=== PATIENT | female | born 1960 | race Caucasian/White ===

== ENCOUNTER 2019-04-11 09:47 | Emergency (ER) | payer MEDICARE, MEDICAID, SELFPAY ==
[2019-04-11 09:51] VITALS: BP 157/83; PULSE 94; RESP 18; TEMP 36.2; O2SAT 96
--- NOTE | 2019-04-11 10:03 | ED.GENADUL_ITS ---
Discharge Plan Disposition Patient Disposition: HOME Condition: Improving Discharge Details Chief Complaint: Orthopedic Clinical Impression: Osteoarthritis of left knee Primary Care Provider: None,None ED Provider: Ulysses Basilio Home Meds and New Rx's Prescriptions: New diclofenac sodium 1 % gel 4 gm TP BID PRN (Reason: pain) Qty: 100 RF: 0 Continued fluoxetine 20 mg Tablet 20 mg PO DAILY RF: 0 Discharge Instructions Instructions: Arthritis (ED) Additional Instructions: We have referred you to orthopedics for recheck. Please give the office a call at [phone] for an appointment time Tan bandage as needed for comfort, remove at nighttime. Please take 650 to 1000 mg of Tylenol every 6 hours while awake. Do not exceed more than 3 doses per day. Apply diclofenac cream as prescribed twice daily. Return for any acute concern, or if you develop a fever, redness, increased swelling or discomfort. Medical Decision Making 58-year-old female presents with 3 years of worsening left anterior knee pain. States that now is having difficulty sleeping at night despite trying Motrin. No new injury, no rash, no fever, no evidence of large effusion on exam. Referred for x-ray which reveals degenerative changes, with trophic spurring, small joint effusion. Will treat with diclofenac cream, Tan bandage for support and comfort, follow-up in orthopedics given the symptomatic osteoarthritic changes. Discussed with her home management. [facility] General Mode of arrival: ambulatory . Date/Time Provider Initiated Documentation: 04/11/19 09:48 . Limitations to Documentation: no limitations . Information obtained by: patient . History of Present Illness 58 year old F presents to the emergency department with the chief complaint of 3 years increasing left anterior knee pain, described as moderate, Quality is described as dull and constant, and is localized to the left and lower extremity. Patient reports no radiation. Patient started experiencing this year(s) and it has been intermittent. Rest improves symptom(s), Movement worsens symptoms . Patient notes no other symptoms.; denies fever/chills and rash. Patient did receive the following treatments prior to arrival, NSAID Related Data Home Medications Medication Instructions Recorded Confirmed diclofenac sodium 4 gm TP BID PRN #100 gm 04/11/19 fluoxetine 20 mg PO DAILY 04/11/19 04/11/19 Previous Rx's Medication Instructions Recorded diclofenac sodium 4 gm TP BID PRN #100 gm 04/11/19 Allergies Allergy/AdvReac Type Severity Reaction Status Date / Time Penicillins Allergy Unverified 04/11/19 09:54 General Stated Complaint: Orthopedic MARLINE: 4 Review of Systems Review of Systems Narrative: No fever, chills, rash, new injury or trauma. 6 systems reviewed and otherwise negative [facility] Medical History Anxiety (Chronic) Bipolar 1 disorder (Acute) Depression (Chronic) Multiple personality disorder (Acute) Social History Smoking/Tobacco Use Status: Never Alcohol Intake: current Alcohol Intake frequency: 3 or more drinks per day Substance use type: does not use Do you feel safe at home: Yes Exam Narrative Exam Narrative: GEN: awake, alert, oriented 3. Pleasant, well groomed, interactive. HEAD: Normocephalic, atraumatic EYES: PERRL, EOMI EXT: Full ROM, no edema, no rash. Motor 5 out of 5, sensation intact throughout. Mild anterior knee tenderness to palpation, no laxity, no effusion appreciated. Neuro: Grossly normal neurologic exam, conversant, interactive. Psych: Speech fluent, thoughts congruent, affect normal Course Vital Signs Vital signs: Vital Signs Temperature 36.2 C L 04/11/19 09:51 Pulse 94 H 04/11/19 09:51 Respiratory Rate 18 04/11/19 09:51 Blood Pressure 157/83 H 04/11/19 09:51 Pulse Oximetry 96 04/11/19 09:51 Temperature 36.2 C L 04/11/19 09:51 Temperature Source Skin 04/11/19 09:51 Pulse 94 H 04/11/19 09:51 Respiratory Rate 18 04/11/19 09:51 Respiratory Effort Non-Labored 04/11/19 09:57 Blood Pressure 157/83 H 04/11/19 09:51 Blood Pressure Position Sitting 04/11/19 09:51 Pulse Oximetry 96 04/11/19 09:51 Oxygen Delivery Method Room Air 04/11/19 09:51 Oxygen Flow Rate 0 04/11/19 09:51 Pain Level 6 04/11/19 09:51
--- NOTE | 2019-04-11 10:20 | DI.RAD_ITS ---
EXAM: XR KNEE LT 4V AP,LAT,ROD,PAT INDICATION: 3years increasing anterior pain. COMPARISON: No exams were available for comparison TECHNIQUE: 2D digital imaging was performed. FINDINGS: No acute fracture or dislocation is present. There is periarticular spurring seen in the medial femo ral tibial joint and the patellofemoral joint. There is a small suprapatellar joint effusion. There may be mild soft tissue swelling in the knee medially. Alternatively, this may reflect the patient' s body habitus. The bones are normally mineralized. IMPRESSION: No acute fracture or dislocation. Mild degenerative changes in the knee. Small joint effusion.
--- NOTE | 2019-04-11 11:11 | DI.VRAD_ITS ---
PROCEDURE INFORMATION: Exam: XR Left Knee Exam date and time: 04/11/2019 10:17 AM Clinical history: 58 years old, female; Patient HX: Pain in left knee x3 years, anterior portion of left knee. No recent knee trauma, fell 3 years ago. TECHNIQUE: Imaging protocol: XR Left knee. Views: 4 or more views. COMPARISON: No relevant prior studies available. FINDINGS: Bones/joints: There appears to be a small joint effusion. There are degenerative changes with medial compartment are trophic spurring at the patellofemoral articulation and medial femoral condyle. Soft tissues: There appears to be medial soft tissue swelling versus artifact and patient body habitus. Clinical correlation requested. IMPRESSION: Small joint effusion. Degenerative changes. Medial soft tissue swelling. If there is no history for recent trauma followup is recommended. COMMENT: Preliminary interpretation is based on receipt of 4 image(s). A final report will be issued subsequently. Dictated and Authenticated by: Nel Wu MD. Ordering:ANDREA Arora MD
== END 2019-04-11 11:23 | disposition home or self-care (01) ==
PROVIDERS: Emergency Provider Emergency Medicine
DX: M25.562 Pain in left knee (principal); M17.12 Unilateral primary osteoarthritis, left knee
CPT/HCPCS: 99283; 73564

== ENCOUNTER → 2019-05-07 08:50 | Outpatient (BNVA) | payer MEDICARE, MEDICAID, SELFPAY | PROVIDERS: Visit Provider Student in an Organized Health Care Education/Training Program | DX: M17.12 Unilateral primary osteoarthritis, left knee (principal) | CPT/HCPCS: 20610; 99203; J1040 ==

== ENCOUNTER → 2019-06-17 08:17 | Outpatient (BNVA) | payer MEDICARE, MEDICAID, SELFPAY | PROVIDERS: Visit Provider Student in an Organized Health Care Education/Training Program | DX: M17.12 Unilateral primary osteoarthritis, left knee (principal); M76.32 Iliotibial band syndrome, left leg | CPT/HCPCS: 99213 ==

== ENCOUNTER 2019-12-24 12:25 | Emergency (ER) | payer MEDICARE, MEDICAID, SELFPAY ==
[2019-12-24 12:29] VITALS: BP 145/80; PULSE 106; RESP 18; TEMP 36.6; O2SAT 97
--- NOTE | 2019-12-24 12:45 | DI.CT_ITS ---
EXAM: CT CHEST PE CTA CLINICAL HISTORY: chest pain and tachycardia. TECHNIQUE: Imaging Protocol: Axial CT angiography was performed with multi-slice acquisition and mu lti-planar and/or 3D reconstructions. CONTRAST MATERIAL: Intravenous: Omnipaque 350 Contrast volume:100 mL COMPARISON: No exams were available for comparison FINDINGS: Pulmonary Arteries: No evidence of filling defect to suggest pulmonary emboli. Tracheobronchial tree: Patent where visualized. Mediastinum and Allison: No dominant adenopathy or fluid collection. Pulmonary parenchyma: No focal consolidation. There is a 0.5 cm nodule abutting the right major fiss ure which may represent a lymph node. There is a 3 mm nodule in the left lower lobe medially. No ar chitectural distortion. Pleura: No effusion or pneumothorax. Heart: The heart is not dilated. No coronary artery calcifications are seen. No pericardial effusion. Aorta: Thoracic aorta non-dilated. No evidence of dissection. Upper abdomen: Unremarkable. Bones: No acute abnormality. IMPRESSION: 1. No evidence of pulmonary embolus, thoracic aortic dissection or aneurysm. 2. Two small pulmonary nodules. Right nodule may represent a lymph node. In high risk patients, fol low-up in 12 months is recommended. 3. Findings were discussed with the emergency department on the date of the examination. RADIATION DOSE DELIVERED: 499.14mGy.cm Total DLP DATA REPOSITORY: All CT scans at this facility are submitted to the National Radiology Data Registry (NRDR) Dose Index Registry (DIR) with the [employer] (ACR). RADIATION OPTIMIZATION: All CT scans at this facility use at least one of these dose optimization te chniques: automated exposure control; mA and/or kV adjustment per patient size (includes targeted exa ms where dose is matched to clinical indication); or iterative reconstruction.
--- NOTE | 2019-12-24 12:49 | ED.GENADUL_ITS ---
Discharge Plan Disposition Patient Disposition: HOME Condition: Stable Discharge Details Chief Complaint: Chest Pain Clinical Impression: Chest pain Primary Care Provider: None,None ED Provider: Km Bass Home Meds and New Rx's Prescriptions: Continued fluoxetine 20 mg Tablet 20 mg PO DAILY RF: 0 Discharge Instructions Instructions: Chest Pain (ED) Additional Instructions: Your blood work and cat scan did not show any concerning findings. You did have a lung nodule seen on the cat scan which you should make your primary care provider aware of. You should have repeat imaging in one year return to the emergency department for worsening pain, difficulty breathing or if you feel more ill follow up with your primary care provider within 1 week Medical Decision Making 59 yo female with hx of depression otherwise no medicalhistory and denies any history of smoking comes in with intermittent chest pain. Doesn't feel the pain comes on with exertion, no diaphoresis or n/v. She has no pain now last pain was this morning. Heart score is 3 will send troponin. She does have mild tachcardia and PE is just as likely a dianosis as other potential causes so wells is moderate, will obtain CTA. No tearing back ain to suggest dissection.She is caox4 with clear speach and no focal neuro deficits patient remains asymptomatic and imaging and labs unremarkable, CT shows lung nodule otherwise no findings perDr. Quiroz. I informed patient of this. She last had pain over 6 hours ago so do not feel repeat troponin and ecg indicated. Will dc home and advised to f/u with pcp, return precautions given Differential Diagnosis Differential Diagnosis: acs, PE, chest wall pain Imaging Data Radiologic Study: Attestation: I personally reviewed and interpreted this imaging study as follows: Imaging: CT Scan Radiologist's impression: no acute findings per dr. quiroz, has lung nodule and recommends repeat imaging in one year Lab Data Lab results reviewed: Yes I reviewed the patient's lab results. ECG Data Attestation: I personally reviewed and interpreted this ECG (s) as follows: Prior ECG tracings: not available for review Interpretation: sinus rhythm, rate of 86, pr 84, qtc 435 HPI General Mode of arrival: ambulatory . Date/Time Provider Initiated Documentation: 12/24/19 12:30 . Limitations to Documentation: no limitations . Information obtained by: patient . History of Present Illness 59 year old F presents to the emergency department with the chief complaint of chest pain, described as moderate, and it has been intermittent. No relieving factors improve symptom(s), No exacerbating factors reported . Patient did receive the following treatments prior to arrival, none Related Data Home Medications Medication Instructions Recorded Confirmed fluoxetine 20 mg PO DAILY 04/11/19 12/24/19 Allergies Allergy/AdvReac Type Severity Reaction Status Date / Time Penicillins Allergy Intermediate Hives Unverified 12/24/19 12:56 General Stated Complaint: Chest Pain MARLINE: 3 Review of Systems All systems reviewed & are unremarkable except as noted in HPI and below Constitutional Constitutional: Denies chills, Denies fever(s) and Denies weakness Cardiovascular Cardiovascular: Denies dyspnea Respiratory Respiratory: Denies dyspnea Gastrointestinal Gastrointestinal: Denies abdominal pain, Denies nausea and Denies vomiting Musculoskeletal Musculoskeletal: Denies joint swelling Neurologic Neurologic: Denies weakness Psychiatric Psychiatric: Denies depression [facility] Medical History (Updated 12/24/19 @ 13:53 by Km Bass MD) Alcohol abuse (Chronic) Anxiety (Chronic) Bipolar 1 disorder (Acute) Cervical cancer (Acute) Depression (Chronic) Knee pain (Acute) Multiple personality disorder (Acute) Poor dentition (Acute) Social History Smoking/Tobacco Use Status: Never Alcohol Intake: current Alcohol Intake frequency: 3 or more drinks per day Substance use type: does not use Do you feel safe at home: Yes Do you feel safe in your relationship?: Yes Exam Const General: no acute distress Orientation: alert HENMT Head: normal to inspection Ears: external ears normal General nose exam: external nose normal Mouth: moist mucous membranes Eyes General: appearance normal, both eyes and all related structures Neck Neck: normal visual inspection Resp Effort & Inspection: normal respiratory effort and able to speak in complete sentences Cardio Rate: regular rate Skin General skin exam: no rashes or lesions noted Neuro General: patient alert and patient oriented x3 Extrem General: normal to inspection Psych Mental Status: mental status grossly normal Course Vital Signs Vital signs: Vital Signs Temperature 36.6 C 12/24/19 12:29 Pulse 106 H 12/24/19 12:29 Respiratory Rate 18 12/24/19 12:29 Blood Pressure 145/80 H 12/24/19 12:29 Pulse Oximetry 97 12/24/19 12:29 Temperature 36.6 C 12/24/19 12:29 Temperature Source Temporal Artery Scan 12/24/19 12:29 Pulse 106 H 12/24/19 12:29 Respiratory Rate 18 12/24/19 12:29 Blood Pressure 145/80 H 12/24/19 12:29 Blood Pressure Position Sitting 12/24/19 12:29 Pulse Oximetry 97 12/24/19 12:29 Oxygen Delivery Method Room Air 12/24/19 12:29 Oxygen Flow Rate 0 12/24/19 12:29 Pain Level 3 12/24/19 12:29
[2019-12-24 12:52] VITALS: RESP 18
[2019-12-24] MEDS: Aspirin 81 MG CHEW 324 MG CH (13:00)
[2019-12-24 13:07] LABS: Lipase 50 U/L (73-393)
[2019-12-24 13:11] LABS: PTT Activated 23.2 sec (21.0-31.4); Prothrombin Time 9.8 sec (9.3-11.0)
[2019-12-24 13:20] LABS: ALT 60 U/L (14-59); AST 37 U/L (15-37); Albumin 3.6 g/dL (3.4-5.0); Alkaline Phosphatase 98 U/L (46-116); Anion Gap 11.1 mmol/L (3-11); BUN 6 mg/dL (7-18); Bilirubin, Direct 0.33 mg/dL (0.00-0.20); Bilirubin, Total 1.2 mg/dL (0.2-1.0); CO2 24.9 mmol/L (21.0-32.0); CREATININE 0.84 mg/dL (0.55-1.02); Calcium 8.6 mg/dL (8.5-10.1); Chloride 96 mmol/L (98-107); Glucose 124 mg/dL (74-106); Magnesium 1.8 mg/dL (1.8-2.4); Potassium 3.9 mmol/L (3.5-5.1); Sodium 132 mmol/L (136-145); Total Protein 7.1 g/dL (6.4-8.2)
[2019-12-24 13:24] LABS: Troponin I < 0.05 ng/mL (<0.06)
[2019-12-24 13:33] LABS: Abs Immature Grans 0.08 k/cumm (0.0-0.09); Absolute Basophil Count 0.02 k/cumm (0.0-0.2); Absolute Eosinophil Count 0.06 k/cumm (0.0-0.7); Absolute Lymphocyte Count 0.99 k/cumm (1.2-3.4); Absolute Monocyte Count 0.74 k/cumm (0.11-0.7); Absolute Neutrophil Count 4.56 k/cumm (1.2-6.7); Basophils % 0.3; Eosinophils % 0.9; HCT 42.1 % (36.0-46.0); HGB 14.8 g/dL (12.0-15.5); Immature Grans % 1.2 %; Lymphocytes % 15.3; Mean Corp. HGB Concentration 35.2 g/dL (32.0-36.0); Mean Corpuscular Hemoglobin 33.6 pg (27.0-33.0); Mean Corpuscular Volume 95.7 fL (80-95); Mean Platelet Volume 10.2 fL (8.0-11.0); Monocytes % 11.5; Neutrophils % 70.8; RBC Distribution Width 11.9 % (11.7-14.6); White Blood Cell Count 6.45 k/cumm (4.4-10.8)
[2019-12-24] MEDS: Omnipaque 350 MG/ML 100 ML BTL IJ (13:36)
[2019-12-24] MEDS: Normal Saline - Diluent 50 ML VIAL IV (13:37)
[2019-12-24 13:47] VITALS: PULSE 81; RESP 13; O2SAT 98
[2019-12-24 13:50] VITALS: PULSE 78; RESP 13; O2SAT 97
[2019-12-24 13:57] LABS: Diff Comment PLT Morph Reviewed; Platelet Count 69 x1000/uL (130-400); RBC Morphology Normal
[2019-12-24 14:00] VITALS: PULSE 86; RESP 16; O2SAT 97
[2019-12-24 14:01] VITALS: BP 150/58; PULSE 86; PULSE 90; RESP 20; O2SAT 99
== END 2019-12-24 14:13 | disposition home or self-care (01) ==
LOC: ER 14:01
PROVIDERS: Emergency Provider Emergency Medicine; PCP Nurse Practitioner Family
DX: R07.89 Other chest pain (principal); R91.1 Solitary pulmonary nodule
CPT/HCPCS: 36415; 71275; 80053; 83690; 93005; 99285; 82248; 83735; 84484; 85025; 85610; 85730; 93010; 99284; J3490

== ENCOUNTER → 2020-01-19 10:40 | Outpatient (BNVA) | payer MEDICARE, MEDICAID, SELFPAY | PROVIDERS: PCP Nurse Practitioner Family; Referring Provider Nurse Practitioner Family; Visit Provider Surgery | DX: K62.5 Hemorrhage of anus and rectum (principal) | CPT/HCPCS: 99202; 99214 ==

== ENCOUNTER 2020-01-27 10:40 | Day surgery (SDC) | payer MEDICARE, MEDICAID, SELFPAY ==
--- NOTE | 2020-01-27 08:50 | W.COLOREPORT ---
Date of service: 01/27/20 Colonoscopy Report Date of procedure: 01/27/20 Procedure: Polypectomy x3 Anesthesia proc note operative: MAC Estimated blood loss (mL): 5 Pathology: other Complications: None Disposition: same day Prep: Miralax/Dulcolax Retraction Time: 30 mins Procedure Description: Recommend youAfter informed consent was obtained the patient was taken to the procedure room and placed in a left decubitous position. Monitors were applied and a time out was done. The patients name, date of , procedure, allergies to medications and metal in their body was reviewed. The patient was then sedated. Once sedated and comfortable a rectal exam was done. External exam was normal. Internal exam revealed a normal sphincter tone and no palpable masses. The scope was then introduced and retrofelexed. no internal hemorrhoids were identified. The scope was then advanced to the cecum w/out difficulty. The TI and appendiceal orifice were identified. The prep was adequate. The scope was then slowly retracted over 30 minutes back into the rectum. He has 2 large polyps both are flat. 1 is at 80 cm. this is removed with multiple passes of a hot snare. All specimen is retrieved. No bleeding is noted. 1 Endo Clip was placed across the defect. Patient has another small polyp at 20 cm. This is removed with a hot snare. Specimen is retrieved. Patient has a large mass within the rectum. This appears to be just a flat polyp. It is probably about 3 cm. This was removed with multiple passes of a hot snare. And is cauterized with a biopsy forcep. There is no bleeding noted at the time of removal. There is no signs of any diverticula. The mucosa is pink and healthy patient will need to have a colonoscopy repeated in 6 months time. Further recommendations to follow pending results of biopsy. The scope was removed and the patient was woken up and taken back to Same day surgery in stable condition. The patient tolerated the procedure well and there were no immediate complications. Follow up: The patient should follow up in 6m time. If there is any signs of cancer she will be referred to oncology for radiation therapy. Unless they develop changes in bowel habits or other new gastrointestinal complaints.
--- NOTE | 2020-01-27 08:50 | W.PM.DSUDISC ---
Discharge Plan Disposition Patient Disposition: HOME Condition: Good Discharge Details Reason For Visit: adenomatous polyps x3 Attending Provider: Shannan Espino Primary Care Provider: Medina Ramirez Home Meds and New Rx's Prescriptions: No Action fluoxetine 20 mg Tablet 20 mg PO DAILY RF: 0 Discharge Instructions Additional Instructions: Findings:x2 lg polyps -will need to repeat scope in 6months -No ASA/NSAID's x 14 days -low fiber/soft diet x3 days -expect to have bleeding w/ first BM. IF bleeding is continuous, or start passing large clots. OR having any abdominal pain/vomiting/fevers- go to the ER. Follow up:In am w/ Dr. Espino. Need to be at the office at 9:15am, Saturday 01/27. Please call if you develop: fevers >101.5 Nausea or Vomiting Abdominal pain that is not transient DAY SURGERY UNIT POST COLONOSCOPY INSTRUCTIONS 1. Because there will be medication in your system for the next 24 hours, you may feel a little sleepy. Your coordination will be affected. Therefore: a. Do not drive or operate dangerous equipment for 24 hours. b. Do not drink alcohol beverages for 24 hours (not even beer). c. Plan to go home and rest for the day. 2. Generally there are no restrictions on your activity after a day or so has gone by, but you may feel a bit fatigued for a few days. 3 After you arrive home you may have a light meal and return to a normal diet as you can tolerate it without feeling sick to your stomach. 4. After surgery, you may feel pain or discomfort. This should be only transient, but if it persists please contact your doctor. 5. If there are any questions regarding the findings of your procedure, please feel free to contact your doctor. 6. If you are unable to contact your doctor with a problem, contact the hospital at [phone]. 7. Continue all your regular medications unless directed otherwise. I understand the above instructions and have no questions. Signature of Patient or Responsible Adult Escort Date/Time Name of Responsible Adult Escort Signature of Nurse Date/Time Discharge Orders Discharge Orders: Discharge Order (Routine); Ordered 01/27/20 Ordered By: Shannan Espino DS: Diagnosis Discharge Diagnosis (1) Anal and rectal polyp: Status: Acute (2) Adenomatous polyps: Status: Acute
[2020-01-27 11:26] VITALS: BP 149/86; PULSE 83; RESP 16; TEMP 36.2; O2SAT 97
[2020-01-27] MEDS: Lactated Ringers 1,000 ML 80 ML IV (12:20)
--- NOTE | 2020-01-27 12:50 | BOWEL_PTH ---
PATIENT: Katie Bucio LOC: [facility] U#:[id number] AGE/SX: 59/F ROOM: RE01/27/[address]: Shannan Espino : 1960 BED: DIS: 01/27/2020 SPEC #: [id number] RECD: 01/27/20 17:56 STATUS: MELISSA REQ #: [id number] MONICA: 01/27/20 12:[address]: Shannan Espino DEPT: Surgical Specimen RECD BY: Madisyn Angelo ENTERED: 01/27/20 17:57 SP TYPE: Bowel OTHR DR: Medina Ramirez Tissues: 1 - BIOPSY BOWEL 2 - BIOPSY BOWEL 3 - BIOPSY BOWEL Procedures: GROSS AND MICRO LEVEL 4 Comments: [id number]
[2020-01-27 14:02] VITALS: BP 138/74; PULSE 74; RESP 17; TEMP 36.2; O2SAT 100
== END 2020-01-27 14:58 | disposition home or self-care (01) ==
PROVIDERS: PCP Nurse Practitioner Family; Visit Provider Surgery
PROC: 0DJD8ZZ Inspection of Lower Intestinal Tract, Via Natural or Artificial Opening Endoscopic (ICD-10-PCS; CPT 45378; principal; 2020-01-27 11:15)
DX: D12.6 Benign neoplasm of colon, unspecified (principal); Z12.11 Encounter for screening for malignant neoplasm of colon; D12.8 Benign neoplasm of rectum; K62.5 Hemorrhage of anus and rectum; Z83.71 Family history of colonic polyps; Z85.41 Personal history of malignant neoplasm of cervix uteri
CPT/HCPCS: 45385; 88305; J2001

== ENCOUNTER → 2020-01-28 09:13 | Outpatient (BNVA) | payer MEDICARE, MEDICAID, SELFPAY | PROVIDERS: PCP Nurse Practitioner Family; Referring Provider Nurse Practitioner Family; Visit Provider Surgery | DX: K62.0 Anal polyp (principal); K62.1 Rectal polyp; D36.9 Benign neoplasm, unspecified site ==

== ENCOUNTER 2020-01-28 10:14 | Outpatient (REF) | payer MEDICARE, MEDICAID, SELFPAY ==
[2020-01-28 10:33] LABS: HCT 45.1 % (36.0-46.0); HGB 15.6 g/dL (12.0-15.5); Mean Corp. HGB Concentration 34.6 g/dL (32.0-36.0); Mean Corpuscular Hemoglobin 33.7 pg (27.0-33.0); Mean Corpuscular Volume 97.4 fL (80-95); Mean Platelet Volume 11.1 fL (8.0-11.0); Platelet Count 106 x1000/uL (130-400); RBC 4.63 m/cumm (4.00-5.20); RBC Distribution Width 12.2 % (11.7-14.6); White Blood Cell Count 10.72 k/cumm (4.4-10.8)
== END 2020-01-28 10:34 ==
LOC: LBN 10:14
PROVIDERS: PCP Nurse Practitioner Family; Visit Provider Surgery
DX: K62.0 Anal polyp (principal); K62.1 Rectal polyp; K62.5 Hemorrhage of anus and rectum
CPT/HCPCS: 85027

== ENCOUNTER 2020-02-08 00:50 | Outpatient (CLI) | payer MEDICARE, MEDICAID, SELFPAY ==
--- NOTE | 2020-02-08 | DI.MAMMO_ITS ---
EXAM: MAMMO SCREENING CLINICAL HISTORY: SCREENING,Z12.31 TECHNIQUE: Mammograms were interpreted according to the usual protocol including computer analysis w Vserv CAD system, tomosynthesis and C-view imaging. COMPARISON: FINDINGS: The breasts are of moderate density with fairly symmetrical distribution of fibroglandular tissue. N o dominant mass or clumped microcalcification is identified in either breast. The current examinatio n is compared with previous examinations including September 2014 and there has been no gross interval ch asuncion in appearance comparison with prior studies. IMPRESSION: No specific evidence of malignancy at this time. Routine screening examinations are suggested yearly intervals in this age group according to the ACS ACR guidelines. BI-RADS Category 1 - Negative Breast Density - Category B - Scattered areas of fibroglandular density
== END 2020-02-08 01:10 ==
PROVIDERS: PCP Nurse Practitioner Family; Visit Provider Nurse Practitioner Family
DX: Z12.31 Encounter for screening mammogram for malignant neoplasm of breast (principal); R92.2 Inconclusive mammogram
CPT/HCPCS: 77063; 77067

== ENCOUNTER 2020-06-01 12:29 | Outpatient (REF) | payer MEDICARE, MEDICAID, SELFPAY ==
--- NOTE | 2020-05-31 11:00 | PAPFT_PTH ---
PATIENT: Katie Bucio LOC: [facility] U#:[id number] AGE/SX: 59/F ROOM: RE06/01/[address]: Medina Ramirez : 1960 BED: DIS: 06/01/2020 SPEC #: [id number] RECD: 06/01/20 13:14 STATUS: MELISSA REQ #: [id number] MONICA: 05/31/20 11:[address]: Medina Ramirez DEPT: [facility] Cytology RECD BY: Madisyn Angelo Tissues: 1 - CX/ENDOCX FOR PAP SMEARS Procedures: PAP THIN PREP/UVM Screening HPV DNA PROBE Comments: [id number] ([id number] [facility])
== END 2020-06-01 12:49 ==
LOC: NCHCN 12:29
PROVIDERS: PCP Nurse Practitioner Family; Visit Provider Nurse Practitioner Family
DX: Z12.4 Encounter for screening for malignant neoplasm of cervix (principal); Z11.51 Encounter for screening for human papillomavirus (HPV)
CPT/HCPCS: 88142; 87624

== ENCOUNTER → 2020-07-24 10:26 | Outpatient (BNVA) | payer MEDICARE, MEDICAID, SELFPAY | PROVIDERS: PCP Nurse Practitioner Family; Referring Provider Nurse Practitioner Family; Visit Provider Surgery | DX: Z12.11 Encounter for screening for malignant neoplasm of colon (principal); Z11.52 Encounter for screening for COVID-19; Z80.0 Family history of malignant neoplasm of digestive organs ==

== ENCOUNTER 2020-07-26 04:49 | Outpatient (CLI) | payer MEDICARE, MEDICAID, SELFPAY ==
[2020-07-26 12:56] LABS: Abs Immature Grans 0.21 10^3/uL (0.0-0.06); Absolute Basophil Count 0.08 10^3/uL (0.0-0.2); Absolute Eosinophil Count 0.06 10^3/uL (0.0-0.7); Absolute Lymphocyte Count 1.29 10^3/uL (1.2-3.4); Absolute Monocyte Count 0.89 10^3/uL (0.1-0.8); Absolute Neutrophil Count 8.73 10^3/uL (1.2-6.7); Basophils % 0.7; Eosinophils % 0.5; HCT 43.4 % (36.0-46.0); Immature Grans % 1.9; Lymphocytes % 11.5; MCH 32.6 pg (27.0-33.0); MCHC 34.6 % (32.0-36.0); MCV 94.3 fL (80-95); MPV 10.4 fL (8.0-11.0); Monocytes % 7.9; Neutrophils % 77.5; Nucleated RBC 0 %; Platelet Count 100 10^3/uL (130-400); RDW 11.7 % (11.7-14.6); RDW-SD 40.1 fL; WBC 11.26 10^3/uL (4.4-10.8)
[2020-07-26 13:35] LABS: Prothrombin Time 10.4 sec (9.3-11.0)
[2020-07-26 13:54] LABS: ALT 36 U/L (14-59); AST 18 U/L (15-37); Albumin 3.8 g/dL (3.4-5.0); Alkaline Phosphatase 101 U/L (46-116); Anion Gap 8.5 mmol/L (3-11); BUN 8 mg/dL (7-18); Bilirubin, Total 1.7 mg/dL (0.2-1.0); CO2 28.5 mmol/L (21.0-32.0); CREATININE 0.79 mg/dL (0.55-1.02); Chloride 94 mmol/L (98-107); GGT 59 U/L (5-55); Glucose 93 mg/dL (74-106); Potassium 4.5 mmol/L (3.5-5.1); Sodium 131 mmol/L (136-145); Total Protein 7.1 g/dL (6.4-8.2)
[2020-07-26 22:36] LABS: CEA 0.9 ng/mL (See Note)
== END 2020-07-26 05:09 ==
PROVIDERS: PCP Nurse Practitioner Family; Visit Provider Surgery
DX: D37.4 Neoplasm of uncertain behavior of colon (principal); K62.5 Hemorrhage of anus and rectum; R32 Unspecified urinary incontinence; F10.10 Alcohol abuse, uncomplicated; F41.9 Anxiety disorder, unspecified; F31.9 Bipolar disorder, unspecified
CPT/HCPCS: 36415; 80053; 82378; 82977; 85025; 85610

== ENCOUNTER 2020-08-09 02:30 | Outpatient (CLI) | payer MEDICARE, MEDICAID, SELFPAY ==
[2020-08-10 13:17] LABS: COVID-19 RT-PCR UVMMC Result Negative (Negative)
== END 2020-08-09 02:50 ==
PROVIDERS: PCP Nurse Practitioner Family; Visit Provider Surgery
DX: Z11.52 Encounter for screening for COVID-19 (principal)
CPT/HCPCS: U0003

== ENCOUNTER 2020-08-11 08:55 | Day surgery (SDC) | payer MEDICARE, MEDICAID, SELFPAY ==
--- NOTE | 2020-08-11 | DI.CT_ITS ---
EXAM: CT ABDOMEN PELVIS W CLINICAL HISTORY: villous adenoma of the rectum, HIGH GRADE DYSPLASIA. TECHNIQUE: Imaging Protocol: Axial computed tomography images with coronal and sagittal reformatted images were created and reviewed CONTRAST MATERIAL: Intravenous: Omnipaque 100cc Oral: None COMPARISON: CT CT CHEST PE CTA from 12/24/2019 FINDINGS: VISUALIZED LUNG BASES: Mild increased markings both lung bases. No pleural effusions.. ABDOMEN: There is no ascites. LIVER: There are no obvious focal hepatic lesions evident. Mild steatosis evident GALLBLADDER/BILIARY: No obvious gallbladder pathology. CBD is not dilated. PANCREAS: No evidence of pancreatic mass nor dilatation of the pancreatic duct. SPLEEN: Spleen is not enlarged. No obvious intrasplenic lesions. Splenic and portal veins are paten t. ADRENALS: There are no significant adrenal masses. KIDNEYS:No cysts evident. No solid renal masses. No calculi nor hydronephrosis.. ABDOMINAL AORTA: Abdominal aorta is not enlarged and there is no ubcrsajxytnckph-wvgf-solcig adenopat hy. ABDOMINAL WALL/GI: No evidence of significant anterior abdominal wall hernia. There is a mobile cecu m which is in the midline. PELVIS: GI: No evidence of appendicitis.No evidence of sigmoid diverticulitis. LYMPH NODES: There is no intrapelvic nor inguinal adenopathy. REPRODUCTIVE: Uterus is surgically absent. There are no abnormal adnexal masses nor free fluid in th e pelvis. URINARY BLADDER: No calculi nor obvious masses evident OSSEOUS: No significant osseous lesions. Incidentally noted is an element of anterolisthesis of L4 upon L5 due to degenerative facet joint micah nges. There are no pars defects. IMPRESSION: 1. Mobile cecum which is slightly prominent in size but not edematous. There is no evidence of bowel obstruction. No evidence of appendicitis no diverticulitis. 2. Hepatic steatosis. Correlation with appropriate hepatic blood work recommended. No ominous focal hepatic lesions evident. 3. No ascites nor lymphadenopathy evident 4. Uterus is surgically absent. There are no abnormal adnexal masses nor free fluid in pelvis. RADIATION DOSE DELIVERED: 1,704.21mGy.cm Total DLP DATA REPOSITORY: All CT scans at this facility are submitted to the National Radiology Data Registry (NRDR) Dose Index Registry (DIR) with the [employer] (ACR). RADIATION OPTIMIZATION: All CT scans at this facility use at least one of these dose optimization te chniques: automated exposure control; mA and/or kV adjustment per patient size (includes targeted exa ms where dose is matched to clinical indication); or iterative reconstruction.
[2020-08-11 09:14] VITALS: BP 164/92; PULSE 84; RESP 18; TEMP 36.3; O2SAT 96
[2020-08-11] MEDS: Lactated Ringers 1,000 ML 80 ML IV (09:39)
--- NOTE | 2020-08-11 10:00 | BOWEL_PTH ---
PATIENT: Katie Bucio LOC: [facility] U#:[id number] AGE/SX: 59/F ROOM: RE08/11/[address]: Shannan Espino : 1960 BED: DIS: 08/11/2020 SPEC #: [id number] RECD: 08/11/20 12:37 STATUS: MELISSA REQ #: [id number] MONICA: 08/11/20 10:[address]: Shannan Espino DEPT: Surgical Specimen RECD BY: Madisyn Angelo ENTERED: 08/11/20 12:39 SP TYPE: Bowel OTHR DR: Medina Ramirez Tissues: 1 - BIOPSY BOWEL 2 - BIOPSY BOWEL 3 - BIOPSY BOWEL 4 - BIOPSY BOWEL Procedures: GROSS AND MICRO LEVEL 4 Comments: [id number]
--- NOTE | 2020-08-11 10:45 | COLE_ITS ---
Date of service: 08/11/20 Time of Service: 10:45 Colonoscopy Report Date of procedure: 08/11/20 Pre-op diagnosis general: villous adenma in retum Post-op diagnosis procedure note: same Procedure: ce & polypectomy Anesthesia proc note operative: GETA Estimated blood loss (mL): 2 Pathology: none sent Disposition: same day Prep: Miralax/Dulcolax Retraction Time: 20mins Procedure Description: After informed consent was obtained the patient was taken to the procedure room and placed in a left decubitous position. Monitors were applied and a time out was done. The patients name, date of , procedure, allergies to medications and metal in their body was reviewed. The patient was then sedated. Once sedated and comfortable a rectal exam was done. External rectal tags. Internal exam revealed a normal sphincter tone and no palpable masses. The scope was then introduced and retrofelexed. internal hemorrhoidal tags were identified. The scope was then advanced to the cecum w/out difficulty. The TI and appendiceal orifice were identified. The prep was adequate. The scope was then slowly retracted over 20 minutes back into the rectum. Patient has remnants of a villous in the rectum. This is an irregular shaped polyp that is 1 cm in size. Is removed piecemeal with a hot biting force. The base is also fulgurated. All specimens retrieved. There is no bleeding noted. She has another 5 mm polyp at 20 cm. This is removed with a hot biting forcep. She has another 0.75 mm polyp that is flat at 40 cm. This is removed with a hot biting forcep. She has a 1 cm flat polyp at 90 cm. This is removed with 3 bites of a hot biting forcep. All specimen is retrieved and no bleeding is noted. Cecum was achieved at 100 cm. There is remains of effluent over the perdomo of the right colon. This is washed and removed. There does not appear to be other masses. Mucosa is otherwise pink and healthy. There are no diverticuli. There are no AVMs. All specimens are retrieved and no bleeding is noted. The scope was removed and the patient was woken up and taken back to Same day surgery in stable condition. The patient tolerated the procedure well and there were no immediate complications. She did have episode of laryngospasm. Anesthesia does not feel that she aspirated. Follow up: The patient should follow up with me in the office. In 2 weeks. She is going to have a CT with IV and oral contrast today. Unless they develop changes in bowel habits or other new gastrointestinal complaints. If there is any sign adenopathy then she will go down to [facility] for a rectal ultrasound and biopsy. Patient has significant psychosocial determinants that significantly impact her care. She is significant transportation issues. She has issues with follow-up and understanding instructions.
--- NOTE | 2020-08-11 10:57 | W.PM.DSUDISC ---
Discharge Plan Disposition Patient Disposition: HOME Condition: Good Discharge Details Reason For Visit: colon scope and CT Attending Provider: Shannan Espino Primary Care Provider: Medina Ramirez Home Meds and New Rx's Prescriptions: Continued citalopram 20 mg tablet 20 mg PO DAILY RF: 0 Discontinued polyethylene glycol 3350 17 gram/dose powder 238 g PO ONCE Qty: 238 RF: 0 bisacodyl [Dulcolax (bisacodyl)] 5 mg tablet,delayed release (DR/EC) 5 mg PO ONCE Qty: 4 RF: 0 Discharge Instructions Additional Instructions: Findings:x4 polyps Follow up: F/u Srinivas in 2 wks. Will review the results of the polyps and results of CT scan Please call if you develop: fevers >101.5 Nausea or Vomiting Abdominal pain that is not transient DAY SURGERY UNIT POST COLONOSCOPY INSTRUCTIONS 1. Because there will be medication in your system for the next 24 hours, you may feel a little sleepy. Your coordination will be affected. Therefore: a. Do not drive or operate dangerous equipment for 24 hours. b. Do not drink alcohol beverages for 24 hours (not even beer). c. Plan to go home and rest for the day. 2. Generally there are no restrictions on your activity after a day or so has gone by, but you may feel a bit fatigued for a few days. 3 After you arrive home you may have a light meal and return to a normal diet as you can tolerate it without feeling sick to your stomach. 4. After surgery, you may feel pain or discomfort. This should be only transient, but if it persists please contact your doctor. 5. If there are any questions regarding the findings of your procedure, please feel free to contact your doctor. 6. If you are unable to contact your doctor with a problem, contact the hospital at [phone]. 7. Continue all your regular medications unless directed otherwise. I understand the above instructions and have no questions. Signature of Patient or Responsible Adult Escort Date/Time Name of Responsible Adult Escort Signature of Nurse Date/Time Activity:: No lifting over 20 pounds or strenuous activity x24 hours Diet:: Small light meals x24 hours Discharge Orders Discharge Orders: Discharge Order (Routine); Ordered 08/11/20 Ordered By: Shannan Espino DS: Diagnosis Discharge Diagnosis (1) High grade dysplasia in colonic adenoma: Status: Acute (2) Bipolar 1 disorder: Status: Acute (3) Anxiety: Status: Chronic (4) Alcohol abuse: Status: Chronic (5) Incontinence: Status: Acute (6) Tubulovillous adenoma: Status: Acute (7) Multiple personality disorder: Status: Acute
[2020-08-11] MEDS: Albuterol 2.5 MG/3 ML INH SOLN VIAL UPD (11:07)
[2020-08-11 11:17] VITALS: PULSE 76; RESP 1; RESP 12; RESP 8; O2SAT 100
[2020-08-11 11:20] VITALS: BP 148/79; PULSE 78; RESP 16; TEMP 36.7; O2SAT 96
[2020-08-11] MEDS: Breeza Beverage 473 ML BTL PO (12:25)
[2020-08-11] MEDS: Omnipaque 350 MG/ML 50 ML BTL IJ (12:25)
--- NOTE | 2020-08-11 12:30 | W.PM.DSUDISC ---
Discharge Plan Disposition Patient Disposition: HOME Condition: Good Discharge Details Reason For Visit: colon scope and CT Attending Provider: Shannan Espino Primary Care Provider: Medina Ramirez Home Meds and New Rx's Prescriptions: Continued citalopram 20 mg tablet 20 mg PO DAILY RF: 0 Discontinued polyethylene glycol 3350 17 gram/dose powder 238 g PO ONCE Qty: 238 RF: 0 bisacodyl [Dulcolax (bisacodyl)] 5 mg tablet,delayed release (DR/EC) 5 mg PO ONCE Qty: 4 RF: 0 Discharge Instructions Additional Instructions: Findings:x4 polyps -no asa/nsaids for 2 wks. We will have a small amount of bleeding for the next 48 hours. you will have a small amount of bleeding with bowel movements for the next 2 weeks. If you are experiencing sharp pain or passing clots larger than your fist, please come into the emergency department. Follow up: F/u Srinivas in 2 wks. Will review the results of the polyps and results of CT scan Please call if you develop: fevers >101.5 Nausea or Vomiting Abdominal pain that is not transient DAY SURGERY UNIT POST COLONOSCOPY INSTRUCTIONS 1. Because there will be medication in your system for the next 24 hours, you may feel a little sleepy. Your coordination will be affected. Therefore: a. Do not drive or operate dangerous equipment for 24 hours. b. Do not drink alcohol beverages for 24 hours (not even beer). c. Plan to go home and rest for the day. 2. Generally there are no restrictions on your activity after a day or so has gone by, but you may feel a bit fatigued for a few days. 3 After you arrive home you may have a light meal and return to a normal diet as you can tolerate it without feeling sick to your stomach. 4. After surgery, you may feel pain or discomfort. This should be only transient, but if it persists please contact your doctor. 5. If there are any questions regarding the findings of your procedure, please feel free to contact your doctor. 6. If you are unable to contact your doctor with a problem, contact the hospital at [phone]. 7. Continue all your regular medications unless directed otherwise. I understand the above instructions and have no questions. Signature of Patient or Responsible Adult Escort Date/Time Name of Responsible Adult Escort Signature of Nurse Date/Time Activity:: No lifting over 20 pounds or strenuous activity x24 hours Diet:: Small light meals x24 hours Discharge Orders Discharge Orders: Discharge Order (Routine); Ordered 08/11/20 Ordered By: Shannan Espino DS: Diagnosis Discharge Diagnosis (1) High grade dysplasia in colonic adenoma: Status: Acute (2) Bipolar 1 disorder: Status: Acute (3) Anxiety: Status: Chronic (4) Alcohol abuse: Status: Chronic (5) Incontinence: Status: Acute (6) Tubulovillous adenoma: Status: Acute (7) Multiple personality disorder: Status: Acute
[2020-08-11] MEDS: Omnipaque 350 MG/ML 100 ML BTL IJ (13:07)
== END 2020-08-11 13:35 | disposition home or self-care (01) ==
PROVIDERS: PCP Nurse Practitioner Family; Visit Provider Surgery
PROC: 0DJD8ZZ Inspection of Lower Intestinal Tract, Via Natural or Artificial Opening Endoscopic (ICD-10-PCS; CPT 45378; principal; 2020-08-11 09:45)
DX: Z12.11 Encounter for screening for malignant neoplasm of colon (principal); Z86.010 Personal history of colon polyps; Z87.19 Personal history of other diseases of the digestive system; D12.6 Benign neoplasm of colon, unspecified; D12.8 Benign neoplasm of rectum; K64.4 Residual hemorrhoidal skin tags
CPT/HCPCS: 45384; 88305; 74177; 94640; J2001; J2704; J3490; J7613; Q9967

== ENCOUNTER → 2020-08-24 14:23 | Outpatient (BNVA) | payer MEDICARE, MEDICAID, SELFPAY | PROVIDERS: PCP Nurse Practitioner Family; Referring Provider Nurse Practitioner Family; Visit Provider Surgery | DX: Z48.815 Encounter for surgical aftercare following surgery on the digestive system (principal) | CPT/HCPCS: 99212 ==

== ENCOUNTER 2020-12-18 01:01 | Outpatient (CLI) | payer MEDICARE, MEDICAID, SELFPAY ==
--- NOTE | 2020-12-18 | DI.CT_ITS ---
Exam(s) CT CHEST WO EXAM: CT CHEST WO CLINICAL HISTORY: RML PULMONARY NODULE,R91.1. TECHNIQUE: Imaging protocol: Axial computed tomography images were obtained and coronal and sagittal reformatted images were created and reviewed. COMPARISON: CT CT CHEST PE CTA from 12/24/2019 FINDINGS: The examination is limited due to patient motion artifact. Tracheobronchial tree: Patent where visualized. Pulmonary parenchyma: No consolidation or dominant measurable mass. No architectural distortion. The 0.5 cm perifissural nodule in the right lower lobe is unchanged. The 3 mm nodule or opacity in the m edial aspect of the left lung base is unchanged. No new pulmonary nodules are present. Mediastinum and Allison: No dominant adenopathy or fluid collection. Pleura: No effusion or pneumothorax. Heart: The heart is not dilated. No coronary artery calcifications are seen. No pericardial effusion. Aorta: Thoracic aorta non-dilated. Upper abdomen: Unremarkable. Lymph nodes: Within normal limits. Soft tissues: Unremarkable. Bones:Degenerative changes are seen in the spine in the shoulders bilaterally. IMPRESSION: Stable pulmonary nodules. In high risk patients, follow-up in 12 months is recommended. RADIATION DOSE DELIVERED: 758.76mGy.cm Total DLP 758.76mGy.cm Total DLP DATA REPOSITORY: All CT scans at this facility are submitted to the National Radiology Data Registry (NRDR) Dose Index Registry (DIR) with the [employer] (ACR). RADIATION OPTIMIZATION: All CT scans at this facility use at least one of these dose optimization te chniques: automated exposure control; mA and/or kV adjustment per patient size (includes targeted exa ms where dose is matched to clinical indication); or iterative reconstruction.
== END 2020-12-18 01:21 ==
PROVIDERS: PCP Nurse Practitioner Family; Visit Provider Nurse Practitioner Family
DX: R91.1 Solitary pulmonary nodule (principal)
CPT/HCPCS: 71250

== ENCOUNTER → 2021-02-08 08:52 | Outpatient (BNVA) | payer MEDICARE, MEDICAID, SELFPAY | PROVIDERS: PCP Nurse Practitioner Family; Referring Provider Nurse Practitioner Family; Visit Provider Physical Therapy Assistant | DX: Z12.11 Encounter for screening for malignant neoplasm of colon (principal); Z86.010 Personal history of colon polyps ==

== ENCOUNTER 2021-02-14 02:53 | Outpatient (CLI) | payer MEDICARE, MEDICAID, SELFPAY ==
[2021-02-14 12:13] LABS: Source Nasal/Nares
[2021-02-14 14:24] LABS: COVID-19 PCR Negative (Negative)
== END 2021-02-14 02:54 | disposition home or self-care (01) ==
LOC: LBO 02:53
PROVIDERS: PCP Nurse Practitioner Family; Visit Provider Surgery
DX: Z20.822 Contact with and (suspected) exposure to COVID-19 (principal); Z01.818 Encounter for other preprocedural examination
CPT/HCPCS: 87635

== ENCOUNTER 2021-02-16 06:11 | Day surgery (SDC) | payer MEDICARE, MEDICAID, SELFPAY ==
--- NOTE | 2021-02-15 13:39 | W.ANESPRE ---
General Info Date of Service Date Performed: 02/16/21 Height: 5 ft 3.5 in Weight: 110.45 kg Body Mass Index (BMI): 42.4 Surgical Procedure: Operation Date: 02/16/21 07:35 Proposed Procedures Side Surgeon p ColonoscopyAND POLYPECTOMY Shannan Espino, Meds Allergies and Home Medications Allergies Allergy/AdvReac Type Severity Reaction Status Date / Time Penicillins Allergy Intermediate Hives Verified 02/16/21 06:16 Home Medication Medication Instructions Recorded bisacodyl 5 mg tablet,delayed 5 mg PO ONCE #4 tab 02/08/21 release polyethylene glycol 3350 17 238 g PO ONCE #238 g 02/08/21 gram/dose oral powder Current Visit Medications: Current Medications Generic Name Dose Route Start Last Admin Trade Name Freq PRN Reason Stop Dose Admin Ringer's Solution 1,000 mls @ 80 mls/hr 02/16/21 06:00 IV 03/17/21 23:59 INFUSION JOSE IV Miscellaneous Supplies 1 each 02/16/21 06:00 Iv Access IV 03/17/21 23:59 DIRECTED JOSE Sodium Chloride 0 ml 02/16/21 06:00 Normal Saline Flush 10 Ml Syr IV 03/17/21 23:59 PRN PRN Sodium Chloride 0 ml 02/16/21 06:00 Normal Saline 10 Ml Vial IJ 03/17/21 23:59 DIRECTED PRN Sterile Water 0 ml 02/16/21 06:00 Water,Injection,Sterile 10 Ml Vial IJ 03/17/21 23:59 DIRECTED PRN PFSH Active Problems Active Problems: Problem Status Onset Code Multiple personality disorder F44.81 High grade dysplasia in colonic adenoma D12.6 Bipolar 1 disorder F31.9 Anxiety F41.9 Alcohol abuse F10.10 Incontinence R32 Sessile colonic polyp K63.5 Tubulovillous adenoma D36.9 Villous adenoma of colon D37.4 Adenomatous polyps D36.9 Anal and rectal polyp K62.0, K62.1 Unilateral primary osteoarthritis, left knee M17.12 Iliotibial band syndrome affecting left lower leg M76.32 Rectal bleeding K62.5 Medical History Medical History Adenomatous polyps Alcohol abuse Anal and rectal polyp Anxiety Bipolar 1 disorder Cervical cancer Colonoscopy planned Depression Hx of chest pain Was seen on 12/24/19 in ED for chest pain, had worked up and f/U with PCP no issues or concerns or reoccurent chest pain since. Hx of fracture of arm R arm, both bones. Plates. Incontinence Knee pain Multiple personality disorder Poor dentition Rectal bleeding Surgical History Surgical History History of colonoscopy (~01/2020) Dr. Espino 01/27/20 villous/tubulovillous adenoma sessile serrated adenoma repeat in July of 2020 History of colonoscopy with polypectomy (~08/11/20) Srinivas, multiple polyps Tobacco Smoking/Tobacco Use Status: Never Alcohol Alcohol Intake: current Alcohol intake frequency: 3 or more drinks per day Alcohol type: beer Details: 6+ beer/day; Has been cutting back the past few weeks from 18+ beers/day Substance Use Substance use type: does not use Vital Signs and Lab Results Vital Signs Most Recent Vital Signs in EMR: Temp Pulse Resp BP Pulse Ox 36.5 C 79 18 146/76 H 100 02/16/21 06:29 02/16/21 06:29 02/16/21 06:29 02/16/21 06:29 02/16/21 06:29 Lab Results Blood Type / Crossmatch: No Data to Display Complete Blood Count: No Data to Display Complete Metabolic Panel: No Data to Display Liver Function Panel: No Data to Display Coagulation Panel: No Data to Display Cardiac Panel: No Data to Display Arterial Blood Gas: No Data to Display Venous Blood Gas: No Data to Display Pancreas Panel: No Data to Display Thyroid Panel: No Data to Display Infectious Disease: Coronavirus (COVID-19)(PCR) Negative (Negative) 02/14/21 10:34 02/14/21 Coronavirus 2019 Source Nasal/Nares 02/14/21 10:34 02/14/21 Blood Cultures: No Data to Display Toxicology Panel: No Data to Display Anesthesia Assessment and Plan Anesthesia History Personal History: No History of Anesthesia Complications Family History: No Family History of Anesthesia Complications Exercise Tolerance Exercise Tolerance: Metabolic Equivalents>4 Cardiac & Pulmonary Exam Cardiac Exam: Normal S1/S2 Heart Sounds Pulmonary Exam: Clear Bilateral Breath Sounds Airway Exam Known Difficult Airway: No Mallampati Class: 3 Mouth Opening: Normal (> 3cm) Thyromental Distance: Greater than 3 cm Neck Range of Motion: Limited ROM Neck Circumference: Thick Teeth Condition: Removable Dentures/Plates Upper Airway Comments: Plate upper, multiple missing lower. ASA Classification ASA Score: ASA 3 Emergency Case?: No NPO Status NPO Status: NPO Clears >2 hours, Solids >8 hours Anesthesia Plan Resuscitation Status: Full Code Anesthesia Technique: General Anesthesia Airway Planned: Natural Airway Monitors Used: Standard Monitors Preoperative Comments:: 60 yo female for colonoscopy with history of polyps. sig pmhx for ETOH abuse (down to 6 beers a day). Previous colonoscopy with laryngospasm that broke with PPV.
[2021-02-16] VITALS (10 sets, daily range): BP systolic 106–147; BP diastolic 46–98; PULSE 68–81; RESP 16–20; TEMP 36.1–36.6; TEMPC 36.1; O2SAT 96–100; BMI 42.4
[2021-02-16] MEDS: Lactated Ringers 1,000 ML 80 ML IV (06:52)
--- NOTE | 2021-02-16 07:53 | BOWEL_PTH ---
PATIENT: Katie Bucio LOC: [facility] U#:[id number] AGE/SX: 60/F ROOM: RE02/16/[address]: Shannan Espino : 1960 BED: DIS: 02/16/2021 SPEC #: [id number] RECD: 02/16/21 09:04 STATUS: MELISSA REQ #: [id number] MONICA: 02/16/21 07:[address]: Shannan Espino DEPT: Surgical Specimen RECD BY: Yadira Tabares ENTERED: 02/16/21 09:05 SP TYPE: Bowel OTHR DR: Medina Ramirez Tissues: 1 - BIOPSY BOWEL 2 - BIOPSY BOWEL Procedures: GROSS AND MICRO LEVEL 4 Comments: [id number]
--- NOTE | 2021-02-16 08:52 | W.PM.OP ---
Date of service: 02/16/21 Time of Service: 22:48 Operative Note Operative Note DATE OF PROCEDURE: 02/16/21 PRE-OP DIAGNOSIS: villous adenoma of rectum POST-OP DIAGNOSIS: other (same + x2 new polyps ) PROCEDURE: polypectomy x2 SURGEON: Shannan Espino ANESTHESIA TYPE: General:No Airway Refer to Anesthesia Record ESTIMATED BLOOD LOSS: 5 PATHOLOGY: other COMPLICATIONS: None Patient was transported to: PACU Patient's condition: stable Procedure Description: After informed consent was obtained the patient was taken to the procedure room and placed in a left decubitous position. Monitors were applied and a time out was done. The patients name, date of , procedure, allergies to medications and metal in their body was reviewed. The patient was then sedated. Once sedated and comfortable a rectal exam was done. External hemorrhoids- not currently inflammed. Internal exam revealed a normal sphincter tone and no palpable masses. The scope was then introduced and retrofelexed. internal hemorrhoids were identified. The scope was then advanced to the cecum w/out difficulty. During the course of the procedure, pt developed severe laryngoscope and required intubation to secure her airway. the procedure was than resummed.The TI and appendiceal orifice were identified. The prep was adequate. she has a 1.5cm flat polyp in the cecum. This is removed w/ a hot snare adn 2 clips are placed. The specimen is received. There is no bleeding noted. She has another 1cm polyp at 80cm that is removed w/ a hot snare adn retrieved. 1 clip is placed over the defect. All specimen is retrieved and there is no bleeding noted. The scope was then slowly retracted over 20 minutes back into the rectum. There are no diverticula. There is no sign of recurrent dx at the ano-rectal region. . The scope was removed and the patient was woken up and taken back to Same day surgery in stable condition. The patient tolerated the procedure well and there were no immediate complications. Follow up: The patient should follow up in 1 years unless they develop changes in bowel habits or other new gastrointestinal complaints.
--- NOTE | 2021-02-16 08:55 | PDOC.DSDIS_ITS ---
Discharge Plan Disposition Patient Disposition: HOME Condition: Good Discharge Details Reason For Visit: colon scope adn polyp removal x2 Attending Provider: Shannan Espino Primary Care Provider: Medina Ramirez Home Meds and New Rx's Prescriptions: Discontinued bisacodyl [Dulcolax (bisacodyl)] 5 mg tablet,delayed release (DR/EC) 5 mg PO ONCE Qty: 4 RF: 0 polyethylene glycol 3350 17 gram/dose powder 238 g PO ONCE Qty: 238 RF: 0 Discharge Instructions Additional Instructions: DSU Colonoscopy Post- Op Instructions Instructions for Everyone who is given Anesthesia: For your safety, please do the following for the next twenty-four (24) hours: *Do Not operate a motor vehicle (car, truck, motorcycle, etc.) *Do Not drink alcoholic beverages or use any recreational drugs for the first 24 hours or while taking pain medications. The medications in your body may have a reaction that can be dangerous. *Do Not make any important decisions or sign any important papers. Findings: x2 new polyps in different locations Follow up: repeat scope in 6months time -No ASA/NSAID's for 2 weeks -soft diet for 72 hrs 1. No lifting over 20 pounds or strenuous activity for the first 72 hours after your procedure. After 72 hours there are no restrictions on your activity but you may feel fatigued for a few days. 2. After you arrive home you may have a light meal and return to your normal diet as you can tolerate it without feeling sick to your stomach. 3. You may have a bloated, gaseous feeling in your belly (abdomen) after a colonoscopy. Passing gas and belching will help. Walking or lying down on your left side with your knees flexed may relieve the discomfort. Call the office at [phone] (Office) or [phone] (Hospital) right away if you notice any of the following: a.Vomiting of blood or ?coffee ground stools?. b.Rectal bleeding 1Tbsp, blood clots or continuous bleeding. c.Severe belly (abdominal) pain. d.A hard distended belly (abdomen) and an inability to pass gas. 4. Please don?t expect to have a normal BM (bowel movement) for 2-3 days after your procedure. 5. If there are questions regarding the findings of your procedure, please contact your doctor 6. If you are unable to contact your doctor with a problem, contact the hospital at [phone]. 7. Continue all your regular medications unless directed otherwise. I understand the above instructions and have no questions. Signature of Patient or Adult Escort Name of Responsible Adult Escort Signature of Nurse Date/Time Activity:: see above Diet:: soft Discharge Orders Discharge Orders: Discharge Order (Routine); Ordered 02/15/21 Ordered By: Shannan Espino
--- NOTE | 2021-02-16 08:56 | W.ANESPOSTOP ---
Postoperative Evaluation Date, Time and Location Date Performed: 02/16/21 Time Performed: 10:06 Patient Location: Day Surgery Unit Vital Signs Most Recent Imported Vital Signs: Most Recent Vital Signs Temp Pulse Resp BP Pulse Ox 36.5 C 79 18 146/76 H 100 02/16/21 06:29 02/16/21 06:29 02/16/21 06:29 02/16/21 06:29 02/16/21 06:29 Most Recent Manually Entered Vital Signs: Adult Blood Pressure: 137/72 Heart Rate: 72 Respirations: 18 Oxygen Saturation (%): 98 Temperature (C): 36.1 C Pain Score (0-10 Scale): 4 Pain Score Most Recent Pain Score: Most Recent Pain Score Pain Level 0 02/16/21 06:29 Assessment Mental Status: Awake (Alert & Oriented to Patient Baseline) Airway and Respiratory Function: Patent airway with normal (patient baseline) respiratory exam Cardiovascular Function: Hemodynamically Stable Hydration Status: Adequately Hydrated Nausea & Vomiting: No Nausea or Vomiting Pain: Pain is tolerable per patient Peripheral Nerve Block: Patient did not receive a nerve block Postoperative Comments:: aware of ETT being needed during procedure r/t laryngospasm. discussed causes, encoraged to cough and deep breath.
== END 2021-02-16 10:25 | disposition home or self-care (01) ==
PROVIDERS: PCP Nurse Practitioner Family; Visit Provider Surgery
PROC: 0DJD8ZZ Inspection of Lower Intestinal Tract, Via Natural or Artificial Opening Endoscopic (ICD-10-PCS; CPT 45378; principal; 2021-02-16 07:30)
DX: D12.0 Benign neoplasm of cecum (principal); Z86.010 Personal history of colon polyps; D12.4 Benign neoplasm of descending colon
CPT/HCPCS: 45385; 88305; J2001; J2250

== ENCOUNTER 2021-03-02 13:00 | Outpatient (REF) | payer MEDICARE, MEDICAID, SELFPAY ==
[2021-03-02 15:07] LABS: C Diff PCR Negative (Negative)
== END 2021-03-02 13:01 | disposition home or self-care (01) ==
LOC: NCHCN 13:00
PROVIDERS: PCP Nurse Practitioner Family; Visit Provider Nurse Practitioner Family
DX: R19.7 Diarrhea, unspecified (principal)
CPT/HCPCS: 87493

== ENCOUNTER 2021-04-27 00:25 | Outpatient (CLI) | payer MEDICARE, MEDICAID, SELFPAY ==
--- NOTE | 2021-04-27 | DI.US_ITS ---
Exam(s) US ABDOMEN EXAM: US ABDOMEN CLINICAL HISTORY: EPIGASTRIC AND RUQ PAIN,R10.13,R10.11 TECHNIQUE: Ultrasound abdomen performed using standard protocol. COMPARISON: CT CT ABDOMEN PELVIS W from 08/11/[address] ABDOMEN PELVIS W from 08/11/2020 FINDINGS: Exam is somewhat limited by patient body habitus. LIVER: Enlarged at 19 cm in length. Increased echogenicity and decreased through transmission consis tent with moderate hepatic steatosis.. No focal liver lesions are seen.. GALLBLADDER: No evidence of cholelithiasis. No evidence of wall thickening. No pericholecystic fluid identified. BURLESON'S SIGN: Negative. BILIARY SYSTEM: No intrahepatic or extrahepatic biliary ductal dilation. KIDNEYS: Kidneys are symmetric in size. No evidence of renal calculi. No evidence of hydronephrosis. No renal mass or cyst identified. PANCREAS: Normal where visualized. SPLEEN: Borderline enlargement at 13.6 cm in length. ABDOMINAL AORTA AND IVC: Visualized portions normal caliber. ASCITES: None seen. IMPRESSION: Hepatic steatosis. Normal gallbladder. DATA REPOSITORY:
== END 2021-04-27 00:45 ==
PROVIDERS: PCP Nurse Practitioner Family; Visit Provider Nurse Practitioner Family
DX: R10.13 Epigastric pain (principal); R10.31 Right lower quadrant pain; K76.0 Fatty (change of) liver, not elsewhere classified
CPT/HCPCS: 76700

== ENCOUNTER 2021-06-16 19:52 | Emergency (ER) | payer MEDICARE, MEDICAID, SELFPAY ==
[2021-06-16 19:57] VITALS: BP 143/89; PULSE 111; RESP 14; TEMP 36.2; O2SAT 95
[2021-06-16] MEDS: Normal Saline 1,000 ML 1000 ML IV (20:13)
--- NOTE | 2021-06-16 20:14 | W.ED.GENAD ---
Discharge Plan Disposition Patient Disposition: HOME Condition: Stable Discharge Details Clinical Impression: Abdominal pain, Nausea vomiting and diarrhea Primary Care Provider: Medina Ramirez ED Provider: Dena Tamez Home Meds and New Rx's Prescriptions: New ondansetron 4 mg tablet,disintegrating 4 mg PO Q8H PRN5 Days Qty: 15 RF: 0 Discharge Instructions Instructions: Acute Nausea and Vomiting (ED), Abdominal Pain (ED) Additional Instructions: CT shows no explanation for the abdominal pain or nausea vomiting diarrhea. There is no acute abnormalities at this time Lab work is also largely within normal limits. Follow up with primary care provider in 3-5 days. Return to ED sooner if any worsening or concerns. Increase oral fluids. Please take Tylenol or Ibuprofen with food every 4-6 hours as needed for pain and swelling. Take nausea medication as directed approximately 20 minutes before eating or drinking anything. Clear liquids for the next 2 to 3 days advance with a bland diet as tolerated. We have sent out a Covid test which is pending at this time. Please continue quarantine measures for the next 14 days or until negative. We will call you with the results. Stand Alone Forms: PENDING COVID-19 TESTING Referrals: Medina Ramirez [Primary Care Provider] - 5 days Medical Decision Making 60-year-old female presents to the ER chief complaint of right upper quadrant abdominal pain which radiates over to the midline associated with nausea vomiting diarrhea. Patient reports this is been ongoing for approximately 1 week. She endorses chills no documented fever. She denies any chest pain or shortness of breath however she does report a cough. She is unvaccinated. She denies any sick contacts. She does have a history of cervical cancer, alcohol abuse, depression, bipolar 1 disorder. CBC shows no leukocytosis, CMP shows sodium of 127, potassium glucose 113, bilirubin 1.8, slight elevation in AST at 52 and ALT 92, send out Covid test ordered. FINDINGS: Lungs: Minor subsegmental atelectasis in the lung bases. Liver: No hepatic masses. Gallbladder and bile ducts: Mildly distended gallbladder with no calcified stones. Morphology similar to prior. No pericholecystic edema. No significant biliary dilation or radiopaque stones in the biliary tree. Pancreas: No ductal dilation. No masses. Spleen: Spleen is mildly enlarged compared to prior. Adrenal glands: No mass. Kidneys and ureters: No hydronephrosis. No renal masses. Stomach and bowel: The cecum is now located again in the right lower quadrant. There is submucosal fat deposition at this part of the colon however no acute appearing inflammatory changes are present. No focal pathology in the small bowel. Appendix: Normal morphology of the appendix. Intraperitoneal space: No free air. No significant fluid collection. Vasculature: No abdominal aortic aneurysm. Lymph nodes: No significantly enlarged lymph nodes. Urinary bladder: Unremarkable as visualized. Reproductive: Hysterectomy. Bones/joints: No acute fracture. Soft tissues: No suspicious lesions. IMPRESSION: 1. No acute findings. 2. Incidental findings as described. Patient discharged with instructions to follow-up with PCP given Zofran to go. Instructed on strict return instructions. Patient discharged in hemodynamically stable condition. This text was generated using [employer] system, please disregard any oddities of phrase or misspellings. HPI General Mode of arrival: ambulatory. Date/Time Provider Initiated Documentation: 06/16/21 19:55. Limitations to Documentation: no limitations. Information obtained by: patient and RN notes reviewed. HPI Narrative: 60-year-old female presents to the ER chief complaint of right upper quadrant abdominal pain which radiates over to the midline associated with nausea vomiting diarrhea. Patient reports this is been ongoing for approximately 1 week. She endorses chills no documented fever. She denies any chest pain or shortness of breath however she does report a cough. She is unvaccinated. She denies any sick contacts. She does have a history of cervical cancer, alcohol abuse, depression, bipolar 1 disorder. Related Data Home Medications Medication Instructions Recorded Confirmed ondansetron 4 mg PO Q8H PRN 5 Days #15 tab 06/16/21 Previous Rx's Medication Instructions Recorded ondansetron 4 mg PO Q8H PRN 5 Days #15 tab 06/16/21 Allergies Allergy/AdvReac Type Severity Reaction Status Date / Time Penicillins Allergy Intermediate Hives Verified 06/16/21 20:02 General Stated Complaint: Abd Prob MARLINE: 3 Review of Systems All systems reviewed & are unremarkable except as noted in HPI and below Gastrointestinal Gastrointestinal: Reports as per HPI, Reports abdominal pain, Reports diarrhea, Reports nausea and Reports vomiting PFSH Active Problem List 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 Hx of fracture of arm R arm, both bones. Plates. Knee pain Poor dentition Surgical History History of colonoscopy (~01/2020) Dr. Espino 01/27/20 villous/tubulovillous adenoma sessile serrated adenoma repeat in July of 2020 History of colonoscopy with polypectomy (~08/11/20) Srinivas multiple polyps History of colonoscopy with polypectomy (~02/16/21) Social History Smoking/Tobacco Use Status: Never Smoking risk assessment performed?: Yes Alcohol Intake: current Alcohol Intake frequency: 3 or more drinks per day Alcohol type: beer Details: 6+ beer/day; Has been cutting back the past few weeks from 18+ beers/day Drug use: Never Substance use type: does not use Do you feel safe at home: Yes Do you feel safe in your relationship?: Yes Exam Narrative Exam Narrative: Constitutional: Alert and oriented x3. Appears stated age. Normal body habitus. Head: Normocephalic, no trauma. Eyes: Pupils PERRL, Red reflex noted, EOM's intact. Eyelids symmetrical without lesions, discharge, or swelling. ENT: Bilateral TM's WNL, External ear normal to inspection, no mastoid TTP, swelling, or erythema, Nasal turbinates WNL, no nasal discharge. Normal dentition, Posterior pharynx WNL, no exudate. Chest: RRR, Normal S1, S2, distal pulses intact. Resp: Lungs clear to auscultation bilaterally, no wheezes, rales, or rhonchi. Abdomen: Soft, non-distended, Normoactive bowel sounds all 4 quads. Tenderness to palpation right upper quadrant. Musculoskeletal: Normal gait, 5/5 strength to all four extremities. Skin: No suspicious rashes or lesions. Capillary refill less than 2 sec. Neurologic: Cranial nerves II-XII intact. Alert and oriented x 3. Motor: No deficits noted. Sensory: Intact bilaterally all 4 extremities. Reflexes: DTR's intact bilaterally.. Hematologic/Lymphatic: No ecchymosis, no lymphadenopathy. Course Vital Signs Vital signs: Vital Signs Temperature 36.2 C L 06/16/21 19:57 Pulse 111 H 06/16/21 19:57 Respiratory Rate 14 06/16/21 19:57 Blood Pressure 143/89 H 06/16/21 19:57 Pulse Oximetry 95 06/16/21 19:57 Temperature 36.2 C L 06/16/21 19:57 Temperature Source Tympanic 06/16/21 19:57 Pulse 111 H 06/16/21 19:57 Respiratory Rate 14 06/16/21 19:57 Respiratory Effort 06/16/21 20:03 Blood Pressure 143/89 H 06/16/21 19:57 Blood Pressure Position Sitting 06/16/21 19:57 Pulse Oximetry 95 06/16/21 19:57 Oxygen Delivery Method Room Air 06/16/21 19:57 Oxygen Flow Rate 0 06/16/21 19:57 Pain Level 4 06/16/21 19:57 Lab/Test Results Lab/Test Results: Laboratory Tests Range/Units 06/16/21 20:04 COVID-19 Source Cancelled SARS-CoV-2 (PCR) Cancelled PAWSS Have you Been Recently Intoxicated or Drunk Within the Last 30 days?: No Have you Ever Experienced Previous Episodes of Alcohol Withdrawal?: No Have you ever Experienced Withdrawal Seizures?: No Have you ever Experienced Delirium Tremens(DT)s?: No Have you ever undergone Alcohol Rehabilitation Treatment (i.e, inpt ot outpatient treatment programs)?: No Have you ever Experienced Blackouts?: No Result: 0
--- NOTE | 2021-06-16 20:15 | DI.CT_ITS ---
Exam(s) CT ABDOMEN PELVIS W EXAM: CT ABDOMEN PELVIS W CLINICAL HISTORY: RUQ abd pain, N/V/D. TECHNIQUE: Imaging Protocol: Axial computed tomography images with coronal and sagittal reformatted images were created and reviewed CONTRAST MATERIAL: Intravenous: Omnipaque 100cc Oral: None COMPARISON: CT CT ABDOMEN PELVIS W from 08/11/2020 FINDINGS: VISUALIZED LUNG BASES: Some infiltrate noted in the posterior basal segment both lower lobes, more so than previous. No pleural effusions. ABDOMEN: There is no ascites. LIVER: There are no focal hepatic lesions evident. Mild steatosis again noted, unchanged. GALLBLADDER/BILIARY: No obvious acute gallbladder pathology. CBD is not dilated. PANCREAS: No evidence of pancreatic mass nor dilatation of the pancreatic duct. SPLEEN: Spleen is not enlarged. No obvious intrasplenic lesions. Splenic and portal veins are paten t. ADRENALS: There are no significant adrenal masses. KIDNEYS:No cysts evident. No solid renal masses. No calculi nor hydronephrosis.. ABDOMINAL AORTA: Abdominal aorta is not enlarged. LYMPH NODES:There is no retroperitoneal nor paraaortic adenopathy. ABDOMINAL WALL: No evidence of significant anterior abdominal wall nor inguinal hernia. GI: There is no evidence of bowel obstruction, free air, nor abscess. PELVIS: GI: The appendix is identified on the sagittal reconstructed images and appears unremarkable.No evide nce of sigmoid diverticulitis. LYMPH NODES: There is no intrapelvic nor inguinal adenopathy. REPRODUCTIVE: Uterus is surgically absent. There are no abnormal adnexal masses. No free fluid in t he pelvis URINARY BLADDER: No calculi nor obvious masses evident OSSEOUS: No significant osseous lesions. Mild degenerative anterolisthesis L4 upon L5. No prominent disc space narrowing. Sacroiliac joints appear unremarkable. IMPRESSION: 1. Uterus is surgically absent. No abnormal adnexal masses. 2. No evidence of acute appendicitis nor diverticulitis. 3. Mild hepatic steatosis, unchanged from previous 4. There is no ascites. RADIATION DOSE DELIVERED: 1,589.81mGy.cm Total DLP DATA REPOSITORY: All CT scans at this facility are submitted to the National Radiology Data Registry (NRDR) Dose Index Registry (DIR) with the [employer] (ACR). RADIATION OPTIMIZATION: All CT scans at this facility use at least one of these dose optimization te chniques: automated exposure control; mA and/or kV adjustment per patient size (includes targeted exa ms where dose is matched to clinical indication); or iterative reconstruction.
[2021-06-16 20:21] LABS: Abs Immature Grans 0.25 10^3/uL (0.0-0.06); Absolute Basophil Count 0.04 10^3/uL (0.0-0.2); Absolute Eosinophil Count 0.04 10^3/uL (0.0-0.7); Absolute Lymphocyte Count 0.68 10^3/uL (1.2-3.4); Absolute Monocyte Count 1.05 10^3/uL (0.1-0.8); Absolute Neutrophil Count 5.61 10^3/uL (1.2-6.7); Basophils % 0.5; Eosinophils % 0.5; HCT 43.3 % (36.0-46.0); HGB 14.8 g/dL (11.2-15.7); Immature Grans % 3.3; Lymphocytes % 8.9; MCH 33.1 pg (27.0-33.0); MCHC 34.2 % (32.0-36.0); MCV 96.9 fL (80-95); MPV 10.9 fL (8.0-11.0); Monocytes % 13.7; Neutrophils % 73.1; Nucleated RBC 0 %; RBC 4.47 10^6/uL (3.93-5.22); RDW 11.7 % (11.7-14.6); WBC 7.67 10^3/uL (4.4-10.8)
[2021-06-16] MEDS: Ondansetron 4 MG/2 ML VIAL IVP (20:25)
[2021-06-16 20:30] LABS: ALT 92 U/L (14-59); AST 62 U/L (15-37); Albumin 3.5 g/dL (3.4-5.0); Alkaline Phosphatase 83 U/L (46-116); Anion Gap 9.3 mmol/L (3-11); BUN 8 mg/dL (7-18); Bilirubin, Total 1.8 mg/dL (0.2-1.0); CO2 25.7 mmol/L (21.0-32.0); CREATININE 0.9 mg/dL (0.55-1.02); Calcium 8.7 mg/dL (8.5-10.1); Chloride 92 mmol/L (98-107); Glucose 113 mg/dL (74-106); Lipase 19 U/L (73-393); Magnesium 2.1 mg/dL (1.8-2.4); Potassium 3.6 mmol/L (3.5-5.1); Sodium 127 mmol/L (136-145); Total Protein 7.5 g/dL (6.4-8.2)
[2021-06-16 20:46] LABS: Diff Comment PLT Morph Reviewed; Platelet Count 48 10^3/uL (130-400); RBC Morphology Normal
[2021-06-16] MEDS: Omnipaque 350 MG/ML 100 ML BTL IJ (20:49)
[2021-06-16 21:20] VITALS: BP 130/82; PULSE 82; TEMP 36.2; O2SAT 93
--- NOTE | 2021-06-16 22:08 | DI.VRAD_ITS ---
PROCEDURE INFORMATION: Exam: CT Abdomen And Pelvis With Contrast Exam date and time: 06/16/2021 20:18 Age: 60 years old Clinical indication: Other: Ruq abd pain, n/v/d TECHNIQUE: Imaging protocol: Computed tomography of the abdomen and pelvis with contrast. COMPARISON: CT ABDOMEN PELVIS W 08/11/2020 13:03 FINDINGS: Lungs: Minor subsegmental atelectasis in the lung bases. Liver: No hepatic masses. Gallbladder and bile ducts: Mildly distended gallbladder with no calcified stones. Morphology similar to prior. No pericholecystic edema. No significant biliary dilation or radiopaque stones in the biliary tree. Pancreas: No ductal dilation. No masses. Spleen: Spleen is mildly enlarged compared to prior. Adrenal glands: No mass. Kidneys and ureters: No hydronephrosis. No renal masses. Stomach and bowel: The cecum is now located again in the right lower quadrant. There is submucosal fat deposition at this part of the colon however no acute appearing inflammatory changes are present. No focal pathology in the small bowel. Appendix: Normal morphology of the appendix. Intraperitoneal space: No free air. No significant fluid collection. Vasculature: No abdominal aortic aneurysm. Lymph nodes: No significantly enlarged lymph nodes. Urinary bladder: Unremarkable as visualized. Reproductive: Hysterectomy. Bones/joints: No acute fracture. Soft tissues: No suspicious lesions. IMPRESSION: 1. No acute findings. 2. Incidental findings as described. Dictated and Authenticated by: Keshia Peterson MD. Ordering:GABBY Fernandes MD
[2021-06-16 22:26] LABS: Bilirubin Negative (Negative); Blood Trace-intact (Negative); Clarity Clear (Clear); Glucose Negative (Negative); Ketones Negative (Negative); Leukocyte Esterase Negative (Negative); Nitrite Negative (Negative); Specific Gravity <= 1.005 (1.005-1.025); Urobilinogen 0.2 EU/dL (Up TO 0.2)
[2021-06-16 22:34] LABS: Bacteria Rare HPF (Negative); C & S Indicated? No; Casts Negative LPF (Negative); Crystals Negative HPF (Negative); Epithelial Cells Few HPF (Negative); Mucus Negative (Negative); RBC 0-2 HPF (0-2); WBC Negative HPF (0-5)
[2021-06-16 22:57] VITALS: PULSE 90; TEMP 36.3; O2SAT 94
[2021-06-18 16:29] LABS: COVID-19 RT-PCR UVMMC Result Positive (Negative)
--- NOTE | 2021-06-18 17:16 | W.ED.FU ---
Date of service: 06/18/21 Time of Service: 17:16 Follow Up Plan: Lab results obtained, positive Covid results.Call made to patient to relay the results she verbalizes understanding. I did discuss home care, strict return instructions and follow-up with PCP regarding the monoclonal antibody infusion. Patient verbalized understanding.
== END 2021-06-16 23:03 | disposition home or self-care (01) ==
PROVIDERS: Emergency Provider Registered Nurse Emergency; PCP Nurse Practitioner Family
DX: R10.11 Right upper quadrant pain (principal); R11.2 Nausea with vomiting, unspecified; R19.7 Diarrhea, unspecified; Z20.822 Contact with and (suspected) exposure to COVID-19
CPT/HCPCS: 36415; 80053; 83690; 87635; 96374; 96375; 99285; U0003; U0005; 74177; 81003; 81015; 83735; 85025; 99284; J2405; J3490

== ENCOUNTER 2021-06-20 01:26 | Outpatient (CLI) | payer MEDICARE, MEDICAID, SELFPAY ==
[2021-06-20 12:25] VITALS: BP 125/69; PULSE 85; RESP 18; TEMP 37.8; O2SAT 94
[2021-06-20] MEDS: Normal Saline 500 ML 30 ML IV (13:00)
[2021-06-20 13:12] VITALS: BP 134/79; PULSE 77; TEMP 37.9; O2SAT 96
[2021-06-20 13:30] VITALS: BP 130/77; PULSE 77; TEMP 38.1; O2SAT 95
[2021-06-20 13:50] VITALS: BP 142/82; PULSE 78; TEMP 37.9; O2SAT 95
[2021-06-20 14:10] VITALS: BP 146/91; PULSE 77; TEMP 37.8; O2SAT 95
== END 2021-06-20 01:27 | disposition home or self-care (01) ==
LOC: INF 01:27
PROVIDERS: PCP Nurse Practitioner Family; Visit Provider Family Medicine
DX: U07.1 COVID-19 (principal)
CPT/HCPCS: 96365

== ENCOUNTER → 2021-08-30 13:01 | Outpatient (BNVA) | payer MEDICARE, MEDICAID, SELFPAY | PROVIDERS: PCP Nurse Practitioner Family; Referring Provider Nurse Practitioner Family; Visit Provider Physical Therapy Assistant | DX: Z12.11 Encounter for screening for malignant neoplasm of colon (principal); Z86.010 Personal history of colon polyps ==

== ENCOUNTER 2021-09-05 01:22 | Outpatient (CLI) | payer MEDICARE, SELFPAY ==
[2021-09-05 11:49] LABS: Source Nasal/Nares
[2021-09-05 16:03] LABS: COVID-19 PCR Negative (Negative)
== END 2021-09-05 01:23 | disposition home or self-care (01) ==
LOC: LBO 01:22
PROVIDERS: Surgery; PCP Nurse Practitioner Family; Visit Provider Surgery
DX: Z20.822 Contact with and (suspected) exposure to COVID-19 (principal)
CPT/HCPCS: 87635; U0005

== ENCOUNTER 2021-09-07 11:56 | Day surgery (SDC) | payer MEDICARE, SELFPAY ==
--- NOTE | 2021-09-06 22:18 | W.COLOREPORT ---
Colonoscopy Report Date of procedure: 09/07/21 Pre-op diagnosis general: villous adenoma of rectum/serrated in cecum Post-op diagnosis procedure note: same (no polyps ) Surgeon: Shannan Espino Anesthesia Type: General:No Airway Estimated blood loss (mL): 0 Pathology: none sent Complications: None Disposition: same day Prep: Miralax/Dulcolax Retraction Time: 9 Procedure Description: After informed consent was obtained the patient was taken to the procedure room and placed in a left decubitous position. Monitors were applied and a time out was done. The patients name, date of , procedure, allergies to medications and metal in their body was reviewed. The patient was then sedated. Once sedated and comfortable a rectal exam was done. External exam was normal. Internal exam revealed a normal sphincter tone and no palpable masses. The scope was then introduced and retrofelexed. x1 inflammed internal hemorrhoids were identified. The scope was then advanced to the cecum without difficulty. The TI and appendiceal orifice were id entified. The prep was BBPS-2 in all dent. The scope was then slowly retracted over back into the rectum over 9 minutes. There are no polyps, AVMs, or diverticula visualized today.The scope was removed and the patient was woken up and taken back to Same day surgery in stable condition. The patient tolerated the procedure well and there were no immediate complications. Follow up: The patient should follow up in 2 years unless they develop changes in bowel habits or other new gastrointestinal complaints.
--- NOTE | 2021-09-06 22:19 | PDOC.DSDIS_ITS ---
Discharge Plan Disposition Patient Disposition: HOME Condition: Good Discharge Details Reason For Visit: colon scope Attending Provider: Shannan Espino Primary Care Provider: Medina Ramirez Home Meds and New Rx's Prescriptions: No Action polyethylene glycol 3350 17 gram/dose powder 238 g PO ONCE Qty: 238 0RF Rx Instructions: take per colonoscopy instructions bisacodyl [Dulcolax (bisacodyl)] 5 mg tablet,delayed release (DR/EC) 5 mg PO ONCE Qty: 4 0RF Rx Instructions: take per colonoscopy instructions Discharge Instructions Additional Instructions: DSU Colonoscopy Post- Op Instructions Instructions for Everyone who is given Anesthesia: For your safety, please do the following for the next twenty-four (24) hours: *Do Not operate a motor vehicle (car, truck, motorcycle, etc.) *Do Not drink alcoholic beverages or use any recreational drugs for the first 24 hours or while taking pain medications. The medications in your body may have a reaction that can be dangerous. *Do Not make any important decisions or sign any important papers. Findings:No Polyps! Follow up: repeat in 2 years 1. No lifting over 20 pounds or strenuous activity for the first 24 hours after your procedure. After 24 hours there are no restrictions on your activity but you may feel fatigued for a few days. 2. After you arrive home you may have a light meal and return to your normal diet as you can tolerate it without feeling sick to your stomach. 3. You may have a bloated, gaseous feeling in your belly (abdomen) after a colonoscopy. Passing gas and belching will help. Walking or lying down on your left side with your knees flexed may relieve the discomfort. Call the office at [phone] (Office) or [phone] (Hospital) right away if you notice any of the following: a.Vomiting of blood or ?coffee ground stools?. b.Rectal bleeding 1Tbsp, blood clots or continuous bleeding. c.Severe belly (abdominal) pain. d.A hard distended belly (abdomen) and an inability to pass gas. 4. Please don?t expect to have a normal BM (bowel movement) for 2-3 days after your procedure. 5. If there are questions regarding the findings of your procedure, please contact your doctor 6. If you are unable to contact your doctor with a problem, contact the hospital at [phone]. 7. Continue all your regular medications unless directed otherwise. I understand the above instructions and have no questions. Signature of Patient or Adult Escort Name of Responsible Adult Escort Signature of Nurse Date/Time Stand Alone Forms: Anesthesia Discharge Inst. Activity:: see above Diet:: see above Discharge Orders Discharge Orders: Discharge Order (Routine); Ordered 09/06/21 Ordered By: Shannan Espino
[2021-09-07] VITALS (7 sets, daily range): BP systolic 133–153; BP diastolic 70–94; PULSE 67–87; RESP 15–23; TEMP 36.3–36.8; O2SAT 95–100; BMI 39.4
[2021-09-07] MEDS: Lactated Ringers 1,000 ML 80 ML IV (12:20)
--- NOTE | 2021-09-07 12:34 | W.ANESPRE ---
General Info Date of Service Date Performed: 09/07/21 Height: 5 ft 4 in Weight: 104.3 kg Body Mass Index (BMI): 39.4 Surgical Procedure: Operation Date: 09/07/21 11:20 Proposed Procedure Side Surgeon bandar Espino, Meds Allergies and Home Medications Allergies Allergy/AdvReac Type Severity Reaction Status Date / Time Penicillins Allergy Intermediate Hives Verified 09/07/21 12:11 Home Medication Medication Instructions Recorded bisacodyl 5 mg tablet,delayed 5 mg PO ONCE #4 tab 08/30/21 release (Dulcolax (bisacodyl)) polyethylene glycol 3350 17 238 g PO ONCE #238 g 08/30/21 gram/dose oral powder Current Visit Medications: Current Medications Generic Name Dose Route Start Last Admin Trade Name Freq PRN Reason Stop Dose Admin Hyoscyamine Sulfate 0.125 mg 09/06/21 22:18 Hyoscyamine 0.125 Mg Sl/Oral/Chew SL DIRECTED PRN Ringer's Solution 1,000 mls @ 80 mls/hr 09/07/21 06:00 IV 10/06/21 23:59 INFUSION JOSE IV Miscellaneous Supplies 1 each 09/07/21 06:00 Iv Access IV 10/06/21 23:59 DIRECTED JOSE Ondansetron HCl 4 mg 09/06/21 22:18 Ondansetron 4 Mg/2 Ml Vial IVP Q4H PRN PRN Nausea / Vomiting Sodium Chloride 0 ml 09/07/21 06:00 Normal Saline Flush 10 Ml Syr IV 10/06/21 23:59 PRN PRN Sodium Chloride 0 ml 09/07/21 06:00 Normal Saline 10 Ml Vial IJ 10/06/21 23:59 DIRECTED PRN Sterile Water 0 ml 09/07/21 06:00 Water,Injection,Sterile 10 Ml Vial IJ 10/06/21 23:59 DIRECTED PRN PFSH Active Problems Active Problems: Problem Status Onset Code Anxiety F41.9 Bipolar 1 disorder F31.9 Multiple personality disorder F44.81 Unilateral primary osteoarthritis, left knee M17.12 Iliotibial band syndrome affecting left lower leg M76.32 Alcohol abuse F10.10 Rectal bleeding K62.5 Anal and rectal polyp K62.0, K62.1 Adenomatous polyps D36.9 Villous adenoma of colon D37.4 Tubulovillous adenoma D36.9 Sessile colonic polyp K63.5 Incontinence R32 High grade dysplasia in colonic adenoma D12.6 Abdominal pain R10.9 Nausea vomiting and diarrhea R11.2, R19.7 Medical History Medical History (Updated 09/07/21 @ 12:11 by Nusrat Mcgovern, BARBARA) Cervical cancer Colonoscopy planned COVID-19 06/2021-pt stated she had no symptoms but an upset stomach Depression Fracture right arm, metal plate/screws right ankle- metal Hx of chest pain Was seen on 12/24/19 in ED for chest pain, had worked up and f/U with PCP no issues or concerns or recurrent chest pain since. Hx of fracture of arm R arm, both bones. Plates. Knee pain Poor dentition Medical History Comments:: water only this morning Surgical History Surgical History (Updated 09/07/21 @ 12:11 by Nusrat Mcgovern RN) History of colonoscopy with polypectomy (~02/16/21) Stoiber, villous/tubulovillous/sessile serrated 01/2020 Stoiber, multiple polyps 08/11/20 History of hysterectomy Tobacco Smoking/Tobacco Use Status: Never Alcohol Alcohol Intake: current Alcohol intake frequency: 3 or more drinks per day Alcohol type: beer Details: 6+ beer/day; Has been cutting back the past few weeks from 18+ beers/day Substance Use Substance use: Never Substance use type: does not use Vital Signs and Lab Results Vital Signs Most Recent Vital Signs in EMR: Most Recent Vital Signs Temp Pulse Resp BP Pulse Ox 36.8 C 87 16 149/81 H 100 09/07/21 12:00 09/07/21 12:00 09/07/21 12:00 09/07/21 12:00 09/07/21 12:00 Lab Results Blood Type / Crossmatch: No Data to Display Complete Blood Count: No Data to Display Complete Metabolic Panel: No Data to Display Liver Function Panel: No Data to Display Coagulation Panel: No Data to Display Cardiac Panel: No Data to Display Arterial Blood Gas: No Data to Display Venous Blood Gas: No Data to Display Pancreas Panel: No Data to Display Thyroid Panel: No Data to Display Infectious Disease: Coronavirus (COVID-19)(PCR) Negative (Negative) 09/05/21 09:11 09/05/21 Coronavirus 2019 Source Nasal/Nares 09/05/21 09:11 09/05/21 Blood Cultures: No Data to Display Toxicology Panel: No Data to Display Anesthesia Assessment and Plan Anesthesia History Personal History: Other (Reactive Airway Syndrome / Laryngospasm requiring emergent RSI) Family History: No Family History of Anesthesia Complications Exercise Tolerance Exercise Tolerance: Metabolic Equivalents>4 Pertinent Negatives Pertinent Negatives: No Major Cardiovascular Symptoms or Complaints, No Major Pulmonary Symptoms or Complaints and No History of CVA/TIA Cardiac & Pulmonary Exam Cardiac Exam: Normal S1/S2 Heart Sounds Pulmonary Exam: Clear Bilateral Breath Sounds Implantable Cardiac Device Does patient have a Pacemaker or an ICD?: No Airway Exam Known Difficult Airway: No Mallampati Class: 3 Mouth Opening: Normal (> 3cm) Thyromental Distance: Greater than 3 cm Neck Range of Motion: Limited ROM Neck Circumference: Thick Teeth Condition: Removable Dentures/Plates Upper Airway Comments: Plate upper, multiple missing lower. ASA Classification ASA Score: ASA 2 Emergency Case?: No NPO Status NPO Status: NPO Clears >2 hours, Solids >8 hours Anesthesia Plan Resuscitation Status: Full Code Anesthesia Technique: General Anesthesia Airway Planned: Endotracheal Tube Monitors Used: Standard Monitors
--- NOTE | 2021-09-07 13:11 | W.PM.HP.N ---
Date of service: 09/07/21 Time of Service: 13:11 Assessment and Plan Assessment and plan (1) Anxiety: Status: Chronic (2) Bipolar 1 disorder: Status: Acute (3) Multiple personality disorder: Status: Acute (4) Alcohol abuse: Status: Chronic (5) Rectal bleeding: Status: Acute (6) Villous adenoma of colon: Status: Acute (7) High grade dysplasia in colonic adenoma: Status: Acute Assessment and plan: Plan:Colonscopy w/ MAC Patient has had previous villous in the rectum with high-grade dysplasia. 01/2020 -Her last colonoscopy she had a- serrated in the cecum. 02/16/21 The?patient will be scheduled by my office. ? The pt understands that they need to do a bowel prep and the importance of hydration during this.? The patient understands there is a theoretical risk of renal failure.? For healthy patients we use Gatorade/Miralax Prep.? ?For anyone with renal concerns- GoLytely will be used. ? Plavix and coumadin will need to be held except in unusual circumstances. ? Patients in A. Fib do not need to be bridged with Lovenox or on CVA prophylaxis.? A baby ASA can be continued but full dose ASA needs to be stopped for 10 days prior to the procedure. ? A complete H & P is required within 30 days of the procedure.? MAC is used for the colonoscopy.? ? Colonoscopy does not require antibiotics prophylaxis. ? Thank you for allowing me to participate in the care of this Patient.? A copy of the Endoscopy report will be forwarded to your office. Informed consent is obtained for the procedural (explained in simple layman's terms that?the pt and/or family could understand) explaining risks vs benefits and alternatives to the procedure and consequences if we do not do the procedure and need/rational for the procedure. Risks include but are not limited to: bleeding, infection, perforation of colon.? This would necessitate emergency surgery to repair the damage w/ possible ostomy; and other associated complications w/ the required surgery. ? Also complications of anesthesia including aspiration, OH/CVA/. ? ? I discussed with the?patient would they could expect during the procedure, post procedure and recovery time and risks.? The patient understands that they need to have a ride home after the procedure.? The patient was given all this information in writing and expressed understanding. to your office.? If there are any questions or concerns please feel free to contact our office.? History of Present Illness Narrative: Patient is here today for a colonoscopy for follow-up on her villous adenoma of the rectum. She has been doing well. She has had no pain or difficulty moving her bowels. She is in and had no unexplained weight loss. She has had no rectal bleeding. Her health has been stable. She has not had a heart attack or stroke. had she has not developed any diabetes. She completed the bowel prep. No bleeding. She has no chest pain or shortness of breath today. She has no fever or cough. He is a smoker. She has significant reactive airway and secretions and did aspirate with her first colonoscopy. She needs to be done as a general for airway traction Review of Systems All systems reviewed & are unremarkable except as noted in HPI and below PFSH All Active Problems Anxiety (Chronic) Bipolar 1 disorder (Acute) Multiple personality disorder (Acute) Unilateral primary osteoarthritis, left knee (Acute) Iliotibial band syndrome affecting left lower leg (Acute) Alcohol abuse (Chronic) Rectal bleeding (Acute) Anal and rectal polyp (Acute) Adenomatous polyps (Acute) Villous adenoma of colon (Acute) Tubulovillous adenoma (Acute) Sessile colonic polyp (Acute) Incontinence (Acute) High grade 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 Hx of fracture of arm R arm, both bones. Plates. Knee pain Poor dentition Surgical History History of colonoscopy with polypectomy (~02/16/21) Stoiber, villous/tubulovillous/sessile serrated 01/2020 Stoiber, multiple polyps 08/11/20 History of hysterectomy Social History Smoking/Tobacco Use Status: Never Smoking risk assessment performed?: Yes Alcohol Intake: current Alcohol Intake frequency: 3 or more drinks per day Alcohol type: beer Details: 6+ beer/day; Has been cutting back the past few weeks from 18+ beers/day Drug use: Never Substance use type: does not use Do you feel safe at home: Yes Do you feel safe in your relationship?: Yes Meds Allergies and Home Medications Allergies Allergy/AdvReac Type Severity Reaction Status Date / Time Penicillins Allergy Intermediate Hives Verified 09/07/21 12:11 Home Medications Medication Instructions Recorded Confirmed Type bisacodyl 5 mg tablet,delayed 5 mg PO ONCE #4 tab 08/30/21 09/07/21 Rx release (Dulcolax (bisacodyl)) polyethylene glycol 3350 17 238 g PO ONCE #238 g 08/30/21 09/07/21 Rx gram/dose oral powder Exam Narrative Exam Narrative: PHYSICAL EXAM GENERAL APPEARANCE: Alert, healthy appearance, oriented, in no acute distress SKIN: No rashes.? No breakdown HYDRATION: Well hydrated HEAD, EYES, EARS, NECK, THROAT: Head is normocephalic, pupils equal, round, reactive to light and accommodation, ocular movement intact, sclera clear and no jaundice. ?Dentition intact. No sore throat.? No jaw pain. No thrush NECK: Supple, Trachea midline. No JVD. LUNGS: normal respiration/nl chest excursion. ?Clear to auscultation B/l no R/R/W ?HEART: Regular rate and rhythm, EXTREMITY: No edema or cyanosis? no leg pain, redness, swelling.? No IV infiltration ABDOMEN: non tender to palpation, no masses or distention, no hernias. Normal bowel sounds NEURO: no focal neuro deficits. ? Results Last Vital Signs Temp 36.8 C 09/07/21 12:00 Pulse 87 09/07/21 12:00 Resp 16 09/07/21 12:00 BP 149/81 H 09/07/21 12:00 Pulse Ox 100 09/07/21 12:00
--- NOTE | 2021-09-07 14:53 | W.ANESPOSTOP ---
Postoperative Evaluation Date, Time and Location Date Performed: 09/07/21 Time Performed: 14:53 Patient Location: PACU Vital Signs Most Recent Imported Vital Signs: Most Recent Vital Signs Temp Pulse Resp BP Pulse Ox 36.3 C L 67 16 144/78 H 99 09/07/21 14:47 09/07/21 14:47 09/07/21 14:47 09/07/21 14:47 09/07/21 14:47 Pain Score Most Recent Pain Score: Most Recent Pain Score Pain Level 0 09/07/21 14:47 Assessment Mental Status: Awake (Alert & Oriented to Patient Baseline) Airway and Respiratory Function: Patent airway with normal (patient baseline) respiratory exam Cardiovascular Function: Hemodynamically Stable Hydration Status: Adequately Hydrated Nausea & Vomiting: No Nausea or Vomiting Pain: Pt. Denies Any Pain Peripheral Nerve Block: Patient did not receive a nerve block
== END 2021-09-07 15:20 | disposition home or self-care (01) ==
LOC: SUR 11:56
PROVIDERS: PCP Nurse Practitioner Family; Visit Provider Surgery
PROC: 0DJD8ZZ Inspection of Lower Intestinal Tract, Via Natural or Artificial Opening Endoscopic (ICD-10-PCS; CPT 45378; principal; 2021-09-07 11:15)
DX: Z09 Encounter for follow-up examination after completed treatment for conditions other than malignant neoplasm (principal); K64.8 Other hemorrhoids; F10.10 Alcohol abuse, uncomplicated; K62.5 Hemorrhage of anus and rectum; Z86.010 Personal history of colon polyps
CPT/HCPCS: 45378; J2001; J2704

== ENCOUNTER 2022-01-09 15:29 | Emergency (ER) | payer MEDICARE, MEDICAID, SELFPAY ==
[2022-01-09] VITALS (10 sets, daily range): BP systolic 120–146; BP diastolic 55–86; PULSE 81–97; RESP 13–21; TEMP 36.6–36.7; O2SAT 96–100
--- NOTE | 2022-01-09 16:01 | ED.GENADUL_ITS ---
Discharge Plan Disposition Patient Disposition: HOME Condition: Improving Discharge Details Clinical Impression: Nausea vomiting and diarrhea, Electrolyte imbalance Primary Care Provider: Medina Ramirez ED Provider: Dena Tamez Home Meds and New Rx's Prescriptions: New ondansetron 4 mg tablet,disintegrating 4 mg PO Q8H 4 Days Qty: 12 0RF Discharge Instructions Instructions: Acute Nausea and Vomiting (ED) Additional Instructions: Take the nausea medication as directed 20 to 30 minutes before eating or drinking anything. Advance diet as tolerated. Drink Gatorade while you are having vomiting and diarrhea. You also may need to take a multivitamin after the nausea vomiting has subsided. At this time there is no obvious abnormality with your gallbladder to explain y our pain. Follow up with primary care provider in 3-5 days. Return to ED sooner if any worsening or concerns. Increase oral fluids. Your magnesium and sodium levels were low today. Referrals: Medina Ramirez [Primary Care Provider] - 1 week Medical Decision Making 61 year old female presents to ED with N/V/D , dizziness, and RUQ abdominal pain for last few weeks. She reports loose watery stools. Denies Dysuria, Hematochezia or hematemesis. Denies CP, SOB. Workup ordered including CBC, CMP, Lipase, UA. Zofran and 500 ml NS. CBC shows white blood cell count of 11.74, platelets 47, absolute neutrophils 9.17, lymphocytes 1.92 sodium is 127 potassium 2.9 chloride 92, glucose 108 magnesium 1.5 total bilirubin is 2.5. Albumin 2.9. Lipase is within normal limits at 19. 2 g mag ordered and 10 mill equivalents of potassium IV piggyback. Normal saline ordered at 150 an hour patient was given [address] abdomen pelvis without contrast ordered. Differential diagnosis includes but not limited to cholecystitis, gastroenteritis. Patient does have electrolyte disturbances. Patient is incontinent of urine in the bed. Unable to obtain urinalysis at this time. At patient still complaining of nausea no emesis visualized at this time. We will plan to discharge patient home with antiemetics and Pepcid prescription. EKG ordered to evaluate QT C will consider droperidol for nausea and vomiting. QTC 473. Patient will be given Zofran ODT tablets to go. At this time she is tolerating ice chips without difficulty no complaints of nausea vomiting. I did discuss CT results and labs with her she verbalizes understanding. Discussed home care including increasing foods high in potassium content and Gatorade disc ussed strict return instructions. This text was generated using [employer] system, please disregard any oddities of phrase or misspellings. Medical Records Medical records reviewed: Yes I reviewed the patient's medical records. Imaging Data Radiologic Study: Imaging: CT Scan Radiologist's impression: TECHNIQUE: Imaging protocol: Computed tomography of the abdomen and pelvis without contrast. COMPARISON: CT ABDOMEN PELVIS W 06/16/2021 8:54 PM FINDINGS: Liver: Unremarkable. Gallbladder and bile ducts: Unremarkable. Pancreas: Unremarkable. Spleen: Unremarkable. Adrenal glands: Unremarkable. Kidneys and ureters: No stones. No hydronephrosis. Stomach and bowel: Unremarkable. No dilated loops of bowel to suggest obstruction. Appendix: No evidence of appendicitis. Intraperitoneal space: No free air. No significant fluid collection. Vasculature: Atherosclerosis. No abdominal aortic aneurysm. Lymph nodes: No enlarged lymph nodes. Urinary bladder: Unremarkable as visualized. Reproductive: The vaginal cuff is unremarkable. No adnexal mass. Bones/joints: Degenerative changes in the lumbar spine. No acute fracture. Soft tissues: Unremarkable. IMPRESSION: No acute findings. Lab Data Lab results reviewed: Yes I reviewed the patient's lab results. Labs: Laboratory Tests Range/Units 01/09/22 01/09/22 16:15 16:15 WBC (4.4-10.8) 10^3/uL 11.74 H RBC (3.93-5.22) 10^6/uL 4.41 Hgb (11.2-15.7) g/dL 15.5 Hct (36.0-46.0) % 42.4 MCV (80-95) fL 96 H MCH (27.0-33.0) pg 35.1 H MCHC (32.0-36.0) % 36.6 H RDW (11.7-14.6) % 12.2 Plt Count (130-400) 10^3/uL 47 L MPV (8.0-11.0) fL 10.4 Immature Gran % 4.4 Neutrophils % 78.1 Lymphocytes % 7.8 Monocytes % 7.9 Eosinophils % 0.9 Basophils % 0.9 Nucleated RBC % (0.0-0.3) % 0.0 Absolute Neutrophils (1.2-6.7) 10^3/uL 9.17 H Absolute Lymphocytes (1.2-3.4) 10^3/uL 0.92 L Absolute Monocytes (0.1-0.8) 10^3/uL 0.93 H Absolute Eosinophils (0.0-0.7) 10^3/uL 0.11 Absolute Basophils (0.0-0.2) 10^3/uL 0.11 Sodium (136-145) mmol/L 127 L Potassium (3.5-5.1) mmol/L 2.9 L Chloride (98-107) mmol/L 92 L Carbon Dioxide (21.0-32.0) mmol/L 25.8 Anion Gap (3-11) mmol/L 9.2 BUN (7-18) mg/dL 6 L Creatinine (0.55-1.02) mg/dL 0.9 Estimated GFR/1.73 m2 (mL/min/1.73m2) >= 60.00 Glucose (74-106) mg/dL 108 H Calcium (8.5-10.1) mg/dL 8.7 Magnesium (1.8-2.4) mg/dL 1.5 L Total Bilirubin (0.2-1.0) mg/dL 2.5 H AST (15-37) U/L 19 ALT (14-59) U/L 28 Alkaline Phosphatase (46-116) U/L 93 Total Protein (6.4-8.2) g/dL 6.3 L Albumin (3.4-5.0) g/dL 2.9 L Lipase (73-393) U/L 19 HPI General Mode of arrival: ambulatory . Date/Time Provider Initiated Documentation: 01/09/22 15:49 . Limitations to Documentation: no limitations . Information obtained by: patient, RN notes reviewed and old records reviewed . HPI Narrative: 61 year old female presents to ED with N/V/D , dizziness, and RUQ abdominal pain for last few weeks. She reports loose watery stools. Denies Dysuria, Hematochezia or hematemesis. Denies CP, SOB. PMHX includes Bipolar disorder, Multiple personality disorder, Alcohol abuse, Anxiety, Colon polyp. PSHX includes Hysterectomy and Colonoscopy and polypectomy. Patient states she has been taking a heartburn pill and a pill for diarrhea. Related Data Home Medications Medication Instructions Recorded Confirmed ondansetron 4 mg disintegrating 4 mg PO Q8H 4 days #12 tabs 01/09/22 tablet Previous Rx's Medication Instructions Recorded ondansetron 4 mg disintegrating 4 mg PO Q8H 4 days #12 tabs 01/09/22 tablet Allergies Allergy/AdvReac Type Severity Reaction Status Date / Time Penicillins Allergy Intermediate Hives Verified 01/09/22 15:48 General Stated Complaint: Abd Prob MARLINE: 3 Review of Systems All systems reviewed & are unremarkable except as noted in HPI and below Constitutional Constitutional: Reports as per HPI, Denies body ache(s) and Denies fever(s) Cardiovascular Cardiovascular: Denies chest pain and Denies dyspnea Respiratory Respiratory: Denies cough, Denies hemoptysis, Denies dyspnea and Denies wheezing Gastrointestinal Gastrointestinal: Reports abdominal pain, Denies bloating, Denies hematochezia, Denies coffee ground emesis, Denies early satiety, Reports heartburn, Reports diarrhea, Reports nausea, Reports vomiting and Denies hematemesis Genitourinary Genitourinary: Denies dysuria and Reports flank pain Allergic/Immunologic Allergic/Immunologic: Denies wheezing PFSH All Active Problems (Updated 01/09/22 @ 20:58 by Dena Tamez NP) Electrolyte imbalance (Acute) Anxiety (Chronic) Bipolar 1 disorder (Acute) Multiple personality disorder (Acute) Unilateral primary osteoarthritis, left knee (Acute) Iliotibial band syndrome affecting left lower leg (Acute) Alcohol abuse (Chronic) Rectal bleeding (Acute) Anal and rectal polyp (Acute) Adenomatous polyps (Acute) Villous adenoma of colon (Acute) Tubulovillous adenoma (Acute) Sessile colonic polyp (Acute) Incontinence (Acute) High grade dysplasia in colonic adenoma (Acute) Abdominal pain (Acute) Nausea vomiting and diarrhea (Acute) Medical History (Updated 01/09/22 @ 20:58 by Dena Tamez NP) Cervical cancer Colonoscopy planned COVID-19 06/2021-pt stated she had no symptoms but an upset stomach Depression Fracture right arm, metal plate/screws right ankle- metal Hx of chest pain Was seen on 12/24/19 in ED for chest pain, had worked up and f/U with PCP no issues or concerns or recurrent chest pain since. Hx of fracture of arm R arm, both bones. Plates. Knee pain Poor dentition Surgical History (Updated 09/14/21 @ 13:53 by Leticia Rose RN) History of colonoscopy with polypectomy (~09/07/21) 09/07/21 Stoiber, no polyps repeat 2yrs. 02/16/2021 Stoiber, repeat 6 months Stoiber, villous/tubulovillous/sessile serrated 01/2020 Stoiber, multiple polyps 08/11/20 History of hysterectomy Social History Smoking/Tobacco Use Status: Never Smoking risk assessment performed?: Yes Alcohol Intake: current Alcohol Intake frequency: 3 or more drinks per day Alcohol type: beer Details: 6+ beer/day; Has been cutting back the past few weeks from 18+ beers/day Drug use: Never Substance use type: does not use Do you feel safe at home: Yes Do you feel safe in your relationship?: Yes Exam Narrative Exam Narrative: Constitutional: Alert and oriented x3. Appears stated age. Obese body habitus. Head: Normocephalic, no trauma. Eyes: Pupils PERRL, Red reflex noted, EOM's intact. Eyelids symmetrical without lesions, discharge, or swelling. ENT: Bilateral TM's WNL, External ear normal to inspection, no mastoid TTP, swelling, or erythema, Nasal turbinates WNL, no nasal discharge. Posterior pharynx WNL, no exudate. Chest: RRR, Normal S1, S2, distal pulses intact. Resp: Lungs clear to auscultation bilaterally, no wheezes, rales, or rhonchi. Abdomen: Soft, non-distended, Normoactive bowel sounds all 4 quads. Tenderness to palpation right flank right upper quadrant. No masses palpated. Musculoskeletal: Normal gait, 5/5 strength to all four extremities. Skin: No suspicious rashes or lesions. Capillary refill less than 2 sec. Neurologic: Cranial nerves II-XII intact. Alert and oriented x 3. Motor: No deficits noted. Sensory: Intact bilaterally all 4 extremities. Hematologic/Lymphatic: No ecchymosis, no lymphadenopathy. Course Vital Signs Vital signs: Vital Signs Temperature 36.7 C 01/09/22 15:40 Pulse 97 H 01/09/22 15:40 Respiratory Rate 18 01/09/22 15:40 Blood Pressure 131/86 01/09/22 15:40 Pulse Oximetry 96 01/09/22 15:40 Temperature 36.7 C 01/09/22 15:40 Temperature Source Oral 01/09/22 15:40 Pulse 97 H 01/09/22 15:40 Respiratory Rate 18 01/09/22 15:40 Respiratory Effort 01/09/22 15:47 Blood Pressure 131/86 01/09/22 15:40 Blood Pressure Position Sitting 01/09/22 15:40 Pulse Oximetry 96 01/09/22 15:40 Oxygen Delivery Method Room Air 01/09/22 15:40 Oxygen Flow Rate 0 01/09/22 15:40 Pain Level 3 01/09/22 15:40
[2022-01-09 16:26] LABS: Abs Immature Grans 0.52 10^3/uL (0.0-0.06); Absolute Eosinophil Count 0.11 10^3/uL (0.0-0.7); Absolute Lymphocyte Count 0.92 10^3/uL (1.2-3.4); Absolute Monocyte Count 0.93 10^3/uL (0.1-0.8); Basophils % 0.9; Eosinophils % 0.9; HCT 42.4 % (36.0-46.0); HGB 15.5 g/dL (11.2-15.7); Immature Grans % 4.4; Lymphocytes % 7.8; MCH 35.1 pg (27.0-33.0); MCHC 36.6 % (32.0-36.0); MCV 96 fL (80-95); MPV 10.4 fL (8.0-11.0); Monocytes % 7.9; Neutrophils % 78.1; Platelet Count 47 10^3/uL (130-400); RBC 4.41 10^6/uL (3.93-5.22); RDW 12.2 % (11.7-14.6); RDW-SD 43.3 fL; WBC 11.74 10^3/uL (4.4-10.8)
[2022-01-09 16:28] LABS: Absolute Basophil Count 0.11 10^3/uL (0.0-0.2); Absolute Neutrophil Count 9.17 10^3/uL (1.2-6.7)
[2022-01-09] MEDS: Ondansetron 4 MG/2 ML VIAL IVP (16:28)
[2022-01-09] MEDS: Normal Saline 500 ML IV (16:29)
[2022-01-09 16:42] LABS: ALT 28 U/L (14-59); AST 19 U/L (15-37); Albumin 2.9 g/dL (3.4-5.0); Alkaline Phosphatase 93 U/L (46-116); Anion Gap 9.2 mmol/L (3-11); BUN 6 mg/dL (7-18); Bilirubin, Total 2.5 mg/dL (0.2-1.0); CO2 25.8 mmol/L (21.0-32.0); CREATININE 0.9 mg/dL (0.55-1.02); Calcium 8.7 mg/dL (8.5-10.1); Chloride 92 mmol/L (98-107); Glucose 108 mg/dL (74-106); Lipase 19 U/L (73-393); Magnesium 1.5 mg/dL (1.8-2.4); Sodium 127 mmol/L (136-145); Total Protein 6.3 g/dL (6.4-8.2)
[2022-01-09 16:46] LABS: Potassium 2.9 mmol/L (3.5-5.1)
--- NOTE | 2022-01-09 17:00 | DI.CT_ITS ---
Exam(s) CT ABDOMEN PELVIS WO EXAM: CT ABDOMEN PELVIS WO CLINICAL HISTORY: RUQ abd Pain, NVD, R/O Radha. TECHNIQUE: Imaging Protocol: Axial computed tomography images with coronal and sagittal reformatted images were created and reviewed. COMPARISON: CT CT CHEST WO from 12/18/[address] ABDOMEN PELVIS W from 06/16/2021 FINDINGS: ABDOMEN: Lung Bases: Normal where visualized. Liver: There is diffuse decreased attenuation of the liver consistent with fatty infiltration. No me asurable mass. Gallbladder and biliary tract: No radiodense calculus or biliary ductal dilation. Pancreas: Normal density, no abnormal calcifications or inflammatory process. Spleen: Normal. Kidneys: Normal size, contour and axis.No radiodense stones or obstructive uropathy. No masses seen. Adrenal glands: No mass is seen. Lymph nodes: Within normal limits. Abdominal Aorta: Abdominal portion non-dilated. Mild atherosclerosis. PELVIS: Bladder:Symmetric distention, no gross wall thickening. Bowel: No obstruction or bowel wall thickening. Appendix is unremarkable. Peritoneal cavity: No ascites, collection or mesenteric inflammatory response. No free air. Reproductive organs: Status post hysterectomy. Bones: Within normal limits. There is a subacute healing fracture of the posterior aspect of the righ t 11th rib. Soft Tissues: Within normal limits. IMPRESSION: 1. Subacute healing fracture of the posterior right 11th rib. 2. No other acute abdominal pelvic process. RADIATION DOSE DELIVERED: 1,265.29mGy.cm Total DLP DATA REPOSITORY: All CT scans at this facility are submitted to the National Radiology Data Registry (NRDR) Dose Index Registry (DIR) with the [employer] (A[employer]). RADIATION OPTIMIZATION: All CT scans at this facility use at least one of these dose optimization te chniques: automated exposure control; mA and/or kV adjustment per patient size (includes targeted exa ms where dose is matched to clinical indication); or iterative reconstruction.
[2022-01-09] MEDS: MAGNESIUM SULFATE 2 GM/50 ML BAG IVPB (17:45)
[2022-01-09] MEDS: Normal Saline 1,000 ML 150 ML IV (17:45)
[2022-01-09] MEDS: POTASSIUM CHLORIDE 10 MEQ/100 ML BAG 100 MEQ IVPB (17:46)
--- NOTE | 2022-01-09 18:09 | DI.VRAD_ITS ---
PROCEDURE INFORMATION: Exam: CT Abdomen And Pelvis Without Contrast Exam date and time: 01/09/2022 5:22 PM Age: 61 years old Clinical indication: Other: Ruq abd pain, nvd, R/O keri TECHNIQUE: Imaging protocol: Computed tomography of the abdomen and pelvis without contrast. COMPARISON: CT ABDOMEN PELVIS W 06/16/2021 8:54 PM FINDINGS: Liver: Unremarkable. Gallbladder and bile ducts: Unremarkable. Pancreas: Unremarkable. Spleen: Unremarkable. Adrenal glands: Unremarkable. Kidneys and ureters: No stones. No hydronephrosis. Stomach and bowel: Unremarkable. No dilated loops of bowel to suggest obstruction. Appendix: No evidence of appendicitis. Intraperitoneal space: No free air. No significant fluid collection. Vasculature: Atherosclerosis. No abdominal aortic aneurysm. Lymph nodes: No enlarged lymph nodes. Urinary bladder: Unremarkable as visualized. Reproductive: The vaginal cuff is unremarkable. No adnexal mass. Bones/joints: Degenerative changes in the lumbar spine. No acute fracture. Soft tissues: Unremarkable. IMPRESSION: No acute findings. Dictated and Authenticated by: Varun Herr MD. Ordering:GABBY Fernandes MD
--- NOTE | 2022-01-09 19:15 | RT.EKG_ITS ---
APPROVED REPORT Exam: Resting ECG Reason for Exam: Check QTC for medication Patient Location: E HR:86 bpm ECG Measurements Heart Rate 86 AXIS NJ 228 P 44 QRSd 107 QRS 13 QT 395 T -7 QTc 473 Conclusion Sinus rhythm...normal P axis, V-rate 60- 99 Prolonged NJ interval...NJ >220, V-rate 50- 90 Low voltage, precordial leads...precordial leads <1.0mV sinus rhtyhm, normal axis, non ischemic
[2022-01-09] MEDS: Famotidine 20 MG/2 ML VIAL IVP (19:22)
[2022-01-09] MEDS: Ondansetron O.D.T. 4 MG TABEF, 3 TABS/BTL PO (21:24)
== END 2022-01-09 21:27 | disposition home or self-care (01) ==
PROVIDERS: Emergency Provider Registered Nurse Emergency; PCP Nurse Practitioner Family
DX: R11.2 Nausea with vomiting, unspecified (principal); R19.7 Diarrhea, unspecified; E87.8 Other disorders of electrolyte and fluid balance, not elsewhere classified; R10.11 Right upper quadrant pain
CPT/HCPCS: 80053; 83690; 93005; 96361; 96365; 96366; 96368; 96375; 99284; 74176; 81003; 83735; 85025; 93010; J2405; J3480

== ENCOUNTER 2022-01-13 12:23 | Emergency (ER) | payer MEDICARE, MEDICAID, SELFPAY ==
--- NOTE | 2022-01-13 12:15 | RT.EKG_ITS ---
APPROVED REPORT Exam: Resting ECG Reason for Exam: chest pain Patient Location: E HR:98 bpm ECG Measurements Heart Rate 98 AXIS NV 191 P 41 QRSd 102 QRS 2 QT 377 T 33 QTc 482 Conclusion Sinus rhythm...normal P axis, V-rate 60- 99 Low voltage, precordial leads...precordial leads <1.0mV
[2022-01-13 12:28] VITALS: BP 144/82; PULSE 98; RESP 18; TEMP 37; O2SAT 98
--- NOTE | 2022-01-13 12:45 | DI.RAD_ITS ---
Exam(s) XR PORTABLE CHEST AP EXAM: XR PORTABLE CHEST AP CLINICAL HISTORY: chest pain. TECHNIQUE: 2D digital imaging was performed. COMPARISON: CT CT ABDOMEN PELVIS WO from 01/09/2022 FINDINGS: Single AP portable view. Heart size is upper normal. The mediastinum is not widened. Right lung is clear. However, there is some infiltrate evident in the left lower lobe retrocardiac r egion, more prominent than on uppermost images of abdominal CT scan 01/09/2022. No obvious pleural e ffusion. IMPRESSION: Left lower lobe infiltrate. No obvious pleural effusions. DATA REPOSITORY: RADIATION DOSE DELIVERED: All CT scans at this facility use at least one of these dose optimization techniques: automated exposure control; mA and/or kV adjustment per patient size (includes targeted e xams where dose is matched to clinical indication); or iterative reconstruction.
--- NOTE | 2022-01-13 12:48 | ED.GENADUL_ITS ---
Discharge Plan Disposition Patient Disposition: HOME Condition: Improving Discharge Details Clinical Impression: Walking pneumonia Primary Care Provider: Medina Ramirez ED Provider: Ulysses Basilio Home Meds and New Rx's Prescriptions: New doxycycline hyclate 100 mg capsule 100 mg PO BID 10 Days Qty: 20 0RF Discharge Instructions Instructions: Pneumonia (ED), Hypokalemia (ED) Additional Instructions: Take antibiotics as prescribed. Prescription will start tomorrow. Small, frequent sips of fluids to maintain hydration. Your potassium was slightly low and you were given supplementation in the ER. You should increase potassium in containing foods in your diet such as bananas, strawberries, dark leafy greens, tree nuts such as cashews or almonds. Please follow-up with regular doctor for recheck if not improving in 5 to 7 days time. Medical Decision Making 61-year-old female presents from home with 2 days of vague anterior chest dull discomfort. States she has had some episodes of this in the past. It is not associated with shortness of breath, nausea, diaphoresis. She states she has had a recent cough. Patient's vital signs are reassuring oxygenation is normal. Differential diagnosis includes bronchitis, pneumonia, acute coronary syndrome. Patient IV access established with her for x-ray and laboratories. Chest x-ray reveals a left lung base opacity. Laboratories reveal a white count of 11, hematocrit 42, platelets 46 (patient with known baseline low platelets). Chemistries reveal sodium 126, potassium 3.0 which was supplemented in the ER. Patient given parenteral antibiotic and oral potassium. She is stable for management in outpatient setting. HPI General Mode of arrival: ambulatory . Date/Time Provider Initiated Documentation: 01/13/22 12:26 . Limitations to Documentation: no limitations . Information obtained by: patient . History of Present Illness 61 year old F presents to the emergency department with the chief complaint of Chest pain for 2 days, described as mild and similar to prior episodes, Quality is described as dull, and is localized to the chest. Patient reports no radiation. Patient started experiencing this hour(s) and it has been constant. No relieving factors improve symptom(s), No exacerbating factors reported . Patient notes chest pain and cough. Patient did receive the following treatments prior to arrival, none Related Data Home Medications Medication Instructions Recorded Confirmed doxycycline hyclate 100 mg capsule 100 mg PO BID 10 days #20 caps 01/13/22 Previous Rx's Medication Instructions Recorded doxycycline hyclate 100 mg capsule 100 mg PO BID 10 days #20 caps 01/13/22 Allergies Allergy/AdvReac Type Severity Reaction Status Date / Time Penicillins Allergy Intermediate Hives Verified 01/09/22 15:48 General Stated Complaint: Chest Pain MARLINE: 3 Review of Systems Narrative: 6 systems reviewed and otherwise negative PFSH All Active Problems (Updated 01/13/22 @ 13:24 by Ulysses Basilio MD) Electrolyte imbalance (Acute) Walking pneumonia (Acute) Anxiety (Chronic) Bipolar 1 disorder (Acute) Multiple personality disorder (Acute) Unilateral primary osteoarthritis, left knee (Acute) Iliotibial band syndrome affecting left lower leg (Acute) Alcohol abuse (Chronic) Rectal bleeding (Acute) Anal and rectal polyp (Acute) Adenomatous polyps (Acute) Villous adenoma of colon (Acute) Tubulovillous adenoma (Acute) Sessile colonic polyp (Acute) Incontinence (Acute) High grade 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 Hx of fracture of arm R arm, both bones. Plates. Knee pain Poor dentition Surgical History History of colonoscopy with polypectomy (~09/07/21) 09/07/21 Stoiber, no polyps repeat 2yrs. 02/16/2021 Stoiber, repeat 6 months Stoiber, villous/tubulovillous/sessile serrated 01/2020 Stoiber, multiple polyps 08/11/20 History of hysterectomy Social History Smoking/Tobacco Use Status: Never Smoking risk assessment performed?: Yes Alcohol Intake: current Alcohol Intake frequency: a few times a week Alcohol type: beer Details: 6+ beer/day; Has been cutting back the past few weeks from 18+ beers/day Drug use: Never Substance use type: does not use Do you feel safe at home: Yes Do you feel safe in your relationship?: Yes Exam Narrative Exam Narrative: GEN: awake, alert, oriented 3. Pleasant, well groomed, interactive. HEAD: Normocephalic, atraumatic ENT: Mucous membranes moist, oropharynx unremarkable, External ear exam unremarkable EYES: PERRL, EOMI NECK: Full ROM, no LESLY, no menigismus CHEST/RESP: slight anterior wall muscular tenderness, clear to auscultation bilateral, no wheeze/rhonchi/rales CARDIOVASCULAR: RRR, no murmur, rub magali. 2+ Rad pulse bilateral ABDOMEN: Soft, nontender, no mass. +Bowel sounds EXT: Full ROM, no edema, no rash Neuro: Grossly normal neurologic exam, conversant, interactive. Psych: Speech fluent, thoughts congruent, affect normal Course Vital Signs Vital signs: Vital Signs Temperature 37.0 C 01/13/22 12:28 Pulse 98 H 01/13/22 12:28 Respiratory Rate 18 01/13/22 12:28 Blood Pressure 144/82 H 01/13/22 12:28 Pulse Oximetry 98 01/13/22 12:28 Temperature 37.0 C 01/13/22 12:28 Temperature Source Tympanic 01/13/22 12:28 Pulse 98 H 01/13/22 12:28 Respiratory Rate 18 01/13/22 12:28 Blood Pressure 144/82 H 01/13/22 12:28 Blood Pressure Position Supine 01/13/22 12:28 Pulse Oximetry 98 01/13/22 12:28 Oxygen Delivery Method Room Air 01/13/22 12:28 Oxygen Flow Rate 0 01/13/22 12:28 Pain Level 7 01/13/22 12:28
[2022-01-13 12:54] LABS: HCT 42.3 % (36.0-46.0); MCH 34.6 pg (27.0-33.0); MCHC 35.5 % (32.0-36.0); MCV 98 fL (80-95); MPV 9.9 fL (8.0-11.0); RBC 4.34 10^6/uL (3.93-5.22); RDW 12.2 % (11.7-14.6); RDW-SD 44.2 fL; WBC 13.12 10^3/uL (4.4-10.8)
[2022-01-13 13:10] LABS: ALT 23 U/L (14-59); AST 21 U/L (15-37); Absolute Lymphocyte Count 1.31 10^3/uL (1.2-3.4); Absolute Monocyte Count 1.18 10^3/uL (0.1-0.8); Absolute Neutrophil Count 10.63 10^3/uL (1.2-6.7); Albumin 2.7 g/dL (3.4-5.0); Alkaline Phosphatase 96 U/L (46-116); Anion Gap 8.7 mmol/L (3-11); Atypical Lymphocytes % 4; BUN 5 mg/dL (7-18); Bands % 1; CO2 26.3 mmol/L (21.0-32.0); CREATININE 0.8 mg/dL (0.55-1.02); Calcium 8.2 mg/dL (8.5-10.1); Chloride 91 mmol/L (98-107); Glucose 107 mg/dL (74-106); Magnesium 1.7 mg/dL (1.8-2.4); Sodium 126 mmol/L (136-145); Total Protein 6.1 g/dL (6.4-8.2); Troponin I < 50 ng/L (<or=60)
[2022-01-13 13:11] LABS: Diff Comment Manual Differential; Platelet Count 46 10^3/uL (130-400); RBC Morphology Normal
--- NOTE | 2022-01-13 13:13 | DI.VRAD_ITS ---
PROCEDURE INFORMATION: Exam: XR Chest Exam date and time: 01/13/2022 12:49 PM Age: 61 years old Clinical indication: Other: Chest pain TECHNIQUE: Imaging protocol: Radiologic exam of the chest. Views: 1 view. COMPARISON: CT CHEST WO 12/18/2020 9:18 AM FINDINGS: Lungs: ill-defined opacity at the left lung base. Pleural spaces: no pneumothorax. No sizable pleural effusion. Heart/Mediastinum: Cardiac silhouette mildly enlarged. Bones/joints: no acute displaced fracture. bony degenerative changes. IMPRESSION: Ill-defined opacity left lung base would be concerning for pneumonia in the appropriate clinical setting. Atelectasis or superimposed atelectasis also possible. Short-term follow-up is recommended to ensure resolution. Dictated and Authenticated by: Timo Lott MD. Ordering:ANDREA Arora MD
[2022-01-13] MEDS: POTASSIUM CHLORIDE 20 MEQ, POTASSIUM CHLORIDE 10 MEQ 30 MEQ PO (13:42)
[2022-01-13] MEDS: Doxycycline Hyclate 100 MG, 2 CAPS/BTL PO (13:42)
[2022-01-13 13:46] VITALS: BP 140/80; PULSE 80; RESP 17; TEMP 36.8; O2SAT 99
== END 2022-01-13 13:51 | disposition home or self-care (01) ==
PROVIDERS: Emergency Provider Emergency Medicine; PCP Nurse Practitioner Family
DX: J18.9 Pneumonia, unspecified organism (principal); R07.89 Other chest pain; Z86.16 Personal history of COVID-19
CPT/HCPCS: 36415; 80053; 93005; 99283; 71045; 83735; 84484; 85025; 93010; 99284

== ENCOUNTER 2022-01-17 19:47 | Outpatient (REF) | payer MEDICARE, MEDICAID, SELFPAY ==
[2022-01-17 14:48] LABS: ALT 26 U/L (14-59); AST 19 U/L (15-37); Abs Immature Grans 0.72 10^3/uL (0.0-0.06); Albumin 2.7 g/dL (3.4-5.0); Alkaline Phosphatase 91 U/L (46-116); Anion Gap 9.5 mmol/L (3-11); BUN 5 mg/dL (7-18); Bilirubin, Total 1.7 mg/dL (0.2-1.0); CO2 26.5 mmol/L (21.0-32.0); CREATININE 0.8 mg/dL (0.55-1.02); Calcium 8.6 mg/dL (8.5-10.1); Chloride 91 mmol/L (98-107); Glucose 108 mg/dL (74-106); HCT 42.2 % (36.0-46.0); HGB 15.2 g/dL (11.2-15.7); MCH 35.3 pg (27.0-33.0); MCV 98 fL (80-95); MPV 11.2 fL (8.0-11.0); Potassium 3.4 mmol/L (3.5-5.1); RDW 12.5 % (11.7-14.6); RDW-SD 45.1 fL; Sodium 127 mmol/L (136-145); Total Protein 5.8 g/dL (6.4-8.2); WBC 13.65 10^3/uL (4.4-10.8)
[2022-01-17 16:23] LABS: Absolute Eosinophil Count 0.14 10^3/uL (0.0-0.7); Absolute Lymphocyte Count 0.68 10^3/uL (1.2-3.4); Absolute Monocyte Count 0.68 10^3/uL (0.1-0.8); Absolute Neutrophil Count 11.47 10^3/uL (1.2-6.7); Atypical Lymphocytes % 1; Bands % 6
[2022-01-17 16:24] LABS: Diff Comment Manual Differential; Metamyelocytes % 2; Myelocytes % 3; RBC Morphology Normal
[2022-01-17 16:25] LABS: Platelet Count 56 10^3/uL (130-400)
[2022-01-18 10:19] LABS: Hepatitis C Ab w Rflx HCV PCR Negative (Negative)
== END 2022-01-17 19:48 | disposition home or self-care (01) ==
LOC: NCHCN 19:47
PROVIDERS: PCP Nurse Practitioner Family; Visit Provider Nurse Practitioner Family
DX: D69.6 Thrombocytopenia, unspecified (principal); Z11.59 Encounter for screening for other viral diseases; R07.9 Chest pain, unspecified
CPT/HCPCS: 80053; 86803; 85025

== ENCOUNTER 2022-02-02 11:02 | Outpatient (REF) | payer MEDICARE, MEDICAID, SELFPAY ==
[2022-02-02 13:07] LABS: C Diff PCR Negative (Negative)
[2022-02-06 14:54] LABS: Calprotectin <50.0 mcg/g
== END 2022-02-02 11:03 | disposition home or self-care (01) ==
LOC: LBN 11:02
PROVIDERS: PCP Nurse Practitioner Family; Visit Provider Nurse Practitioner Adult Health
DX: R19.7 Diarrhea, unspecified (principal)
CPT/HCPCS: 87329; 87493; 83993; 87177

== ENCOUNTER 2022-02-06 14:22 | Outpatient (REF) | payer MEDICARE, MEDICAID, SELFPAY ==
[2022-02-06 15:28] LABS: HCT 36.6 % (36.0-46.0); HGB 13.1 g/dL (11.2-15.7); MCH 34.7 pg (27.0-33.0); MCHC 35.8 % (32.0-36.0); MCV 97 fL (80-95); MPV 11.1 fL (8.0-11.0); Platelet Count 108 10^3/uL (130-400); RBC 3.78 10^6/uL (3.93-5.22); RDW 12.6 % (11.7-14.6); RDW-SD 44.2 fL; WBC 16.12 10^3/uL (4.4-10.8)
[2022-02-06 15:52] LABS: ALT 27 U/L (14-59); AST 26 U/L (15-37); Albumin 2.6 g/dL (3.4-5.0); Alkaline Phosphatase 103 U/L (46-116); Anion Gap 13.6 mmol/L (3-11); BUN 9 mg/dL (7-18); Bilirubin, Total 2.7 mg/dL (0.2-1.0); CO2 20.4 mmol/L (21.0-32.0); CREATININE 0.9 mg/dL (0.55-1.02); Calcium 8.2 mg/dL (8.5-10.1); Chloride 97 mmol/L (98-107); Glucose 111 mg/dL (74-106); Sodium 131 mmol/L (136-145); Total Protein 5.6 g/dL (6.4-8.2)
[2022-02-06 16:46] LABS: Potassium 2.8 mmol/L (3.5-5.1)
== END 2022-02-06 14:23 | disposition home or self-care (01) ==
LOC: NCHCN 14:22
PROVIDERS: PCP Nurse Practitioner Family; Referring Provider Nurse Practitioner Family; Visit Provider Nurse Practitioner Family
DX: D69.6 Thrombocytopenia, unspecified (principal); F10.10 Alcohol abuse, uncomplicated
CPT/HCPCS: 80053; 85027

== ENCOUNTER 2022-02-08 11:40 | Inpatient (IN) | payer MEDICARE, MEDICAID, SELFPAY ==
--- NOTE | 2022-02-08 11:30 | RT.EKG_ITS ---
APPROVED REPORT Exam: Resting ECG Reason for Exam: WEAKNESS Patient Location: E HR:103 bpm ECG Measurements Heart Rate 103 AXIS FL 179 P 39 QRSd 92 QRS 4 QT 314 T 162 QTc 412 Conclusion Sinus tachycardia...rate> 99 Probable left atrial enlargement...P >50mS, <-0.10mV V1 Nonspecific repol abnormality, diffuse leads...ST dep, T flat/neg, ant/lat/inf sinus tachycardia, left axis, normal intervals
[2022-02-08 12:37] LABS: Abs Immature Grans 0.69 10^3/uL (0.0-0.06); HCT 34.5 % (36.0-46.0); HGB 12.5 g/dL (11.2-15.7); MCHC 36.2 % (32.0-36.0); MCV 94 fL (80-95); MPV 10.1 fL (8.0-11.0); RBC 3.68 10^6/uL (3.93-5.22); RDW 12.5 % (11.7-14.6); RDW-SD 43.2 fL; WBC 15.18 10^3/uL (4.4-10.8)
[2022-02-08 12:45] LABS: Absolute Eosinophil Count 0.15 10^3/uL (0.0-0.7); Absolute Lymphocyte Count 1.37 10^3/uL (1.2-3.4); Absolute Monocyte Count 0.46 10^3/uL (0.1-0.8); Absolute Neutrophil Count 13.21 10^3/uL (1.2-6.7); Bands % 9; Platelet Count 84 10^3/uL (130-400)
[2022-02-08 12:46] LABS: Diff Comment Manual Differential; RBC Morphology Normal
[2022-02-08 12:58] LABS: ALT 30 U/L (14-59); AST 27 U/L (15-37); Albumin 2.4 g/dL (3.4-5.0); Alkaline Phosphatase 100 U/L (46-116); Anion Gap 9.8 mmol/L (3-11); BUN 10 mg/dL (7-18); Bilirubin, Total 2.2 mg/dL (0.2-1.0); CO2 22.2 mmol/L (21.0-32.0); CREATININE 0.9 mg/dL (0.55-1.02); Chloride 96 mmol/L (98-107); Glucose 105 mg/dL (74-106); Magnesium 1.5 mg/dL (1.8-2.4); Sodium 128 mmol/L (136-145); Total Protein 5.7 g/dL (6.4-8.2); Troponin I < 50 ng/L (<or=60)
[2022-02-08] MEDS: Normal Saline 1,000 ML 1000 ML IV (12:58)
[2022-02-08 13:01] LABS: Bilirubin Moderate (Negative); Blood Negative (Negative); Clarity Cloudy (Clear); Glucose Negative (Negative); Ketones Negative (Negative); Leukocyte Esterase Trace (Negative); Nitrite Positive (Negative); Urobilinogen >=8.0 EU/dL (Up TO 0.2)
[2022-02-08 13:09] LABS: Bacteria Many HPF (Negative); Crystals Negative HPF (Negative); Epithelial Cells Rare HPF (Negative); Mucus Moderate (Negative); Other Cells Negative (Negative); RBC Negative HPF (0-2); WBC 20-50 HPF (0-5)
[2022-02-08 13:10] LABS: C & S Indicated? Yes; Casts Negative LPF (Negative)
--- NOTE | 2022-02-08 13:15 | DI.MRI_ITS ---
Exam(s) MR BRAIN WO EXAM: MR BRAIN WO CLINICAL HISTORY: Dizziness and weakness TECHNIQUE: Multiplanar multisequence MRI of the brain was performed. COMPARISON: No exams were available for comparison FINDINGS: The examination is limited due to patient motion artifact. VENTRICLES AND EXTRA AXIAL SPACES: Normal in size and morphology for the patient's age. MIDLINE SHIFT: None. CEREBRAL PARENCHYMA: No focus of restricted diffusion to suggest acute infarct. No space-occupying le elaine identified. HEMORRHAGE: None. BRAINSTEM/CEREBELLUM: Normal. CALVARIUM: Normal. VISUALIZED PARANASAL SINUSES/MASTOIDS:Clear except for opacification of a few right mastoid air cells . [place]: Normal flow void. PITUITARY GLAND: Unremarkable. OTHER FINDINGS: None. IMPRESSION: 1. No acute intracranial process. 2. Mild right mastoiditis. 3. Results of this exam have been verbally communicated with provider. DATA REPOSITORY:
[2022-02-08 13:21] LABS: Potassium 2.6 mmol/L (3.5-5.1)
--- NOTE | 2022-02-08 14:23 | DI.RAD_ITS ---
Exam(s) XR CHEST 2V PA LATERAL EXAM: XR CHEST 2V PA LATERAL CLINICAL HISTORY: Weakness TECHNIQUE: 2D digital imaging was performed of the chest. Two images were obtained. PA and lateral views were obtained. COMPARISON: CR,XR XR PORTABLE CHEST AP from 01/13/2022 FINDINGS: MEDIASTINUM: Normal. HEART: Normal. PULMONARY VASCULATURE: Normal. LUNGS: Plate atelectasis in the lung bases. No focal consolidating infiltrates. The previously note d left basilar infiltrate has resolved. PLEURAL SPACE: No pleural effusion or pneumothorax. BONE:Within normal limits for the patient's age. OTHER FINDINGS:Normal. IMPRESSION: No acute pulmonary findings. DATA REPOSITORY: RADIATION DOSE DELIVERED:
--- NOTE | 2022-02-08 14:30 | ED.GENADUL_ITS ---
Discharge Plan Disposition Patient Disposition: [facility] INPATIENT Condition: Poor Discharge Details Clinical Impression: Hypokalemia, Weakness, UTI (urinary tract infection) Admit Date/Time: 02/08/22 15:15 Admit Provider: Augustin Erwin Attending Provider: Augustin Erwin Primary Care Provider: Medina Ramirez ED Provider: Leandro Contreras Discharge Data Discharge Date/Time-TO BE ENTERED AT DEPARTURE: 02/08/22 16:00 Medical Decision Making Patient presenting to the emergency department for chief complaint of urinary incontinence and weakness. Along with acute dizziness which patient states history of an attempted to take meclizine at home. Patient presenting via EMS. Patient reports that this has been worsening over the past month. Patient denies any pain or discomfort. Physical exam shows generalized weakness, left l ateral gaze nystagmus with significant worsening of condition upon upright positioning or rapid movement, otherwise alert and oriented with no focal neurological deficits noted. Patient has strong odor of urine at time of presentation. Exam is otherwise unremarkable. Plan to check labs including urinalysis for concern of urinary tract infection. Review of labs show a significant leukocytosis, hypokalemia, hypomagnesemia and urinalysis that is consistent with UTI. Upon reviewing labs did note that patient had labs performed 2 days ago. Contact patient's primary care provider and discussed patient's case. Primary care provider states that patient had been admitted a couple weeks ago with continuing further decline in condition that is acute in nature. Patient does have significant alcohol intake but primary care also notes potential lack of resources with family assistance. With previous admission patient did have CT imaging done at [facility] with primary care reporting no acute findings. Given the rapid onset of declining condition we will plan on performing MRI imaging for further neurological evaluation. Review of imaging shows no worrisome findings. Given that patient has challenges with being at home alone, is having generalized weakness with even ill inability or difficulty to ambulate, electrolyte abnormalities and urinary tract infection we will plan on admitting patient for further repletion of electrolyte along with physical therapy consult. Called and spoke to hospitalist team who agreed and admitted patient. Patient is in agreement with this plan of care. In the emergency department we did start IV repletion of potassium along with Rocephin. Imaging Data Radiologic Study: Imaging: MRI Radiologist's impression: FINDINGS: The examination is limited due to patient motion artifact. VENTRICLES AND EXTRA AXIAL SPACES: Normal in size and morphology for the patient's age. MIDLINE SHIFT: None. CEREBRAL PARENCHYMA: No focus of restricted diffusion to suggest acute infarct. No space-occupying lesion identified. HEMORRHAGE: None. BRAINSTEM/CEREBELLUM: Normal. CALVARIUM: Normal. VISUALIZED PARANASAL SINUSES/MASTOIDS:Clear except for opacification of a few right mastoid air cells. [place]: Normal flow void. PITUITARY GLAND: Unremarkable. OTHER FINDINGS: None. IMPRESSION: 1. No acute intracranial process. 2. Mild right mastoiditis. 3. Results of this exam have been verbally communicated with provider. Lab Data Lab results reviewed: Yes I reviewed the patient's lab results. HPI General Mode of arrival: EMS . Date/Time Provider Initiated Documentation: 02/08/22 12:01 . Limitations to Documentation: no limitations . Information obtained by: patient, EMS and RN notes reviewed . History of Present Illness 61 year old F presents to the emergency department with the chief complaint of Progressive weakness, urine incontinence, Related Data Home Medications Medication Instructions Recorded Confirmed meclizine 12.5 mg tablet 12.5 tab PO Q6H 02/08/22 02/08/22 ondansetron 4 mg disintegrating 4 tab PO PRN PRN 02/08/22 02/08/22 tablet pantoprazole 40 mg tablet,delayed 40 tab PO DAILY 02/08/22 02/08/22 release potassium chloride 20 mEq oral 20 packet PO DAILY 02/08/22 02/08/22 packet (Klor-Con) Allergies Allergy/AdvReac Type Severity Reaction Status Date / Time Penicillins Allergy Intermediate Hives Verified 02/08/22 11:52 General Stated Complaint: GenMedical MARLINE: 3 Review of Systems Constitutional Constitutional: Denies chills, Reports fatigue, Denies fever(s), Reports frequent falls, Denies headache(s), Reports lethargy and Reports malaise Eyes Eyes: Denies blurry vision and Denies change in vision ENT Ears, Nose, Mouth, and Throat: Reports vertigo, Reports dizziness, Denies otalgia, Denies headache(s), Denies nasal congestion, Denies neck pain and Denies sore throat Cardiovascular Cardiovascular: Denies chest pain, Denies syncope and Denies dyspnea Respiratory Respiratory: Denies cough and Denies dyspnea Gastrointestinal Gastrointestinal: Denies abdominal pain, Denies diarrhea, Reports nausea and Denies vomiting Genitourinary Genitourinary: Reports urinary incontinence Musculoskeletal Musculoskeletal: Denies neck pain Integumentary/Breasts Skin/Breast: Denies rash and Denies sores Neurologic Neurologic: Reports as per HPI, Denies confusion, Reports vertigo, Reports dizziness, Denies syncope, Reports frequent falls, Denies headache(s), Denies localized weakness, Denies memory loss and Denies paresthesias Psychiatric Psychiatric: Denies confusion and Denies memory loss Endocrine Endocrine: Reports fatigue PFSH All Active Problems (Updated 02/10/22 @ 10:45 by Leandro Contreras NP) Weakness (Acute) UTI (urinary tract infection) (Acute) Hypokalemia (Acute) Hyponatremia (Acute) Alcohol abuse (Chronic) Anxiety (Chronic) Bipolar 1 disorder (Chronic) DVT prophylaxis (Acute) Discharge planning issues (Acute) Walking pneumonia (Acute) Multiple personality disorder (Acute) Unilateral primary osteoarthritis, left knee (Acute) Iliotibial band syndrome affecting left lower leg (Acute) Rectal bleeding (Acute) Anal and rectal polyp (Acute) Adenomatous polyps (Acute) Villous adenoma of colon (Acute) Tubulovillous adenoma (Acute) Sessile colonic polyp (Acute) Incontinence (Acute) High grade dysplasia in colonic adenoma (Acute) Abdominal pain (Acute) Nausea vomiting and diarrhea (Acute) Medical History (Updated 02/10/22 @ 10:45 by Leandro Contreras NP) Cervical cancer Colonoscopy planned COVID-19 06/2021-pt stated she had no symptoms but an upset stomach Depression Fracture right arm, metal plate/screws right ankle- metal Hx of chest pain Was seen on 12/24/19 in ED for chest pain, had worked up and f/U with PCP no issues or concerns or recurrent chest pain since. Hx of fracture of arm R arm, both bones. Plates. Knee pain Poor dentition Surgical History History of colonoscopy with polypectomy (~09/07/21) 09/07/21 Stoiber, no polyps repeat 2yrs. 02/16/2021 Stoiber, repeat 6 months Stoiber, villous/tubulovillous/sessile serrated 01/2020 Stoiber, multiple polyps 08/11/20 History of hysterectomy Social History Smoking/Tobacco Use Status: Never Smoking risk assessment performed?: Yes Alcohol Intake: current Alcohol Intake frequency: a few times a week Alcohol type: beer Details: 6+ beer/day; Has been cutting back the past few weeks from 18+ beers/day Drug use: Never Substance use type: does not use Do you feel safe at home: Yes Do you feel safe in your relationship?: Yes Exam Const General: cooperative and no acute distress Orientation: alert, awake and oriented x3 HENMT Head: normal to inspection, normocephalic and atraumatic Ears: hearing grossly normal bilaterally and TM's normal bilaterally Mouth: oral mucosae normal and moist mucous membranes Throat: posterior oropharynx normal Eyes General: appearance normal, both eyes and all related structures Alignment and Position: alignment normal Periorbital: periorbital findings normal Eyelids: eyelids normal Sclera: sclerae normal Pupils: PERRL EOM: EOM intact bilaterally and nystagmus Neck Neck: normal visual inspection, full ROM, no lymphadenopathy and no meningeal signs Resp Effort & Inspection: normal respiratory effort and able to speak in complete sentences Auscultation: clear to auscultation bilaterally Cardio Rate: regular rate Rhythm: regular rhythm Heart Sounds: S1 normal and S2 normal Neuro General: patient alert, patient awake, patient oriented x3, gait normal, tone normal, moves all extremities, CN's II-XI intact bilaterally and not confused Cranial Nerves: nystagmus horizontal fast component to the left and with left lateral gaze Cognition: normal cognition Speech: speech normal Motor: no pronator drift, no movement abnormalities noted, no fasciculations and strength abnormal (Generalized weakness) Sensory Exam: no sensory deficits noted Coordination: Does not sway with eyes open Course Vital Signs Vital signs: Respiratory Effort Non-Labored 02/08/22 11:52 Respiratory Depth Normal 02/08/22 11:52 Respiratory Pattern Normal 02/08/22 11:52 Lab/Test Results Lab/Test Results: 02/08/22 12:46 Urine - Reflex from Ua Urine Culture - Pending Laboratory Tests Range/Units 02/08/22 02/08/22 02/08/22 12:25 12:25 12:46 WBC (4.4-10.8) 10^3/uL 15.18 H RBC (3.93-5.22) 10^6/uL 3.68 L Hgb (11.2-15.7) g/dL 12.5 Hct (36.0-46.0) % 34.5 L MCV (80-95) fL 94 MCH (27.0-33.0) pg 34.0 H MCHC (32.0-36.0) % 36.2 H RDW (11.7-14.6) % 12.5 Plt Count (130-400) 10^3/uL 84 L MPV (8.0-11.0) fL 10.1 Immature Gran % 0.0 Neutrophils % 78.0 Band Neutrophils % 9 Lymphocytes % 9.0 Monocytes % 3.0 Eosinophils % 1.0 Basophils % 0.0 Nucleated RBC % (0.0-0.3) % 0.0 Absolute Neutrophils (1.2-6.7) 10^3/uL 13.21 H Absolute Lymphocytes (1.2-3.4) 10^3/uL 1.37 Absolute Monocytes (0.1-0.8) 10^3/uL 0.46 Absolute Eosinophils (0.0-0.7) 10^3/uL 0.15 Absolute Basophils (0.0-0.2) 10^3/uL 0.00 RBC Morphology Normal Sodium (136-145) mmol/L 128 L Potassium (3.5-5.1) mmol/L 2.6 L* Chloride (98-107) mmol/L 96 L Carbon Dioxide (21.0-32.0) mmol/L 22.2 Anion Gap (3-11) mmol/L 9.8 BUN (7-18) mg/dL 10 Creatinine (0.55-1.02) mg/dL 0.9 Estimated GFR/1.73 m2 (mL/min/1.73m2) >= 60.00 Glucose (74-106) mg/dL 105 Calcium (8.5-10.1) mg/dL 8.0 L Magnesium (1.8-2.4) mg/dL 1.5 L Total Bilirubin (0.2-1.0) mg/dL 2.2 H AST (15-37) U/L 27 ALT (14-59) U/L 30 Alkaline Phosphatase (46-116) U/L 100 Troponin I (<or=60) ng/L < 50 Total Protein (6.4-8.2) g/dL 5.7 L Albumin (3.4-5.0) g/dL 2.4 L Urine Color (Yellow) Yellow Urine Clarity (Clear) Cloudy Urine pH (5-8) 7.0 Ur Specific [place] (1.005-1.025) 1.020 Urine Protein (Negative) mg/dL 30 H Urine Ketones (Negative) mg/dL Negative Urine Blood (Negative) Negative Urine Nitrite (Negative) Positive H Urine Bilirubin (Negative) Moderate H Urine Urobilinogen (Up TO 0.2) EU/dL >=8.0 Ur Leukocyte Esterase (Negative) Trace H Urine RBC (0-2) HPF Negative Urine WBC (0-5) HPF 20-50 H Ur Epithelial Cells (Negative) HPF Rare Urine Crystals (Negative) HPF Negative Urine Bacteria (Negative) HPF Many Urine Casts (Negative) LPF Negative Urine Mucus (Negative) Moderate Urine Other (Negative) Negative Ur Culture Indicated? Yes Urine Glucose (Negative) mg/dL Negative
[2022-02-08] MEDS: POTASSIUM CHLORIDE 10 MEQ/100 ML BAG 100 MEQ IVPB (14:36)
[2022-02-08] MEDS: Magnesium Oxide 400 MG TAB PO (14:37)
[2022-02-08 14:51] LABS: Source Nasal/Nares
[2022-02-08 14:52] LABS: Ammonia 10 umol/L (11-32)
[2022-02-08 15:33] LABS: Troponin I < 50 ng/L (<or=60)
[2022-02-08 15:40] LABS: COVID-19 PCR Negative (Negative)
[2022-02-08 15:49] LABS: Folate 2.7 ng/mL (8.6-20.0)
[2022-02-08 15:54] VITALS: BP 132/77; PULSE 94; RESP 24; O2SAT 100
[2022-02-08 16:16] VITALS: BP 155/90; PULSE 95; RESP 22; TEMP 36.7; O2SAT 99
--- NOTE | 2022-02-08 18:16 | HPE_ITS ---
Date of service: 02/08/22 Time of Service: 18:16 Assessment and Plan Assessment and plan (1) UTI (urinary tract infection): Status: Acute Assessment and plan: Awaiting cx - ceftriaxone IV Concern for urinary retention (2) Weakness: Status: Acute Assessment and plan: Acute inability to remain upright independently (3) Hypokalemia: Status: Acute Assessment and plan: Repleted; will recheck 02/09/22 (4) Hyponatremia: Status: Acute Assessment and plan: Normal Saline @ 75 ml/h - will recheck 02/09/22 (5) Alcohol abuse: Status: Chronic Assessment and plan: Zabrina reports she has not had any alcohol, however generally has 6 beer / day, down from 18 beer / day. [facility] benzodiazepine protocol (6) Anxiety: Status: Chronic Assessment and plan: Continue home meds (7) Bipolar 1 disorder: Status: Chronic Assessment and plan: Continue home meds (8) Depression: Assessment and plan: Continue home meds (9) Poor dentition: Assessment and plan: Enourage good oral hygiene (10) DVT prophylaxis: Status: Acute Assessment and plan: Enoxaparin (11) Discharge planning issues: Status: Acute Assessment and plan: Home without services when medically stable, possibly short term rehab History of Present Illness History of Present Illness Chief Complaint: UTI; Confusion Narrative: This 61 year old female with past medical history of alcohol abuse, bipolar 1 disorder, and recent pneumonia was at home with home health PT and she was not able to stand up. They called 911 and she was brought to [facility] emergency department. She has an elevated white count and has malodorous urine, urine reveals UTI. She denied dysuria, fever, N/V/D. She reports she has had increased weakness over the past weak. She is admitted to the medical surgical floor for futher work up and IV antibiotics. Review of Systems All systems reviewed & are unremarkable except as noted in HPI and below PFSH All Active Problems (Updated 02/09/22 @ 11:05 by Christa Barron NP) Weakness (Acute) UTI (urinary tract infection) (Acute) Hypokalemia (Acute) Hyponatremia (Acute) Alcohol abuse (Chronic) Anxiety (Chronic) Bipolar 1 disorder (Chronic) DVT prophylaxis (Acute) Discharge planning issues (Acute) Walking pneumonia (Acute) Multiple personality disorder (Acute) Unilateral primary osteoarthritis, left knee (Acute) Iliotibial band syndrome affecting left lower leg (Acute) Rectal bleeding (Acute) Anal and rectal polyp (Acute) Adenomatous polyps (Acute) Villous adenoma of colon (Acute) Tubulovillous adenoma (Acute) Sessile colonic polyp (Acute) Incontinence (Acute) High grade dysplasia in colonic adenoma (Acute) Abdominal pain (Acute) Nausea vomiting and diarrhea (Acute) Medical History (Updated 02/09/22 @ 11:05 by Christa Barron NP) Cervical cancer Colonoscopy planned COVID-19 06/2021-pt stated she had no symptoms but an upset stomach Depression Fracture right arm, metal plate/screws right ankle- metal Hx of chest pain Was seen on 12/24/19 in ED for chest pain, had worked up and f/U with PCP no issues or concerns or recurrent chest pain since. Hx of fracture of arm R arm, both bones. Plates. Knee pain Poor dentition Surgical History History of colonoscopy with polypectomy (~09/07/21) 09/07/21 Stoiber, no polyps repeat 2yrs. 02/16/2021 Stoiber, repeat 6 months Stoiber, villous/tubulovillous/sessile serrated 01/2020 Stoiber, multiple polyps 08/11/20 History of hysterectomy Social History Smoking/Tobacco Use Status: Never Smoking risk assessment performed?: Yes Alcohol Intake: current Alcohol Intake frequency: a few times a week Alcohol type: beer Details: 6+ beer/day; Has been cutting back the past few weeks from 18+ beers/day Drug use: Never Substance use type: does not use Do you feel safe at home: Yes Do you feel safe in your relationship?: Yes Meds Allergies and Home Medications Allergies Allergy/AdvReac Type Severity Reaction Status Date / Time Penicillins Allergy Intermediate Hives Verified 02/08/22 11:52 Home Medications Medication Instructions Recorded Confirmed Type meclizine 12.5 mg tablet 12.5 tab PO Q6H 02/08/22 02/08/22 History ondansetron 4 mg disintegrating 4 tab PO PRN PRN 02/08/22 02/08/22 History tablet pantoprazole 40 mg tablet,delayed 40 tab PO DAILY 02/08/22 02/08/22 History release potassium chloride 20 mEq oral 20 packet PO DAILY 02/08/22 02/08/22 History packet (Riteshor-Eric) Exam Narrative Exam Narrative: GEN: awake, alert, oriented 3. Does not volunteer information and gives one word answers to questions. HEAD: Normocephalic, atraumatic ENT: Mucous membranes dry, oropharynx unremarkable, External ear exam unremarkable EYES: PERRL, EOMI NECK: Full ROM, no menigismus CHEST/RESP: slight anterior chest tenderness, clear to auscultation bilateral, no wheeze/rhonchi/rales CARDIOVASCULAR: RRR, no murmur, 2+ Rad pulse bilateral ABDOMEN: Soft, nontender, no mass. + Bowel sounds EXT: Full ROM, no edema, no rash Neuro: Grossly normal neurologic exam, Psych: Speech slow, very hard to understand; slurred vs. mumbling, affect normal Results Labs Result diagrams: 02/09/22 06:18 02/09/22 06:18 Labs: Laboratory Results - last 24 hr 02/08/22 02/08/22 02/08/22 12:25 12:25 12:46 WBC 15.18 H RBC 3.68 L Hgb 12.5 Hct 34.5 L MCV 94 MCH 34.0 H MCHC 36.2 H RDW 12.5 Plt Count 84 L MPV 10.1 Immature Gran % 0.0 Neutrophils % 78.0 Band Neutrophils % 9 Lymphocytes % 9.0 Monocytes % 3.0 Eosinophils % 1.0 Basophils % 0.0 Nucleated RBC % 0.0 Absolute Neutrophils 13.21 H Absolute Lymphocytes 1.37 Absolute Monocytes 0.46 Absolute Eosinophils 0.15 Absolute Basophils 0.00 RBC Morphology Normal Sodium 128 L Potassium 2.6 L* Chloride 96 L Carbon Dioxide 22.2 Anion Gap 9.8 BUN 10 Creatinine 0.9 Estimated GFR/1.73 m2 >= 60.00 Glucose 105 Calcium 8.0 L Magnesium 1.5 L Total Bilirubin 2.2 H AST 27 ALT 30 Alkaline Phosphatase 100 Ammonia Troponin I < 50 Total Protein 5.7 L Albumin 2.4 L Folate Urine Color Yellow Urine Clarity Cloudy Urine pH 7.0 Ur Specific Hollister 1.020 Urine Protein 30 H Urine Ketones Negative Urine Blood Negative Urine Nitrite Positive H Urine Bilirubin Moderate H Urine Urobilinogen >=8.0 Ur Leukocyte Esterase Trace H Urine RBC Negative Urine WBC 20-50 H Ur Epithelial Cells Rare Urine Crystals Negative Urine Bacteria Many Urine Casts Negative Urine Mucus Moderate Urine Other Negative Ur Culture Indicated? Yes Urine Glucose Negative COVID-19 Source SARS-CoV-2 (PCR) 02/08/22 02/08/22 02/08/22 14:35 14:35 14:40 WBC RBC Hgb Hct MCV MCH MCHC RDW Plt Count MPV Immature Gran % Neutrophils % Band Neutrophils % Lymphocytes % Monocytes % Eosinophils % Basophils % Nucleated RBC % Absolute Neutrophils Absolute Lymphocytes Absolute Monocytes Absolute Eosinophils Absolute Basophils RBC Morphology Sodium Potassium Chloride Carbon Dioxide Anion Gap BUN Creatinine Estimated GFR/1.73 m2 Glucose Calcium Magnesium Total Bilirubin AST ALT Alkaline Phosphatase Ammonia 10 L Troponin I < 50 Total Protein Albumin Folate 2.7 L Urine Color Urine Clarity Urine pH Ur Specific Hollister Urine Protein Urine Ketones Urine Blood Urine Nitrite Urine Bilirubin Urine Urobilinogen Ur Leukocyte Esterase Urine RBC Urine WBC Ur Epithelial Cells Urine Crystals Urine Bacteria Urine Casts Urine Mucus Urine Other Ur Culture Indicated? Urine Glucose COVID-19 Source SARS-CoV-2 (PCR) 02/08/22 14:49 WBC RBC Hgb Hct MCV MCH MCHC RDW Plt Count MPV Immature Gran % Neutrophils % Band Neutrophils % Lymphocytes % Monocytes % Eosinophils % Basophils % Nucleated RBC % Absolute Neutrophils Absolute Lymphocytes Absolute Monocytes Absolute Eosinophils Absolute Basophils RBC Morphology Sodium Potassium Chloride Carbon Dioxide Anion Gap BUN Creatinine Estimated GFR/1.73 m2 Glucose Calcium Magnesium Total Bilirubin AST ALT Alkaline Phosphatase Ammonia Troponin I Total Protein Albumin Folate Urine Color Urine Clarity Urine pH Ur Specific Hollister Urine Protein Urine Ketones Urine Blood Urine Nitrite Urine Bilirubin Urine Urobilinogen Ur Leukocyte Esterase Urine RBC Urine WBC Ur Epithelial Cells Urine Crystals Urine Bacteria Urine Casts Urine Mucus Urine Other Ur Culture Indicated? Urine Glucose COVID-19 Source Nasal/Nares SARS-CoV-2 (PCR) Negative Last Vital Signs Temp 36.7 C 02/08/22 16:16 Pulse 95 H 02/08/22 16:16 Resp 22 02/08/22 16:16 BP 155/90 H 02/08/22 16:16 Pulse Ox 99 02/08/22 16:16
[2022-02-08] MEDS: Normal Saline 1,000 ML 75 ML IV (18:41)
[2022-02-08 19:25] VITALS: BP 144/89; PULSE 89; RESP 22; TEMP 36.9; O2SAT 99
[2022-02-08] MEDS: POTASSIUM CHLORIDE 20 MEQ/100 ML BAG 50 MEQ IVPB ×2 (19:27→21:53)
[2022-02-08] MEDS: Potassium Chloride 20 MEQ TABCR PO (19:37)
[2022-02-08 19:38] LABS: Lab Add On Test DONE
[2022-02-08 19:58] LABS: Magnesium 1.6 mg/dL (1.8-2.4)
[2022-02-08 23:10] VITALS: PULSE 94
[2022-02-08 23:21] VITALS: BP 160/82; PULSE 90; RESP 16; TEMP 36.6; O2SAT 99
--- NOTE | 2022-02-09 | DI.RAD_ITS ---
Exam(s) XR LUMBAR SPINE COMPLETE EXAM: XR LUMBAR SPINE COMPLETE CLINICAL HISTORY: Unable to stand TECHNIQUE: COMPARISON: No exams were available for comparison FINDINGS: Five views were obtained. There is no evidence of acute fracture or dislocation. There are mild-to- moderate hypertrophic degenerative changes involving vertebral endplates and facet joints throughout the lumbar region. There is mild apparent pseudo spondylolisthesis of L4 on L5. No spondylolysis id entified. IMPRESSION: No evidence of acute process. RADIATION DOSE DELIVERED: Total DLP
[2022-02-09] MEDS: MAGNESIUM SULFATE 2 GM/50 ML BAG IVPB (00:02)
[2022-02-09 04:43] VITALS: BP 165/87; PULSE 71; RESP 14; TEMP 36.8; O2SAT 98
[2022-02-09 06:31] LABS: Absolute Basophil Count 0.15 10^3/uL (0.0-0.2); Basophils % 0.9; Eosinophils % 0.7; HCT 34.8 % (36.0-46.0); HGB 12.5 g/dL (11.2-15.7); Immature Grans % 6.1; Lymphocytes % 7.1; MCH 33.7 pg (27.0-33.0); MCHC 35.9 % (32.0-36.0); MCV 94 fL (80-95); Monocytes % 4.2; RBC 3.71 10^6/uL (3.93-5.22); RDW 12.4 % (11.7-14.6); RDW-SD 43.3 fL; WBC 16.37 10^3/uL (4.4-10.8)
[2022-02-09 06:37] LABS: Absolute Eosinophil Count 0.11 10^3/uL (0.0-0.7); Absolute Lymphocyte Count 1.16 10^3/uL (1.2-3.4); Absolute Monocyte Count 0.69 10^3/uL (0.1-0.8); Absolute Neutrophil Count 13.26 10^3/uL (1.2-6.7)
[2022-02-09 06:57] LABS: ALT 25 U/L (14-59); AST 28 U/L (15-37); Albumin 2.2 g/dL (3.4-5.0); Alkaline Phosphatase 97 U/L (46-116); Anion Gap 9.4 mmol/L (3-11); BUN 8 mg/dL (7-18); CO2 19.6 mmol/L (21.0-32.0); CREATININE 0.8 mg/dL (0.55-1.02); Calcium 7.6 mg/dL (8.5-10.1); Chloride 102 mmol/L (98-107); Glucose 99 mg/dL (74-106); Potassium 3.4 mmol/L (3.5-5.1); Sodium 131 mmol/L (136-145); Total Protein 5.4 g/dL (6.4-8.2)
[2022-02-09 08:00] VITALS: BP 148/85; PULSE 105; RESP 20; TEMP 36.8; O2SAT 98
[2022-02-09 08:00] LABS: Diff Comment Agrees w/ Instrument; Platelet Count 74 10^3/uL (130-400); RBC Morphology Normal
[2022-02-09 08:15] VITALS: PULSE 81
[2022-02-09] MEDS: Enoxaparin 40 MG/0.4 ML SYR SC (08:19)
[2022-02-09] MEDS: Normal Saline 1,000 ML 75 ML IV ×2 (08:20→23:34)
[2022-02-09] MEDS: Potassium Chloride 20 MEQ TABCR PO ×2 (08:20→20:23)
[2022-02-09] MEDS: Thiamine 100 MG TAB PO (08:20)
[2022-02-09] MEDS: Pantoprazole 40 MG TABCR PO (08:20)
[2022-02-09] MEDS: Folic Acid 1 MG TAB PO (08:20)
[2022-02-09] MEDS: Multivitamin TAB 1 TAB PO (08:20)
[2022-02-09] MEDS: cefTRIAXone 2 GM/50 ML BAG IVPB (08:46)
[2022-02-09] MEDS: POTASSIUM CHLORIDE 10 MEQ/100 ML BAG 100 MEQ IVPB ×2 (09:39→11:08)
--- NOTE | 2022-02-09 10:42 | PDOC.CMIN ---
- If Service Date Differs Date of service: 02/09/22 Time of Service: 10:42 Care Management Initial Assess REASON FOR HOSPITALIZATION:: Hypokalemia, weakness. PAST MEDICAL HISTORY/PAST SURGICAL HISTORY:: All Active Problems: Electrolyte imbalance (Acute), Walking pneumonia (Acute), Anxiety (Chronic), Bipolar 1 disorder (Acute), Multiple personality disorder (Acute), Unilateral primary osteoarthritis, left knee (Acute),. Iliotibial band syndrome affecting left lower leg (Acute), Alcohol abuse (Chronic), Rectal bleeding (Acute), Anal and rectal polyp (Acute), Adenomatous polyps (Acute), Villous adenoma of colon (Acute), Tubulovillous adenoma (Acute), Sessile colonic polyp (Acute), Incontinence (Acute), High grade dysplasia in colonic adenoma (Acute), Abdominal pain (Acute), and Nausea vomiting and diarrhea (Acute). Medical History: Cervical cancer, Colonoscopy planned, COVID-19 - 06/2021-pt stated she had no symptoms but an upset stomach, Depression, Fracture - right arm, metal plate/screws, right ankle- metal,. Hx of chest pain - Was seen on 12/24/19 in ED for chest pain, had worked up and f/U with PCP no issues or concerns or recurrent chest pain since,. Hx of fracture of arm - R arm, both bones. Plates, Knee pain, and Poor dentition. Surgical History: History of colonoscopy with polypectomy (~09/07/21) -. 09/07/21 Stoiber, no polyps repeat 2yrs, 02/16/2021 Stoiber, repeat 6 months,. Stoiber, villous/tubulovillous/sessile serrated 01/2020, Stoiber, multiple polyps 08/11/20, and History of hysterectomy. PREVIOUS FUNCTIONAL STATUS/SOCIAL/FAMILY SUPPORTS:: Zabrina lives alone in an apartment in [facility]. She has four daughters; two of whom live nearby in [place] and are supportive. 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 She reports being independent with her ADLs but her daughter, Verona, expresses concern related to her ability to care for herself. CURRENT FUNCTIONAL STATUS:: Zabrina is lying in bed when CM comes to meet with her. We talk about the struggles she is having at home and her daughter's concerns as Zabrina is unable to stand up or walk. We discuss rehab but Zabrina is reluctant to agreeing to rehab at this time and wishes to think about it. ADVANCE DIRECTIVES:: None on file; patient refuses form. Has patient been provided with info about the portal/API?: Yes Did the patient sign up for the portal?: No CODE STATUS:: Full Code INSURANCE COVERAGE / FINANCIAL ISSUES:: Medicare and Medicaid. CURRENT HOME/COMMUNITY SERVICES/EQUIPMENT:: Home Health PT, wheelchair and walker. PRIMARY CARE PHYSICIAN:: TRACEY Dominguez ([facility]). POTENTIAL DISCHARGE NEEDS:: Follow up appointment with PCP and SNF placement. PATIENT/FAMILY EDUCATION NEEDS:: Review discharge instructions; discuss Ask Me Three. ANTICIPATED BARRIERS TO DISCHARGE:: No anticipated barriers at this time. TRANSPORTATION:: Undetermined as it is dependent on disposition. PLAN:: Zabrina will likely require rehab when medically cleared by provider. She will follow up with her PCP and discharge plan of care as instructed. Transportation is undetermined at this time as it is dependent on disposition. CM will continue to follow.
--- NOTE | 2022-02-09 12:31 | IN_ITS ---
PT Notes Visit Reasons: Hypokalemia, weakness Inpatient Physical Therapy Evaluation Date: February 09, 2022 Referring Doctor: Christa Barron NP PT Orders: PT CONSULT: Limited ability Precautions: Standard precautions, fall risk Patient Profile/Admitting Diagnosis: Patient is a 61 year old female with past medical history of alcohol abuse, bipolar 1 disorder, and recent pneumonia presented to the [facility] emergency department with complaint of increased weakness.? She had malodorous urine and was found to have a urinary track infection.? ? PMHX: PFSH All Active Problems?(Updated 02/09/22 @ 11:05 by Christa Barron NP) Weakness (Acute) UTI (urinary tract infection) (Acute) Hypokalemia (Acute) Hyponatremia (Acute) Alcohol abuse (Chronic) Anxiety (Chronic) Bipolar 1 disorder (Chronic) DVT prophylaxis (Acute) Discharge planning issues (Acute) Walking pneumonia (Acute) Multiple personality disorder (Acute) Unilateral primary osteoarthritis, left knee (Acute) Iliotibial band syndrome affecting left lower leg (Acute) Rectal bleeding (Acute) Anal and rectal polyp (Acute) Adenomatous polyps (Acute) Villous adenoma of colon (Acute) Tubulovillous adenoma (Acute) Sessile colonic polyp (Acute) Incontinence (Acute) High grade dysplasia in colonic adenoma (Acute) Abdominal pain (Acute) Nausea vomiting and diarrhea (Acute) Medical History?(Updated 02/09/22 @ 11:05 by Christa Barron NP) Cervical cancer Colonoscopy planned COVID-19 06/2021-pt stated she had no symptoms but an upset stomachDepression Fracture right arm, metal plate/screws right ankle- metalHx of chest pain Was seen on 12/24/19 in ED for chest pain, had worked up and f/U with PCP no issues or concerns or recurrent chest pain since.Hx of fracture of arm R arm, both bones. Plates.Knee pain Poor dentition Surgical History? History of colonoscopy with polypectomy (~09/07/21) 09/07/21 Stoiber, no polyps repeat 2yrs. 02/16/2021 Stoiber, repeat 6 months Stoiber, villous/tubulovillous/sessile serrated 01/2020 Stoiber, multiple polyps ? 08/11/20History of hysterectomy Social History/Home Situation: Lives alone with 4 daughters in the area that check on her regularly. Lives in single level dwelling with one-step and rail into. Utilize front wheel walker as baseline functional mobility. Current Functional Limitations: Bed mobility, transfer capabilities sit to stand, ambulation, balance. Equipment Owned/DME: Front wheeled walker Subjective: Patient admits she has no significant pain to speak of. States she is less confused than when she arrived at the hospital. Questions if she will be able to stand. Objective: General Observation: Telemetry, IV left forearm, O2 sensor left middle finger. Initial evaluation started with patient sitting in chair. No bed mobility assessed. Mental Status: Alert and oriented x3. Pain: 0/10 ROM: Right Upper Extremity: Within functional limits Left Upper Extremity: Within functional limits Right Lower Extremity: Within functional limits Left Lower Extremity: Within functional limits Strength: Right Upper Extremity: 4/5 throughout Left Upper Extremity: 4/5 throughout Right Lower Extremity: 4 -/5 hip flexor, quad and hamstring. 4/5 ankle dorsiflexion and plantar flexion. Left Lower Extremity: 4 -/5 hip flexor, quad and hamstring. 4/5 ankle dorsiflexion and plantar flexion. Sensation: Reports intact sensation light touch bilateral lower extremities Bed Mobility/Transfers: L N/A indicated patient performed stand pivot transfer to [place] with mod assist. Nursing indicated she was a two-person assist for supine to sit and sit to insurance agents supervisor the middle the night. Bed mobility not assessed. Sit?stand: Mod assist x2. Verbal cues required for achieving terminal knee extension when standing Stand?sit: Mod assist x1 with verbal cues to direct into chair. Physical therapy initial evaluation commenced with patient sitting in chair and ending in chair with chair alarm set and nursing notified. Gait: Ambulated 5 steps with front wheeled walker and mod assist x2. Verbal cues needed for maintaining proper upright standing and quad engagement. Initiated transfer sit to stand. Very unsteady Balance: Static Sitting: Good Dynamic Sitting: Good Static Standing: Poor or Dynamic Standing: Therapeutic exercise: Patient educated in seated long arc quads, alternating hip flexion (marching), instructed in quad sets and straight leg raises when supine in bed. Special Tests: Mobility Limitations Standardized Measure [facility] AM-PAC 6 clicks Basic Mobility Inpatient Short Form: Raw Score: 13 Standardized Score: 36.74 CMS Score: 65% Informed Consent/Education: Patient instructed in purpose of PT consult and plan of care. Assessment: Patient is a 61year old female referred to physical therapy services with the diagnosis of hypokalemia and weakness. Patient presents with clinical signs and symptoms consistent with admitting/clinical diagnosis, as demonstrated by the following impairment level findings: 1. Decreased strength to bilateral lower extremity major muscle groups 2. Impaired standing balance 3. Impaired activity tolerance 4 impaired functional mobility Impairments are contributing to the following functional limitations: AMPAC score. 1. Increased dependence with functional mobility 2. Increased dependence with transfers 3. Inability to safely ambulate without assistive device and physical assist ance 4. Increase completion time for mobility ADL performance 5. Increased fall risk Patient is assessed as a [] Low [id number] X Moderate [id number] [] High [id number] complexity based on the following: History: See above Examination: See above Presentation: Evolving Decision Making: AM-PAC 65% Goals: Goals X1 week 1. Supine-Sit: Independent 2. Sit-Supine: Min 3. Sit-Stand: Contact-guard x1 to front wheeled walker 4. Stand-Sit: Contact-guard x1 from front wheeled walker 5. Bed-Chair: Contact-guard x1 with front wheeled walker 6. Chair-Bed: Contact-guard x1 with front wheel walker 7. Gait: 200+ feet with contact-guard and use of four-wheel walker Plan of Care/Treatment Plan: 1-2x/day, 7 days/week x 1 week. Plan of care has been reviewed with the SANITATION SUPERINTENDENT providing the service under Physical Therapy direction. Initiate Physical Therapy intervention for strengthening, bed mobility, transfers, gait, stairs, balance training, use of assistive magdy ce. Incorporate open kinetic chain strengthening chair exercises as well as progression into close kinetic functional strengthening as balance and lower extremity strength improves. DISCHARGE RECOMMENDATIONS: [] Home with no services [] [] Home with services [specify] [] Home with outpatient PT [] X SNF for continued rehabilitation : Patient would benefit from skilled graciela sing facility in order to progress strength and mobility level using least restrictive assistive ambulatory device, establish functional maintenance program that will increase ability patient to return home. [] Jail Care [] [] SNF versus LTC based on ability to participate and progress [] TREATMENT CODE/TIME: 30 minutes direct one-on-one care [id number]. Initial evaluation [id number] Thank you for this referral. Km Cheung PT, DPT [facility] Disclaimer: This note was created using [employer] voice recognition software. It was reviewed for major content. However, there may be multiple small discrepancies and errors due to the voice recognition aspects of the software.
--- NOTE | 2022-02-09 13:08 | W.PM.PROGNOT ---
Date of Service Date of service: 02/09/22 Time of Service: 13:08 Assessment and Plan Assessment and plan (1) UTI (urinary tract infection): Status: Acute Assessment and plan: Urine Cx - gram negative rods - will continue ceftriaxone IV WBC elevated again today, will recheck 02/10 Bladder scans to check for retention (2) Weakness: Status: Acute Assessment and plan: Unable to stand independently, today was assisted from chair to bed with hitesh lift. PT was in to see her and they recommend she is placed at SNF. Continues to be weak and unable to stand independently. Lumbar Spine xray- Rad report: Bones/joints: No acute fracture or subluxation. Minor endplate hypertrophy. Disc spaces appear relatively well preserved. Mild degenerative appearing anterolisthesis of L4 over L5 is similar to prior. Soft tissues: Unremarkable. Other findings: The bones appear mildly demineralized for age. IMPRESSION: 1. No acute bony pathology. 2. Mild degenerative appearing anterolisthesis of L4 over L5 is similar to prior. (3) Hypokalemia: Status: Acute Assessment and plan: Repleted; will recheck 02/10/22 (4) Hyponatremia: Status: Acute Assessment and plan: Normal Saline @ 75 ml/h - will recheck 02/10/22 (5) Alcohol abuse: Status: Chronic Assessment and plan: Zabrina reports she has not had any alcohol, however generally has 6 beer / day, down from 18 beer / day. Today admits to hard liquor and gingerale. CIWA score highest 3 (6) Anxiety: Status: Chronic Assessment and plan: Continue home meds (7) Bipolar 1 disorder: Status: Chronic Assessment and plan: Continue home meds (8) Depression: Assessment and plan: Continue home meds (9) Poor dentition: Assessment and plan: Enourage good oral hygiene (10) DVT prophylaxis: Status: Acute Assessment and plan: Enoxaparin (11) Discharge planning issues: Status: Acute Assessment and plan: Home without services when medically stable Subjective Subjective Patient reports: tolerating liquids well, tolerating a regular diet and voiding w/o difficulty; denies diarrhea, nausea, vomiting or fever Interval history since last seen: Zabrina continues to be weak and was unable to get from the chair to the bed in the room without a 2 person assist, which proceeded to needing a hitesh lift. PT saw her and recommends short term rehab. She denies dysuria, states she just feels weak. Denies back pain, denies falling, denies injury of any kind recently. No incontinence of urine or bowels. Exam Narrative Exam Narrative: GEN: awake, alert, oriented 3. More talkative today, volunteering information HEAD: Normocephalic, atraumatic ENT: Mucous membranes dry, oropharynx unremarkable, External ear exam unremarkable EYES: PERRL, EOMI NECK: Full ROM, no menigismus CHEST/RESP: slight anterior chest tenderness, clear to auscultation bilateral, no wheeze/rhonchi/rales CARDIOVASCULAR: RRR, no murmur, 2+ Rad pulse bilateral ABDOMEN: Soft, nontender, no mass. + Bowel sounds EXT: Full ROM, no edema, no rash Neuro: Grossly normal neurologic exam, Psych: Speech slow, very hard to understand; slurred vs. mumbling, affect normal Objective Last Vital Signs Temp 36.8 C 02/09/22 08:00 Pulse 81 02/09/22 08:15 Resp 20 02/09/22 08:00 BP 148/85 H 02/09/22 08:00 Pulse Ox 98 02/09/22 08:00 Laboratory Results - last 24 hr 02/08/22 02/08/22 02/08/22 12:25 12:46 14:35 WBC RBC Hgb Hct MCV MCH MCHC RDW Plt Count MPV Immature Gran % Neutrophils % Lymphocytes % Monocytes % Eosinophils % Basophils % Nucleated RBC % Absolute Neutrophils Absolute Lymphocytes Absolute Monocytes Absolute Eosinophils Absolute Basophils RBC Morphology Sodium 128 L Potassium 2.6 L* Chloride 96 L Carbon Dioxide 22.2 Anion Gap 9.8 BUN 10 Creatinine 0.9 Estimated GFR/1.73 m2 >= 60.00 Glucose 105 Calcium 8.0 L Magnesium 1.5 L Total Bilirubin 2.2 H AST 27 ALT 30 Alkaline Phosphatase 100 Ammonia Troponin I < 50 Total Protein 5.7 L Albumin 2.4 L Folate 2.7 L Urine RBC Negative Urine WBC 20-50 H Ur Epithelial Cells Rare Urine Crystals Negative Urine Bacteria Many Urine Casts Negative Urine Mucus Moderate Urine Other Negative Ur Culture Indicated? Yes COVID-19 Source SARS-CoV-2 (PCR) Add-On Test Request 02/08/22 02/08/22 02/08/22 14:35 14:35 14:35 WBC RBC Hgb Hct MCV MCH MCHC RDW Plt Count MPV Immature Gran % Neutrophils % Lymphocytes % Monocytes % Eosinophils % Basophils % Nucleated RBC % Absolute Neutrophils Absolute Lymphocytes Absolute Monocytes Absolute Eosinophils Absolute Basophils RBC Morphology Sodium Potassium Chloride Carbon Dioxide Anion Gap BUN Creatinine Estimated GFR/1.73 m2 Glucose Calcium Magnesium 1.6 L Total Bilirubin AST ALT Alkaline Phosphatase Ammonia 10 L Troponin I Total Protein Albumin Folate Urine RBC Urine WBC Ur Epithelial Cells Urine Crystals Urine Bacteria Urine Casts Urine Mucus Urine Other Ur Culture Indicated? COVID-19 Source SARS-CoV-2 (PCR) Add-On Test Request DONE 02/08/22 02/08/22 02/09/22 14:40 14:49 06:18 WBC RBC Hgb Hct MCV MCH MCHC RDW Plt Count MPV Immature Gran % Neutrophils % Lymphocytes % Monocytes % Eosinophils % Basophils % Nucleated RBC % Absolute Neutrophils Absolute Lymphocytes Absolute Monocytes Absolute Eosinophils Absolute Basophils RBC Morphology Sodium 131 L Potassium 3.4 L Chloride 102 Carbon Dioxide 19.6 L Anion Gap 9.4 BUN 8 Creatinine 0.8 Estimated GFR/1.73 m2 >= 60.00 Glucose 99 Calcium 7.6 L Magnesium 2.0 Total Bilirubin 2.0 H AST 28 ALT 25 Alkaline Phosphatase 97 Ammonia Troponin I < 50 Total Protein 5.4 L Albumin 2.2 L Folate Urine RBC Urine WBC Ur Epithelial Cells Urine Crystals Urine Bacteria Urine Casts Urine Mucus Urine Other Ur Culture Indicated? COVID-19 Source Nasal/Nares SARS-CoV-2 (PCR) Negative Add-On Test Request 02/09/22 06:18 WBC 16.37 H RBC 3.71 L Hgb 12.5 Hct 34.8 L MCV 94 MCH 33.7 H MCHC 35.9 RDW 12.4 Plt Count 74 L MPV 10.0 Immature Gran % 6.1 Neutrophils % 81.0 Lymphocytes % 7.1 Monocytes % 4.2 Eosinophils % 0.7 Basophils % 0.9 Nucleated RBC % 0.0 Absolute Neutrophils 13.26 H Absolute Lymphocytes 1.16 L Absolute Monocytes 0.69 Absolute Eosinophils 0.11 Absolute Basophils 0.15 RBC Morphology Normal Sodium Potassium Chloride Carbon Dioxide Anion Gap BUN Creatinine Estimated GFR/1.73 m2 Glucose Calcium Magnesium Total Bilirubin AST ALT Alkaline Phosphatase Ammonia Troponin I Total Protein Albumin Folate Urine RBC Urine WBC Ur Epithelial Cells Urine Crystals Urine Bacteria Urine Casts Urine Mucus Urine Other Ur Culture Indicated? COVID-19 Source SARS-CoV-2 (PCR) Add-On Test Request
--- NOTE | 2022-02-09 15:48 | NUR.NOTE ---
Nursing Note: At approximately 1230, pt rang call pinedo and requested assistance to commode and bed from chair. RN and DIE PRESS OPERATOR assisted pt to stand (2 max assist) with intention of stand/pivot to commode and then bed. Pt stood with max assist for approximately 1 minute, took a step towards the commode and stated that she could not stand any longer and needed to sit. Unable to take a step back to the chair, pt was lowered to the floor at the base of the chair. A hitesh with four assist was ultimately used to get the pt from the floor to the bed. Pt denied pain at that time, however a new abrasion was noted to her right hip, likely d/t scraping on the wheel of the recliner. CCRN was made aware of the incident. A mepilex dressing was placed over the abrasion for comfort. Pt was admitted to the hospital yesterday, with multiple bruises and scratches to her upper and lower extremities, reportedly from falls at home, per pt.
[2022-02-09 15:57] VITALS: BP 116/78; PULSE 97; RESP 22; TEMP 36.3; O2SAT 96
--- NOTE | 2022-02-09 18:55 | DI.VRAD_ITS ---
PROCEDURE INFORMATION: Exam: XR Lumbosacral Spine Exam date and time: 02/09/2022 18:12 Age: 61 years old Clinical indication: Other: Unable to stand TECHNIQUE: Imaging protocol: Radiologic exam of the lumbosacral spine. Views: 4 or 5 views. COMPARISON: CT ABDOMEN PELVIS WO 01/09/2022 17:22 FINDINGS: Bones/joints: No acute fracture or subluxation. Minor endplate hypertrophy. Disc spaces appear relatively well preserved. Mild degenerative appearing anterolisthesis of L4 over L5 is similar to prior. Soft tissues: Unremarkable. Other findings: The bones appear mildly demineralized for age. IMPRESSION: 1. No acute bony pathology. 2. Mild degenerative appearing anterolisthesis of L4 over L5 is similar to prior. Dictated and Authenticated by: Keshia Peterson MD. Ordering:LESA Goodwin MD
[2022-02-09 20:00] VITALS: BP 137/79; PULSE 88; RESP 16; TEMP 36.5; O2SAT 99
[2022-02-09 23:17] VITALS: BP 118/70; PULSE 82; RESP 16; TEMP 36.7; O2SAT 96
[2022-02-10 06:05] LABS: Abs Immature Grans 1.11 10^3/uL (0.0-0.06); HCT 31.2 % (36.0-46.0); HGB 10.8 g/dL (11.2-15.7); MCH 33.4 pg (27.0-33.0); MCHC 34.6 % (32.0-36.0); MCV 97 fL (80-95); RBC 3.23 10^6/uL (3.93-5.22); RDW 12.5 % (11.7-14.6); RDW-SD 44.7 fL; WBC 14.06 10^3/uL (4.4-10.8)
[2022-02-10 06:18] LABS: Anion Gap 6.4 mmol/L (3-11); BUN 7 mg/dL (7-18); CO2 21.6 mmol/L (21.0-32.0); CREATININE 0.7 mg/dL (0.55-1.02); Calcium 7.8 mg/dL (8.5-10.1); Chloride 102 mmol/L (98-107); Glucose 82 mg/dL (74-106); Magnesium 1.8 mg/dL (1.8-2.4); Potassium 3.6 mmol/L (3.5-5.1); Sodium 130 mmol/L (136-145)
[2022-02-10 06:46] LABS: Absolute Eosinophil Count 1.27 10^3/uL (0.0-0.7); Absolute Lymphocyte Count 1.83 10^3/uL (1.2-3.4); Absolute Neutrophil Count 10.26 10^3/uL (1.2-6.7); Bands % 6; Platelet Count 68 10^3/uL (130-400)
[2022-02-10 06:47] LABS: Basophilic Stippling Present; Diff Comment Manual Differential
[2022-02-10 07:50] LABS: Lab Add On Test DONE
[2022-02-10 08:19] VITALS: BP 156/83; PULSE 84; RESP 20; TEMP 36.8; O2SAT 98
[2022-02-10 08:29] LABS: Folate 4.2 ng/mL (8.6-20.0); Vitamin B12 1074 pg/mL (193-986)
[2022-02-10] MEDS: Normal Saline Flush 10 ML SYR IVP ×2 (08:49→19:35)
[2022-02-10] MEDS: Multivitamin TAB 1 TAB PO (08:49)
[2022-02-10] MEDS: Potassium Chloride 20 MEQ TABCR PO ×2 (08:49→19:34)
[2022-02-10] MEDS: cefTRIAXone 2 GM/50 ML BAG IVPB (08:49)
[2022-02-10] MEDS: Thiamine 100 MG TAB PO (08:50)
[2022-02-10] MEDS: Pantoprazole 40 MG TABCR PO (08:50)
[2022-02-10] MEDS: Folic Acid 1 MG TAB PO (08:50)
--- NOTE | 2022-02-10 11:46 | PT.INTREAT ---
PT Notes Visit Reasons: Hypokalemia, weakness SUBJECTIVE: ?is pleasant and agreeable to participating in PT.? Pt reports that she feels dizzy and her legs feels like noodles.? OBJECTIVE: ? PAIN: 6/10 BLE? BED MOBILITY/TRANSFERS? Sit-stand: Steady lift SBA? Stand-sit: SBA ? Therapeutic Procedures [id number] 25mins: pt cue for seated therapeutic exercise doing hip flexion/extension, hip abduction/adduction, knee flexion extension, ankle pumps [id number] each beforedoing static standing using the steady lift 3mins x2 with seated rest break in between. Skilled verbal and tactile cues for facilitation of proper motor control, movement pattern, muscle facilitation, and exercise performance. ? ASSESSMENT:? Patient tolerated session well without complaint.? Pt able to alternate between supported and unsupported standing with pt not holding the arm bar during standing with cues for terminal knee extension and gluteal setting during standing activity.. PLAN: Continue with global strengthening and general conditioning for improved mobility and activity tolerance. TREATMENT CODE/TIME: ?25minutes;? [id number] (10:55-11:20)
[2022-02-10 15:35] VITALS: BP 138/76; PULSE 89; RESP 19; TEMP 36.1; O2SAT 99
--- NOTE | 2022-02-10 15:49 | W.PM.PROGNOT ---
Date of Service Date of service: 02/10/22 Time of Service: 11:00 Assessment and Plan Assessment and plan (1) UTI (urinary tract infection): Status: Acute Assessment and plan: WBC decreased today, will recheck 02/12 Will check urine again, nursing did not collect today (2) Weakness: Status: Acute Assessment and plan: Unable to stand independently, neuro consult ordered, seen by Dr Mccartney - see her note (3) Hypokalemia: Status: Acute Assessment and plan: Potassium 3.8 KDur 20 meq BID, will recheck 02/12 (4) Folate deficiency: Status: Acute Assessment and plan: folic acid 1 mg daily Ferritin 1340 (5) Hyponatremia: Status: Acute Assessment and plan: Sodium 132 (6) Hypomagnesemia: Status: Acute Assessment and plan: Mag 1.6 -repleted, recheck 02/12 (7) Hypocalcemia: Status: Acute Assessment and plan: Adjustsed for Albumin - calcarb/d discontinued (8) Alcohol abuse: Status: Chronic Assessment and plan: CIWA discontinued Plt count - at her baseline range - 46-108 from 12/24/19 to today (9) Anxiety: Status: Chronic Assessment and plan: Continue home meds (10) Bipolar 1 disorder: Status: Chronic Assessment and plan: Continue home meds (11) Depression: Assessment and plan: Continue home meds (12) Poor dentition: Assessment and plan: Enourage good oral hygiene (13) DVT prophylaxis: Status: Acute Assessment and plan: Enoxaparin (14) Discharge planning issues: Status: Acute Assessment and plan: PT recommends she go to rehab for strengthening; she would like to go to the [facility]. Neuro consult completed and MRI completed - recommend Nerve Conduction EMG outpatient per Dr Birmingham Zabrina likes the plan to go to [facility] Discussed with Dr Lockwood Subjective Subjective Patient reports: no new complaints, tolerating liquids well and tolerating a regular diet; denies diarrhea, vomiting, shortness of breath or fever Interval history since last seen: Zabrina has been awake and alert today smiling and conversant, vital signs are stable, she is working with PT and was able to stand for 3 min, assisted by a device. She would like to go to [facility] and rehab for strengthening prior to going home. She does live alone and has limited resources. Exam Narrative Exam Narrative: GEN: awake, alert, oriented 3. Conversant, pleasant HEAD: Normocephalic, atraumatic ENT: Mucous membranes dry, oropharynx unremarkable, External ear exam unremarkable EYES: PERRL, EOMI NECK: Full ROM, no menigismus CHEST/RESP: tenderness is gone, clear to auscultation bilateral, no wheeze/rhonchi/rales CARDIOVASCULAR: RRR, no murmur, 2+ Rad pulse bilateral ABDOMEN: Soft, nontender, no mass. + Bowel sounds EXT: Full ROM, no edema, no rash Neuro: Grossly normal neurologic exam, Psych: Smiling, well groomed, no complaints Objective Last Vital Signs Temp 36.8 C 02/10/22 08:19 Pulse 84 02/10/22 08:19 Resp 20 02/10/22 08:19 BP 156/83 H 02/10/22 08:19 Pulse Ox 98 02/10/22 08:19 Laboratory Results - last 24 hr 02/10/22 02/10/22 02/10/22 05:18 05:45 05:45 WBC 14.06 H RBC 3.23 L Hgb 10.8 L Hct 31.2 L MCV 97 H MCH 33.4 H MCHC 34.6 RDW 12.5 Plt Count 68 L MPV 10.0 Immature Gran % See Differential Neutrophils % 67.0 Band Neutrophils % 6 Lymphocytes % 13.0 Monocytes % 5.0 Eosinophils % 9.0 Basophils % 0.0 Nucleated RBC % 0.0 Absolute Neutrophils 10.26 H Absolute Lymphocytes 1.83 Absolute Monocytes 0.70 Absolute Eosinophils 1.27 H Absolute Basophils 0.00 RBC Morphology See Below Basophilic Stippling Present Sodium 130 L Potassium 3.6 Chloride 102 Carbon Dioxide 21.6 Anion Gap 6.4 BUN 7 Creatinine 0.7 Estimated GFR/1.73 m2 >= 60.00 Glucose 82 Calcium 7.8 L Magnesium 1.8 Vitamin B12 Folate Add-On Test Request DONE 02/10/22 05:45 WBC RBC Hgb Hct MCV MCH MCHC RDW Plt Count MPV Immature Gran % Neutrophils % Band Neutrophils % Lymphocytes % Monocytes % Eosinophils % Basophils % Nucleated RBC % Absolute Neutrophils Absolute Lymphocytes Absolute Monocytes Absolute Eosinophils Absolute Basophils RBC Morphology Basophilic Stippling Sodium Potassium Chloride Carbon Dioxide Anion Gap BUN Creatinine Estimated GFR/1.73 m2 Glucose Calcium Magnesium Vitamin B12 1074 H Folate 4.2 L Add-On Test Request Reviewed Pertinent PMH: Yes
[2022-02-10] MEDS: Polyethylene Glycol 3350 17 GM PACKET PO (19:32)
[2022-02-10] MEDS: Magnesium Oxide 400 MG TAB PO (19:34)
[2022-02-10] MEDS: Docusate Sodium 100 MG CAP PO (19:34)
[2022-02-10 23:25] VITALS: BP 123/73; PULSE 80; RESP 16; TEMP 36.6; O2SAT 97
--- NOTE | 2022-02-11 | DI.MRI_ITS ---
Exam(s) MR LUMBAR SPINE WO EXAM: MR LUMBAR SPINE WO CLINICAL HISTORY: Sudden onset inability to stand. TECHNIQUE: Multiplanar multisequence MRI was performed. COMPARISON: CT CT ABDOMEN PELVIS W from 06/16/[address] ABDOMEN PELVIS WO from 01/09/2022 FINDINGS: MR examination of the lumbosacral spine was performed according to the usual protocol. There is a rounded high signal focus in the L2 vertebral body measuring up to [address] No corresponding high signal focus is identified on T1 weighted imaging. A smaller 5 millimete r focus of increased signal is also seen on the T2 weighted images in the L3 vertebral body. Additio alis a an area of increased signal is seen in S1 measuring about 15 millimeters in diameter. None o f these corresponded significant signal abnormality on T1 weighted images. Although the findings are likely to represent vertebral hemangiomas or fatty rests, possibility neoplastic disease is not excl uded. Follow-up examination with pre and post contrast T1 fat sat imaging is recommended. No disc herniation identified in the lumbar region. No evidence of central canal spinal stenosis or neural foraminal stenosis. There is a slight pseudo spondylolisthesis of L4 on L5. The conus medullaris appears intact. IMPRESSION: No disc herniation seen. High signal rounded areas are seen in L1, L2, and S1 vertebrae on T2 weight ed imaging without corresponding abnormality T1 weighted imaging. Correlation with pre and post cont rast T1 fat sat MR imaging is recommended to exclude neoplastic disease. DATA REPOSITORY:
[2022-02-11 07:17] LABS: HCT 29.8 % (36.0-46.0); HGB 10.3 g/dL (11.2-15.7); MCH 33.7 pg (27.0-33.0); MCHC 34.6 % (32.0-36.0); MCV 97 fL (80-95); MPV 10.6 fL (8.0-11.0); RBC 3.06 10^6/uL (3.93-5.22); RDW 12.7 % (11.7-14.6); RDW-SD 45.5 fL; WBC 13.07 10^3/uL (4.4-10.8)
[2022-02-11 07:40] LABS: Platelet Count 76 10^3/uL (130-400)
[2022-02-11 07:41] LABS: Absolute Eosinophil Count 0.39 10^3/uL (0.0-0.7); Absolute Lymphocyte Count 1.83 10^3/uL (1.2-3.4); Absolute Monocyte Count 1.44 10^3/uL (0.1-0.8); Absolute Neutrophil Count 9.15 10^3/uL (1.2-6.7); Bands % 4; Diff Comment Manual Differential; Metamyelocytes % 2; RBC Morphology Normal
[2022-02-11 07:53] LABS: Iron 55 ug/dL (50-170); Total Iron Binding Capacity 93 ug/dL (250-450); Transferrin Sat 59 % (15-50)
[2022-02-11 08:00] LABS: Anion Gap 7.4 mmol/L (3-11); BUN 5 mg/dL (7-18); CO2 22.6 mmol/L (21.0-32.0); CREATININE 0.8 mg/dL (0.55-1.02); Chloride 102 mmol/L (98-107); Glucose 89 mg/dL (74-106); Magnesium 1.6 mg/dL (1.8-2.4); Potassium 3.8 mmol/L (3.5-5.1); Sodium 132 mmol/L (136-145)
[2022-02-11 08:12] LABS: Ferritin 1340 ng/mL (8-252)
[2022-02-11] MEDS: Folic Acid 1 MG TAB PO (08:44)
[2022-02-11] MEDS: Thiamine 100 MG TAB PO (08:44)
[2022-02-11] MEDS: Multivitamin TAB 1 TAB PO (08:44)
[2022-02-11] MEDS: Magnesium Oxide 400 MG TAB PO ×2 (08:44→20:21)
[2022-02-11] MEDS: Calcium 600mg/Vit D 200U TAB 2 TAB PO (08:44)
[2022-02-11] MEDS: Pantoprazole 40 MG TABCR PO (08:44)
[2022-02-11] MEDS: Potassium Chloride 20 MEQ TABCR PO ×2 (08:44→20:21)
[2022-02-11] MEDS: Normal Saline Flush 10 ML SYR IVP (08:45)
[2022-02-11 08:49] VITALS: BP 129/83; PULSE 84; RESP 18; TEMP 36.8; O2SAT 99
[2022-02-11 09:09] LABS: Lab Add On Test DONE
[2022-02-11 09:22] LABS: Albumin 2.1 g/dL (3.4-5.0)
[2022-02-11] MEDS: MAGNESIUM SULFATE 2 GM/50 ML BAG IVPB (09:35)
--- NOTE | 2022-02-11 14:24 | DSE_ITS ---
Date of service: 02/12/22 Time of Service: 14:25 DS: Diagnosis Discharge Diagnosis (1) UTI (urinary tract infection): Status: Acute (2) Weakness: Status: Acute (3) Hypokalemia: Status: Acute (4) Folate deficiency: Status: Acute (5) Hyponatremia: Status: Acute (6) Hypomagnesemia: Status: Acute (7) Hypocalcemia: Status: Acute (8) Alcohol abuse: Status: Chronic (9) Anxiety: Status: Chronic (10) Bipolar 1 disorder: Status: Chronic (11) Depression: (12) Poor dentition: Discharge Plan Disposition Patient Disposition: SNF ([facility] Condition: Poor Discharge Details Reason For Visit: Hypokalemia, Weakness Admit Date/Time: 02/08/22 15:15 Admit Provider: Augustin Erwin Attending Provider: Augustin Erwin Primary Care Provider: Medina Ramirez Home Meds and New Rx's Prescriptions: New folic acid 1 mg Tablet 1 mg PO QAM Qty: 0 0RF multivitamin [Multiple Vitamins] Tablet 1 tab PO QAM Qty: 0 0RF polyethylene glycol 3350 17 gram Powder In Packet 17 g PO DAILY PRN PRN (Reason: Constipation) Qty: 0 0RF potassium chloride [Klor-Con M20] 20 mEq Tablet,Er Particles/Crystals 20 meq PO BID Qty: 20 0RF magnesium oxide 400 mg (241.3 mg magnesium) Tablet 400 mg PO BID Qty: 0 0RF Continued meclizine 12.5 mg tablet 12.5 tab PO Q6H Label Comments: TAKE ONE TABLET BY MOUTH EVERY 6 HOURS NEEDED pantoprazole 40 mg tablet,delayed release (DR/EC) 40 tab PO DAILY Label Comments: TAKE ONE TABLET BY MOUTH EVERY DAY 30 MINUTES BEFORE SUPPER Discontinued potassium chloride [Klor-Con] 20 mEq packet 20 packet PO DAILY No Action ondansetron 4 mg tablet,disintegrating 4 tab PO PRN PRN Label Comments: DISSOLVE ONE TABLET ON TONGUE EVERY 8 HOURS Discharge Instructions Stand Alone Forms: Nursing Discharge Form Referrals: Medina Ramirez [Primary Care Provider] - Activity:: Activity as Tolerated Equipment/Supplies:: Walker Diet:: As Tolerated DS: Data Vitals/I&O Vitals and I&O: Vital Signs Temperature 36.8 C 02/11/22 08:49 Temperature Source Tympanic 02/11/22 08:49 Pulse 84 02/11/22 08:49 Pulse Rhythm Regular 02/11/22 09:17 Respiratory Rate 18 02/11/22 08:49 Respiratory Effort 02/11/22 09:17 Respiratory Depth Normal 02/11/22 09:17 Respiratory Pattern Normal 02/11/22 09:17 Blood Pressure 129/83 02/11/22 08:49 Pulse Oximetry 99 02/11/22 08:49 Oxygen Delivery Method Room Air 02/11/22 08:49 Oxygen Flow Rate 0 02/11/22 08:49 Pain Level 0 02/11/22 08:49 Intake & Output 02/10/22 02/11/22 02/11/22 23:59 11:59 23:59 Intake Total 610 / 1530 490 / 780 290 / 780 Output Total 400 / 1200 400 / 600 200 / 600 Balance 210 / 330 90 / 180 90 / 180 Weight 102 kg Intake: IV 10 / 930 10 / 60 50 / 60 Oral 600 / 600 480 / 720 240 / 720 Output: Urine 400 / 1200 400 / 600 200 / 600 Other: Urine Color Light Kary Yellow Dark Kary Urine Appearance Clear Clear Clear Urine Odor Strong Normal Comment patient was heavily incont and voided 400ml in commode grossily incontinent Stool Size Small Stool Characteristics Soft Brown Voiding Methods Diaper Diaper Incontinent Incontinent Data Completed and Pending Labs on day of discharge: Labs from last 24 hours 02/11/22 02/11/22 02/11/22 06:40 06:40 06:40 WBC 13.07 H RBC 3.06 L Hgb 10.3 L Hct 29.8 L MCV 97 H MCH 33.7 H MCHC 34.6 RDW 12.7 Plt Count 76 L MPV 10.6 Immature Gran % 0.0 Neutrophils % 66.0 Band Neutrophils % 4 Lymphocytes % 14.0 Monocytes % 11.0 Eosinophils % 3.0 Basophils % 0.0 Metamyelocytes % 2 Nucleated RBC % 0.0 Absolute Neutrophils 9.15 H Absolute Lymphocytes 1.83 Absolute Monocytes 1.44 H Absolute Eosinophils 0.39 Absolute Basophils 0.00 RBC Morphology Normal Sodium Potassium Chloride Carbon Dioxide Anion Gap BUN Creatinine Estimated GFR/1.73 m2 Glucose Calcium Magnesium Iron TIBC Transferrin % Sat Ferritin Albumin 2.1 L Add-On Test Request DONE 02/11/22 02/11/22 06:40 06:40 WBC RBC Hgb Hct MCV MCH MCHC RDW Plt Count MPV Immature Gran % Neutrophils % Band Neutrophils % Lymphocytes % Monocytes % Eosinophils % Basophils % Metamyelocytes % Nucleated RBC % Absolute Neutrophils Absolute Lymphocytes Absolute Monocytes Absolute Eosinophils Absolute Basophils RBC Morphology Sodium 132 L Potassium 3.8 Chloride 102 Carbon Dioxide 22.6 Anion Gap 7.4 BUN 5 L Creatinine 0.8 Estimated GFR/1.73 m2 >= 60.00 Glucose 89 Calcium 8.0 L Magnesium 1.6 L Iron 55 TIBC 93 L Transferrin % Sat 59 H Ferritin 1340 H Albumin Add-On Test Request [facility] All Active Problems (Updated 02/12/22 @ 00:09 by ANNAMARIE TAYLOR) Vertigo (Acute) Hypomagnesemia (Acute) Hypocalcemia (Acute) Folate deficiency (Acute) Weakness (Acute) UTI (urinary tract infection) (Acute) Hypokalemia (Acute) Hyponatremia (Acute) Alcohol abuse (Chronic) Anxiety (Chronic) Bipolar 1 disorder (Chronic) Walking pneumonia (Acute) Multiple personality disorder (Acute) Unilateral primary osteoarthritis, left knee (Acute) Iliotibial band syndrome affecting left lower leg (Acute) Rectal bleeding (Acute) Anal and rectal polyp (Acute) Adenomatous polyps (Acute) Villous adenoma of colon (Acute) Tubulovillous adenoma (Acute) Sessile colonic polyp (Acute) Incontinence (Acute) High grade 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 Hx of fracture of arm R arm, both bones. Plates. Knee pain Poor dentition Surgical History History of colonoscopy with polypectomy (~09/07/21) 09/07/21 Stoiber, no polyps repeat 2yrs. 02/16/2021 Stoiber, repeat 6 months Stoiber, villous/tubulovillous/sessile serrated 01/2020 Stoiber, multiple polyps 08/11/20 History of hysterectomy Social History Smoking/Tobacco Use Status: Never Smoking risk assessment performed?: Yes Alcohol Intake: current Alcohol Intake frequency: a few times a week Alcohol type: beer Details: 6+ beer/day; Has been cutting back the past few weeks from 18+ beers/day Drug use: Never Substance use type: does not use Do you feel safe at home: Yes Do you feel safe in your relationship?: Yes
--- NOTE | 2022-02-11 15:03 | PT.INTREAT ---
Date of service: 02/11/22 Time of Service: 11:38 PT Notes Visit Reasons: Hypokalemia, Weakness Inpatient Physical Therapy Treatment Note [facility] Date: 02/11/2022 PRECAUTIONS: Fall, activity as tolerated SUBJECTIVE: Zabrina is pleasant and agreeable to participating in PT. She reports that she continues to feel very weak. Patient is unable to identify if she is limited by weakness or anxiety when asked. She is also unable to identify if she feels weaker on the L or R side. OBJECTIVE: PAIN: No c/o pain BED MOBILITY/TRANSFERS Sit-stand: CGA Stand-sit: CGA GAIT Assistive Device: FWW Weight bearing: Full Assist: CGA Distance: 3 steps F/B x2 + 2 steps Deviation: Mild wobbling, patient repeats I can't when asked to take more steps THEREX: Patient was instructed in weight shifting with FWW support and CGA. Patient refused to complete standing mini hip flexion. She was then instructed in a seated open-chain LE strengthening program, to include: ankle pumps, heel raises, LAQ, hip flexion and hip abduction, without difficulty. ASSESSMENT: Patient tolerated session with complaint of B LE weakness. She was able to tolerate taking several steps with FWW support and CGA. She demonstrates good tolerance of open-chain LE exercises, bilaterally. PLAN: Continue with general conditioning an global strengthening, as tolerated, for improved activity tolerance and mobility. TREATMENT CODE/TIME: 18 minutes; [id number] (11:38)
--- NOTE | 2022-02-11 15:14 | CMPROGNOTE_ITS ---
- If Service Date Differs Date of service: 02/11/22 Time of Service: 15:14 Care Management Progress Note S/O: Zabrina was accepted to [facility] today, discharge delayed for MRI/Neurology consult, per MD. CM continues to follow. A: 61 year old female admitted to [facility] 02/08/22 for Hypokalemia, Weakness P: Anticipate Zabrina will discharge to [facility], when ready per MD. She will transport via the facility's W/C van or via EMS. CM continues to follow.
[2022-02-11 16:17] VITALS: BP 117/64; PULSE 107; RESP 18; TEMP 36.4; O2SAT 97
[2022-02-11 19:40] LABS: Bilirubin Negative (Negative); Blood Small (Negative); Clarity Cloudy (Clear); Glucose Negative (Negative); Ketones Negative (Negative); Leukocyte Esterase Negative (Negative); Nitrite Negative (Negative); Specific Gravity >= 1.030 (1.005-1.025); Urobilinogen 0.2 EU/dL (Up TO 0.2); pH 5.5 (5-8)
[2022-02-11 19:49] LABS: C & S Indicated? Yes; Crystals Many Amorphous HPF (Negative)
--- NOTE | 2022-02-11 21:15 | W.NEUROCONSU ---
Date of service: 02/11/22 Time of Service: 16:00 Assessment and Plan Assessment and plan (1) Weakness: Status: Acute Assessment and plan: Ms. Bucio is a 61 year-old, right-handed woman with: #1. Ambulatory dysfunction. She has proximal weakness, however, her exam is complicated by functional overlay. Neuropathy, myopathy, deconditioning, all remain in the differential. Related to her alcoholism. Please check A1c, TSH, and SPEP as further work-up for neuropathy. Please check myositis panel, CK, ESR, CRP, AMBER, RF as work-up for myopathy. Continue PT. I recommend outpatient NCS/EMG as further work-up. #2. Vertigo. Her symptoms are not consistent with BPPV though I was unable to tilt her today. Symptoms have improved since admission? Migraine? (2) Vertigo: Status: Acute History of Present Illness History of Present Illness Chief Complaint: weakness Narrative: Handedness: right. HPI: Ms. Bucio is a 61 year-old woman with Bipolar 1, ETOH abuse, cervical cancer, and prior colon polyps. Ms. Bucio was admitted on 02/08/22 with 1 month of increasing weakness and inability to transfer and ambulate. Complicated by intermittent dizziness. 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 She lives alone. She reportedly had a recent admission at [facility] for pneumonia - I do not have those records. She has undergone the work-up below thus far. She denies any numbness or tingling in her feet or legs. She notes recently occasional numbness in her hands. She denies back or neck pain. She denies muscle pain. In regards to the dizziness, she describes vertigo that can last hours to days. Initially she thought laying supine did not improve her vertigo, but then later thought it did. She tried meclizine with no improvement in her symptoms. She denies constipation. She notes at times she does not urinate very often - does not have a hard time starting her stream. She notes that she does not drink water at home. She also notes that she has stopped drinking beers. She has no FHx of gait disorders, neuropathies, myopathies, or other neurolgoical disorders. Work-up: B12 1074 F 2.7 - 4.2 W 15.18 (elevated since December 2021) Na [phone] (stable since 2019) K 2.6 - 3.4 Cr 0.9 Mag 1.5 - 2.0 Tbili 2.2 Ammonia 10 Protein 5.4 Brain MRI w/o (02/08/22): No acute findings. R mastoiditis per radiology. I reviewed these images personally and this is my personal interpretation. Review of Systems All systems reviewed & are unremarkable except as noted in HPI and below PFSH All Active Problems (Updated 02/11/22 @ 22:23 by Kia Mccartney MD) Vertigo (Acute) Hypomagnesemia (Acute) Hypocalcemia (Acute) Folate deficiency (Acute) Weakness (Acute) UTI (urinary tract infection) (Acute) Hypokalemia (Acute) Hyponatremia (Acute) Alcohol abuse (Chronic) Anxiety (Chronic) Bipolar 1 disorder (Chronic) DVT prophylaxis (Acute) Discharge planning issues (Acute) Walking pneumonia (Acute) Multiple personality disorder (Acute) Unilateral primary osteoarthritis, left knee (Acute) Iliotibial band syndrome affecting left lower leg (Acute) Rectal bleeding (Acute) Anal and rectal polyp (Acute) Adenomatous polyps (Acute) Villous adenoma of colon (Acute) Tubulovillous adenoma (Acute) Sessile colonic polyp (Acute) Incontinence (Acute) High grade 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 Hx of fracture of arm R arm, both bones. Plates. Knee pain Poor dentition Surgical History History of colonoscopy with polypectomy (~09/07/21) 09/07/21 Stoiber, no polyps repeat 2yrs. 02/16/2021 Stoiber, repeat 6 months Stoiber, villous/tubulovillous/sessile serrated 01/2020 Stoiber, multiple polyps 08/11/20 History of hysterectomy Social History Smoking/Tobacco Use Status: Never Smoking risk assessment performed?: Yes Alcohol Intake: current Alcohol Intake frequency: a few times a week Alcohol type: beer Details: 6+ beer/day; Has been cutting back the past few weeks from 18+ beers/day Drug use: Never Substance use type: does not use Do you feel safe at home: Yes Do you feel safe in your relationship?: Yes Visit Medication and Allergies Active Medications Generic Name Dose Route Start Last Admin Trade Name Freq PRN Reason Stop Dose Admin Acetaminophen 0 mg 02/08/22 15:14 Acetaminophen 325 Mg Tab PO Q4H PRN PRN Dimethicone/Zinc Oxide 0 gm 02/08/22 15:14 Nathan Protect Cream 142 Gm Tube TP PRN PRN Docusate Sodium 100 mg 02/08/22 15:14 02/10/22 19:34 Docusate Sodium 100 Mg Cap PO 100 mg TID PRN PRN Administration Folic Acid 1 mg 02/11/22 08:30 02/11/22 08:44 Folic Acid 1 Mg Tab PO 1 mg QAM JOSE Administration Magnesium Hydroxide 30 ml 02/08/22 15:14 Milk Of Magnesia 30 Ml Cup PO DAILY PRN PRN Magnesium Oxide 400 mg 02/10/22 20:00 02/11/22 20:21 Magnesium Oxide 400 Mg Tab PO 400 mg BID JOSE Administration Multivitamins 1 tab 02/09/22 08:30 02/11/22 08:44 Multivitamin Tab PO 02/15/22 08:31 1 tab QAM JOSE Administration Pantoprazole Sodium 40 mg 02/10/22 07:30 02/11/22 08:44 Pantoprazole 40 Mg Tabcr PO 40 mg DAILY@0730 JOSE Administration Polyethylene Glycol 17 gm 02/08/22 15:14 02/10/22 19:32 Polyethylene Glycol 3350 17 Gm Packet PO 17 gm DAILY PRN PRN Administration Constipation Potassium Chloride 20 meq 02/08/22 20:00 02/11/22 20:21 Potassium Chloride 20 Meq Tabcr PO 20 meq BID JOSE Administration Sodium Chloride 0 ml 02/08/22 23:40 02/11/22 08:45 Normal Saline Flush 10 Ml Syr IVP 10 ml PRN PRN Administration Thiamine HCl 100 mg 02/09/22 08:30 02/11/22 08:44 Thiamine 100 Mg Tab PO 02/15/22 08:31 100 mg QAM JOSE Administration Allergies Penicillins Allergy (Intermediate, Verified 02/08/22 11:52) Hives Exam Narrative Exam Narrative: Physical Exam: Gen: Patient of apparent stated age, NAD Head and face: no facial or cranial abnormalities Neck: Supple, no meningismus, no occipital tenderness CV: RRR, no murmur Resp: CTA B/L Abd: soft, nontender, nondistended Ext: No edema. No clubbing or cyanosis. No bony deformity. Neuro Exam: Language: fluency, naming, repetition, and comprehension intact; Mental Status: AAOxself and place, current events and, fund of knowledge intact; Speech: no dysarthria Cranial nerves: Funduscopy: not performed CN II: visual dent intact CN III, IV, : extraocular movements intact, no nystagmus, pupils symmetric and reactive to light CN V: face sensation intact to LT and PP CN VII: no facial asymmetry noted CN VIII: hearing intact bilaterally CN IX, X: palate rises symmetrically CN XI: trapezius/SCM 5/5 bilaterally CN XII: protrudes tongue symmetrically Sensory: intact to LT and joint position in all extremities; absent PP throughout the entire legs bilaterally up to the groin/pelvis with intact PP in the pelvis/perineum and in the torso; intact vibration in the R toes but absent all else in the bilateral LE; Motor: bulk and tone intact. Fine motor movements intact bilaterally. No pronator drift. Strength 4/5 proximally in all 4 extremities, stronger distally 5/5. Slightly weaker on the left. Reflexes: 2+ at the biceps, triceps, and brachioradialis; absent at the patella and achilles tendons bilaterally; toes neutral bilaterally; Coordination: FTN and HTS intact bilaterally Gait: not tested Results Last Vital Signs Temp 97.5 F L 02/11/22 16:17 Pulse 107 H 02/11/22 16:17 Resp 18 02/11/22 16:17 BP 117/64 02/11/22 16:17 Pulse Ox 97 02/11/22 16:17 Labs Result diagrams: 02/11/22 06:40 02/11/22 06:40 Labs: Laboratory Results - last 24 hr 02/11/22 02/11/22 02/11/22 06:40 06:40 06:40 WBC 13.07 H RBC 3.06 L Hgb 10.3 L Hct 29.8 L MCV 97 H MCH 33.7 H MCHC 34.6 RDW 12.7 Plt Count 76 L MPV 10.6 Immature Gran % 0.0 Neutrophils % 66.0 Band Neutrophils % 4 Lymphocytes % 14.0 Monocytes % 11.0 Eosinophils % 3.0 Basophils % 0.0 Metamyelocytes % 2 Nucleated RBC % 0.0 Absolute Neutrophils 9.15 H Absolute Lymphocytes 1.83 Absolute Monocytes 1.44 H Absolute Eosinophils 0.39 Absolute Basophils 0.00 RBC Morphology Normal Sodium 132 L Potassium 3.8 Chloride 102 Carbon Dioxide 22.6 Anion Gap 7.4 BUN 5 L Creatinine 0.8 Estimated GFR/1.73 m2 >= 60.00 Glucose 89 Calcium 8.0 L Magnesium 1.6 L Iron 55 TIBC 93 L Transferrin % Sat 59 H Ferritin 1340 H Albumin Urine Color Urine Clarity Urine pH Ur Specific [place] Urine Protein Urine Ketones Urine Blood Urine Nitrite Urine Bilirubin Urine Urobilinogen Ur Leukocyte Esterase Urine RBC Urine WBC Ur Epithelial Cells Urine Crystals Urine Bacteria Urine Mucus Ur Culture Indicated? Urine Glucose Add-On Test Request 02/11/22 02/11/22 02/11/22 06:40 06:40 18:50 WBC RBC Hgb Hct MCV MCH MCHC RDW Plt Count MPV Immature Gran % Neutrophils % Band Neutrophils % Lymphocytes % Monocytes % Eosinophils % Basophils % Metamyelocytes % Nucleated RBC % Absolute Neutrophils Absolute Lymphocytes Absolute Monocytes Absolute Eosinophils Absolute Basophils RBC Morphology Sodium Potassium Chloride Carbon Dioxide Anion Gap BUN Creatinine Estimated GFR/1.73 m2 Glucose Calcium Magnesium Iron TIBC Transferrin % Sat Ferritin Albumin 2.1 L Urine Color Yellow Urine Clarity Cloudy Urine pH 5.5 Ur Specific [place] >= 1.030 H Urine Protein Negative Urine Ketones Negative Urine Blood Small H Urine Nitrite Negative Urine Bilirubin Negative Urine Urobilinogen 0.2 Ur Leukocyte Esterase Negative Urine RBC Urine WBC Ur Epithelial Cells Urine Crystals Many Amorphous Urine Bacteria Urine Mucus Not Applicable Ur Culture Indicated? Yes Urine Glucose Negative Add-On Test Request DONE
[2022-02-12 00:17] VITALS: BP 115/65; PULSE 101; RESP 18; TEMP 36.6; O2SAT 97
[2022-02-12 07:22] LABS: Abs Immature Grans 1.52 10^3/uL (0.0-0.06); HCT 28.9 % (36.0-46.0); HGB 9.9 g/dL (11.2-15.7); MCH 33.3 pg (27.0-33.0); MCHC 34.3 % (32.0-36.0); MCV 97 fL (80-95); MPV 10.6 fL (8.0-11.0); RBC 2.97 10^6/uL (3.93-5.22); RDW 12.9 % (11.7-14.6); RDW-SD 45.4 fL
[2022-02-12 07:33] LABS: Anion Gap 5.5 mmol/L (3-11); BUN 4 mg/dL (7-18); CO2 23.5 mmol/L (21.0-32.0); CREATININE 0.7 mg/dL (0.55-1.02); Calcium 8.4 mg/dL (8.5-10.1); Chloride 101 mmol/L (98-107); Glucose 92 mg/dL (74-106); Potassium 4.1 mmol/L (3.5-5.1); Sodium 130 mmol/L (136-145)
[2022-02-12 07:37] LABS: Hemoglobin A1C 5.4 % (<5.7)
[2022-02-12 07:44] LABS: Magnesium 1.9 mg/dL (1.8-2.4); TSH (W/Ref FT4) 12.77 uIU/mL (0.36-3.74)
[2022-02-12 07:45] LABS: Creatine Kinase < 7 U/L (26-192)
[2022-02-12] MEDS: Pantoprazole 40 MG TABCR PO (07:49)
[2022-02-12] MEDS: Potassium Chloride 20 MEQ TABCR PO (07:49)
[2022-02-12] MEDS: Magnesium Oxide 400 MG TAB PO (07:49)
[2022-02-12] MEDS: Folic Acid 1 MG TAB PO (07:49)
[2022-02-12] MEDS: Thiamine 100 MG TAB PO (07:49)
[2022-02-12 07:50] LABS: Absolute Lymphocyte Count 1.92 10^3/uL (1.2-3.4); Absolute Monocyte Count 0.84 10^3/uL (0.1-0.8); Absolute Neutrophil Count 8.16 10^3/uL (1.2-6.7); Bands % 4; Diff Comment Manual Differential; Platelet Count 85 10^3/uL (130-400); RBC Morphology Normal
[2022-02-12 07:51] LABS: Metamyelocytes % 3; Myelocytes % 1
[2022-02-12] MEDS: Multivitamin TAB 1 TAB PO (07:53)
[2022-02-12 07:57] VITALS: BP 134/82; PULSE 76; RESP 19; TEMP 36; O2SAT 99
[2022-02-12 08:01] LABS: FREE T4 1.06 ng/dL (0.76-1.46)
--- NOTE | 2022-02-12 10:24 | DSE_ITS ---
Date of service: 02/12/22 Time of Service: 10:24 DS: Diagnosis Discharge Diagnosis (1) UTI (urinary tract infection): Status: Acute (2) Weakness: Status: Acute (3) Hypokalemia: Status: Acute (4) Folate deficiency: Status: Acute (5) Hyponatremia: Status: Acute (6) Hypomagnesemia: Status: Acute (7) Hypocalcemia: Status: Acute (8) Alcohol abuse: Status: Chronic (9) Anxiety: Status: Chronic (10) Bipolar 1 disorder: Status: Chronic (11) Depression: (12) Poor dentition: Discharge Plan Disposition Patient Disposition: SNF ([facility] Condition: Poor Discharge Details Reason For Visit: Hypokalemia, Weakness Admit Date/Time: 02/08/22 15:15 Admit Provider: Augustin Erwin Attending Provider: Augustin Erwin Primary Care Provider: Medina Ramirez [facility] Hospital Course: Ms. Bucio is a 61 year-old woman with past medical history of Bipolar 1, ETOH abuse, cervical cancer, and prior colon polyps. She was recently and in-patient at [facility] for pneumonia. She presented to the [facility] with complaints of weakness and inability to stand up. Home Health Physical Therapy was at her home, she was unable to stand, they called 911. She denied trauma, no numbness, tingling or pain. In the emergency department she was found to have a UTI. She was admitted for further evaluation of her inability to stand and to be treated for UTI. She reports having a month of increasing weakness, and had some intermittent dizziness in which she took meclizine with no improvement. She reports that she has decreased her alcolohol intake, from 18 beer per day to 6 beer. On another visit she reports she does not drink beer anymore, she drinks a large hard liquor beverage everyday. She lives by herself. She does have a boyfriend and friends near by but they are only able to help occasionally, Her UTI has resolved. Diagnostic studies so far do not explain her symptoms. She was seen by neurology and will follow up outpatient. Neuropathy, myopathy, deconditioning, all remain in the differential, in addition to her alcoholism. Ordered were A1c, TSH, and SPEP as further work-up for neuropathy.? And myositis panel, CK, ESR, CRP, AMBER, RF as work-up for myopathy. Recommends ongoing PT. She should have an outpatient NCS/EMG as further work-up. Her TSH 12.77, with normal free T4 of 1.06 should be rechecked outpatient as well. She is going to the [facility] for strengthening. She is in agreement with this plan. Discussed with Dr Lockwood. . Home Meds and New Rx's Prescriptions: New folic acid 1 mg Tablet 1 mg PO QAM Qty: 0 0RF multivitamin [Multiple Vitamins] Tablet 1 tab PO QAM Qty: 0 0RF polyethylene glycol 3350 17 gram Powder In Packet 17 g PO DAILY PRN PRN (Reason: Constipation) Qty: 0 0RF potassium chloride [Klor-Con M20] 20 mEq Tablet,Er Particles/Crystals 20 meq PO BID Qty: 20 0RF magnesium oxide 400 mg (241.3 mg magnesium) Tablet 400 mg PO BID Qty: 0 0RF Continued meclizine 12.5 mg tablet 12.5 tab PO Q6H Label Comments: TAKE ONE TABLET BY MOUTH EVERY 6 HOURS NEEDED pantoprazole 40 mg tablet,delayed release (DR/EC) 40 tab PO DAILY Label Comments: TAKE ONE TABLET BY MOUTH EVERY DAY 30 MINUTES BEFORE SUPPER Discontinued potassium chloride [Klor-Con] 20 mEq packet 20 packet PO DAILY No Action ondansetron 4 mg tablet,disintegrating 4 tab PO PRN PRN Label Comments: DISSOLVE ONE TABLET ON TONGUE EVERY 8 HOURS Discharge Instructions Instructions: Thyroid Function Test (GEN), Weakness (DC) Stand Alone Forms: Nursing Discharge Form Referrals: Medina Ramirez [Primary Care Provider] - Activity:: Activity as Tolerated Equipment/Supplies:: Walker Diet:: As Tolerated Discharge Orders Discharge Orders: Discharge Order (Routine); Ordered 02/12/22 Ordered By: Karissa Castellanos DS: Summary Time Spent with Patient providing and/or coordinating discharge services: Greater than 30 minutes Status at Discharge Functional status at discharge: uses cane/walker Overall status at discharge: patient is not back to baseline Mental Status: mental status grossly normal Speech and Movement: speech and movement normal Mood: congruent mood Affect: normal affect Exam Const General: cooperative, comfortable, no acute distress and ill appearing chronically (older than stated age) Nutritional Appearance: obese Orientation: alert and awake [facility] Head: normal to inspection, normocephalic and atraumatic Mouth: oral mucosae normal Resp Effort & Inspection: normal respiratory effort Auscultation: clear to auscultation bilaterally Cardio Rate: regular rate Rhythm: regular rhythm GI Inspection: normal to inspection and distended Palpation: soft Auscultation: normal bowel sounds Skin General skin exam: no rashes or lesions noted Extrem General: normal to inspection and full ROM Psych Mental Status: mental status grossly normal Speech and Movement: speech and movement normal Mood: congruent mood Affect: normal affect DS: Data Vitals/I&O Vitals and I&O: Vital Signs Temperature 36.0 C L 02/12/22 07:57 Temperature Source Tympanic 02/12/22 07:57 Pulse 76 02/12/22 07:57 Pulse Rhythm Regular 02/12/22 09:18 Respiratory Rate 19 02/12/22 07:57 Respiratory Effort 02/12/22 09:18 Respiratory Depth Normal 02/12/22 09:18 Respiratory Pattern Normal 02/12/22 03:00 Blood Pressure 134/82 02/12/22 07:57 Pulse Oximetry 99 02/12/22 07:57 Oxygen Delivery Method Room Air 02/12/22 07:57 Oxygen Flow Rate 0 02/12/22 07:57 Pain Level 0 02/12/22 07:57 Intake & Output 02/11/22 02/11/22 02/12/22 11:59 23:59 11:59 Intake Total 490 / 780 290 / 780 Output Total 400 / 600 200 / 600 Balance 90 / 180 90 / 180 Weight 102 kg 102.5 kg Intake: IV 10 / 60 50 / 60 Oral 480 / 720 240 / 720 Output: Urine 400 / 600 200 / 600 Other: Urine Color Yellow Dark Kary Yellow Urine Appearance Clear Clear Clear Urine Odor Normal Comment grossily incontinent Stool Occult Blood Positive Stool Size Copious Small Stool Characteristics Soft Soft Formed Brown Voiding Methods Diaper Diaper Diaper Incontinent Incontinent Incontinent Data Completed and Pending Labs on day of discharge: Labs from last 24 hours 02/12/22 02/12/22 02/12/22 Unknown 06:50 06:50 WBC 12.00 H RBC 2.97 L Hgb 9.9 L Hct 28.9 L MCV 97 H MCH 33.3 H MCHC 34.3 RDW 12.9 Plt Count 85 L MPV 10.6 Immature Gran % See Differential Neutrophils % 64.0 Band Neutrophils % 4 Lymphocytes % 16.0 Monocytes % 7.0 Eosinophils % 5.0 Basophils % 0.0 Metamyelocytes % 3 Myelocytes % 1 Nucleated RBC % 0.0 Absolute Neutrophils 8.16 H Absolute Lymphocytes 1.92 Absolute Monocytes 0.84 H Absolute Eosinophils 0.60 Absolute Basophils 0.00 RBC Morphology Normal Sodium 130 L Potassium 4.1 Chloride 101 Carbon Dioxide 23.5 Anion Gap 5.5 BUN 4 L Creatinine 0.7 Estimated GFR/1.73 m2 >= 60.00 Glucose 92 Hemoglobin A1c Calcium 8.4 L Magnesium Creatine Kinase Total Protein (PEP) Albumin % (PEP) Albumin (PEP) Iqkhy-2-Uhujhvxog Qatoa-9-Qnxhowjqb (%) Fcibe-2-Klrtjujpa Dpdbp-2-Qdtscsjtu (%) Beta Globulins (%) Beta Gamma Globulin Gamma Globulins Gamma Globulins (%) M-Onesimo M-Onesimo % PEP Comment TSH Free T4 Urine Color Urine Clarity Urine pH Ur Specific [place] Urine Protein Urine Ketones Urine Blood Urine Nitrite Urine Bilirubin Urine Urobilinogen Ur Leukocyte Esterase Urine RBC Urine WBC Ur Epithelial Cells Urine Crystals Urine Bacteria Urine Mucus Ur Culture Indicated? Urine Glucose PIPE-1 Antibody EJ Antibody Ku Antibody OJ Antibody Mi-2 Antibody NXP-[address] PL-[address]-12 Antibody [id number] Myositis TIF1-gamma Ab SS-A/Ro 52 kDa Ab Anti-PM Scleroderma Ab A-PM Scleroderma 100 Ab Anti-U1-[employer] SUPPORT MANAGER IgG, Quant U2-snRNP Antibody U3-[employer] SUPPORT MANAGER (Fibrillarin) Ab Anti-SRP Antibody Add-On Test Request Pending 02/12/22 02/12/22 02/12/22 06:50 06:50 01:00 WBC RBC Hgb Hct MCV MCH MCHC RDW Plt Count MPV Immature Gran % Neutrophils % Band Neutrophils % Lymphocytes % Monocytes % Eosinophils % Basophils % Metamyelocytes % Myelocytes % Nucleated RBC % Absolute Neutrophils Absolute Lymphocytes Absolute Monocytes Absolute Eosinophils Absolute Basophils RBC Morphology Sodium Potassium Chloride Carbon Dioxide Anion Gap BUN Creatinine Estimated GFR/1.73 m2 Glucose Hemoglobin A1c 5.4 Calcium Magnesium 1.9 Creatine Kinase < 7 L Total Protein (PEP) Albumin % (PEP) Albumin (PEP) Vnpow-4-Ambmuusix Mwkzn-2-Ppuwilmld (%) Jtlae-6-Spyetsuil Nsbsr-9-Pviuzwrvm (%) Beta Globulins (%) Beta Gamma Globulin Gamma Globulins Gamma Globulins (%) M-Onesimo M-Onesimo % PEP Comment TSH 12.77 H Free T4 1.06 Urine Color Urine Clarity Urine pH Ur Specific [place] Urine Protein Urine Ketones Urine Blood Urine Nitrite Urine Bilirubin Urine Urobilinogen Ur Leukocyte Esterase Urine RBC Urine WBC Ur Epithelial Cells Urine Crystals Urine Bacteria Urine Mucus Ur Culture Indicated? Urine Glucose PIPE-1 Antibody EJ Antibody Ku Antibody OJ Antibody Mi-2 Antibody NXP-[address]-12 Antibody [id number] Myositis TIF1-gamma Ab SS-A/Ro 52 kDa Ab Anti-PM Scleroderma Ab A-PM Scleroderma 100 Ab Anti-U1-[employer] SUPPORT MANAGER IgG, Quant U2-snRNP Antibody U3-[employer] SUPPORT MANAGER (Fibrillarin) Ab Anti-SRP Antibody Add-On Test Request Pending 02/12/22 02/11/22 01:00 18:50 WBC RBC Hgb Hct MCV MCH MCHC RDW Plt Count MPV Immature Gran % Neutrophils % Band Neutrophils % Lymphocytes % Monocytes % Eosinophils % Basophils % Metamyelocytes % Myelocytes % Nucleated RBC % Absolute Neutrophils Absolute Lymphocytes Absolute Monocytes Absolute Eosinophils Absolute Basophils RBC Morphology Sodium Potassium Chloride Carbon Dioxide Anion Gap BUN Creatinine Estimated GFR/1.73 m2 Glucose Hemoglobin A1c Calcium Magnesium Creatine Kinase Total Protein (PEP) Pending Albumin % (PEP) Pending Albumin (PEP) Pending Klxac-4-Xfltpcoye Pending Fnmmw-3-Zslenujrx (%) Pending Klvcp-4-Asukrmqiw Pending Qhgaz-0-Xnbnunjwa (%) Pending Beta Globulins (%) Pending Beta Gamma Globulin Pending Gamma Globulins Pending Gamma Globulins (%) Pending M-Onesimo Pending M-Onesimo % Pending PEP Comment Pending TSH Free T4 Urine Color Yellow Urine Clarity Cloudy Urine pH 5.5 Ur Specific [place] >= 1.030 H Urine Protein Negative Urine Ketones Negative Urine Blood Small H Urine Nitrite Negative Urine Bilirubin Negative Urine Urobilinogen 0.2 Ur Leukocyte Esterase Negative Urine RBC Urine WBC Ur Epithelial Cells Urine Crystals Many Amorphous Urine Bacteria Urine Mucus Not Applicable Ur Culture Indicated? Yes Urine Glucose Negative PIPE-1 Antibody Pending EJ Antibody Pending Ku Antibody Pending OJ Antibody Pending Mi-2 Antibody Pending NXP-[address]-12 Antibody Pending [id number] Pending Myositis TIF1-gamma Ab Pending SS-A/Ro 52 kDa Ab Pending Anti-PM Scleroderma Ab Cancelled A-PM Scleroderma 100 Ab Pending Anti-U1-[employer] SUPPORT MANAGER IgG, Quant Pending U2-snRNP Antibody Pending U3-[employer] SUPPORT MANAGER (Fibrillarin) Ab Pending Anti-SRP Antibody Pending Add-On Test Request 02/11/22 18:50 Urine - Reflex from Ua Urine Culture - Pending Preliminary micro results at discharge 02/11/22 18:50 Urine Culture - Pending Urine - Reflex from Ua PFSH All Active Problems (Updated 02/12/22 @ 00:09 by ANNAMARIE TAYLOR) Vertigo (Acute) Hypomagnesemia (Acute) Hypocalcemia (Acute) Folate deficiency (Acute) Weakness (Acute) UTI (urinary tract infection) (Acute) Hypokalemia (Acute) Hyponatremia (Acute) Alcohol abuse (Chronic) Anxiety (Chronic) Bipolar 1 disorder (Chronic) Walking pneumonia (Acute) Multiple personality disorder (Acute) Unilateral primary osteoarthritis, left knee (Acute) Iliotibial band syndrome affecting left lower leg (Acute) Rectal bleeding (Acute) Anal and rectal polyp (Acute) Adenomatous polyps (Acute) Villous adenoma of colon (Acute) Tubulovillous adenoma (Acute) Sessile colonic polyp (Acute) Incontinence (Acute) High grade 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 Hx of fracture of arm R arm, both bones. Plates. Knee pain Poor dentition Surgical History History of colonoscopy with polypectomy (~09/07/21) 09/07/21 Stoiber, no polyps repeat 2yrs. 02/16/2021 Stoiber, repeat 6 months Stoiber, villous/tubulovillous/sessile serrated 01/2020 Stoiber, multiple polyps 08/11/20 History of hysterectomy Social History Smoking/Tobacco Use Status: Never Smoking risk assessment performed?: Yes Alcohol Intake: current Alcohol Intake frequency: a few times a week Alcohol t ype: beer Details: 6+ beer/day; Has been cutting back the past few weeks from 18+ beers/day Drug use: Never Substance use type: does not use Do you feel safe at home: Yes Do you feel safe in your relationship?: Yes
[2022-02-12 10:32] LABS: Source Nasal/Nares
--- NOTE | 2022-02-12 10:39 | PDOC.CMDIS ---
- If Service Date Differs Date of service: 02/12/22 Time of Service: 10:39 LACE Index Scoring Tool - Questions: Length of Stay (in days): 3 Acuity (Admit via E.D.?): Yes Comorbidities: Any Tumor E.D. Visits: 4 - Answers: Total Score: 12 Risk of Readmission: High Risk Care Management Discharge Reason for Hospitalization: Hypokalemia, weakness. Discharge Plan: Zabrina will discharge to [facility], when ready per MD. She will transport via the facility's W/C van. CM continues to follow. Patient/Family Education Needs: Review discharge instructions, discuss Ask Me Three. Services Needed at Discharge: Nursing Home Facility ([facility]), Transportation (W/C Van)
[2022-02-12 11:06] LABS: C-Reactive Protein 2.29 mg/dL (0.0-0.3)
[2022-02-12 11:23] LABS: COVID-19 PCR Negative (Negative)
[2022-02-12 17:38] LABS: Rheumatoid Factor <8.6 IU/mL (<12.0)
--- NOTE | 2022-02-12 18:30 | INDS_ITS ---
Date of service: 02/12/22 PT Notes Visit Reasons: Hypokalemia, Weakness Physical Therapy Inpatient Discharge Summary Date:?02/12/2022 Dates of service: 02/09/2022 through 02/12/2022 This is a clinical summary of care provided for the duration of dates listed above. No charge was made in the completion of this documentation. Referring Doctor:Javier Barron NP PT Orders: PT CONSULT: Limited ability Precautions: Standard precautions, fall risk Patient Profile/Admitting Diagnosis: Patient is a?61 year old female with past medical history of alcohol abuse, bipolar 1 disorder, and recent pneumonia presented to the [facility]? emergency department with complaint of increased weakness.? She had malodorous urine and was found to have a urinary track infection.? ? PMHX: PFSH All Active Problems?(Updated 02/09/22 @ 11:05 by Christa Barron NP) Weakness (Acute) UTI (urinary tract infection) (Acute) Hypokalemia (Acute) Hyponatremia (Acute) Alcohol abuse (Chronic) Anxiety (Chronic) Bipolar 1 disorder (Chronic) DVT prophylaxis (Acute) Discharge planning issues (Acute) Walking pneumonia (Acute) Multiple personality disorder (Acute) Unilateral primary osteoarthritis, left knee (Acute) Iliotibial band syndrome affecting left lower leg (Acute) Rectal bleeding (Acute) Anal and rectal polyp (Acute) Adenomatous polyps (Acute) Villous adenoma of colon (Acute) Tubulovillous adenoma (Acute) Sessile colonic polyp (Acute) Incontinence (Acute) High grade dysplasia in colonic adenoma (Acute) Abdominal pain (Acute) Nausea vomiting and diarrhea (Acute) Medical History?(Updated 02/09/22 @ 11:05 by Christa Barron NP) Cervical cancer Colonoscopy planned COVID-19 06/2021-pt stated she had no symptoms but an upset stomach Depression Fracture right arm, metal plate/screws right ankle- metalHx of chest pain Was seen on 12/24/19 in ED for chest pain, had worked up and f/U with PCP no issues or concerns or recurrent chest pain since.Hx of fracture of arm R arm, both bones. Plates.Knee pain Poor dentition Surgical History? History of colonoscopy with polypectomy (~09/07/21) 09/07/21 Stoiber, no polyps repeat 2yrs. 02/16/2021 Stoiber, repeat 6 months Stoiber, villous/tubulovillous/sessile serrated 01/2020 Stoiber, multiple polyps ? 08/11/20History of hysterectomy Social History/Home Situation: Lives alone with 4 daughters in the area that check on her regularly.? Lives in single level dwelling with one-step and rail into.? Utilize front wheel walker as baseline functional mobility. Current Functional Limitations: Bed mobility, transfer capabilities sit to stand, ambulation, balance. Equipment Owned/DME: Front wheeled walker Subjective:? NT. See most recent [employer]IST notes. ? Objective:?? General Observation: NT. See most recent E[employer]ICATION[employer] SPECIALIST notes. Mental Status: NT. See most recent ELECT[employer]ICATION[employer] SPECIALIST notes. Pain: NT. See most recent ELECTRON[employer] PUBLICATION[employer] SPECIALIST notes. ? ROM: Right Upper Extremity: Within functional limits Left Upper Extremity: Within functional limits Right Lower Extremity: Within functional limits Left Lower Extremity: Within functional limits Strength: Right Upper Extremity: 4/5 throughout Left Upper Extremity: 4/5 throughout Right Lower Extremity: 4 -/5 hip flexor, quad and hamstring.? 4/5 ankle d orsiflexion and plantar flexion. Left Lower Extremity: 4 -/5 hip flexor, quad and hamstring.? 4/5 ankle dorsiflexion and plantar flexion. Sensation:?Reports intact sensation light touch bilateral lower extremities BED MOBILITY/TRANSFERS? Sit-stand: CGA? Stand-sit: CGA ? GAIT? Assistive Device: FWW? Weight bearing: Full Assist: CGA ? Distance:? 3 steps F/B x2 + 2 steps ? Deviation: Mild wobbling, patient repeats I can't when asked to take more steps ? Balance:? Static Sitting: Good Dynamic Sitting: Good Static Standing: Poor or Dynamic Standing:? Assessment:?? Patient is a 61year old female referred to physical therapy services with the diagnosis of hypokalemia and weakness.? Patient presents with clinical signs and symptoms consistent with admitting/clinical diagnosis, as demonstrated by the following impairment level findings: 1.? Decreased strength to bilateral lower extremity major muscle groups 2.? Impaired standing balance 3.? Impaired activity tolerance 4 impaired functional mobility Impairments are contributing to the following functional limitations: AMPAC score. 1.? Increased dependence with functional mobility 2.? Increased dependence with transfers 3.? Inability to safely ambulate without assistive device and physical assistance 4.? Increase completion time for mobility ADL performance 5.? Increased fall risk Goals: Goals X1 week 1. Supine-Sit: Independent NOT MET 2. Sit-Supine: Min MET 3. Sit-Stand: Contact-guard x1 to front wheeled walker MET 4. Stand-Sit: Contact-guard x1 from front wheeled walker MET 5. Bed-Chair: Contact-guard x1 with front wheeled walker MET 6. Chair-Bed: Contact-guard x1 with front wheel walker MET 7. Gait: 200+ feet with contact-guard and use of four-wheel walker MET ? DISCHARGE RECOMMENDATIONS: [] ? Home with no services [] [] ? Home with services [specify] [] ? Home with outpatient PT [] X? ? SNF for continued rehabilitation : Patient would benefit from long term facility in order to progress strength and mobility level using least restrictive assistive ambulatory device, establish functional maintenance program that will increase ability patient to return home. [] ? Long-Term Care [] [] ? SNF versus LTC based on ability to participate and progress [] TREATMENT CODE/TIME: NC Thank you for the opportunity to participate in the care of this patient. Tamie Christine PT, DPT, CLT [facility] [place], [place]
[2022-02-12 18:33] LABS: Lab Add On Test DONE
[2022-02-12 18:33] LABS: Lab Add On Test DONE
[2022-02-13 14:05] LABS: ANA Interpretation Positive (Negative); ANA Titer Pattern 1:160 Speckled
[2022-02-13 14:31] LABS: Albumin 51.9 % (55.8-66.1); Albumin g/dL 2.5 g/dL (3.6-5.2); Comment (See Note); Total Protein 4.9 g/dL (6.3-8.2)
[2022-02-13 15:09] LABS: Immunotyping, Serum (See Note)
[2022-02-13 22:24] LABS: Thiamine (Vitamin B1), WB 47 nmol/L (70-180)
[2022-02-26 17:09] LABS: Anti-EJ Ab Negative (Negative); Anti-Jo-1 Ab <20 Units (<20); Anti-Ku Ab Negative (Negative); Anti-MDA-5 Ab (CADM-140) <20 Units (<20); Anti-Mi-2-Ab Negative (Negative); Anti-NXP-2 (P140) Ab <20 Units (<20); Anti-OJ Ab Negative (Negative); Anti-PL-12 Ab Negative (Negative); Anti-PL-7 Ab Negative (Negative); Anti-PM/Scl-100 Ab <20 Units (<20); Anti-SRP Ab Negative (Negative); Anti-SS-A 52kD Ab, IgG <20 Units (<20); Anti-TIF-1gamma Ab <20 Units (<20); Anti-U1 RNP Ab <20 Units (<20); Anti-U2 RNP Ab Negative (Negative); Anti-U3 RNP (Fibrillarin) Negative (Negative)
== END 2022-02-12 13:31 | disposition skilled nursing facility (03) | DRG 690 ==
LOC: ER 15:34 → MS 15:59
PROVIDERS: Internal Medicine; Nurse Practitioner Acute Care; Nurse Practitioner Family; Admitting Provider Family Medicine; Emergency Provider Nurse Practitioner Family; PCP Nurse Practitioner Family; Visit Provider Family Medicine
DX: N39.0 Urinary tract infection, site not specified (principal); E87.1 Hypo-osmolality and hyponatremia; E87.6 Hypokalemia; R53.1 Weakness; E83.42 Hypomagnesemia; F10.10 Alcohol abuse, uncomplicated; F41.9 Anxiety disorder, unspecified; F31.9 Bipolar disorder, unspecified; F60.9 Personality disorder, unspecified; M17.12 Unilateral primary osteoarthritis, left knee; M76.32 Iliotibial band syndrome, left leg; R32 Unspecified urinary incontinence; E83.51 Hypocalcemia; R26.2 Difficulty in walking, not elsewhere classified; R42 Dizziness and giddiness; Z85.41 Personal history of malignant neoplasm of cervix uteri; B96.20 Unspecified Escherichia coli [E. coli] as the cause of diseases classified elsewhere
CPT/HCPCS: 36415; 51701; 80048; 80053; 82550; 83516; 86235; 87077; 87635; 93005; 96361; 96365; 96375; 97110; 97162; 97530; 99223; 99285; J1650; 70551; 71046; 72110; 72148; 81003; 81015; 82040; 82140; 82607; 82728; 82746; 83036; 83520; 83540; 83550; 83735; 84165; 84425; 84439; 84443; 84484; 85025; 86038; 86140; 86320; 86431; 87086; 87186; 93010; 99222; 99232; 99239; J0696; J3480

== ENCOUNTER → 2022-03-12 08:20 | Outpatient (BNVA) | payer MEDICARE, MEDICAID, SELFPAY | PROVIDERS: PCP Nurse Practitioner Family; Referring Provider Nurse Practitioner Family; Visit Provider Psychiatry & Neurology Neurology | DX: G62.9 Polyneuropathy, unspecified (principal) | CPT/HCPCS: 95885; 95908; 99213 ==

== ENCOUNTER 2022-07-25 01:56 | Outpatient (CLI) | payer MEDICARE, MEDICAID, SELFPAY ==
--- NOTE | 2022-07-25 | DI.RAD_ITS ---
Exam(s) XR KNEE LT 3V AP,LAT,ROD EXAM: XR KNEE LT 3V AP,LAT,ROD CLINICAL HISTORY: LT KNEE PAIN, M25.562. TECHNIQUE: 2D digital imaging was performed of the left knee. Three images were obtained. Merchant ,AP, lateral and PA tunnel views were obtained. COMPARISON: CR,XR XR KNEE LT 4V AP,LAT,ROD,PAT from 04/11/2019 FINDINGS: BONES: No acute fracture is present. No bony destructive lesion is seen. JOINTS: There is mild narrowing of the lateral femoral tibial joint. Periarticular spurring is seen in the femoral tibial joint. There is a moderate joint effusion. SOFT TISSUE: Normal. IMPRESSION: Mild degenerative changes of the knee. Moderate joint effusion. DATA REPOSITORY: RADIATION DOSE DELIVERED:
== END 2022-07-25 02:16 ==
LOC: DI 01:56
PROVIDERS: PCP Nurse Practitioner Family; Visit Provider Family Medicine
DX: M17.12 Unilateral primary osteoarthritis, left knee (principal)
CPT/HCPCS: 73562

== ENCOUNTER 2022-10-04 05:20 | Inpatient (IN) | payer MEDICARE, MEDICAID, SELFPAY ==
[2022-10-04] VITALS (31 sets, daily range): BP systolic 72–138; BP diastolic 42–111; PULSE 86–168; RESP 17–31; TEMP 35.6–38.5; O2SAT 91–96
--- NOTE | 2022-10-04 05:15 | RT.EKG_ITS ---
APPROVED REPORT Exam: Resting ECG Reason for Exam: chest pain Patient Location: E HR:148 bpm ECG Measurements Heart Rate 148 AXIS AZ [id number] P [id number] QRSd 92 QRS 20 QT 298 T 105 QTc 469 Conclusion Atrial fibrillation...V-rate 115-176, irreg A-activity
--- NOTE | 2022-10-04 05:30 | DI.RAD_ITS ---
Exam(s) XR PORTABLE CHEST AP EXAM: XR PORTABLE CHEST AP CLINICAL HISTORY: chest pain TECHNIQUE: 2D digital imaging was performed of the chest. One image was obtained. An AP view was ob tained. COMPARISON: CR,XR XR PORTABLE CHEST AP from 01/13/2022 FINDINGS: MEDIASTINUM: Normal. HEART: Normal. PULMONARY VASCULATURE: Normal. LUNGS: There is a large opacity seen in the left lung with air bronchograms suspicious for pneumonia in the appropriate clinical setting. PLEURAL SPACE: No pleural effusion or pneumothorax. BONE:Within normal limits for the patient's age. OTHER FINDINGS:Normal. IMPRESSION: Large left opacity. There do appear to be air bronchograms suspicious for pneumonia in the appropria te clinical setting. Mass cannot be entirely excluded. Please correlate clinically. CT scan is rec ommended. DATA REPOSITORY: RADIATION DOSE DELIVERED:
--- NOTE | 2022-10-04 05:38 | W.ED.GENAD ---
Discharge Plan Disposition Patient Disposition: Admit to [facility] Condition: Serious Discharge Details Clinical Impression: Chest pain, Pneumonia, Atrial fibrillation with rapid ventricular response Primary Care Provider: Medina Ramirez ED Provider: Km Bass Home Meds and New Rx's Prescriptions: No Action bisacodyl 10 mg suppository 10 mg AZ DAILY PRN Fleet Enema Extra 19-7 gram/197 mL enema 118 ml AZ ONCE trazodone 50 mg tablet 50 mg PO QHS PRN citalopram 10 mg tablet 10 mg PO DAILY meclizine 12.5 mg tablet 12.5 tab PO Q6H Patient Comments: TAKE ONE TABLET BY MOUTH EVERY 6 HOURS NEEDED pantoprazole 40 mg tablet,delayed release (DR/EC) 40 tab PO DAILY Patient Comments: TAKE ONE TABLET BY MOUTH EVERY DAY 30 MINUTES BEFORE SUPPER ondansetron 4 mg tablet,disintegrating 4 tab PO PRN PRN Patient Comments: DISSOLVE ONE TABLET ON TONGUE EVERY 8 HOURS folic acid 1 mg Tablet 1 mg PO QAM Qty: 0 0RF multivitamin [Multiple Vitamins] Tablet 1 tab PO QAM Qty: 0 0RF polyethylene glycol 3350 17 gram Powder In Packet 17 g PO DAILY PRN PRN (Reason: Constipation) Qty: 0 0RF potassium chloride [Klor-Con M20] 20 mEq Tablet,Er Particles/Crystals 20 meq PO BID Qty: 20 0RF magnesium oxide 400 mg (241.3 mg magnesium) Tablet 400 mg PO BID Qty: 0 0RF Medical Decision Making 61 yo female with hx of afib not on anticoagulation or redd blockers, alcohol use, bipolar, who comes in with cc of chest pain that started yesterday and radiates to the back. She denies any fevers, chills, dyspnea, n/v. She arrives in afib with rates in the 140's. BP is soft at 90's systolic on my exam. She has clear lungs on exam, no murmurs, no b lines on bed side u/s and left ventricle does appear to collapse during systole, suspect some degree of hypovolemia. Will obtain cbc, cmp, troponin and given the tachycardia obtain d dimer. Will treat with a bolus of saline and 10mg of dilt and reassess. pt's bp 115/68, hr 120-130, will give another dose of 10mg dilt and oral dilt. Her xray on my read shows a left sided infiltrate, given she has had a cough since yesterday will treat as pneumonia with levofloxacin as she has a pcn allergy. cta on my read shows no obvious large PE, left sided mid/lower infiltrate, pt stable, will discuss with hospitalist about admission Differential Diagnosis Differential Diagnosis: afib with rvr, electrolyte abnormality pe, acs Medical Records Medical records reviewed: Yes I reviewed the patient's medical records. Imaging Data Radiologic Study: Attestation: I personally reviewed and interpreted this imaging study as follows: Imaging: X-Ray My impression: left infiltrate Radiologic Study #2: Attestation: I personally reviewed and interpreted this imaging study as follows: Imaging: CT Scan My impression: left infiltrate, no large pe Lab Data Lab results reviewed: Yes I reviewed the patient's lab results. ECG Data Attestation: I personally reviewed and interpreted this ECG (s) as follows: Prior ECG tracings: available for review Interpretation: afib, rate of 148, no stemi HPI General Mode of arrival: EMS. Date/Time Provider Initiated Documentation: 10/04/22 05:26. Limitations to Documentation: no limitations. Information obtained by: patient. History of Present Illness 61 year old F presents to the emergency department with the chief complaint of chest pain, described as moderate, Quality is described as aching, Patient started experiencing this day(s) (1) and it has been constant. No relieving factors improve symptom(s), No exacerbating factors reported . Patient notes denies fever/chills and nausea/vomiting. Patient did receive the following treatments prior to arrival, none Related Data Home Medications Medication Instructions Recorded Confirmed meclizine 12.5 mg tablet 12.5 tab PO Q6H 02/08/22 03/12/22 ondansetron 4 mg disintegrating 4 tab PO PRN PRN 02/08/22 03/12/22 tablet pantoprazole 40 mg tablet,delayed 40 tab PO DAILY 02/08/22 03/12/22 release folic acid 1 mg tablet 1 mg PO QAM #0 tabs 02/11/22 03/12/22 magnesium oxide 400 mg (241.3 mg 400 mg PO BID #0 tabs 02/11/22 03/12/22 magnesium) tablet multivitamin (Multiple Vitamins 1 tab PO QAM #0 tabs 02/11/22 03/12/22 tablet) polyethylene glycol 3350 17 gram 17 g PO DAILY PRN PRN Constipation 02/11/22 03/12/22 oral powder packet #0 ea potassium chloride 20 mEq 20 meq PO BID #20 tabs 02/11/22 03/12/22 tablet,extended release(part/cryst) (Klor-Con M) bisacodyl 10 mg rectal suppository 10 mg AZ DAILY PRN 03/12/22 03/12/22 sodium phosphates 19 gram-7 118 ml AZ ONCE 03/12/22 03/12/22 gram/197 mL enema (Fleet Enema Extra) citalopram 10 mg tablet 10 mg PO DAILY 08/06/22 trazodone 50 mg tablet 50 mg PO QHS PRN 08/06/22 Previous Rx's Medication Instructions Recorded folic acid 1 mg tablet 1 mg PO QAM #0 tabs 02/11/22 magnesium oxide 400 mg (241.3 mg 400 mg PO BID #0 tabs 02/11/22 magnesium) tablet multivitamin (Multiple Vitamins 1 tab PO QAM #0 tabs 02/11/22 tablet) polyethylene glycol 3350 17 gram 17 g PO DAILY PRN PRN Constipation 02/11/22 oral powder packet #0 ea potassium chloride 20 mEq 20 meq PO BID #20 tabs 02/11/22 tablet,extended release(part/cryst) (Klor-Con M) Allergies Allergy/AdvReac Type Severity Reaction Status Date / Time Penicillins Allergy Intermediate Hives Verified 03/12/22 08:36 General MARLINE: 3 Review of Systems All systems reviewed & are unremarkable except as noted in HPI and below Constitutional Constitutional: Denies chills, Denies fever(s) and Denies weakness Cardiovascular Cardiovascular: Denies dyspnea Respiratory Respiratory: Denies cough and Denies dyspnea Gastrointestinal Gastrointestinal: Denies abdominal pain, Denies nausea and Denies vomiting Genitourinary Genitourinary: Denies dysuria Musculoskeletal Musculoskeletal: Denies joint swelling Integumentary/Breasts Skin/Breast: Denies rash Neurologic Neurologic: Denies weakness PFSH All Active Problems (Updated 10/04/22 @ 07:16 by Km Bass MD) Chest pain (Acute) Pneumonia (Acute) Atrial fibrillation with rapid ventricular response (Acute) Peripheral neuropathy (Acute) Hypomagnesemia (Acute) Hypocalcemia (Acute) Folate deficiency (Acute) Weakness (Acute) UTI (urinary tract infection) (Acute) Hypokalemia (Acute) Hyponatremia (Acute) Alcohol abuse (Chronic) Anxiety (Chronic) Bipolar 1 disorder (Chronic) Multiple personality disorder (Acute) Unilateral primary osteoarthritis, left knee (Acute) Iliotibial band syndrome affecting left lower leg (Acute) Rectal bleeding (Acute) Anal and rectal polyp (Acute) Adenomatous polyps (Acute) Villous adenoma of colon (Acute) Tubulovillous adenoma (Acute) Sessile colonic polyp (Acute) Incontinence (Acute) High grade 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 Hx of fracture of arm R arm, both bones. Plates. Knee pain Poor dentition Surgical History History of colonoscopy with polypectomy (~09/07/21) 09/07/21 Stoiber, no polyps repeat 2yrs. 02/16/2021 Stoiber, repeat 6 months Stoiber, villous/tubulovillous/sessile serrated 01/2020 Stoiber, multiple polyps 08/11/20 History of hysterectomy Social History Smoking/Tobacco Use Status: Never Smoking risk assessment performed?: Yes Alcohol Intake: current Alcohol Intake frequency: a few times a week Alcohol type: beer Details: 6+ beer/day; Has been cutting back the past few weeks from 18+ beers/day Drug use: Never Substance use type: does not use Do you feel safe at home: Yes Do you feel safe in your relationship?: Yes Exam Const General: no acute distress Orientation: alert HENMT Head: normal to inspection Ears: external ears normal General nose exam: external nose normal Mouth: moist mucous membranes Eyes General: appearance normal, both eyes and all related structures Neck Neck: normal visual inspection Resp Effort & Inspection: normal respiratory effort and able to speak in complete sentences Auscultation: clear to auscultation bilaterally Cardio Jugular venous pressure: no JVD Heart Sounds: no murmurs Skin General skin exam: no rashes or lesions noted Neuro General: patient alert and patient oriented x3 Extrem General: normal to inspection Psych Mental Status: mental status grossly normal Critical Care Time Critical Care Time Critical Care Time: Yes Total Critical Care Time: 45 (minutes) Attestation: time spent on frequent reassesments, lab review, and hemodynamic monitoring in a patient requiring IV redd jacquelin due to being in afib with rvr and potential to deteriorate at any time
[2022-10-04] MEDS: Normal Saline 1,000 ML 1000 ML IV (05:40)
[2022-10-04 05:41] LABS: Source Nasal/Nares
[2022-10-04] MEDS: dilTIAZem 25 MG/5 ML VIAL 10 MG IVP ×2 (05:45→06:30)
[2022-10-04 06:03] LABS: INR 1.1 (0.9-1.1); PTT Activated 26.4 sec (21.5-31.9); Prothrombin Time 11.3 sec (9.3-11.0)
[2022-10-04 06:08] LABS: Abs Immature Grans 0.35 10^3/uL (0.0-0.06); Absolute Basophil Count 0.09 10^3/uL (0.0-0.2); Absolute Eosinophil Count 0.03 10^3/uL (0.0-0.7); Basophils % 0.6; Eosinophils % 0.2; HGB 12.6 g/dL (11.2-15.7); Immature Grans % 2.3; Lymphocytes % 2.6; MCH 34.8 pg (27.0-33.0); MCV 99 fL (80-95); MPV 9.2 fL (8.0-11.0); Monocytes % 7.2; Neutrophils % 87.1; RBC 3.62 10^6/uL (3.93-5.22); RDW 11.4 % (11.7-14.6); RDW-SD 41.5 fL; WBC 15.34 10^3/uL (4.4-10.8)
[2022-10-04 06:09] LABS: ALT 17 U/L (14-59); AST 18 U/L (15-37); Alkaline Phosphatase 114 U/L (46-116); Anion Gap 9.1 mmol/L (3-11); BUN 9 mg/dL (7-18); Bilirubin, Total 1.7 mg/dL (0.2-1.0); CO2 25.9 mmol/L (21.0-32.0); Calcium 9.2 mg/dL (8.5-10.1); Chloride 91 mmol/L (98-107); Estimated GFR 64.09 (mL/min/1.73m2); Glucose 112 mg/dL (74-106); Magnesium 1.3 mg/dL (1.8-2.4); Potassium 3.2 mmol/L (3.5-5.1); Sodium 126 mmol/L (136-145); TSH (W/Ref FT4) 1.86 uIU/mL (0.36-3.74); Troponin I < 50 ng/L (<or=60)
[2022-10-04 06:11] LABS: ETHANOL BLOOD < 3.0 mg/dL (<10)
[2022-10-04 06:15] LABS: COVID-19 PCR Negative (Negative)
[2022-10-04 06:16] LABS: Absolute Neutrophil Count 13.36 10^3/uL (1.2-6.7); Platelet Count 93 10^3/uL (130-400)
[2022-10-04 06:28] LABS: D-Dimer 645 ng/mlFEU (<500)
[2022-10-04] MEDS: Potassium Chloride 20 MEQ TABCR 40 MEQ PO (06:28)
--- NOTE | 2022-10-04 06:30 | DI.CT_ITS ---
Exam(s) CT CHEST PE CTA EXAM: CT CHEST PE CTA CLINICAL HISTORY: elevated d dimer, chest pain. TECHNIQUE: Imaging Protocol: Axial CT angiography was performed with multi-slice acquisition and mu lti-planar and/or 3D reconstructions. CONTRAST MATERIAL: Intravenous: Omnipaque 350 contrast volume:100 mL COMPARISON: CT CT CHEST PE CTA from 12/24/[address] CHEST WO from 12/18/[address] ABDOMEN PELVIS WO from 01/09/2022 CR XR CHEST 2V PA LATERAL from 02/08/2022 CR,XR XR PORTABLE CHEST AP from 10/04/2022 FINDINGS: Tracheobronchial tree: Patent where visualized. Pulmonary parenchyma: There is a consolidation with air bronchograms involving the left upper lobe an d lingula. There is is stable 4 mm nodule adjacent to the right major fissure. No new pulmonary nod ules are present. Pulmonary Arteries: No evidence of filling defect to suggest pulmonary emboli. Mediastinum and Allison: There are mildly enlarged mediastinal lymph nodes which are likely reactive. T he esophagus is unremarkable. Visualized thyroid gland: Unremarkable. Pleura: There is a small left pleural effusion. No right pleural effusion. No pneumothorax. Heart: The heart is not dilated. No coronary artery calcifications are seen. No pericardial effusion. Aorta: Thoracic aorta non-dilated. No evidence of dissection. Upper abdomen: Unremarkable. Soft tissues: Unremarkable. Bones: Within normal limits for the patient's age. IMPRESSION: 1. No evidence of pulmonary embolism, thoracic aortic dissection or aneurysm. 2. Large area of consolidation with air bronchograms involving the left upper lobe and left lingula m ost likely representing pneumonia. A follow-up examination to document complete resolution and to ex clude other etiologies including neoplasm is recommended. 3. Small left pleural effusion. RADIATION DOSE DELIVERED: 431.09mGy.cm Total DLP DATA REPOSITORY: All CT scans at this facility are submitted to the National Radiology Data Registry (NRDR) Dose Index Registry (DIR) with the [employer] (ACR). RADIATION OPTIMIZATION: All CT scans at this facility use at least one of these dose optimization te chniques: automated exposure control; mA and/or kV adjustment per patient size (includes targeted exa ms where dose is matched to clinical indication); or iterative reconstruction.
[2022-10-04] MEDS: levoFLOXacin 750 MG/150 ML BAG 100 MG IVPB (06:37)
[2022-10-04] MEDS: dilTIAZem 60 MG TAB PO (06:50)
[2022-10-04] MEDS: Omnipaque 350 MG/ML 100 ML BTL IJ (07:08)
[2022-10-04 07:17] LABS: Bilirubin Small (Negative); Blood Trace-intact (Negative); Clarity Clear (Clear); Glucose 100 mg/dL (Negative); Ketones Trace mg/dL (Negative); Leukocyte Esterase Small (Negative); Nitrite Negative (Negative); pH 5.5 (5-8)
[2022-10-04] MEDS: MAGNESIUM SULFATE 2 GM/50 ML BAG IVPB (07:29)
[2022-10-04 07:31] LABS: Epithelial Cells Few HPF (Negative)
[2022-10-04 07:32] LABS: Bacteria Few HPF (Negative); C & S Indicated? Yes; Casts 3-5 Hyaline LPF (Negative); Crystals Negative HPF (Negative); Mucus Negative (Negative); Other Cells Mod Transitional (Negative)
--- NOTE | 2022-10-04 07:50 | DI.VRAD_ITS ---
PROCEDURE INFORMATION: Exam: CTA Chest With Contrast Exam date and time: 10/04/2022 6:57 AM Age: 61 years old Clinical indication: Other: Chest pain, elevated d dimer TECHNIQUE: Imaging protocol: Computed tomographic angiography of the chest with contrast. 3D rendering (Not supervised by radiologist): MIP and/or 3D reconstructed images were created by the technologist. Contrast material: OMNI 350; Contrast volume: 100 ml; Contrast route: INTRAVENOUS (IV); COMPARISON: CT CHEST PE CTA 12/24/2019 1:15 PM FINDINGS: Pulmonary arteries: Normal. No pulmonary emboli. Aorta: Unremarkable. No aortic aneurysm. No aortic dissection. Lungs: There is a dense area of consolidation involving the lateral left upper lobe and lingula. Pleural spaces: Small left pleural effusion. No pneumothorax. Heart: Heart size is normal. No pericardial effusion. Lymph nodes: Shotty nodes are seen in the left supraclavicular region measuring up to 1.2 cm. No significant left axillary adenopathy seen. Shotty nodes are seen in the left hilum measuring up to 1.1 cm. 9 mm node is seen in the aortopulmonary window. Bones/joints: Mild degenerative changes in the spine and advanced degenerative changes in the shoulders. No acute fracture. Soft tissues: Unremarkable. IMPRESSION: Dense region of consolidation in the left upper lung most likely represents pneumonia. Differential would include neoplasm . Small left pleural effusion. No evidence of pulmonary emboli, aneurysm or dissection. Dictated and Authenticated by: Sandra Alexandre MD. Ordering:DELORES Barbour MD
--- NOTE | 2022-10-04 07:52 | DI.VRAD_ITS ---
PROCEDURE INFORMATION: Exam: XR Chest Exam date and time: 10/04/2022 5:42 AM Age: 61 years old Clinical indication: Chest wall pain; Additional info: Cp TECHNIQUE: Imaging protocol: Radiologic exam of the chest. Views: 1 view. COMPARISON: CR XR CHEST 2V PA LATERAL 02/08/2022 2:17 PM FINDINGS: Lungs: There is new consolidation in the lateral left lung. This may represent pneumonia or mass lesion. Pleural spaces: Unremarkable. No pleural effusion. No pneumothorax. Heart/Mediastinum: Unremarkable. No cardiomegaly. Bones/joints: Age related osseous changes advanced degenerative disease in the shoulders. IMPRESSION: New dense consolidation in the lateral left upper lobe suspicious for pneumonia. Neoplasm could also appear this way. Suggest further evaluation with CT. Dictated and Authenticated by: Sandra Alexandre MD. Ordering:DELORES Barbour MD
[2022-10-04] MEDS: Magnesium Oxide 400 MG TAB PO ×2 (09:26→20:31)
[2022-10-04] MEDS: Folic Acid 1 MG TAB PO (09:26)
[2022-10-04] MEDS: Potassium Chloride 20 MEQ TABCR PO ×2 (09:26→20:32)
[2022-10-04] MEDS: Citalopram 10 MG TAB PO (09:26)
[2022-10-04] MEDS: Multivitamin TAB 1 TAB PO (09:26)
[2022-10-04 10:55] LABS: Troponin I < 50 ng/L (<or=60)
[2022-10-04] MEDS: Heparin 5,000 UNITS/ML VIAL 5000 UNITS SC ×2 (12:53→20:32)
--- NOTE | 2022-10-04 15:55 | CHAPLAIN ---
Zabrina was lying in bed when I visited. She had a visitor with her. She told me that she was admitted at 5:30 a.m. after being in the ED and has pneumonia and isn't feeling well. She's recovering from another illness, she explained and so if feeling very wiped out. She hopes to be able to get some sleep tonight.
[2022-10-04] MEDS: Acetaminophen 325 MG TAB PO (20:31)
--- NOTE | 2022-10-04 20:46 | HPE_ITS ---
Date of service: 10/04/22 Time of Service: 20:46 Assessment and Plan Assessment and plan (1) Atrial fibrillation with rapid ventricular response: Status: Acute Assessment and plan: She was given 2 doses of 10mg IV diltiazem in the ED. Her HR responded appropriately and decreased to low 100's. She is not on anticoagulation or rate controlling medication. Begin Cardizem CD 180mg daily [id number] score of 1. Telemetry. (2) Pneumonia: Status: Acute Assessment and plan: Cont Levaquin. Blood cultures obtained and are pending. Tessalon perles prn. Guaifenesin/dextramethoraphan prn IS Monitor WBC count. (3) Hyponatremia: Status: Acute Assessment and plan: Likely d/t PNA. Monitor. (4) Bipolar 1 disorder: Status: Chronic Assessment and plan: Cont Citalopram and Trazadone. (5) Hypokalemia: Status: Acute Assessment and plan: Replete and monitor. (6) Hypomagnesemia: Status: Acute Assessment and plan: Replete and monitor. History of Present Illness History of Present Illness Chief Complaint: Chest pain Narrative: This is a 61 yo female with a PMH of afib, alcohol abuse disorder, Bipolar 1 disorder. She endorsed chest pain that started the day prior to admission. The pain described as left sided with radiation to the back. No noted palpitations. No fever/chills. + cough. In the ED the BP was 115/68. HR 120-130's. Not hypoxic. EKG showed afib. WBC count 15.34. Hgb 12.6. Na 126. K 3.2. Creatinine 1.0. Mg 1.3. UA with tr blood, small leuk. Est. 5-10 WBCs, few bacteria. CT chest: 1. No evidence of pulmonary embolism, thoracic aortic dissection or aneurysm.? 2. Large area of consolidation with air bronchograms involving the left upper lobe and left lingula most likely representing pneumonia.? A follow-up examination to document complete resolution and to exclude other etiologies including neoplasm is recommended. 3. Small left pleural effusion. Levaquin initiated in the ED. Review of Systems All systems reviewed & are unremarkable except as noted in HPI and below PFSH All Active Problems Chest pain (Acute) Pneumonia (Acute) Atrial fibrillation with rapid ventricular response (Acute) Peripheral neuropathy (Acute) Hypomagnesemia (Acute) Hypocalcemia (Acute) Folate deficiency (Acute) Weakness (Acute) UTI (urinary tract infection) (Acute) Hypokalemia (Acute) Hyponatremia (Acute) Alcohol abuse (Chronic) Anxiety (Chronic) Bipolar 1 disorder (Chronic) Multiple personality disorder (Acute) Unilateral primary osteoarthritis, left knee (Acute) Iliotibial band syndrome affecting left lower leg (Acute) Rectal bleeding (Acute) Anal and rectal polyp (Acute) Adenomatous polyps (Acute) Villous adenoma of colon (Acute) Tubulovillous adenoma (Acute) Sessile colonic polyp (Acute) Incontinence (Acute) High grade 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 Hx of fracture of arm R arm, both bones. Plates. Knee pain Poor dentition Vertigo Surgical History History of colonoscopy with polypectomy (~09/07/21) 09/07/21 Stoiber, no polyps repeat 2yrs. 02/16/2021 Stoiber, repeat 6 months Stoiber, villous/tubulovillous/sessile serrated 01/2020 Stoiber, multiple polyps 08/11/20 History of hysterectomy Social History Smoking/Tobacco Use Status: Never Smoking risk assessment performed?: Yes Alcohol Intake: current Alcohol Intake frequency: a few times a week Alcohol type: beer Details: 6+ beer/day; Has been cutting back the past few weeks from 18+ beers/day Drug use: Never Substance use type: does not use Do you feel safe at home: Yes Do you feel safe in your relationship?: Yes Meds Allergies and Home Medications Allergies Allergy/AdvReac Type Severity Reaction Status Date / Time Penicillins Allergy Intermediate Hives Verified 03/12/22 08:36 Home Medications Medication Instructions Recorded Confirmed Type meclizine 12.5 mg tablet 12.5 tab PO Q6H 02/08/22 10/04/22 History ondansetron 4 mg disintegrating 4 mg PO PRN PRN 02/08/22 03/12/22 History tablet pantoprazole 40 mg tablet,delayed 40 mg PO DAILY 02/08/22 10/04/22 History release folic acid 1 mg tablet 1 mg PO QAM #0 tabs 02/11/22 03/12/22 Rx magnesium oxide 400 mg (241.3 mg 400 mg PO BID #0 tabs 02/11/22 10/04/22 Rx magnesium) tablet multivitamin (Multiple Vitamins 1 tab PO QAM #0 tabs 02/11/22 03/12/22 Rx tablet) polyethylene glycol 3350 17 gram 17 g PO DAILY PRN PRN Constipation 02/11/22 03/12/22 Rx oral powder packet #0 ea potassium chloride 20 mEq 20 meq PO BID #20 tabs 02/11/22 10/04/22 Rx tablet,extended release(part/cryst) (Klor-Con M) bisacodyl 10 mg rectal suppository 10 mg OK DAILY PRN 03/12/22 03/12/22 History sodium phosphates 19 gram-7 118 ml OK ONCE 03/12/22 03/12/22 History gram/197 mL enema (Fleet Enema Extra) citalopram 10 mg tablet 10 mg PO DAILY 08/06/22 10/04/22 History trazodone 50 mg tablet 50 mg PO QHS PRN 08/06/22 10/04/22 History Exam Narrative Exam Narrative: Pt is lying supine. Interactive. Frequent cough noted. Const General: no acute distress Orientation: alert [facility] Head: normal to inspection Mouth: moist mucous membranes Eyes General: appearance normal, both eyes and all related structures Sclera: sclerae normal Neck Neck: normal visual inspection and no JVD Resp Effort & Inspection: normal respiratory effort and able to speak in complete sentences Auscultation: clear to auscultation bilaterally Cardio Jugular venous pressure: no JVD Heart Sounds: no murmurs GI Inspection: non-distended Palpation: soft and nontender Skin General skin exam: no rashes or lesions noted Neuro General: patient alert, patient oriented x3 and no focal motor deficits Cranial Nerves: facial strength normal Extrem General: normal to inspection, no pedal edema and no calf tenderness Psych Mental Status: mental status grossly normal Speech and Movement: speech clear Affect: blunted Results Labs 10/04/22 06:05 10/04/22 05:30 Labs: Laboratory Results - last 24 hr 10/04/22 10/04/22 10/04/22 05:30 05:30 05:35 WBC RBC Hgb Hct MCV MCH MCHC RDW Plt Count MPV Immature Gran % Neutrophils % Lymphocytes % Monocytes % Eosinophils % Basophils % Nucleated RBC % Absolute Neutrophils Absolute Lymphocytes Absolute Monocytes Absolute Eosinophils Absolute Basophils PT 11.3 H INR 1.1 APTT 26.4 D-Dimer 645 H Sodium 126 L Potassium 3.2 L Chloride 91 L Carbon Dioxide 25.9 Anion Gap 9.1 BUN 9 Creatinine 1.0 Est GFR (CKD-EPI 2020) 64.09 Glucose 112 H Calcium 9.2 Magnesium 1.3 L Total Bilirubin 1.7 H AST 18 ALT 17 Alkaline Phosphatase 114 Troponin I < 50 Total Protein 7.0 Albumin 3.0 L TSH 1.86 Urine Color Urine Clarity Urine pH Ur Specific [place] Urine Protein Urine Ketones Urine Blood Urine Nitrite Urine Bilirubin Urine Urobilinogen Ur Leukocyte Esterase Urine RBC Urine WBC Ur Epithelial Cells Urine Crystals Urine Bacteria Urine Casts Urine Mucus Urine Other Ur Culture Indicated? Urine Glucose Ethyl Alcohol < 3.0 COVID-19 Source Nasal/Nares SARS-CoV-2 (PCR) Negative 10/04/22 10/04/22 10/04/22 06:05 06:20 08:10 WBC 15.34 H RBC 3.62 L Hgb 12.6 Hct 36.0 MCV 99 H MCH 34.8 H MCHC 35.0 RDW 11.4 L Plt Count 93 L MPV 9.2 Immature Gran % 2.3 Neutrophils % 87.1 Lymphocytes % 2.6 Monocytes % 7.2 Eosinophils % 0.2 Basophils % 0.6 Nucleated RBC % 0.0 Absolute Neutrophils 13.36 H Absolute Lymphocytes 0.40 L Absolute Monocytes 1.10 H Absolute Eosinophils 0.03 Absolute Basophils 0.09 PT INR APTT D-Dimer Sodium Potassium Chloride Carbon Dioxide Anion Gap BUN Creatinine Est GFR (CKD-EPI 2020) Glucose Calcium Magnesium Total Bilirubin AST ALT Alkaline Phosphatase Troponin I < 50 Total Protein Albumin TSH Urine Color Yellow Urine Clarity Clear Urine pH 5.5 Ur Specific [place] 1.020 Urine Protein 30 H Urine Ketones Trace H Urine Blood Trace-intact H Urine Nitrite Negative Urine Bilirubin Small H Urine Urobilinogen 1.0 H Ur Leukocyte Esterase Small H Urine RBC 3-5 H Urine WBC 5-10 Ur Epithelial Cells Few Urine Crystals Negative Urine Bacteria Few Urine Casts 3-5 Hyaline Urine Mucus Negative Urine Other Mod Transitional Ur Culture Indicated? Yes Urine Glucose 100 H Ethyl Alcohol COVID-19 Source SARS-CoV-2 (PCR) Last Vital Signs Temp 38.5 C H 10/04/22 20:31 Pulse 107 H 10/04/22 20:00 Resp 17 10/04/22 20:00 BP 112/74 10/04/22 20:00 Pulse Ox 94 10/04/22 20:00 Time Spent Time spent with Patient: 40-54 minutes Time was spent: preparing to see the patient(eg.review tests), obtaining and/or reviewing separately otained hiistory, ordering medications,tests, procedures and indepentently interpreting results
[2022-10-04] MEDS: Normal Saline 1,000 ML 150 ML IV (23:17)
[2022-10-05] VITALS (9 sets, daily range): BP systolic 102–135; BP diastolic 63–84; PULSE 75–102; RESP 16–20; TEMP 36.8–37.5; O2SAT 94–100
[2022-10-05] MEDS: Normal Saline 1,000 ML 150 ML IV ×2 (06:03→17:38)
[2022-10-05] MEDS: Heparin 5,000 UNITS/ML VIAL 5000 UNITS SC ×3 (06:04→21:06)
[2022-10-05 06:49] LABS: Abs Immature Grans 0.97 10^3/uL (0.0-0.06); Absolute Basophil Count 0.08 10^3/uL (0.0-0.2); Absolute Lymphocyte Count 0.79 10^3/uL (1.2-3.4); Absolute Neutrophil Count 10.88 10^3/uL (1.2-6.7); Basophils % 0.5; Eosinophils % 0.1; HCT 34.5 % (36.0-46.0); HGB 11.7 g/dL (11.2-15.7); Immature Grans % 6.4; Lymphocytes % 5.2; MCH 34.3 pg (27.0-33.0); MCHC 33.9 % (32.0-36.0); MCV 101 fL (80-95); MPV 9.6 fL (8.0-11.0); Monocytes % 16.1; Neutrophils % 71.7; RBC 3.41 10^6/uL (3.93-5.22); RDW 11.6 % (11.7-14.6); RDW-SD 42.6 fL; WBC 15.18 10^3/uL (4.4-10.8)
[2022-10-05 06:56] LABS: Absolute Eosinophil Count 0.02 10^3/uL (0.0-0.7); Absolute Monocyte Count 2.44 10^3/uL (0.1-0.8)
[2022-10-05 07:01] LABS: Anion Gap 6.6 mmol/L (3-11); BUN 11 mg/dL (7-18); CO2 25.4 mmol/L (21.0-32.0); CREATININE 0.8 mg/dL (0.55-1.02); Calcium 8.6 mg/dL (8.5-10.1); Chloride 100 mmol/L (98-107); Estimated GFR 83.78 (mL/min/1.73m2); Glucose 106 mg/dL (74-106); Magnesium 1.8 mg/dL (1.8-2.4); Sodium 132 mmol/L (136-145)
[2022-10-05 07:02] LABS: Diff Comment Diff Reviewed; Platelet Count 88 10^3/uL (130-400); RBC Morphology Normal
[2022-10-05] MEDS: Pantoprazole 40 MG TABCR PO (07:12)
[2022-10-05] MEDS: levoFLOXacin 750 MG/150 ML BAG 100 MG IVPB (08:32)
[2022-10-05] MEDS: Magnesium Oxide 400 MG TAB PO ×2 (08:33→21:05)
[2022-10-05] MEDS: Potassium Chloride 20 MEQ TABCR PO ×2 (08:33→21:05)
[2022-10-05] MEDS: Citalopram 10 MG TAB PO (08:33)
[2022-10-05] MEDS: Folic Acid 1 MG TAB PO (08:33)
[2022-10-05] MEDS: Benzonatate 200 MG CAP PO ×3 (08:33→21:05)
[2022-10-05] MEDS: Multivitamin TAB 1 TAB PO (08:34)
[2022-10-05] MEDS: dilTIAZem CD 180 MG CAPCR PO (09:25)
--- NOTE | 2022-10-05 12:16 | PDOC.CMIN ---
- If Service Date Differs Date of service: 10/05/22 Time of Service: 12:16 Care Management Initial Assess REASON FOR HOSPITALIZATION:: Pneumonia, Afib with RVR PAST MEDICAL HISTORY/PAST SURGICAL HISTORY:: All Active Problems. Chest pain (Acute). Pneumonia (Acute). Atrial fibrillation with rapid ventricular response (Acute). Peripheral neuropathy (Acute). Hypomagnesemia (Acute). Hypocalcemia (Acute). Folate deficiency (Acute). Weakness (Acute). UTI (urinary tract infection) (Acute). Hypokalemia (Acute). Hyponatremia (Acute). Alcohol abuse (Chronic). Anxiety (Chronic). Bipolar 1 disorder (Chronic). Multiple personality disorder (Acute). Unilateral primary osteoarthritis, left knee (Acute). Iliotibial band syndrome affecting left lower leg (Acute). Rectal bleeding (Acute). Anal and rectal polyp (Acute). Adenomatous polyps (Acute). Villous adenoma of colon (Acute). Tubulovillous adenoma (Acute). Sessile colonic polyp (Acute). Incontinence (Acute). High grade dysplasia in colonic adenoma (Acute). Abdominal pain (Acute). Nausea vomiting and diarrhea (Acute). Medical History. Cervical cancer. Colonoscopy planned. COVID-19. 06/2021-pt stated she had no symptoms but an upset stomach. Depression. Fracture. right arm, metal plate/screws. right ankle- metal. Hx of chest pain. Was seen on 12/24/19 in ED for chest pain, had worked up and f/U with PCP no issues or concerns or recurrent chest pain since. Hx of fracture of arm. R arm, both bones. Plates. Knee pain. Poor dentition. Vertigo. Surgical History. History of colonoscopy with polypectomy (~09/07/21). 09/07/21 Stoiber, no polyps repeat 2yrs. 02/16/2021 Stoiber, repeat 6 months. Stoiber, villous/tubulovillous/sessile serrated 01/2020. Stoiber, multiple polyps 08/11/20. History of hysterectomy PREVIOUS FUNCTIONAL STATUS/SOCIAL/FAMILY SUPPORTS:: Zabrina lives alone in an apartment in [facility]. She has four daughters; two of whom live nearby in [place] and are supportive. 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 She reports being independent with her ADLs. CURRENT FUNCTIONAL STATUS:: Zabrina was sitting up in her chair when CM met with her. She stated that she is feeling much better today, and is hoping to return home tomorrow, if she continues to improve. She stated that her daughter Simran stays with her, and will bring her clothes to return home in, and her daughter Verona will drive her home. She stated that she has a lot of support to help her at home, and does not anticipate the need for services. CM will continue to follow. ADVANCE DIRECTIVES:: Not on file. Has patient been provided with info about the portal/API?: Yes Did the patient sign up for the portal?: No CODE STATUS:: Full Code INSURANCE COVERAGE / FINANCIAL ISSUES:: [facility] CURRENT HOME/COMMUNITY SERVICES/EQUIPMENT:: Zabrina has a FWW, a w/c, and a shower bench. PRIMARY CARE PHYSICIAN:: Medina Ramirez POTENTIAL DISCHARGE NEEDS:: Evaluations for further needs, follow up appointments. PATIENT/FAMILY EDUCATION NEEDS:: Review discharge instructions and limitations, discussion of self care needs including ask me three. ANTICIPATED BARRIERS TO DISCHARGE:: None. TRANSPORTATION:: Via private vehicle by family vs RCT. PLAN:: Anticipate Zabrina will return home once medically cleared. She will follow up with her PCP and discharge plan of care, and will tranpsort with family vs RCT. CM will continue to follow.
--- NOTE | 2022-10-05 15:45 | W.PM.PROGNOT ---
Date of Service Date of service: 10/05/22 Time of Service: 15:45 Assessment and Plan Assessment and plan (1) Atrial fibrillation with rapid ventricular response: Status: Acute Assessment and plan: She was given 2 doses of 10mg IV diltiazem in the ED. Her HR responded appropriately and decreased to low 100's. She is not on anticoagulation or rate controlling medication. Now on Cardizem CD 180mg daily with further improvement in HR control. [id number] score of 1. Telemetry. (2) Pneumonia: Status: Acute Assessment and plan: Cough is much improved. Cont Levaquin. Blood cultures obtained and are pending. Tessalon perles prn. Guaifenesin/dextramethoraphan prn IS WBC count unchanged at 15. Cont to monitor. (3) Hyponatremia: Status: Acute Assessment and plan: Likely d/t PNA. Improved from 126 susana 132. Monitor. (4) Bipolar 1 disorder: Status: Chronic Assessment and plan: Cont Citalopram and Trazadone. (5) Hypokalemia: Status: Acute Assessment and plan: Repleted. Monitor. (6) Hypomagnesemia: Status: Acute Assessment and plan: Repleted Will give Mg nightly. Subjective Subjective Patient reports: no new complaints, feels better and afebrile Interval history since last seen: Cough has improved. Exam Narrative Exam Narrative: Pt is sitting in chair. Cheerful. NAD. No cough noted during time in her room today. Const General: cooperative Orientation: alert and oriented x3 HENMT Head: normal to inspection Mouth: moist mucous membranes Eyes General: appearance normal, both eyes and all related structures Sclera: sclerae normal Neck Neck: normal visual inspection and no JVD Resp Effort & Inspection: normal respiratory effort and able to speak in complete sentences Auscultation: clear to auscultation bilaterally Cardio Jugular venous pressure: no JVD Heart Sounds: no murmurs GI Inspection: non-distended Palpation: soft and nontender Skin General skin exam: no rashes or lesions noted Neuro General: patient alert, patient oriented x3 and no focal motor deficits Cranial Nerves: facial strength normal Extrem General: normal to inspection, no pedal edema and no calf tenderness Psych Mental Status: mental status grossly normal Speech and Movement: speech clear Affect: normal affect Objective Last Vital Signs Temp 37.3 C 10/05/22 11:30 Pulse 81 10/05/22 11:30 Resp 16 10/05/22 11:30 BP 120/79 10/05/22 11:30 Pulse Ox 100 10/05/22 11:30 Laboratory Results - last 24 hr 10/05/22 10/05/22 06:02 06:02 WBC 15.18 H RBC 3.41 L Hgb 11.7 Hct 34.5 L MCV 101 H MCH 34.3 H MCHC 33.9 RDW 11.6 L Plt Count 88 L MPV 9.6 Immature Gran % 6.4 Neutrophils % 71.7 Lymphocytes % 5.2 Monocytes % 16.1 Eosinophils % 0.1 Basophils % 0.5 Nucleated RBC % 0.0 Absolute Neutrophils 10.88 H Absolute Lymphocytes 0.79 L Absolute Monocytes 2.44 H Absolute Eosinophils 0.02 Absolute Basophils 0.08 RBC Morphology Normal Sodium 132 L Potassium 4.0 Chloride 100 Carbon Dioxide 25.4 Anion Gap 6.6 BUN 11 Creatinine 0.8 Est GFR (CKD-EPI 2020) 83.78 Glucose 106 Calcium 8.6 Magnesium 1.8 Time Spent with Patient Time Spent with Patient: 25-34 minutes Time was spent: preparing to see the patient(eg.review tests), ordering medications,tests, procedures and indepentently interpreting results
[2022-10-05 16:38] LABS: Anion Gap 6.7 mmol/L (3-11); BUN 9 mg/dL (7-18); CO2 25.3 mmol/L (21.0-32.0); CREATININE 0.8 mg/dL (0.55-1.02); Calcium 8.4 mg/dL (8.5-10.1); Chloride 97 mmol/L (98-107); Estimated GFR 83.78 (mL/min/1.73m2); Glucose 103 mg/dL (74-106); Potassium 4.3 mmol/L (3.5-5.1); Sodium 129 mmol/L (136-145)
[2022-10-06] MEDS: Normal Saline 1,000 ML 150 ML IV (00:32)
[2022-10-06 02:58] VITALS: BP 131/80; PULSE 92; RESP 20; TEMP 37.4; O2SAT 93
[2022-10-06] MEDS: Heparin 5,000 UNITS/ML VIAL 5000 UNITS SC (05:26)
[2022-10-06 06:56] LABS: HCT 32.4 % (36.0-46.0); HGB 11.2 g/dL (11.2-15.7); MCH 34.8 pg (27.0-33.0); MCHC 34.6 % (32.0-36.0); MCV 101 fL (80-95); MPV 9.9 fL (8.0-11.0); Platelet Count 98 10^3/uL (130-400); RBC 3.22 10^6/uL (3.93-5.22); RDW 11.4 % (11.7-14.6); RDW-SD 41.9 fL; WBC 13.69 10^3/uL (4.4-10.8)
[2022-10-06 07:00] VITALS: PULSE 77
[2022-10-06] MEDS: Potassium Chloride 20 MEQ TABCR PO (09:10)
[2022-10-06] MEDS: Benzonatate 200 MG CAP PO (09:12)
[2022-10-06] MEDS: Folic Acid 1 MG TAB PO (09:12)
[2022-10-06] MEDS: Multivitamin TAB 1 TAB PO (09:12)
[2022-10-06] MEDS: dilTIAZem CD 180 MG CAPCR PO (09:12)
[2022-10-06] MEDS: Pantoprazole 40 MG TABCR PO (09:12)
[2022-10-06] MEDS: Citalopram 10 MG TAB PO (09:13)
[2022-10-06] MEDS: levoFLOXacin 750 MG/150 ML BAG 100 MG IVPB (10:16)
--- NOTE | 2022-10-06 10:50 | DSE_ITS ---
Date of service: 10/06/22 Time of Service: 10:50 DS: Diagnosis Discharge Diagnosis (1) Atrial fibrillation with rapid ventricular response: Status: Acute Asessment and Plan: She was given 2 doses of 10mg IV diltiazem in the ED. Her HR responded appropriately and decreased to low 100's. She is not on anticoagulation or rate controlling medication. Begin Cardizem CD 180mg daily [id number] score of 1. Diltiazem CD 180mg initiated. Pulse in the 80-90 range predominately. (2) Pneumonia: Status: Acute Asessment and Plan: Much improved. Cough significantly diminished. Will discharge on levofloxacin 750mg po daily for 5 more days. (3) Hyponatremia: Status: Acute Asessment and Plan: Na 126 on admission. Improved to 132, then 129. Likely mild SIADH secondary to PNA. F/U lab when sees PCP. (4) Bipolar 1 disorder: Status: Chronic Asessment and Plan: Stable on home meds. (5) Hypokalemia: Status: Acute Asessment and Plan: Corrected. (6) Hypomagnesemia: Status: Acute Asessment and Plan: Corrected. Discharge Plan Disposition Patient Disposition: Home Condition: Good Discharge Details Reason For Visit: Pneumonia, Afib with RVR Admit Date/Time: 10/04/22 07:16 Admit Provider: Augustin Erwin Attending Provider: Augustin Erwin Primary Care Provider: Medina Ramirez Hospital Course Hospital Course: This is a 61 yo female with a PMH of afib, alcohol abuse disorder, Bipolar 1 disorder.? She endorsed chest pain that started the day prior to admission.? The pain described as left sided with radiation to the back.? No noted palpitations.? No fever/chills.? + cough.? In the ED the BP was 115/68.? HR 120-130's. Not hypoxic.? EKG showed afib.? WBC count 15.34.? Hgb 12.6.? Na 126. K 3.2. Creatinine 1.0. Mg 1.3.? UA with tr blood, small leuk. Est. 5-10 WBCs, few bacteria. CT chest:??1. No evidence of pulmonary embolism, thoracic aortic dissection or aneurysm.? 2. Large area of consolidation with air bronchograms involving the left upper lobe and left lingula most likely representing pneumonia.? A follow-up examination to document complete resolution and to exclude other etiologies including neoplasm is recommended. 3. Small left pleural effusion. Levaquin initiated in the ED.? See Diagnosis F/U with PCP in 1-2 weeks. Home Meds and New Rx's Prescriptions: New diltiazem HCl 180 mg Capsule,Extended Release 24hr 180 mg PO DAILY Qty: 30 0RF levofloxacin 750 mg tablet 750 mg PO DAILY Qty: 5 0RF Continued bisacodyl 10 mg suppository 10 mg DE DAILY PRN Patient Comments: not taking Fleet Enema Extra 19-7 gram/197 mL enema 118 ml DE ONCE Patient Comments: not taking trazodone 50 mg tablet 50 mg PO QHS PRN citalopram 10 mg tablet 10 mg PO DAILY meclizine 12.5 mg tablet 12.5 tab PO Q6H Patient Comments: TAKE ONE TABLET BY MOUTH EVERY 6 HOURS NEEDED pantoprazole 40 mg tablet,delayed release (DR/EC) 40 mg PO DAILY Patient Comments: TAKE ONE TABLET BY MOUTH EVERY DAY 30 MINUTES BEFORE SUPPER ondansetron 4 mg tablet,disintegrating 4 mg PO PRN PRN Patient Comments: not taking folic acid 1 mg Tablet 1 mg PO QAM Qty: 0 0RF multivitamin [Multiple Vitamins] Tablet 1 tab PO QAM Qty: 0 0RF Patient Comments: not taking polyethylene glycol 3350 17 gram Powder In Packet 17 g PO DAILY PRN PRN (Reason: Constipation) Qty: 0 0RF Patient Comments: not taking potassium chloride [Klor-Con M20] 20 mEq Tablet,Er Particles/Crystals 20 meq PO BID Qty: 20 0RF magnesium oxide 400 mg (241.3 mg magnesium) Tablet 400 mg PO BID Qty: 0 0RF Discharge Instructions Instructions: Pneumonia (DC) Stand Alone Forms: Nursing Discharge Form Referrals: Medina Ramirez [Primary Care Provider] - (Please call [phone] Friday to make an Appointment ) Activity:: Activity as Tolerated Equipment/Supplies:: No Equipment Needed Diet:: Resume usual home diet Discharge Orders Discharge Orders: Discharge Order (Routine); Ordered 10/06/22 Ordered By: Augustin Erwin Discharge Data Discharge Date/Time-TO BE ENTERED AT DEPARTURE: 10/06/22 13:07 DS: Summary Time Spent with Patient providing and/or coordinating discharge services: Greater than 30 minutes Status at Discharge Functional status at discharge: independent ambulation Overall status at discharge: patient is progressing back to baseline Mental Status: mental status grossly normal Speech and Movement: speech clear Mood: congruent mood Affect: normal affect Exam Narrative Exam Narrative: Pt is sitting in chair. Cheerful. No cough noted during time in her room today. Const General: cooperative and no acute distress Orientation: alert and oriented x3 HENMT Head: normal to inspection Mouth: moist mucous membranes Eyes General: appearance normal, both eyes and all related structures Sclera: sclerae normal Neck Neck: normal visual inspection and no JVD Resp Effort & Inspection: normal respiratory effort and able to speak in complete sentences Auscultation: clear to auscultation bilaterally Cardio Jugular venous pressure: no JVD Heart Sounds: no murmurs GI Inspection: non-distended Palpation: soft and nontender Skin General skin exam: no rashes or lesions noted Neuro General: patient alert, patient oriented x3 and no focal motor deficits Cranial Nerves: facial strength normal Extrem General: normal to inspection, no pedal edema and no calf tenderness Psych Mental Status: mental status grossly normal Speech and Movement: speech clear Mood: congruent mood Affect: normal affect DS: Data Vitals/I&O Vitals and I&O: Vital Signs Temperature 37.4 C 10/06/22 02:58 Temperature Source Tympanic 10/06/22 02:58 Pulse 92 H 10/06/22 02:58 Pulse Rhythm Irregular 10/06/22 01:03 Pulse 137 H 10/04/22 05:58 Respiratory Rate 20 10/06/22 02:58 Respiratory Effort Non-Labored 10/06/22 01:03 Respiratory Depth Shallow 10/06/22 01:03 Respiratory Pattern Normal 10/06/22 01:03 Blood Pressure 131/80 10/06/22 02:58 Blood Pressure Mean 64 10/04/22 05:58 Blood Pressure Position Sitting 10/04/22 05:30 Pulse Oximetry 93 10/06/22 02:58 Oxygen Delivery Method Room Air 10/06/22 02:58 Oxygen Flow Rate 0 10/06/22 02:58 Pain Level 0 10/06/22 02:58 Comment RN Notified 10/04/22 20:00 Intake & Output 10/05/22 10/05/22 10/06/22 11:59 23:59 11:59 Intake Total 1096.667 / 6.667 999 / 2095. 1000 / 1000 Balance 1096.667 / 6.667 999 / 2095. 1000 / 1000 Intake: IV 1096.667 / 6.667 999 / 2095. 1000 / 1000 Other: Urine Color Yellow Yellow Urine Appearance Clear Comment pt was incontinent and continent pt was VERY incontinent Stool Size Large Large Stool Characteristics Soft Soft Brown Voiding Methods Toilet Diaper Diaper Incontinent Incontinent Data Completed and Pending Labs on day of discharge: Labs from last 24 hours 10/06/22 10/05/22 06:10 16:10 WBC 13.69 H RBC 3.22 L Hgb 11.2 Hct 32.4 L MCV 101 H MCH 34.8 H MCHC 34.6 RDW 11.4 L Plt Count 98 L MPV 9.9 Sodium 129 L Potassium 4.3 Chloride 97 L Carbon Dioxide 25.3 Anion Gap 6.7 BUN 9 Creatinine 0.8 Est GFR (CKD-EPI 2020) 83.78 Glucose 103 Calcium 8.4 L Preliminary micro results at discharge 10/04/22 08:00 Blood Culture - Preliminary Blood NO GROWTH 48 HOURS 10/04/22 08:10 Blood Culture - Preliminary Blood NO GROWTH 48 HOURS PFSH All Active Problems Chest pain (Acute) Pneumonia (Acute) Atrial fibrillation with rapid ventricular response (Acute) Peripheral neuropathy (Acute) Hypomagnesemia (Acute) Hypocalcemia (Acute) Folate deficiency (Acute) Weakness (Acute) UTI (urinary tract infection) (Acute) Hypokalemia (Acute) Hyponatremia (Acute) Alcohol abuse (Chronic) Anxiety (Chronic) Bipolar 1 disorder (Chronic) Multiple personality disorder (Acute) Unilateral primary osteoarthritis, left knee (Acute) Iliotibial band syndrome affecting left lower leg (Acute) Rectal bleeding (Acute) Anal and rectal polyp (Acute) Adenomatous polyps (Acute) Villous adenoma of colon (Acute) Tubulovillous adenoma (Acute) Sessile colonic polyp (Acute) Incontinence (Acute) High grade 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 Hx of fracture of arm R arm, both bones. Plates. Knee pain Poor dentition Vertigo Surgical History History of colonoscopy with polypectomy (~09/07/21) 09/07/21 [facility], no polyps repeat 2yrs. 02/16/2021 [facility], repeat 6 months [facility], villous/tubulovillous/sessile serrated 01/2020 [facility], multiple polyps 08/11/20 History of hysterectomy Social History Smoking/Tobacco Use Status: Never Smoking risk assessment performed?: Yes Alcohol Intake: current Alcohol Intake frequency: a few times a week Alcohol type: beer Details: 6+ beer/day; Has been cutting back the past few weeks from 18+ be ers/day Drug use: Never Substance use type: does not use Do you feel safe at home: Yes Do you feel safe in your relationship?: Yes Time Spent with Patient Time Spent with Patient: <45 minutes Time was spent: preparing to see the patient(eg.review tests), referring, communicating with other health adult live in caregiver and indepentently interpreting results
[2022-10-06 12:05] VITALS: PULSE 77
[2022-10-06 12:18] VITALS: O2SAT 95
--- NOTE | 2022-10-06 18:34 | PDOC.CMDIS ---
- If Service Date Differs Date of service: 10/06/22 Time of Service: 18:34 LACE Index Scoring Tool - Questions: Length of Stay (in days): 2 Acuity (Admit via E.D.?): Yes E.D. Visits: 4 - Answers: Total Score: 9 Risk of Readmission: Low Risk Care Management Discharge Reason for Hospitalization: Pneumonia, Afib with RVR Discharge Plan: Zabrina returned home today with no new services. Her daughter drove her home via private vehicle. She will follow up with her PCP and discharge plan of care. She was happy to be going home. Patient/Family Education Needs: Review discharge instructions and limitations, discussion of self care needs including ask me three.
== END 2022-10-06 13:07 | disposition home or self-care (01) | DRG 308 ==
LOC: ER 07:45 → MS 08:35
PROVIDERS: Admitting Provider Family Medicine; Emergency Provider Emergency Medicine; PCP Nurse Practitioner Family; Visit Provider Family Medicine
DX: I48.91 Unspecified atrial fibrillation (principal); J18.9 Pneumonia, unspecified organism; E87.1 Hypo-osmolality and hyponatremia; F31.9 Bipolar disorder, unspecified; E87.6 Hypokalemia; E83.42 Hypomagnesemia; F10.10 Alcohol abuse, uncomplicated; G62.9 Polyneuropathy, unspecified; D53.8 Other specified nutritional anemias; R53.1 Weakness; F41.9 Anxiety disorder, unspecified; M17.12 Unilateral primary osteoarthritis, left knee; M76.32 Iliotibial band syndrome, left leg; F44.81 Dissociative identity disorder
CPT/HCPCS: 36410; 36415; 71275; 80048; 80053; 85027; 87040; 87635; 93005; 96361; 96365; 96366; 96368; 96375; 96376; 99285; 71045; 80320; 81003; 81015; 83735; 84443; 84484; 85025; 85379; 85610; 85730; 87086; 93010; 99223; 99232; 99239; J1644; J1956; J3490

== ENCOUNTER 2022-10-09 01:04 | Outpatient (CLI) | payer MEDICARE, MEDICAID, SELFPAY ==
--- NOTE | 2022-10-09 | DI.US_ITS ---
Exam(s) US EXTREMITY VENOUS BI EXAM: US EXTREMITY VENOUS BI CLINICAL HISTORY: LOWER EXT EDEMA, R60.0. TECHNIQUE: Bilateral lower extremity venous ultrasound performed using grayscale, color-flow, and sp ectral Doppler analysis. COMPARISON: No exams were available for comparison FINDINGS: The right common femoral, femoral and popliteal veins demonstrate normal compressibility, augmentatio n, and color Doppler. There is poor visualization of the distal posterior tibial and peroneal veins. The saphenofemoral junctions are unremarkable. There is no evidence of a Denson's cyst. There is julieth a in the soft tissues of the lower extremity. The left common femoral, femoral and popliteal veins demonstrate normal compressibility, augmentation , and color Doppler. The visualized posterior tibial and peroneal veins are compressible in the proxi mal calf. The could not be visualized distally. The saphenofemoral junctions are unremarkable. Ther e is no evidence of a Denson's cyst. There is edema seen in the soft tissues of the lower extremity. IMPRESSION: 1. No evidence of a right lower extremity DVT. 2. No evidence of a left lower extremity DVT. DATA REPOSITORY:
== END 2022-10-09 01:24 ==
LOC: DI 01:05
PROVIDERS: PCP Nurse Practitioner Family; Visit Provider Nurse Practitioner Family
DX: R60.0 Localized edema (principal)
CPT/HCPCS: 93970

== ENCOUNTER 2022-10-30 21:13 | Emergency (ER) | payer MEDICARE, MEDICAID, SELFPAY ==
[2022-10-30 21:14] VITALS: BP 124/77; PULSE 66; RESP 12; TEMP 36.5; O2SAT 97
--- NOTE | 2022-10-30 21:15 | DI.CT_ITS ---
Exam(s) CT HEAD CERVICAL SPINE WO EXAM: CT HEAD CERVICAL SPINE WO CLINICAL HISTORY: fall. TECHNIQUE: Imaging Protocol: Axial computed tomography images with coronal and sagittal reformatted images were created and reviewed COMPARISON: MR MR BRAIN WO from 02/08/2022 FINDINGS: Head CT Ventricles and Extra axial spaces: Normal in size and morphology for the patient's age. Hemorrhage: None. Cerebral parenchyma: Normal. Midline shift: None. Brainstem/Cerebellum: Normal. Calvarium: Normal. Visualized Paranasal sinuses/Mastoids: Clear. Cervical Spine CT Exam is mildly limited by motion. BONES: Vertebral body heights are maintained. Alignment is normal. There is no evidence of acute frac ture. Degenerative disc changes are seen at C 5 6 and C6-7. . SOFT TISSUES: No paraspinal hematoma. The airway appears intact. No pneumothorax is seen at the lung apices. IMPRESSION: Head CT: No acute abnormality. C-spine CT: Degenerative changes, no acute abnormality. RADIATION DOSE DELIVERED: 1,477.56mGy.cm Total DLP DATA REPOSITORY: All CT scans at this facility are submitted to the National Radiology Data Registry (NRDR) Dose Index Registry (DIR) with the [employer] ([employer]). RADIATION OPTIMIZATION: All CT scans at this facility use at least one of these dose optimization te chniques: automated exposure control; mA and/or kV adjustment per patient size (includes targeted exa ms where dose is matched to clinical indication); or iterative reconstruction.
--- NOTE | 2022-10-30 21:46 | NUR.NOTE ---
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
--- NOTE | 2022-10-30 22:10 | W.ED.GENAD ---
Discharge Plan Disposition Patient Disposition: Home Discharge Details Clinical Impression: Laceration of left leg, Alcohol abuse, Fall Primary Care Provider: Medina Ramirez ED Provider: Leandro Contreras Home Meds and New Rx's Prescriptions: No Action bisacodyl 10 mg suppository 10 mg NJ DAILY PRN Patient Comments: not taking Fleet Enema Extra 19-7 gram/197 mL enema 118 ml NJ ONCE Patient Comments: not taking trazodone 50 mg tablet 50 mg PO QHS PRN citalopram 10 mg tablet 10 mg PO DAILY meclizine 12.5 mg tablet 12.5 tab PO Q6H Patient Comments: TAKE ONE TABLET BY MOUTH EVERY 6 HOURS NEEDED pantoprazole 40 mg tablet,delayed release (DR/EC) 40 mg PO DAILY Patient Comments: TAKE ONE TABLET BY MOUTH EVERY DAY 30 MINUTES BEFORE SUPPER ondansetron 4 mg tablet,disintegrating 4 mg PO PRN PRN Patient Comments: not taking folic acid 1 mg Tablet 1 mg PO QAM Qty: 0 0RF multivitamin [Multiple Vitamins] Tablet 1 tab PO QAM Qty: 0 0RF Patient Comments: not taking polyethylene glycol 3350 17 gram Powder In Packet 17 g PO DAILY PRN PRN (Reason: Constipation) Qty: 0 0RF Patient Comments: not taking potassium chloride [Klor-Con M20] 20 mEq Tablet,Er Particles/Crystals 20 meq PO BID Qty: 20 0RF magnesium oxide 400 mg (241.3 mg magnesium) Tablet 400 mg PO BID Qty: 0 0RF diltiazem HCl 180 mg Capsule,Extended Release 24hr 180 mg PO DAILY Qty: 30 0RF levofloxacin 750 mg tablet 750 mg PO DAILY Qty: 5 0RF Discharge Instructions Instructions: Laceration (ED), Abuse of Alcohol (ED), Fall Prevention (ED) Additional Instructions: Watch for any signs of infection and return immediately to the emergency department if these occur. Otherwise keep dressing in place for the next 24-48 hours and then keep wound clean and dry. Return to the emergency department 14 days for suture removal. Referrals: Medina Ramirez [Primary Care Provider] - (As needed for reassessment pending return to the emergency department for suture removal) Discharge Data Discharge Date/Time-TO BE ENTERED AT DEPARTURE: 10/30/22 23:15 Medical Decision Making Patient presenting to the emergency department via EMS for chief complaint of unwitnessed fall with left leg laceration. Patient does report that she was drinking alcohol this evening and had a fall. She does not remember the fall but denies any pain or discomfort. Physical exam shows an intoxicated appearing female with no focal neurological deficits, no obvious trauma except for noted 10 cm laceration to the left lower extremity. Laceration was thoroughly irrigated and cleaned, involves adipose tissue but no deep structures are visible and no apparent damage, patient can fully flex and extend lower extremity, and denies any lack of sensation or has no movement abnormalities of distal extremity. Laceration was repaired with 3-0 Prolene and 10 sutures were placed. This was done under sterile procedure with sterile drape in place. Patient tolerated procedure well. Please see procedure note. Given that patient did have unwitnessed fall and is obviously intoxicated will perform CT imaging of head and C-spine. I do not feel that labs or any other evaluation is needed at this time but will continue to monitor. Review of CT imaging and radiologist interpretation shows no acute findings. Will discharge patient with standard laceration precautions. After discussion of diagnosis and plan of care patient has no further needs, questions, or concerns and states clear understanding to return to the emergency department for any worsening symptoms. This documentation was generated using [facility] dictation system, please disregard any oddities of phrase or misspellings. Imaging Data Radiologic Study: Imaging: CT Scan Radiologist's impression: Exam(s) PROCEDURE INFORMATION: Exam: CT Head Without Contrast Exam date and time: 10/30/2022 10:28 PM Age: 61 years old Clinical indication: Other: Fall TECHNIQUE: Imaging protocol: Computed tomography of the head without contrast. COMPARISON: MR BRAIN WO 02/08/2022 1:46 PM FINDINGS: Brain: Mild volume loss No hemorrhage. Unremarkable white matter. No mass effect. Cerebral ventricles: No ventriculomegaly. Paranasal sinuses: Visualized sinuses are unremarkable. No fluid levels. Mastoid air cells: Visualized mastoid air cells are well aerated. Bones/joints: Unremarkable. No acute fracture. Soft tissues: Unremarkable. IMPRESSION: No acute intracranial hemorrhage PROCEDURE INFORMATION: Exam: CT Cervical Spine Without Contrast Exam date and time: 10/30/2022 10:28 PM Age: 61 years old Clinical indication: Other: Fall TECHNIQUE: Imaging protocol: Computed tomography of the cervical spine without contrast. COMPARISON: CT CHEST PE CTA 10/04/2022 6:57 AM FINDINGS: Bones/joints: No acute fracture. Loss of cervical lordosis is presumably on a degenerative basis.No significant disc bulge or herniation. No severe spinal canal stenosis. No significant neural foraminal narrowing. Lungs: Lung apices are normal. Soft tissues: Unremarkable. IMPRESSION: No acute cervical fracture HPI General Mode of arrival: EMS. Date/Time Provider Initiated Documentation: 10/30/22 21:27. Limitations to Documentation: no limitations. Information obtained by: patient and RN notes reviewed. History of Present Illness 62 year old F presents to the emergency department with the chief complaint of Fall, leg laceration, and is localized to the left and lower extremity. Patient reports no radiation. Patient started experiencing this minute(s) (30) and it has been constant. No relieving factors improve symptom(s), No exacerbating factors reported . Patient notes no other symptoms.. Patient did receive the following treatments prior to arrival, none Related Data Home Medications Medication Instructions Recorded Confirmed meclizine 12.5 mg tablet 12.5 tab PO Q6H 02/08/22 10/04/22 ondansetron 4 mg disintegrating 4 mg PO PRN PRN 02/08/22 03/12/22 tablet pantoprazole 40 mg tablet,delayed 40 mg PO DAILY 02/08/22 10/04/22 release folic acid 1 mg tablet 1 mg PO QAM #0 tabs 02/11/22 03/12/22 magnesium oxide 400 mg (241.3 mg 400 mg PO BID #0 tabs 02/11/22 10/04/22 magnesium) tablet multivitamin (Multiple Vitamins 1 tab PO QAM #0 tabs 02/11/22 03/12/22 tablet) polyethylene glycol 3350 17 gram 17 g PO DAILY PRN PRN Constipation 02/11/22 03/12/22 oral powder packet #0 ea potassium chloride 20 mEq 20 meq PO BID #20 tabs 02/11/22 10/04/22 tablet,extended release(part/cryst) (Klor-Con M) bisacodyl 10 mg rectal suppository 10 mg NJ DAILY PRN 03/12/22 03/12/22 sodium phosphates 19 gram-7 118 ml NJ ONCE 03/12/22 03/12/22 gram/197 mL enema (Fleet Enema Extra) citalopram 10 mg tablet 10 mg PO DAILY 08/06/22 10/04/22 trazodone 50 mg tablet 50 mg PO QHS PRN 08/06/22 10/04/22 diltiazem HCl 180 mg 180 mg PO DAILY #30 caps 10/06/22 capsule,extended release 24 hr levofloxacin 750 mg tablet 750 mg PO DAILY #5 tabs 10/06/22 Previous Rx's Medication Instructions Recorded folic acid 1 mg tablet 1 mg PO QAM #0 tabs 02/11/22 magnesium oxide 400 mg (241.3 mg 400 mg PO BID #0 tabs 02/11/22 magnesium) tablet multivitamin (Multiple Vitamins 1 tab PO QAM #0 tabs 02/11/22 tablet) polyethylene glycol 3350 17 gram 17 g PO DAILY PRN PRN Constipation 02/11/22 oral powder packet #0 ea potassium chloride 20 mEq 20 meq PO BID #20 tabs 02/11/22 tablet,extended release(part/cryst) (Klor-Con M) diltiazem HCl 180 mg 180 mg PO DAILY #30 caps 10/06/22 capsule,extended release 24 hr levofloxacin 750 mg tablet 750 mg PO DAILY #5 tabs 10/06/22 Allergies Allergy/AdvReac Type Severity Reaction Status Date / Time Penicillins Allergy Intermediate Hives Verified 03/12/22 08:36 General Stated Complaint: Laceration MARLINE: 3 Review of Systems Constitutional Constitutional: Denies fever(s), Denies frequent falls, Denies headache(s) and Denies weakness Eyes Eyes: Denies change in vision ENT Ears, Nose, Mouth, and Throat: Denies headache(s) Cardiovascular Cardiovascular: Denies chest pain, Denies syncope and Denies dyspnea Respiratory Respiratory: Denies dyspnea Gastrointestinal Gastrointestinal: Denies abdominal pain, Denies nausea and Denies vomiting Musculoskeletal Musculoskeletal: Denies limited range of motion and Denies muscle weakness Integumentary/Breasts Skin/Breast: Reports as per HPI Neurologic Neurologic: Reports confusion, Denies syncope, Denies frequent falls, Denies headache(s), Denies localized weakness and Denies weakness Psychiatric Psychiatric: Reports confusion PFSH All Active Problems (Updated 10/30/22 @ 22:57 by Leandro Contreras NP) Laceration of left leg (Acute) Fall (Acute) Pneumonia (Acute) Peripheral neuropathy (Acute) Hypocalcemia (Acute) Folate deficiency (Acute) Weakness (Acute) UTI (urinary tract infection) (Acute) Alcohol abuse (Chronic) Anxiety (Chronic) Bipolar 1 disorder (Chronic) Multiple personality disorder (Acute) Unilateral primary osteoarthritis, left knee (Acute) Iliotibial band syndrome affecting left lower leg (Acute) Rectal bleeding (Acute) Anal and rectal polyp (Acute) Adenomatous polyps (Acute) Villous adenoma of colon (Acute) Tubulovillous adenoma (Acute) Sessile colonic polyp (Acute) Incontinence (Acute) High grade dysplasia in colonic adenoma (Acute) Abdominal pain (Acute) Nausea vomiting and diarrhea (Acute) Medical History Cervical cancer Colonoscopy planned COV-06/2021-pt stated she had no symptoms but an upset stomach Depression Fracture right arm, metal plate/screws right ankle- metal Hx of chest pain Was seen on 12/24/19 in ED for chest pain, had worked up and f/U with PCP no issues or concerns or recurrent chest pain since. Hx of fracture of arm R arm, both bones. Plates. Knee pain Poor dentition Vertigo Surgical History History of colonoscopy with polypectomy (~09/07/21) 09/07/21 Sto[facility], no polyps repeat 2yrs. 02/16/2021 Stoiber, repeat 6 months Stoiber, villous/tubulovillous/sessile serrated 01/2020 Stoiber, multiple polyps 08/11/20 History of hysterectomy Social History Smoking/Tobacco Use Status: Never Smoking risk assessment performed?: Yes Alcohol Intake: current Alcohol Intake frequency: a few times a week Alcohol type: beer Details: 6+ beer/day; Has been cutting back the past few weeks from 18+ beers/day Drug use: Never Substance use type: does not use Do you feel safe at home: Yes Do you feel safe in your relationship?: Yes Exam Const General: cooperative, no acute distress and well groomed Orientation: alert and awake [facility] Head: normal to inspection Ears: hearing grossly normal bilaterally Mouth: oral mucosae normal and moist mucous membranes Eyes Visual Dent: normal visual dent by confrontation Alignment and Position: alignment normal Periorbital: periorbital findings normal Eyelids: eyelids normal Sclera: sclerae normal Pupils: PERRL EOM: EOM intact bilaterally Neck Neck: normal visual inspection, full ROM and no meningeal signs Resp Effort & Inspection: normal respiratory effort and able to speak in complete sentences Auscultation: clear to auscultation bilaterally Cardio Rate: regular rate Rhythm: regular rhythm Heart Sounds: S1 normal and S2 normal Neuro General: patient alert, patient awake and moves all extremities Extrem Left lower extremity: knee Details: normal ROM and laceration distal upper leg lateral Details: irregular, actively bleeding, involving subcutaneous tissue, with motor nerve function intact, with sensation intact, with distal motor nerve function intact, with distal sensation intact and with distal tendon function intact; no foreign body present and not contaminated; no tenderness Course Vital Signs Vital signs: Vital Signs Temperature 36.5 C 10/30/22 21:14 Pulse 66 10/30/22 21:14 Respiratory Rate 12 10/30/22 21:14 Blood Pressure 124/77 10/30/22 21:14 Pulse Oximetry 97 10/30/22 21:14 Temperature 36.5 C 10/30/22 21:14 Temperature Source Skin 10/30/22 21:14 Pulse 66 10/30/22 21:14 Respiratory Rate 12 10/30/22 21:14 Respiratory Effort Normal 10/30/22 21:25 Blood Pressure 124/77 10/30/22 21:14 Blood Pressure Position Supine 10/30/22 21:14 Pulse Oximetry 97 10/30/22 21:14 Oxygen Delivery Method Room Air 10/30/22 21:14 Oxygen Flow Rate 0 10/30/22 21:14 Procedures Laceration Laceration 1: Site: lower extremity Side (If applicable): left Size (cm): 10 Description: linear Depth: simple, single layer Local Anesthetic: Lidocaine 2% and with Epi Amount of anesthesia used (mL): 10 Pre-repair: wound explored, irrigated extensively and deep structures intact Skin layer closed with: other (prolene) Size (cm): 3-0 Number of sutures: 10 Technique: simple, interrupted
--- NOTE | 2022-10-30 22:50 | DI.VRAD_ITS ---
PROCEDURE INFORMATION: Exam: CT Head Without Contrast Exam date and time: 10/30/2022 10:28 PM Age: 61 years old Clinical indication: Other: Fall TECHNIQUE: Imaging protocol: Computed tomography of the head without contrast. COMPARISON: MR BRAIN WO 02/08/2022 1:46 PM FINDINGS: Brain: Mild volume loss No hemorrhage. Unremarkable white matter. No mass effect. Cerebral ventricles: No ventriculomegaly. Paranasal sinuses: Visualized sinuses are unremarkable. No fluid levels. Mastoid air cells: Visualized mastoid air cells are well aerated. Bones/joints: Unremarkable. No acute fracture. Soft tissues: Unremarkable. IMPRESSION: No acute intracranial hemorrhage PROCEDURE INFORMATION: Exam: CT Cervical Spine Without Contrast Exam date and time: 10/30/2022 10:28 PM Age: 61 years old Clinical indication: Other: Fall TECHNIQUE: Imaging protocol: Computed tomography of the cervical spine without contrast. COMPARISON: CT CHEST PE CTA 10/04/2022 6:57 AM FINDINGS: Bones/joints: No acute fracture. Loss of cervical lordosis is presumably on a degenerative basis.No significant disc bulge or herniation. No severe spinal canal stenosis. No significant neural foraminal narrowing. Lungs: Lung apices are normal. Soft tissues: Unremarkable. IMPRESSION: No acute cervical fracture Dictated and Authenticated by: Kenn Sharma MD. Ordering:GRACIELA Reeves MD
== END 2022-10-30 23:15 | disposition home or self-care (01) ==
PROVIDERS: Emergency Provider Nurse Practitioner Family; PCP Nurse Practitioner Family
DX: F10.120 Alcohol abuse with intoxication, uncomplicated (principal); S81.812A Laceration without foreign body, left lower leg, initial encounter; Z86.16 Personal history of COVID-19; Z23 Encounter for immunization; W19.XXXA Unspecified fall, initial encounter; Y90.0 Blood alcohol level of less than 20 mg/100 ml
CPT/HCPCS: 12004; 90471; 99284; 70450; 72125; 99282

== ENCOUNTER 2022-12-17 15:49 | Inpatient (IN) | payer MEDICARE, MEDICAID, SELFPAY ==
[2022-12-17] VITALS (22 sets, daily range): BP systolic 113–134; BP diastolic 54–86; PULSE 98–111; RESP 15–21; TEMP 36.4; O2SAT 99–100
--- NOTE | 2022-12-17 16:24 | NUR.NOTE ---
Nursing Note: patient mentioned that he daughter had her EBT card and her money card and has probably already spent all of her money patient says she does not think that is right
--- NOTE | 2022-12-17 16:28 | W.ED.GENAD ---
Discharge Plan Discharge Details Chief Complaint: GenMedical Clinical Impression: Weakness, Alcohol intoxication, Skin ulcer, Hypoalbuminemia Primary Care Provider: Medina Ramirez ED Provider: Alden Bass Home Meds and New Rx's Prescriptions: No Action bisacodyl 10 mg suppository 10 mg AL DAILY PRN Patient Comments: not taking Fleet Enema Extra 19-7 gram/197 mL enema 118 ml AL ONCE Patient Comments: not taking trazodone 50 mg tablet 50 mg PO QHS PRN citalopram 10 mg tablet 10 mg PO DAILY meclizine 12.5 mg tablet 12.5 tab PO Q6H Patient Comments: TAKE ONE TABLET BY MOUTH EVERY 6 HOURS NEEDED pantoprazole 40 mg tablet,delayed release (DR/EC) 40 mg PO DAILY Patient Comments: TAKE ONE TABLET BY MOUTH EVERY DAY 30 MINUTES BEFORE SUPPER ondansetron 4 mg tablet,disintegrating 4 mg PO PRN PRN Patient Comments: not taking folic acid 1 mg Tablet 1 mg PO QAM Qty: 0 0RF multivitamin [Multiple Vitamins] Tablet 1 tab PO QAM Qty: 0 0RF Patient Comments: not taking polyethylene glycol 3350 17 gram Powder In Packet 17 g PO DAILY PRN PRN (Reason: Constipation) Qty: 0 0RF Patient Comments: not taking potassium chloride [Klor-Con M20] 20 mEq Tablet,Er Particles/Crystals 20 meq PO BID Qty: 20 0RF magnesium oxide 400 mg (241.3 mg magnesium) Tablet 400 mg PO BID Qty: 0 0RF diltiazem HCl 180 mg Capsule,Extended Release 24hr 180 mg PO DAILY Qty: 30 0RF levofloxacin 750 mg tablet 750 mg PO DAILY Qty: 5 0RF Medical Decision Making 62-year-old female presents with lower extremity weakness. Expect this is chronic deconditioning. We will check some labs to look for electrolyte or metabolic derangements that could be contributing. Alcohol could also be contributing. I had some concerns as some of her statements seem rehearsed. She has her apartment and her daughter lives with her. Her daughter apparently controls her money and her food stamps. Patient says she does not have any access to these anymore. I [place] a [place] with Adult Protective [place] [id number]. Certainly it is possible that the patient does need rehab or skilled nursing placement but there were some concerns from the history that led to me reporting. Adult Protective Services can follow-up. Patient does not want to make any other claims or statements at present. Will await initial labs and give some IV fluids. I am concerned alcohol could be contributing additionally to her presentation today. We will check an EtOH level. 749pm Labs consistent with failure to thrive with low albumin and some mild electrolyte abnormalities. Still intoxicated. We will need to reevaluate after clinical sobriety for ability to walk and reevaluate her lower extremity weakness. We will need to also monitor for alcohol withdrawal. May still require admission given the lower extremity weakness but will await EtOH level to improve before requesting. I, Alden Bass, has signed out care to the oncoming team pending clinical sobriety and reevaluation of lower extremity weakness. Medical Records Medical records reviewed: Yes I reviewed the patient's medical records. Lab Data Lab results reviewed: Yes I reviewed the patient's lab results. Labs: Labs with chronic thrombocytopenia. Mild hyponatremia consistent with priors. Does have mildly low calcium and phosphorus. Also with low protein and albumin. Very elevated EtOH level. HPI General Mode of arrival: EMS. Date/Time Provider Initiated Documentation: 12/17/22 15:55. Limitations to Documentation: no limitations. Information obtained by: patient and EMS. HPI Narrative: 62-year-old female with a PMH of afib, alcohol abuse disorder, Bipolar 1 disorder is now presenting with weakness. She says she has had progressive lower extremity weakness for months. She has chronic alcohol use disorder and apparently her daughter called an ambulance for her today. Apparently she initially did not want to go but was then agreeable to go. She says that these lower extremity weakness problems have been going on for months. Already uses a walker. She admits to alcohol use today. No bowel or bladder incontinence that is new. Chronic lower extremity numbness and tingling. Says the weakness in her lower legs is chronic but worsening. No back pain. No fevers or chills. No IV drug use. No saddle anesthesia. Denies any other symptoms. I asked the patient further about why she wanted to come in today and she says she needs to be admitted for 3 days before she can get into rehab. I asked her who told her to stay that and she said that that was the discussion she had over the phone with her daughter. Patient owns her apartment and lives with her daughter. Apparently the daughter controls her money and also has her food stamp card. Related Data Home Medications Medication Instructions Recorded Confirmed meclizine 12.5 mg tablet 12.5 tab PO Q6H 02/08/22 10/04/22 ondansetron 4 mg disintegrating 4 mg PO PRN PRN 02/08/22 03/12/22 tablet pantoprazole 40 mg tablet,delayed 40 mg PO DAILY 02/08/22 10/04/22 release folic acid 1 mg tablet 1 mg PO QAM #0 tabs 02/11/22 03/12/22 magnesium oxide 400 mg (241.3 mg 400 mg PO BID #0 tabs 02/11/22 10/04/22 magnesium) tablet multivitamin (Multiple Vitamins 1 tab PO QAM #0 tabs 02/11/22 03/12/22 tablet) polyethylene glycol 3350 17 gram 17 g PO DAILY PRN PRN Constipation 02/11/22 03/12/22 oral powder packet #0 ea potassium chloride 20 mEq 20 meq PO BID #20 tabs 02/11/22 10/04/22 tablet,extended release(part/cryst) (Klor-Con M) bisacodyl 10 mg rectal suppository 10 mg AL DAILY PRN 03/12/22 03/12/22 sodium phosphates 19 gram-7 118 ml AL ONCE 03/12/22 03/12/22 gram/197 mL enema (Fleet Enema Extra) citalopram 10 mg tablet 10 mg PO DAILY 08/06/22 10/04/22 trazodone 50 mg tablet 50 mg PO QHS PRN 08/06/22 10/04/22 diltiazem HCl 180 mg 180 mg PO DAILY #30 caps 10/06/22 capsule,extended release 24 hr levofloxacin 750 mg tablet 750 mg PO DAILY #5 tabs 10/06/22 Previous Rx's Medication Instructions Recorded folic acid 1 mg tablet 1 mg PO QAM #0 tabs 02/11/22 magnesium oxide 400 mg (241.3 mg 400 mg PO BID #0 tabs 02/11/22 magnesium) tablet multivitamin (Multiple Vitamins 1 tab PO QAM #0 tabs 02/11/22 tablet) polyethylene glycol 3350 17 gram 17 g PO DAILY PRN PRN Constipation 02/11/22 oral powder packet #0 ea potassium chloride 20 mEq 20 meq PO BID #20 tabs 02/11/22 tablet,extended release(part/cryst) (May Walker) diltiazem HCl 180 mg 180 mg PO DAILY #30 caps 10/06/22 capsule,extended release 24 hr levofloxacin 750 mg tablet 750 mg PO DAILY #5 tabs 10/06/22 Allergies Allergy/AdvReac Type Severity Reaction Status Date / Time Penicillins Allergy Intermediate Hives Verified 03/12/22 08:36 General Stated Complaint: GenMedical MARLINE: 3 Review of Systems Constitutional Constitutional: Denies chills, Denies fever(s), Denies headache(s) and Reports weakness Eyes Eyes: Denies change in vision ENT Ears, Nose, Mouth, and Throat: Denies headache(s) and Denies odynophagia Cardiovascular Cardiovascular: Denies chest pain and Denies dyspnea Respiratory Respiratory: Denies dyspnea Gastrointestinal Gastrointestinal: Denies abdominal pain, Denies diarrhea, Denies nausea, Denies odynophagia and Denies vomiting Genitourinary Genitourinary: Denies dysuria Musculoskeletal Musculoskeletal: Denies myalgias Integumentary/Breasts Skin/Breast: Denies changing lesions Neurologic Neurologic: Denies behavioral changes, Denies headache(s) and Reports weakness Psychiatric Psychiatric: Denies behavioral changes Endocrine Endocrine: Denies heat intolerance Hematologic/Lymphatic Hematologic/Lymphatic: Denies lymphadenopathy PFSH All Active Problems (Updated 12/17/22 @ 20:02 by Alden Bass MD) Weakness (Acute) Alcohol intoxication (Acute) Skin ulcer (Acute) Hypoalbuminemia (Acute) Pneumonia (Acute) Peripheral neuropathy (Acute) Hypocalcemia (Acute) Folate deficiency (Acute) Weakness (Acute) UTI (urinary tract infection) (Acute) Alcohol abuse (Chronic) Anxiety (Chronic) Bipolar 1 disorder (Chronic) Multiple personality disorder (Acute) Unilateral primary osteoarthritis, left knee (Acute) Iliotibial band syndrome affecting left lower leg (Acute) Rectal bleeding (Acute) Anal and rectal polyp (Acute) Adenomatous polyps (Acute) Villous adenoma of colon (Acute) Tubulovillous adenoma (Acute) Sessile colonic polyp (Acute) Incontinence (Acute) High grade 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 Hx of fracture of arm R arm, both bones. Plates. Knee pain Poor dentition Vertigo Surgical History History of colonoscopy with polypectomy (~09/07/21) 09/07/21 Stoiber, no polyps repeat 2yrs. 02/16/2021 Stoiber, repeat 6 months Stoiber, villous/tubulovillous/sessile serrated 01/2020 Stoiber, multiple polyps 08/11/20 History of hysterectomy Social History Smoking/Tobacco Use Status: Never Smoking risk assessment performed?: Yes Alcohol Intake: current Alcohol Intake frequency: a few times a week Alcohol type: beer Details: 6+ beer/day; Has been cutting back the past few weeks from 18+ beers/day Drug use: Never Substance use type: does not use Do you feel safe at home: Yes Do you feel safe in your relationship?: Yes Exam Const General: cooperative Nutritional Appearance: average body habitus Orientation: alert, awake and oriented x3 HENMT Head: normal to inspection Ears: external ears normal Mouth: moist mucous membranes Eyes Pupils: PERRL EOM: EOM intact bilaterally and No nystagmus Neck Neck: full ROM and no tracheal deviation Chest Chest: normal inspection of the chest Resp Auscultation: clear to auscultation bilaterally Cardio Rate: regular rate Rhythm: regular rhythm GI Inspection: normal to inspection Palpation: soft, no guarding, not rigid and nontender Back/Spine/Pelvis Back: No no CVA tenderness Thoracic/Lumbar Spine: thoracic and lumbar spine normal to inspection Skin General skin exam: no rashes or lesions noted Neuro General: patient alert, patient awake and patient oriented x3 Cranial Nerves: CN's II-XI intact bilaterally, PERRL and no nystagmus Cognition: normal cognition Motor: muscle tone normal throughout and strength 5/5 throughout Sensory Exam: no sensory deficits noted Extrem General: normal to inspection Other: Bilateral weakness to the lower extremity but still 5 out of 5 strength on examination. No sensation or motor loss of the lower extremities. 2+ DP and PT pulses. She has a stage I pressure ulcer along her glutes and down her posterior thighs. Course Vital Signs Vital signs: Vital Signs Temperature 36.4 C L 12/17/22 15:40 Pulse 105 H 12/17/22 15:40 Respiratory Rate 18 12/17/22 15:40 Pulse Oximetry 100 12/17/22 15:40 Temperature 36.4 C L 12/17/22 15:40 Temperature Source Temporal Artery Scan 12/17/22 15:40 Pulse 105 H 12/17/22 15:40 Respiratory Rate 20 12/17/22 16:15 Respiratory Effort Normal 12/17/22 16:15 Respiratory Depth Normal 12/17/22 16:15 Respiratory Pattern Normal 12/17/22 16:15 Blood Pressure 122/78 12/17/22 15:41 Pulse Oximetry 100 12/17/22 15:40 Oxygen Delivery Method Room Air 12/17/22 15:40 Oxygen Flow Rate 0 12/17/22 15:40 Sign Out Sign Out Data: Sign Out Comment: sign out sobriety. See if she can walk when more sober. Also evaluate for ETOH withdrawal. If cant walk, may need admit. Last updated by Alden Bass MD at 12/17/22 19:59 PAWSS Have you Been Recently Intoxicated or Drunk Within the Last 30 days?: Yes Have you Ever Experienced Previous Episodes of Alcohol Withdrawal?: Unable to Obtain Have you ever Experienced Withdrawal Seizures?: Unable to Obtain Have you ever Experienced Delirium Tremens(DT)s?: Unable to Obtain Have you ever undergone Alcohol Rehabilitation Treatment (i.e, inpt ot outpatient treatment programs)?: Unable to Obtain Have you ever Experienced Blackouts?: Unable to Obtain Have you ever Combined Alcohol with other Downers within the last 90 days?: Unable to Obtain Have you ever Combined Alcohol with any other Substance of Abuse during the last 90 days?: Unable to Obtain Positive Blood Alcohol level on Presentation? [PCS.BAL]: Unable to Obtain Evidence of Increased Autonomic Activity (i.e. HR>120, tremor, sweating, agitation, nausea)?: Unable to Obtain Result: 1
[2022-12-17] MEDS: Normal Saline 1,000 ML 1000 ML IV (16:39)
[2022-12-17 16:49] LABS: Abs Immature Grans 0.15 10^3/uL (0.0-0.06); Absolute Basophil Count 0.06 10^3/uL (0.0-0.2); Absolute Eosinophil Count 0.17 10^3/uL (0.0-0.7); Absolute Lymphocyte Count 0.68 10^3/uL (1.2-3.4); Absolute Monocyte Count 0.48 10^3/uL (0.1-0.8); Absolute Neutrophil Count 2.29 10^3/uL (1.2-6.7); Basophils % 1.6; Eosinophils % 4.4; HCT 34.5 % (36.0-46.0); HGB 11.7 g/dL (11.2-15.7); Immature Grans % 3.9; Lymphocytes % 17.8; MCH 38.4 pg (27.0-33.0); MCHC 33.9 % (32.0-36.0); MCV 113 fL (80-95); MPV 9.2 fL (8.0-11.0); Monocytes % 12.5; Neutrophils % 59.8; RBC 3.05 10^6/uL (3.93-5.22); RDW 14.8 % (11.7-14.6); RDW-SD 62.4 fL; WBC 3.83 10^3/uL (4.4-10.8)
[2022-12-17 17:11] LABS: ALT 27 U/L (14-59); AST 58 U/L (15-37); Albumin 2.7 g/dL (3.4-5.0); Alkaline Phosphatase 277 U/L (46-116); Anion Gap 11.4 mmol/L (3-11); Bilirubin, Total 0.7 mg/dL (0.2-1.0); CO2 24.6 mmol/L (21.0-32.0); CREATININE 0.7 mg/dL (0.55-1.02); Chloride 94 mmol/L (98-107); ETHANOL BLOOD 265.4 mg/dL (<10); Estimated GFR 97.72 (mL/min/1.73m2); Glucose 97 mg/dL (74-106); Magnesium 2.1 mg/dL (1.8-2.4); PHOSPHORUS 2.5 mg/dL (2.6-4.7); Potassium 4.2 mmol/L (3.5-5.1); Sodium 130 mmol/L (136-145); Total Protein 6.3 g/dL (6.4-8.2)
[2022-12-17 17:26] LABS: BUN 1 mg/dL (7-18)
[2022-12-17 17:33] LABS: Macrocytosis 1+
[2022-12-17 17:35] LABS: Platelet Count 90 10^3/uL (130-400)
--- NOTE | 2022-12-17 22:36 | ED.PROG_ITS ---
Date of service: 12/18/22 Time of Service: 06:52 Medical Decision Making 10:36 pm Received pt in sign out, re-eval pt, sleeping, no acute issues, easily arousable. Labs showed wbc 3, Na 130 which is chronic. EtOH 265 initially. Pt says she drinks 1/2 gallon EtOH every 2 days with a friend. States she was told by her pcp to come be admitted so she can go to rehab. Spoke to the hospitalist, discussed all pertinent aspects of case, no medical reason for admission at this time. Will continue to monitor in the ED. Initial provider filed report with adult protective services, may be best to keep in the ED until case management can be involved in the am. Medical Records Medical records narrative: 0501 - Pt now in obvious withdrawal, tremulous, no nausea or MON. She has received ativan before without much effect, will give phenobarb and banana bag. RN has been charting CIWA, 04-23. Spoke to the hospitalist, will come and eval pt. Hospitalist saw pt in the ED, will admit to service for further eval and tx. Sign Out Sign Out Data: Sign Out Comment: sign out sobriety. See if she can walk when more sober. Also evaluate for ETOH withdrawal. If cant walk, may need admit. Last updated by Alden Bass MD at 12/17/22 19:59 Discharge Plan Disposition Patient Disposition: Admit to [facility] Condition: Stable Discharge Details Clinical Impression: Weakness, Alcohol intoxication, Skin ulcer, Hypoalbuminemia, Alcohol withdrawal Primary Care Provider: Medina Ramirez ED Provider: José Miguel Gutierrez Home Meds and New Rx's Prescriptions: No Action bisacodyl 10 mg suppository 10 mg MO DAILY PRN Patient Comments: not taking Fleet Enema Extra 19-7 gram/197 mL enema 118 ml MO ONCE Patient Comments: not taking trazodone 50 mg tablet 50 mg PO QHS PRN citalopram 10 mg tablet 10 mg PO DAILY meclizine 12.5 mg tablet 12.5 tab PO Q6H Patient Comments: TAKE ONE TABLET BY MOUTH EVERY 6 HOURS NEEDED pantoprazole 40 mg tablet,delayed release (DR/EC) 40 mg PO DAILY Patient Comments: TAKE ONE TABLET BY MOUTH EVERY DAY 30 MINUTES BEFORE SUPPER ondansetron 4 mg tablet,disintegrating 4 mg PO PRN PRN Patient Comments: not taking folic acid 1 mg Tablet 1 mg PO QAM Qty: 0 0RF multivitamin [Multiple Vitamins] Tablet 1 tab PO QAM Qty: 0 0RF Patient Comments: not taking polyethylene glycol 3350 17 gram Powder In Packet 17 g PO DAILY PRN PRN (Reason: Constipation) Qty: 0 0RF Patient Comments: not taking potassium chloride [Klor-Con M20] 20 mEq Tablet,Er Particles/Crystals 20 meq PO BID Qty: 20 0RF magnesium oxide 400 mg (241.3 mg magnesium) Tablet 400 mg PO BID Qty: 0 0RF diltiazem HCl 180 mg Capsule,Extended Release 24hr 180 mg PO DAILY Qty: 30 0RF levofloxacin 750 mg tablet 750 mg PO DAILY Qty: 5 0RF
[2022-12-18] VITALS (153 sets, daily range): BP systolic 94–166; BP diastolic 49–99; PULSE 89–125; RESP 15–29; TEMP 36.6–37.4; O2SAT 84–100
[2022-12-18] MEDS: LORazepam 2 MG/ML VIAL 1 MG IVP ×3 (00:58→03:39)
[2022-12-18 04:07] LABS: ETHANOL BLOOD 29.3 mg/dL (<10)
[2022-12-18] MEDS: MAGNESIUM SULFATE 8.12 MEQ, MULTIVITAMIN 10 ML, THIAMINE 100 MG, FOLIC ACID 1 MG in Nor... 168.867 MG IV (05:22)
[2022-12-18] MEDS: PHENobarbital 130 MG/ML VIAL IVP ×4 (05:29→16:33)
--- NOTE | 2022-12-18 06:02 | W.PM.HP.N ---
Date of service: 12/18/22 Time of Service: 06:02 Assessment and Plan Assessment and plan (1) Weakness: Status: Acute Assessment and plan: Weakness, so called, but which has been reported more as an ataxia, is likely combination of deconditioning and known peripheral neuropathy; the macrocytosis and apparent loss of posterior column sensory modes suggest possible B12 deficiency more specifically. Alcohol withdrawal: will continue Phenobarbital loading, and will add low dose beta jacquelin Macrocytosis/neuropathy: check B12 and Folate Social: will await input from Adult Protective Services History of Present Illness History of Present Illness Chief Complaint: weakness Narrative: 62 female with h/o alchoholism, peripheral neuropathy, chronic weakness, wheelchair bound, lives with daughter. Brought in for evaluation last evening for complaint of chronic weakness and states was told to be admitted for rehab. Medical work up did not support acute medical issue. However there was concerns about home care and adult protective services was notified (see ER admission note for details). While here in ER patient started to exhibit signs of withdrawal and was given Atyivan x 3 without effect; she was then started on Phenobarbital with initial dose of 130 mg. I was asked to evaluate for admission. Work up otherwise of note for Hct 34 with MCV 113; Na 130, Albumen 2.8, AST 58, ALT 27, EtOH 29 At present patient states she just feels weak, which is baseline. No other complaints. States last drink yesterday. Review of Systems Narrative: per HPI PFSH All Active Problems Weakness (Acute) Alcohol intoxication (Acute) Skin ulcer (Acute) Hypoalbuminemia (Acute) Pneumonia (Acute) Peripheral neuropathy (Acute) Hypocalcemia (Acute) Folate deficiency (Acute) Weakness (Acute) UTI (urinary tract infection) (Acute) Alcohol abuse (Chronic) Anxiety (Chronic) Bipolar 1 disorder (Chronic) Multiple personality disorder (Acute) Unilateral primary osteoarthritis, left knee (Acute) Iliotibial band syndrome affecting left lower leg (Acute) Rectal bleeding (Acute) Anal and rectal polyp (Acute) Adenomatous polyps (Acute) Villous adenoma of colon (Acute) Tubulovillous adenoma (Acute) Sessile colonic polyp (Acute) Incontinence (Acute) High grade 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 Hx of fracture of arm R arm, both bones. Plates. Knee pain Poor dentition Vertigo Surgical History History of colonoscopy with polypectomy (~09/07/21) 09/07/21 Stoiber, no polyps repeat 2yrs. 02/16/2021 Stoiber, repeat 6 months Stoiber, villous/tubulovillous/sessile serrated 01/2020 Stoiber, multiple polyps 08/11/20 History of hysterectomy Social History Smoking/Tobacco Use Status: Never Smoking risk assessment performed?: Yes Alcohol Intake: current Alcohol Intake frequency: a few times a week Alcohol type: beer Details: 6+ beer/day; Has been cutting back the past few weeks from 18+ beers/day Drug use: Never Substance use type: does not use Do you feel safe at home: Yes Do you feel safe in your relationship?: Yes Meds Allergies and Home Medications Allergies Allergy/AdvReac Type Severity Reaction Status Date / Time Penicillins Allergy Intermediate Hives Verified 03/12/22 08:36 Home Medications Medication Instructions Recorded Confirmed Type meclizine 12.5 mg tablet 12.5 tab PO Q6H 02/08/22 10/04/22 History ondansetron 4 mg disintegrating 4 mg PO PRN PRN 02/08/22 03/12/22 History tablet pantoprazole 40 mg tablet,delayed 40 mg PO DAILY 02/08/22 10/04/22 History release folic acid 1 mg tablet 1 mg PO QAM #0 tabs 02/11/22 03/12/22 Rx magnesium oxide 400 mg (241.3 mg 400 mg PO BID #0 tabs 02/11/22 10/04/22 Rx magnesium) tablet multivitamin (Multiple Vitamins 1 tab PO QAM #0 tabs 02/11/22 03/12/22 Rx tablet) polyethylene glycol 3350 17 gram 17 g PO DAILY PRN PRN Constipation 02/11/22 03/12/22 Rx oral powder packet #0 ea potassium chloride 20 mEq 20 meq PO BID #20 tabs 02/11/22 10/04/22 Rx tablet,extended release(part/cryst) (Klor-Con M) bisacodyl 10 mg rectal suppository 10 mg ID DAILY PRN 03/12/22 03/12/22 History sodium phosphates 19 gram-7 118 ml ID ONCE 03/12/22 03/12/22 History gram/197 mL enema (Fleet Enema Extra) citalopram 10 mg tablet 10 mg PO DAILY 08/06/22 10/04/22 History trazodone 50 mg tablet 50 mg PO QHS PRN 08/06/22 10/04/22 History diltiazem HCl 180 mg 180 mg PO DAILY #30 caps 10/06/22 Rx capsule,extended release 24 hr levofloxacin 750 mg tablet 750 mg PO DAILY #5 tabs 10/06/22 Rx Exam Narrative Exam Narrative: 142/78, 115, 36.4, 29, 97% RA. HEENT atraumatic, anicteric; neck supple; lungs clear; heart tachy/regular; abdomen soft and NT; extremities 1+ pedal edema; neuro Ox3, motor 5/5, sensory decreased position and vibration feet, intact light touch Results Labs 12/17/22 16:38 12/17/22 16:38 Labs: Laboratory Results - last 24 hr 12/17/22 12/17/22 12/18/22 16:38 16:38 03:35 WBC 3.83 L RBC 3.05 L Hgb 11.7 Hct 34.5 L MCV 113 H MCH 38.4 H MCHC 33.9 RDW 14.8 H Plt Count 90 L MPV 9.2 Immature Gran % 3.9 Neutrophils % 59.8 Lymphocytes % 17.8 Monocytes % 12.5 Eosinophils % 4.4 Basophils % 1.6 Nucleated RBC % 0.0 Absolute Neutrophils 2.29 Absolute Lymphocytes 0.68 L Absolute Monocytes 0.48 Absolute Eosinophils 0.17 Absolute Basophils 0.06 RBC Morphology See Below Macrocytosis 1+ Sodium 130 L Potassium 4.2 Chloride 94 L Carbon Dioxide 24.6 Anion Gap 11.4 H BUN 1 L Creatinine 0.7 Est GFR (CKD-EPI 2020) 97.72 Glucose 97 Calcium 8.0 L Phosphorus 2.5 L Magnesium 2.1 Total Bilirubin 0.7 AST 58 H ALT 27 Alkaline Phosphatase 277 H Total Protein 6.3 L Albumin 2.7 L Ethyl Alcohol 265.4 H 29.3 H Last Vital Signs Temp 36.4 C L 12/17/22 15:40 Pulse 115 H 12/18/22 04:00 Resp 29 H 12/18/22 05:40 BP 142/78 H 12/18/22 04:00 Pulse Ox 97 12/18/22 05:40 PAWSS Have you Been Recently Intoxicated or Drunk Within the Last 30 days?: Yes Have you Ever Experienced Previous Episodes of Alcohol Withdrawal?: Unable to Obtain Have you ever Experienced Withdrawal Seizures?: Unable to Obtain Have you ever Experienced Delirium Tremens(DT)s?: Unable to Obtain Have you ever undergone Alcohol Rehabilitation Treatment (i.e, inpt ot outpatient treatment programs)?: Unable to Obtain Have you ever Experienced Blackouts?: Unable to Obtain Have you ever Combined Alcohol with other Downers within the last 90 days?: Unable to Obtain Have you ever Combined Alcohol with any other Substance of Abuse during the last 90 days?: Unable to Obtain Positive Blood Alcohol level on Presentation? [PCS.BAL]: Unable to Obtain Evidence of Increased Autonomic Activity (i.e. HR>120, tremor, sweating, agitation, nausea)?: Unable to Obtain Result: 1 Time Spent Time spent with Patient: 40-54 minutes Time was spent: preparing to see the patient(eg.review tests), obtaining and/or reviewing separately otained hiistory, ordering medications,tests, procedures and indepentently interpreting results
[2022-12-18 07:29] LABS: Folate 3.2 ng/mL (8.6-20.0); Vitamin B12 944 pg/mL (193-986)
[2022-12-18] MEDS: Metoprolol 12.5 MG TAB PO (07:36)
[2022-12-18 09:37] LABS: Anion Gap 12.5 mmol/L (3-11); BUN 0 mg/dL (7-18); CO2 22.5 mmol/L (21.0-32.0); CREATININE 0.7 mg/dL (0.55-1.02); Calcium 8.1 mg/dL (8.5-10.1); Chloride 96 mmol/L (98-107); Estimated GFR 97.72 (mL/min/1.73m2); Glucose 106 mg/dL (74-106); Potassium 4.4 mmol/L (3.5-5.1); Sodium 131 mmol/L (136-145)
[2022-12-18 09:39] LABS: ALT 23 U/L (14-59); AST 60 U/L (15-37); Albumin 2.7 g/dL (3.4-5.0); Alkaline Phosphatase 295 U/L (46-116); Bilirubin, Direct 0.6 mg/dL (0.0-0.2); Bilirubin, Total 2.2 mg/dL (0.2-1.0); Magnesium 2.1 mg/dL (1.8-2.4); Total Protein 6.1 g/dL (6.4-8.2)
[2022-12-18 09:42] LABS: Lab Add On Test DONE
[2022-12-18 10:02] LABS: Iron 135 ug/dL (50-170); Total Iron Binding Capacity 132 ug/dL (250-450); Transferrin Sat 102 % (15-50)
[2022-12-18 10:03] LABS: Abs Immature Grans 0.14 10^3/uL (0.0-0.06); Absolute Basophil Count 0.05 10^3/uL (0.0-0.2); Absolute Eosinophil Count 0.02 10^3/uL (0.0-0.7); Absolute Lymphocyte Count 0.28 10^3/uL (1.2-3.4); Absolute Monocyte Count 0.67 10^3/uL (0.1-0.8); Absolute Neutrophil Count 6.07 10^3/uL (1.2-6.7); Basophils % 0.7; Eosinophils % 0.3; HCT 32.8 % (36.0-46.0); HGB 11.1 g/dL (11.2-15.7); Immature Grans % 1.9; Lymphocytes % 3.9; MCH 38.4 pg (27.0-33.0); MCHC 33.8 % (32.0-36.0); MCV 114 fL (80-95); MPV 8.9 fL (8.0-11.0); Monocytes % 9.3; Neutrophils % 83.9; RBC 2.89 10^6/uL (3.93-5.22); RDW-SD 63.8 fL; WBC 7.23 10^3/uL (4.4-10.8)
[2022-12-18 10:29] LABS: Basophilic Stippling 1+; Diff Comment Diff Reviewed
[2022-12-18 10:33] LABS: Platelet Count 86 10^3/uL (130-400)
[2022-12-18 10:34] LABS: Macrocytosis 1+
[2022-12-18 11:16] LABS: C Diff PCR Negative (Negative)
[2022-12-18] MEDS: PHENobarbital 130 MG/ML VIAL 180 MG IVP (11:27)
[2022-12-18 11:50] LABS: PHOSPHORUS 2.8 mg/dL (2.6-4.7)
[2022-12-18] MEDS: THIAMINE 500 MG in Normal Saline 100 ML 200 MG IVPB (14:44)
[2022-12-18] MEDS: Normal Saline Flush 10 ML SYR IVP (16:33)
[2022-12-18] MEDS: Lactated Ringers 1,000 ML 125 ML IV (16:42)
[2022-12-18] MEDS: THIAMINE 500 MG in Normal Saline 100 ML 100 MG IVPB (21:57)
--- NOTE | 2022-12-18 21:57 | W.PM.PROGNOT ---
Date of Service Date of service: 12/18/22 Time of Service: 10:30 Assessment and Plan Assessment and plan (1) Alcohol withdrawal: Status: Acute Assessment and plan: Continue monitoring on phenobarbital protocol. I have also written for high dose thiamine given that she is A&Ox2. Supplement MVI, folate. (2) Macrocytic anemia: Status: Acute Assessment and plan: Evidence of B12 deficiency. Will supplement. (3) Weakness: Status: Acute Assessment and plan: PT consulted. (4) Alcohol intoxication: Status: Acute Assessment and plan: As above (5) Skin excoriation: Status: Acute Assessment and plan: C/s wound care (6) Thrombocytopenia: Status: Chronic Assessment and plan: In setting of EtOH abuse, suspect cirrhosis. Obtain US abdomen. (7) Hyponatremia: Status: Chronic Assessment and plan: This is right around her baseline of 130. D/c IVF. (8) Hyperbilirubinemia: Status: Acute Assessment and plan: Obtain US abdomen. Obtain INR. OBtian hepatitis panel. (9) Ambulatory dysfunction: Status: Acute Assessment and plan: PT consulted. Anticipate needing SNF (10) DVT prophylaxis: Status: Acute Assessment and plan: SCDs Will hold off of chemical DVT ppx given thrombocytopenia. (11) Discharge planning issues: Status: Acute Assessment and plan: Full code Anticipate needing SNF on d/c. Total Critical Care Time 35 minutes (EtOH w/d). Subjective Subjective Interval history since last seen: Patient seen in brief follow up. She had just arrived to the ICU. She was mildly tremulous. She had not had her 11 am dose of phenobarbital yet. She denied dizziness, CP, SOB, n/v. Per nursing, shortly after she started reporting having visual hallucinations. Exam Narrative Exam Narrative: General: Middle-aged obese female who is A&Ox2, mildly tremulous, forgetful HEENT: EOMI, MMM Heart: RRR, no m/r/g Lungs: CTAB Abdomen: soft, nontender, nondistended Extremities: no edema BLEs Objective Last Vital Signs Temp 37.4 C 12/18/22 15:52 Pulse 105 H 12/18/22 19:30 Resp 20 12/18/22 19:31 BP 126/77 12/18/22 19:30 Pulse Ox 99 12/18/22 19:31 Laboratory Results - last 24 hr 12/18/22 12/18/22 12/18/22 03:35 03:35 09:00 WBC RBC Hgb Hct MCV MCH MCHC RDW Plt Count MPV Immature Gran % Neutrophils % Band Neutrophils % Lymphocytes % Atypical Lymphs % Monocytes % Eosinophils % Basophils % Metamyelocytes % Myelocytes % Promyelocytes % Other Cells % Nucleated RBC % Absolute Neutrophils Absolute Lymphocytes Absolute Monocytes Absolute Eosinophils Absolute Basophils RBC Morphology Polychromasia Hypochromasia Poikilocytosis Basophilic Stippling Anisocytosis Microcytosis Macrocytosis Spherocytes Tear Drop Cells Ovalocytes Stomatocytes Palafox-[place] Bodies [place] Cells/Echinocytes Acanthocytes (Spur) Schistocytes Sodium Potassium Chloride Carbon Dioxide Anion Gap BUN Creatinine Est GFR (CKD-EPI 2020) Glucose Calcium Phosphorus Magnesium 2.1 Iron TIBC Transferrin % Sat Total Bilirubin 2.2 H Conjugated Bilirubin 0.6 H AST 60 H ALT 23 Alkaline Phosphatase 295 H Total Protein 6.1 L Albumin 2.7 L Vitamin B12 944 Folate 3.2 L Stl C.difficile Tox PCR Ethyl Alcohol 29.3 H Add-On Test Request 12/18/22 12/18/22 12/18/22 09:00 09:00 09:00 WBC Cancelled RBC Cancelled Hgb Cancelled Hct Cancelled MCV Cancelled MCH Cancelled MCHC Cancelled RDW Cancelled Plt Count Cancelled MPV Cancelled Immature Gran % Cancelled Neutrophils % Cancelled Band Neutrophils % Cancelled Lymphocytes % Cancelled Atypical Lymphs % Cancelled Monocytes % Cancelled Eosinophils % Cancelled Basophils % Cancelled Metamyelocytes % Cancelled Myelocytes % Cancelled Promyelocytes % Cancelled Other Cells % Cancelled Nucleated RBC % Cancelled Absolute Neutrophils Cancelled Absolute Lymphocytes Cancelled Absolute Monocytes Cancelled Absolute Eosinophils Cancelled Absolute Basophils Cancelled RBC Morphology Cancelled Polychromasia Cancelled Hypochromasia Cancelled Poikilocytosis Cancelled Basophilic Stippling Cancelled Anisocytosis Cancelled Microcytosis Cancelled Macrocytosis Cancelled Spherocytes Cancelled Tear Drop Cells Cancelled Ovalocytes Cancelled Stomatocytes Cancelled Palafox-[place] Bodies Cancelled Washington Cells/Echinocytes Cancelled Acanthocytes (Spur) Cancelled Schistocytes Cancelled Sodium 131 L Potassium 4.4 Chloride 96 L Carbon Dioxide 22.5 Anion Gap 12.5 H BUN 0 L Creatinine 0.7 Est GFR (CKD-EPI 2020) 97.72 Glucose 106 Calcium 8.1 L Phosphorus Magnesium Iron TIBC Transferrin % Sat Total Bilirubin Conjugated Bilirubin AST ALT Alkaline Phosphatase Total Protein Albumin Vitamin B12 Folate Stl C.difficile Tox PCR Ethyl Alcohol Add-On Test Request DONE 12/18/22 12/18/22 12/18/22 09:00 09:52 10:20 WBC 7.23 RBC 2.89 L Hgb 11.1 L Hct 32.8 L MCV 114 H MCH 38.4 H MCHC 33.8 RDW 15.0 H Plt Count 86 L MPV 8.9 Immature Gran % 1.9 Neutrophils % 83.9 Band Neutrophils % Lymphocytes % 3.9 Atypical Lymphs % Monocytes % 9.3 Eosinophils % 0.3 Basophils % 0.7 Metamyelocytes % Myelocytes % Promyelocytes % Other Cells % Nucleated RBC % 0.0 Absolute Neutrophils 6.07 Absolute Lymphocytes 0.28 L Absolute Monocytes 0.67 Absolute Eosinophils 0.02 Absolute Basophils 0.05 RBC Morphology See Below Polychromasia Hypochromasia Poikilocytosis Basophilic Stippling 1+ Anisocytosis Microcytosis Macrocytosis 1+ Spherocytes Tear Drop Cells Ovalocytes Stomatocytes Palafox-[place] Bodies Ben Cells/Echinocytes Acanthocytes (Spur) Schistocytes Sodium Potassium Chloride Carbon Dioxide Anion Gap BUN Creatinine Est GFR (CKD-EPI 2020) Glucose Calcium Phosphorus Magnesium Iron 135 TIBC 132 L Transferrin % Sat 102 H Total Bilirubin Conjugated Bilirubin AST ALT Alkaline Phosphatase Total Protein Albumin Vitamin B12 Folate Stl C.difficile Tox PCR Negative Ethyl Alcohol Add-On Test Request 12/18/22 11:12 WBC RBC Hgb Hct MCV MCH MCHC RDW Plt Count MPV Immature Gran % Neutrophils % Band Neutrophils % Lymphocytes % Atypical Lymphs % Monocytes % Eosinophils % Basophils % Metamyelocytes % Myelocytes % Promyelocytes % Other Cells % Nucleated RBC % Absolute Neutrophils Absolute Lymphocytes Absolute Monocytes Absolute Eosinophils Absolute Basophils RBC Morphology Polychromasia Hypochromasia Poikilocytosis Basophilic Stippling Anisocytosis Microcytosis Macrocytosis Spherocytes Tear Drop Cells Ovalocytes Stomatocytes Palafox-[place] Bodies [place] Cells/Echinocytes Acanthocytes (Spur) Schistocytes Sodium Potassium Chloride Carbon Dioxide Anion Gap BUN Creatinine Est GFR (CKD-EPI 2020) Glucose Calcium Phosphorus 2.8 Magnesium Iron TIBC Transferrin % Sat Total Bilirubin Conjugated Bilirubin AST ALT Alkaline Phosphatase Total Protein Albumin Vitamin B12 Folate Stl C.difficile Tox PCR Ethyl Alcohol Add-On Test Request PAWSS Have you Been Recently Intoxicated or Drunk Within the Last 30 days?: Yes Have you Ever Experienced Previous Episodes of Alcohol Withdrawal?: Unable to Obtain Have you ever Experienced Withdrawal Seizures?: Unable to Obtain Have you ever Experienced Delirium Tremens(DT)s?: Unable to Obtain Have you ever undergone Alcohol Rehabilitation Treatment (i.e, inpt ot outpatient treatment programs)?: Unable to Obtain Have you ever Experienced Blackouts?: Unable to Obtain Have you ever Combined Alcohol with other Downers within the last 90 days?: Unable to Obtain Have you ever Combined Alcohol with any other Substance of Abuse during the last 90 days?: Unable to Obtain Positive Blood Alcohol level on Presentation? [PCS.BAL]: Unable to Obtain Evidence of Increased Autonomic Activity (i.e. HR>120, tremor, sweating, agitation, nausea)?: Unable to Obtain Result: 1 Time Spent with Patient Time Spent with Patient: 35-49 minutes Time was spent: preparing to see the patient(eg.review tests), obtaining and/or reviewing separately otained hiistory, ordering medications,tests, procedures, referring, communicating with other health health care facility administrator, indepentently interpreting results, counseling the patient and care coordination
[2022-12-19] VITALS (73 sets, daily range): BP systolic 86–154; BP diastolic 31–98; PULSE 90–109; RESP 15–29; TEMP 36.9–37.3; O2SAT 95–100
[2022-12-19 00:46] LABS: INR 1.1 (0.9-1.1); Prothrombin Time 11.6 sec (9.3-11.0)
[2022-12-19] MEDS: THIAMINE 500 MG in Normal Saline 100 ML 100 MG IVPB ×2 (06:10→14:50)
[2022-12-19 06:42] LABS: Absolute Basophil Count 0.04 10^3/uL (0.0-0.2); Absolute Eosinophil Count 0.19 10^3/uL (0.0-0.7); Absolute Lymphocyte Count 0.46 10^3/uL (1.2-3.4); Absolute Monocyte Count 0.56 10^3/uL (0.1-0.8); Absolute Neutrophil Count 3.24 10^3/uL (1.2-6.7); Basophils % 0.9; Eosinophils % 4.1; HCT 30.1 % (36.0-46.0); Immature Grans % 2.2; MCH 38.2 pg (27.0-33.0); MCHC 33.2 % (32.0-36.0); MCV 115 fL (80-95); MPV 10.1 fL (8.0-11.0); Monocytes % 12.2; Neutrophils % 70.6; RBC 2.62 10^6/uL (3.93-5.22); RDW 14.8 % (11.7-14.6); RDW-SD 62.5 fL; WBC 4.59 10^3/uL (4.4-10.8)
[2022-12-19 07:14] LABS: ALT 18 U/L (14-59); AST 30 U/L (15-37); Albumin 2.2 g/dL (3.4-5.0); Alkaline Phosphatase 229 U/L (46-116); Anion Gap 6.9 mmol/L (3-11); BUN 1 mg/dL (7-18); Bilirubin, Direct 0.5 mg/dL (0.0-0.2); Bilirubin, Total 2.2 mg/dL (0.2-1.0); CO2 27.1 mmol/L (21.0-32.0); CREATININE 0.6 mg/dL (0.55-1.02); Calcium 7.9 mg/dL (8.5-10.1); Chloride 98 mmol/L (98-107); Estimated GFR 101.42 (mL/min/1.73m2); Glucose 87 mg/dL (74-106); Magnesium 1.9 mg/dL (1.8-2.4); Potassium 3.8 mmol/L (3.5-5.1); Sodium 132 mmol/L (136-145); Total Protein 5.1 g/dL (6.4-8.2)
[2022-12-19 07:26] LABS: Diff Comment Diff Reviewed; Macrocytosis 2+; Platelet Count 70 10^3/uL (130-400)
[2022-12-19] MEDS: Oxybutynin-CR 5 MG TABCR 10 MG PO (07:53)
[2022-12-19] MEDS: Folic Acid 1 MG TAB PO (07:54)
[2022-12-19] MEDS: Potassium Chloride 20 MEQ TABCR PO (07:54)
[2022-12-19] MEDS: Multivitamin TAB 1 TAB PO (07:54)
[2022-12-19] MEDS: Citalopram 10 MG TAB PO (07:55)
--- NOTE | 2022-12-19 08:00 | DI.US_ITS ---
Exam(s) US ABDOMEN EXAM: US ABDOMEN CLINICAL HISTORY: Transaminitis, thrombocytopenia - ?cirrhosis TECHNIQUE: Ultrasound abdomen performed using standard protocol. COMPARISON: US US ABDOMEN from 04/27/[address] ABDOMEN PELVIS WO from 01/09/[address] CHEST PE CTA from 10/04/2022 FINDINGS: ABDOMINAL AORTA AND IVC: Visualized portions normal caliber. PANCREAS: Normal where visualized. LIVER: There is diffuse increased echogenicity of the liver consistent with fatty infiltration. The liver measures 19.2 cm long. Hepatopedal flow in the Portal Vein. GALLBLADDER:No evidence of cholelithiasis. No evidence of wall thickening. No pericholecystic fluid i dentified. There is a 4 mm echogenic nodule along the wall of the gallbladder likely reflecting a guillermo yp. BILIARY SYSTEM: Common bile duct measures < 7 mm. No intrahepatic biliary ductal dilation. BURLESON'S SIGN: Negative. KIDNEYS: Kidneys are symmetric in size. No evidence of renal calculi. No evidence of hydronephrosis. No renal mass or cyst identified. SPLEEN: Not enlarged. ASCITES: None seen. IMPRESSION: 1. Hepatomegaly and fatty infiltration of the liver. 2. 4 mm gallbladder polyp. DATA REPOSITORY:
--- NOTE | 2022-12-19 09:00 | PDOC.CMIN ---
Date of service: 12/19/22 Time of Service: 09:00 Care Management Initial Assmt Initial Assessment REASON FOR HOSPITALIZATION:: Alcohol Withdrawal PREVIOUS FUNCTIONAL STATUS/SOCIAL/FAMILY SUPPORTS:: Zabrina has struggled with life long alcoholism, per her daughter's reports. Zabrina has four daughters; all reside locally. Zabrina resides in a studio apartment, in [facility]. Her youngest daughter, Simran Enciso resides with her. Simran works at [employer] in housekeeping. Zabrina's daughters Verona Guadarrama ([phone]), Aleta Twan ([phone]) requested CM consult; initial assessment information is gathered from their input. Zabrina has a supportive upstairs neighbor, Guy who comes down at 0600 each day and helps her transfer from her bed to her W/C. She drinks alcohol throughout the day; beer and black velvet with soda. Simran and Guy supply her alcohol per her request-her daughter's note that Simran just wants mom happy and will not say no to her. Simran also has access to Zabrina's resources financially and sleeps on an air mattress in the studio portion of the apartment. Zabrina is incontinent of urine and feces and reportedly does not transfer out of the W/C during the day to use the bathroom. She was incarcerated a few years ago, in [place]. About a year ago, she was placed at [facility] from [facility] and has been W/C bound since returning home. Her daughter's wonder if she could walk if sober and strengthened. They report family members and friends continued to bring alcohol in to Zabrina when at the rehab. CURRENT FUNCTIONAL STATUS:: Katie is lying in bed, in the ICU-she waves at this scientific technical writer. Per Rena JIMENEZ, she is actively withdrawing and requiring constant monitoring, assessment and medication management for withdrawal; phenobarbital protocol. KING coordinates family meeting with BARBARA Chase, this scientific technical writer and Tad. CM sets expectation that Zabrina will likely withdraw through the weekend; advance directive completion and discharge planning will be dependent on Zabrina's ability to engage, functional ability, and wishes. Rena reports Zabrina has wounds; LE pitting edema. ADVANCE DIRECTIVES:: None on file; to be offered when patient is able to fully engage. Has patient been provided with info about the portal/API?: No Did the patient sign up for the portal?: No POTENTIAL DISCHARGE NEEDS:: SNF, [facility], PT consult, review of community based supports. PATIENT/FAMILY EDUCATION NEEDS:: Review of patient-centered care, self-determination, advance directives and guardianship process, alcohol withdrawal symptoms and treatment expectations. ANTICIPATED BARRIERS TO DISCHARGE:: None identified at this time. TRANSPORTATION:: Dependent on disposition. PLAN:: Zabrina will be evaluated for increased services when medically through withdrawal. CM will meet with Zabrina to determine patient wishes, review discharge recommendations and support planning. CM continues to follow. PFSH All Active Problems (Updated 12/18/22 @ 22:08 by Dana Lockwood MD) Hyponatremia (Chronic) Discharge planning issues (Acute) DVT prophylaxis (Acute) Ambulatory dysfunction (Acute) Hyperbilirubinemia (Acute) Thrombocytopenia (Chronic) Macrocytic anemia (Acute) Skin excoriation (Acute) Alcohol withdrawal (Acute) Weakness (Acute) Alcohol intoxication (Acute) Skin ulcer (Acute) Hypoalbuminemia (Acute) Pneumonia (Acute) Peripheral neuropathy (Acute) Hypocalcemia (Acute) Folate deficiency (Acute) Weakness (Acute) UTI (urinary tract infection) (Acute) Alcohol abuse (Chronic) Anxiety (Chronic) Bipolar 1 disorder (Chronic) Multiple personality disorder (Acute) Unilateral primary osteoarthritis, left knee (Acute) Iliotibial band syndrome affecting left lower leg (Acute) Rectal bleeding (Acute) Anal and rectal polyp (Acute) Adenomatous polyps (Acute) Villous adenoma of colon (Acute) Tubulovillous adenoma (Acute) Sessile colonic polyp (Acute) Incontinence (Acute) High grade 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 Hx of fracture of arm R arm, both bones. Plates. Knee pain Poor dentition Vertigo Surgical History History of colonoscopy with polypectomy (~09/07/21) 09/07/21 Stoiber, no polyps repeat 2yrs. 02/16/2021 Stoiber, repeat 6 months Stoiber, villous/tubulovillous/sessile serrated 01/2020 Stoiber, multiple polyps 08/11/20 History of hysterectomy Social History Smoking/Tobacco Use Status: Never Smoking risk assessment performed?: Yes Alcohol Intake: current Alcohol Intake frequency: a few times a week Alcohol type: beer Details: 6+ beer/day; Has been cutting back the past few weeks from 18+ beers/day Drug use: Never Substance use type: does not use Do you feel safe at home: Yes Do you feel safe in your relationship?: Yes
[2022-12-19] MEDS: PHENobarbital 130 MG/ML VIAL IVP (09:26)
--- NOTE | 2022-12-19 12:40 | PT.INIE ---
Date of service: 12/19/22 Time of Service: 12:00 PT Notes Visit Reasons: Alcohol Withdrawl Inpatient Physical Therapy Evaluation Date: 12/19/22 Referring Doctor: Dana Lockwood MD PT Orders: PT CONSULT: Non-urgent, limited ability Precautions: Fall risk, standard Patient Profile/Admitting Diagnosis: H&P review: 62 female with h/o alchoholism, peripheral neuropathy, chronic weakness, wheelchair bound, lives with daughter. Brought in for evaluation last evening for complaint of chronic weakness. Medical work up did not support acute medical issue. However there was concerns about home care and adult protective services was notified (see ER admission note for details). While here in ER patient started to exhibit signs of withdrawal and appropriate treatment initiated, w/admission for management PMHX: All Active Problems? Weakness (Acute) Alcohol intoxication (Acute) Skin ulcer (Acute) Hypoalbuminemia (Acute) Pneumonia (Acute) Peripheral neuropathy (Acute) Hypocalcemia (Acute) Folate deficiency (Acute) Weakness (Acute) UTI (urinary tract infection) (Acute) Alcohol abuse (Chronic) Anxiety (Chronic) Bipolar 1 disorder (Chronic) Multiple personality disorder (Acute) Unilateral primary osteoarthritis, left knee (Acute) Iliotibial band syndrome affecting left lower leg (Acute) Rectal bleeding (Acute) Anal and rectal polyp (Acute) Adenomatous polyps (Acute) Villous adenoma of colon (Acute) Tubulovillous adenoma (Acute) Sessile colonic polyp (Acute) Incontinence (Acute) High grade dysplasia in colonic adenoma (Acute) Abdominal pain (Acute) Nausea vomiting and diarrhea (Acute) Medical History? Cervical cancer Colonoscopy planned COVID-19 06/2021-pt stated she had no symptoms but an upset stomachDepression Fracture right arm, metal plate/screws right ankle- metalHx of chest pain Was seen on 12/24/19 in ED for chest pain, had worked up and f/U with PCP no issues or concerns or recurrent chest pain since.Hx of fracture of arm R arm, both bones. Plates.Knee pain Poor dentition Vertigo Surgical History? History of colonoscopy with polypectomy (~09/07/21) 09/07/21 Stoiber, no polyps repeat 2yrs. 02/16/2021 Stoiber, repeat 6 months Stoiber, villous/tubulovillous/sessile serrated 01/2020 Stoiber, multiple polyps ? 08/11/20History of hysterectomy Social History/Home Situation: Per patient report - she lives in a first floor, one level, apartment w/her daughter. Her daughter is out of the apartment from 6:00a.m-5:00p.m. Her daughter and a neighbor assist her with a 2 person max transfer from to WC and WC to bed daily, and the neighbor and daughter assist with WC to toilet transfers - this is the only way she can toilet. She reports she is ryan to get a shower once every two weeks, if her daughter has time for her. Her daughter does not give her much time. She is independent with WC mobility around the apartment during the day, managing to make herself food, if there is food left for her to warm up. She is able to dress herself, only if her clothes are not hidden. She has not ambulated since June when she was working with HHPT, using a RW. HHPT suggested she did not transfer independently due to safety issues, and due to lack of assist she ultimately ended up weaker in the WC. She never leaves her home. She has a cell phone during the day to call the neighbor if she needs help. Current Functional Limitations: MAX x 2 for transfers, STS, and Mod A x 1 for bed mobility, unable to ambulate, independent with WC mobility. Max A x 1 for showering. Equipment Owned/DME: Shower chair, WC, RW, toilet riser Subjective: Reports pain in left knee, not quantified, after a fall hitting her knee, during a transfer a few weeks ago. See Social history/home situation. Objective: General Observation: Lying in hospital bed, no lines Mental Status: A & O x 3 Pain: L knee, unable to quantify Vital Signs: Stable - see nursing notes ROM: Right Upper Extremity: Grossly limited to malathi elevation of 100 deg, otherwise WNL Left Upper Extremity: Grossly limited to malathi elevation fo 100 deg, otherwise WNL Right Lower Extremity: Hip flex of 90 deg, knee 0 -120, ankle hypomobile but WFL Left Lower Extremity: Hip flex of 90 deg, knee 0-120, ankle hypomobile but WFL Strength: Right Upper Extremity: Grossly 3/5 shoulders all planes, otherwise 3+/5 Left Upper Extremity: Grossly 3/5 shoulder all planes, otherwise 3+/5 Right Lower Extremity: Grossly 3/5 Left Lower Extremity: Grossly 3/5 Sensation: Decreased sensation B LE's, presence of neuropathy Bed Mobility/Transfers: Mod A x 1 Supine to EOB Max A x 1, Modx1 Sit EOB to stand, at RW. MaX A x 1, Mod A x 1 Stand at RW to sit EOB EOB to supine Max A x 2 Bed mobility Max X 1 Patients stand at RW w/2 CG's x 1 min Gait: Unable Balance: Static Sitting: Good Dynamic Sitting: Fair Static Standing: Poor Dynamic Standing: Poor Special Tests: Mobility Limitations Standardized Measure [facility] AM-PAC 6 clicks Basic Mobility Inpatient Short Form: 86% disability Informed Consent/Education: Patient instructed in purpose of PT consult and plan of care. Assessment: Patient is a 62 year old female referred to physical therapy services with the diagnosis of LE weakness in setting of peripheral neuropathy and chronic alcohol abuse, currently in detox. Patient is documented as WC bound, but this appears to be due to lack of physical attempt to stand due to fall risk, and poor family support, and voluntary choice to remain in WC due to fear of falling, which as ultimately progressed to remarkable LE weakness and current physical limitations. I have no doubt that with proper rehabilitation, and improved medical condition otherwise, this patient would eventually be able to ambulate with RW. Patient presents with LE weakness, balance dysfunction, and global deconditioned, in setting of poor family support contributing to functional problems of WC bound mobility, and MAX A for transfers, showers, and toileting. Occupational therapy consultation strongly recommended. [facility] disability of 86% Patient is assessed as a High 30155 complexity based on the following: History: See comorbidities Examination: See assessment Presentation: Unstable Decision Making: Easy Goals: Goals X1 week 1. Supine-Sit Min A x 1, RW 2. Sit-Supine Min A x 2, RW 3. Sit-Stand Min A x 1, RW 4. Stand-Sit Min A x 1, RW 5. Bed-Chair Min A x 1, RW 6. Chair-Bed Min A x1, RW 7. Gait 5 steps, RW, Min A x 1 8. Independent with home exercise program 9. Balance Fair with RW standing activiites, and EOB Plan of Care/Treatment Plan: 1-2x/day, 7 days/week x 1 week. Plan of care has been reviewed with the DREDGE PIPE INSTALLER providing the service under Physical Therapy direction. Initiate Physical Therapy intervention for strengthening, bed mobility, transfers, gait, stairs, balance training, use of assistive device. DISCHARGE RECOMMENDATIONS: SNF for continued rehabilitation, with discharge to supportive environment. TREATMENT CODE/TIME: 83643, [id number], 25 minutes
[2022-12-19] MEDS: Normal Saline Flush 10 ML SYR IVP ×2 (14:51→22:11)
[2022-12-19] MEDS: Normal Saline 500 ML 10 ML IV (14:53)
--- NOTE | 2022-12-19 15:05 | PGE_ITS ---
Date of Service Date of service: 12/19/22 Time of Service: 15:05 Assessment and Plan Assessment and plan (1) Alcohol withdrawal: Status: Acute Assessment and plan: Continue monitoring on phenobarbital protocol. Scoring between 3 - 11. I have also written for high dose thiamine given that she is A&Ox2. Supplement MVI, folate. (2) Macrocytic anemia: Status: Acute Assessment and plan: Evidence of B12 deficiency. Supplementing. (3) Weakness: Status: Acute Assessment and plan: PT consulted. Deconditioned state. (4) Alcohol intoxication: Status: Acute Assessment and plan: As above (5) Skin excoriation: Status: Acute Assessment and plan: C/s wound care (6) Thrombocytopenia: Status: Chronic Assessment and plan: In setting of EtOH abuse, suspect cirrhosis. Abd US: hepatomegaly and fatty infiltration. 4mm gallbladder polyp. (7) Hyponatremia: Status: Chronic Assessment and plan: Now 132; baseline of 130. No longer on IV fluids. (8) Hyperbilirubinemia: Status: Acute Assessment and plan: Abd US as above. INR 1.1. Hepatitis panel pending. (9) Ambulatory dysfunction: Status: Acute Assessment and plan: PT consulted. Anticipate needing SNF (10) DVT prophylaxis: Status: Acute Assessment and plan: SCDs Will hold off of chemical DVT ppx given thrombocytopenia. (11) Discharge planning issues: Status: Acute Assessment and plan: Full code Anticipate needing SNF on d/c. Subjective Subjective Patient reports: no new complaints and afebrile; denies diarrhea, nausea, vomiting or shortness of breath Exam Narrative Exam Narrative: General: Middle-aged obese female. Appears fatigued. Sitting on edge of bed. Daughter present. HEENT: Sclera clear. MMM. Heart: RRR, no Murmur Lungs: CTAB Abdomen: soft, nontender, nondistended Extremities: no edema BLEs Neuro: Oriented to person, year, not month, town but doesn't get hospital name correct. + fine tremor of hands. Objective Last Vital Signs Temp 37 C 12/19/22 09:50 Pulse 101 H 12/19/22 08:00 Resp 20 12/19/22 06:20 BP 148/75 H 12/19/22 08:00 Pulse Ox 97 12/19/22 06:20 Laboratory Results - last 24 hr 12/17/22 12/19/2212/19/23 16:38 00:15 05:12 WBC RBC Hgb Hct MCV MCH MCHC RDW Plt Count MPV Immature Gran % Neutrophils % Lymphocytes % Monocytes % Eosinophils % Basophils % Nucleated RBC % Absolute Neutrophils Absolute Lymphocytes Absolute Monocytes Absolute Eosinophils Absolute Basophils RBC Morphology Macrocytosis PT 11.6 H INR 1.1 Sodium 132 L Potassium 3.8 Chloride 98 Carbon Dioxide 27.1 Anion Gap 6.9 BUN 1 L Creatinine 0.6 Est GFR (CKD-EPI 2020) 101.42 Glucose 87 Calcium 7.9 L Magnesium 1.9 Total Bilirubin 2.2 H Conjugated Bilirubin 0.5 H AST 30 ALT 18 Alkaline Phosphatase 229 H Total Protein 5.1 L Albumin 2.2 L Path Cons Comment SEE COMMENT 12/19/22 05:12 WBC 4.59 RBC 2.62 L Hgb 10.0 L Hct 30.1 L MCV 115 H MCH 38.2 H MCHC 33.2 RDW 14.8 H Plt Count 70 L MPV 10.1 Immature Gran % 2.2 Neutrophils % 70.6 Lymphocytes % 10.0 Monocytes % 12.2 Eosinophils % 4.1 Basophils % 0.9 Nucleated RBC % 0.0 Absolute Neutrophils 3.24 Absolute Lymphocytes 0.46 L Absolute Monocytes 0.56 Absolute Eosinophils 0.19 Absolute Basophils 0.04 RBC Morphology See Below Macrocytosis 2+ PT INR Sodium Potassium Chloride Carbon Dioxide Anion Gap BUN Creatinine Est GFR (CKD-EPI 2020) Glucose Calcium Magnesium Total Bilirubin Conjugated Bilirubin AST ALT Alkaline Phosphatase Total Protein Albumin Path Cons Comment PAWSS Have you Been Recently Intoxicated or Drunk Within the Last 30 days?: Yes Have you Ever Experienced Previous Episodes of Alcohol Withdrawal?: Unable to Obtain Have you ever Experienced Withdrawal Seizures?: Unable to Obtain Have you ever Experienced Delirium Tremens(DT)s?: Unable to Obtain Have you ever undergone Alcohol Rehabilitation Treatment (i.e, inpt ot outpatient treatment programs)?: Unable to Obtain Have you ever Experienced Blackouts?: Unable to Obtain Have you ever Combined Alcohol with other Downers within the last 90 days?: Unable to Obtain Have you ever Combined Alcohol with any other Substance of Abuse during the last 90 days?: Unable to Obtain Positive Blood Alcohol level on Presentation? [PCS.BAL]: Unable to Obtain Evidence of Increased Autonomic Activity (i.e. HR>120, tremor, sweating, agitation, nausea)?: Unable to Obtain Result: 1 Time Spent with Patient Time Spent with Patient: 25-34 minutes Time was spent: preparing to see the patient(eg.review tests), obtaining and/or reviewing separately otained hiistory, ordering medications,tests, procedures, referring, communicating with other health healthcare financial analyst and indepentently interpreting results
--- NOTE | 2022-12-19 15:06 | PHACLINREV_ITS ---
Pharmacy Admission Review - Admission Clinical Review (Last Reviewed 12/18/22 @ 06:11 by Nabeel Sampson MD) Discharge planning issues (Acute) DVT prophylaxis (Acute) Ambulatory dysfunction (Acute) Hyperbilirubinemia (Acute) Macrocytic anemia (Acute) Skin excoriation (Acute) Alcohol withdrawal (Acute) Weakness (Acute) Alcohol intoxication (Acute) Skin ulcer (Acute) Hypoalbuminemia (Acute) sulfamethoxazole [From Bactrim] Allergy (Severe, Unverified 12/18/22 09:35) trimethoprim [From Bactrim] Allergy (Severe, Unverified 12/18/22 09:35) Penicillins Allergy (Intermediate, Verified 12/18/22 09:35) Hives Resuscitation Status Full Code Height 5 ft 5 in Weight 113.5 kg - Renal Dosing Renal Dosing: BUN 1 mg/dL (7-18) L 12/19/22 05:12 Creatinine 0.6 mg/dL (0.55-1.02) 12/19/22 05:12 Medications needing adjustments: Reviewed (eCrCl 73 ml/min) - Anticoagulation Anticoagulation: Hgb 10.0 g/dL (11.2-15.7) L 12/19/22 05:12 Hct 30.1 % (36.0-46.0) L 12/19/22 05:12 Plt Count 70 10^3/uL (130-400) L 12/19/22 05:12 INR 1.1 (0.9-1.1) 12/19/22 00:15 Creatinine 0.6 mg/dL (0.55-1.02) 12/19/22 05:12 DVT Prophylaxis: N/A (holding off on chemical ppx due to thrombocytopenia (plts 70 today)) - Opiate Usage Evaluate Pain Scale/Pains Meds: N/A - Relevant Labs Sodium 132 mmol/L (136-145) L 12/19/22 05:12 Potassium 3.8 mmol/L (3.5-5.1) 12/19/22 05:12 Chloride 98 mmol/L (98-107) 12/19/22 05:12 Phosphorus 2.8 mg/dL (2.6-4.7) 12/18/22 11:12 Magnesium 1.9 mg/dL (1.8-2.4) 12/19/22 05:12 Electrolytes, C-Reactive P, ESR: Reviewed - DM Control DM Control: Glucose 87 mg/dL (74-106) 12/19/22 05:12 DM Control: N/A - Cardiac Review BP, HR, EF%: Intervened List meds needing interventions: was previously admitted for Afib in september and started on dilt -- will notify MD as this doesn't appear to be listed in p atient's medical history - Qtc Review QTc: N/A - IV to PO Switch IV Medications: Reviewed - Home Meds Home Med List reviewed: Intervened Relevent Home Meds Not ordered & why?: Updated list based on PCPs med list; Not ordered: metoprolol (one dose given early AM on admission -- will reach out to provider about scheduling) - Current meds Current Medication Order Review: Reviewed (Phenobarb PRN for etoh withdrawal -- has gotten 830 mg so far (soft stop = 855 mg, hard stop = 1140 mg))
[2022-12-19] MEDS: cloNIDine 0.1 MG TAB PO (20:05)
[2022-12-19] MEDS: THIAMINE 500 MG in Normal Saline 100 ML 200 MG IVPB (22:11)
[2022-12-19 22:32] LABS: Bilirubin Small (Negative); Blood Trace-intact (Negative); Clarity Clear (Clear); Glucose Negative (Negative); Ketones Trace mg/dL (Negative); Leukocyte Esterase Small (Negative); Nitrite Positive (Negative); Specific Gravity 1.025 (1.005-1.025)
[2022-12-19 22:36] LABS: Bacteria Moderate HPF (Negative); C & S Indicated? Yes; Casts Negative LPF (Negative); Crystals Negative HPF (Negative); Epithelial Cells Few HPF (Negative); Mucus Negative (Negative); WBC >50 HPF (0-5)
[2022-12-20] VITALS (9 sets, daily range): BP systolic 112–142; BP diastolic 57–73; PULSE 90–93; RESP 24; TEMP 36.7–37.9; O2SAT 98–100
[2022-12-20] MEDS: THIAMINE 500 MG in Normal Saline 100 ML 200 MG IVPB ×3 (05:53→21:33)
[2022-12-20 06:41] LABS: HCT 26.9 % (36.0-46.0); HGB 9.1 g/dL (11.2-15.7); MCH 38.4 pg (27.0-33.0); MCHC 33.8 % (32.0-36.0); MCV 114 fL (80-95); MPV 10.4 fL (8.0-11.0); RBC 2.37 10^6/uL (3.93-5.22); RDW 14.6 % (11.7-14.6); RDW-SD 61.1 fL; WBC 4.82 10^3/uL (4.4-10.8)
[2022-12-20 07:22] LABS: Platelet Count 66 10^3/uL (130-400)
[2022-12-20] MEDS: Potassium Chloride 20 MEQ TABCR PO (08:26)
[2022-12-20] MEDS: Multivitamin TAB 1 TAB PO (08:26)
[2022-12-20] MEDS: Folic Acid 1 MG TAB PO (08:27)
[2022-12-20] MEDS: Oxybutynin-CR 5 MG TABCR 10 MG PO (08:27)
[2022-12-20] MEDS: Citalopram 10 MG TAB PO (08:27)
--- NOTE | 2022-12-20 10:08 | CMPROGNOTE_ITS ---
Date of service: 12/20/22 Time of Service: 10:08 Care Management Progress Note Progress Note Text Progress Note Text: S/O:Zabrina was sitting up in bed when CM met with her. She was alert and seemed to be oriented. CM inquired if Zabrina would be willing to go to a SNF for short term rehab as her daughters indicated that they felt she would benefit from more therapy. Zabrina agreed to have referrals sent to [facility], [facility], [facility] and [facility]. A: Zabrina is a 62 year old female admitted on 12/18/22 in alcohol withdrawal. P:Per PT, Katie would benefit from short term rehab prior to returning home. Zabrina has agreed and her daughters support this plan. Referrals have been sent by CM to: [facility], [facility], [facility] and [facility]. CM will follow and continue to assess for discharge needs.
--- NOTE | 2022-12-20 11:07 | PT.INNT ---
Date of service: 12/20/22 Time of Service: 11:01 PT Notes Visit Reasons: Alcohol Withdrawl Sleeping, hold off on therapy per RN until this afternoon.
[2022-12-20 11:17] LABS: HBs Antibody, Qual Negative (See Note); HBs Antibody, Quant <3.1 mIU/mL (See Note); Hepatitis B Core Antibody Negative (Negative); Hepatitis B surface Ag Negative (Negative); Hepatitis C Ab w Rflx HCV PCR Negative (Negative)
--- NOTE | 2022-12-20 14:59 | PGE_ITS ---
Date of Service Date of service: 12/20/22 Time of Service: 14:59 Assessment and Plan Assessment and plan (1) Alcohol withdrawal: Status: Acute Assessment and plan: She appears to have completed alcohol withdrawal. Cont Thiamine and folate. Ongoing alcohol avoidance recommended. (2) Macrocytic anemia: Status: Acute Assessment and plan: Evidence of B12 deficiency. Supplementing. (3) Weakness: Status: Acute Assessment and plan: PT consulted. Deconditioned state. (4) Alcohol intoxication: Status: Acute Assessment and plan: As above (5) Skin excoriation: Status: Acute Assessment and plan: C/s wound care (6) Thrombocytopenia: Status: Chronic Assessment and plan: In setting of EtOH abuse, suspect cirrhosis. Abd US: hepatomegaly and fatty infiltration. 4mm gallbladder polyp. (7) Hyponatremia: Status: Chronic Assessment and plan: Now 132; baseline of 130. No longer on IV fluids. (8) Hyperbilirubinemia: Status: Acute Assessment and plan: Abd US as above. INR 1.1. Hepatitis panel pending. (9) Ambulatory dysfunction: Status: Acute Assessment and plan: PT consulted. Anticipate needing SNF (10) DVT prophylaxis: Status: Acute Assessment and plan: SCDs Will hold off of chemical DVT ppx given thrombocytopenia. (11) Discharge planning issues: Status: Acute Assessment and plan: Full code Anticipate needing SNF on d/c. Subjective Subjective Patient reports: no new complaints, feels better and tolerating a regular diet (Poor appetite); denies nausea or vomiting Exam Narrative Exam Narrative: General: Middle-aged obese female. More rested appearing today. HEENT: Sclera clear. MMM. Heart: RRR, no Murmur Lungs: CTAB Abdomen: soft, nontender, nondistended Extremities: no edema BLEs Neuro: Oriented to person,place, year. Objective Last Vital Signs Temp 37.9 C H 12/20/22 14:48 Pulse 91 H 12/20/22 14:39 Resp 24 12/20/22 06:00 BP 112/57 L 12/20/22 14:39 Pulse Ox 98 12/20/22 12:37 Laboratory Results - last 24 hr 12/19/22 12/19/22 12/20/22 05:12 22:20 05:35 WBC 4.82 RBC 2.37 L Hgb 9.1 L Hct 26.9 L MCV 114 H MCH 38.4 H MCHC 33.8 RDW 14.6 Plt Count 66 L MPV 10.4 Urine Color Yellow Urine Clarity Clear Urine pH 6.0 Ur Specific [place] 1.025 Urine Protein 100 H Urine Ketones Trace H Urine Blood Trace-intact H Urine Nitrite Positive H Urine Bilirubin Small H Urine Urobilinogen 1.0 H Ur Leukocyte Esterase Small H Urine RBC 3-5 H Urine WBC >50 H Ur Epithelial Cells Few Urine Crystals Negative Urine Bacteria Moderate Urine Casts Negative Urine Mucus Negative Ur Culture Indicated? Yes Urine Glucose Negative Hep Bs Antigen Negative Hep Bs Antibody Negative Hep Bs Antibody, Quant <3.1 Hep B Core Total Ab Negative Hepatitis C Antibody Negative PAWSS Have you Been Recently Intoxicated or Drunk Within the Last 30 days?: Yes Have you Ever Experienced Previous Episodes of Alcohol Withdrawal?: Unable to Obtain Have you ever Experienced Withdrawal Seizures?: Unable to Obtain Have you ever Experienced Delirium Tremens(DT)s?: Unable to Obtain Have you ever undergone Alcohol Rehabilitation Treatment (i.e, inpt ot outpatient treatment programs)?: Unable to Obtain Have you ever Experienced Blackouts?: Unable to Obtain Have you ever Combined Alcohol with other Downers within the last 90 days?: Unable to Obtain Have you ever Combined Alcohol with any other Substance of Abuse during the last 90 days?: Unable to Obtain Positive Blood Alcohol level on Presentation? [PCS.BAL]: Unable to Obtain Evidence of Increased Autonomic Activity (i.e. HR>120, tremor, sweating, agitation, nausea)?: Unable to Obtain Result: 1 Time Spent with Patient Time Spent with Patient: 25-34 minutes Time was spent: preparing to see the patient(eg.review tests), obtaining and/or reviewing separately otained hiistory, referring, communicating with other health lead care manager, indepentently interpreting results and counseling the patient
--- NOTE | 2022-12-20 15:52 | PT.INTREAT ---
Date of service: 12/20/22 Time of Service: 13:25 PT Notes Visit Reasons: Alcohol Withdrawl Inpatient Physical Therapy Treatment Note [facility] Date: 12/20/22 PRECAUTIONS: Fall, standard, activity as tolerated SUBJECTIVE: Patient reports her left knee hurts; supine in bed, agreeable to therapy. OBJECTIVE: PAIN: significant, left knee. BED MOBILITY/TRANSFERS Rolling L/R: contact guard Supine-sit: mod assist Sit-supine: min assist Sit-stand: mod assist Stand-sit: contact guard Bed-Chair: contact guard with verbal cues Chair-bed: contact guard with verbal cues GAIT Assistive Device: front wheeled walker Weight bearing: full Assist: CGA Distance: 5 feet x3 Deviation: extremely short step length, wide base of support, decreased step height. Loss of balance when standing the second time. THEREX: Seated LAQ's, heel raises, toe raises, marching, hip adduction against pillow, abduction against therapist manual resistance. Quad sets. ASSESSMENT: Patient tolerates therapy well, is resting in bed at end of session. PLAN: Continue strengthening per plan of care. TREATMENT CODE/TIME: 17865 Ther Ex 30 minutes, 26113 Gait 21 minutes beginning at 1325
[2022-12-21 00:23] VITALS: BP 133/67; PULSE 94; RESP 20; TEMP 36.7; O2SAT 97
[2022-12-21] MEDS: THIAMINE 500 MG in Normal Saline 100 ML 200 MG IVPB (05:27)
[2022-12-21 05:50] VITALS: BP 138/85; PULSE 93; RESP 20; TEMP 36.8; O2SAT 98
[2022-12-21 06:54] LABS: Abs Immature Grans 0.15 10^3/uL (0.0-0.06); Absolute Basophil Count 0.03 10^3/uL (0.0-0.2); Absolute Eosinophil Count 0.26 10^3/uL (0.0-0.7); Absolute Lymphocyte Count 0.69 10^3/uL (1.2-3.4); Absolute Monocyte Count 0.74 10^3/uL (0.1-0.8); Absolute Neutrophil Count 2.88 10^3/uL (1.2-6.7); Basophils % 0.6; Eosinophils % 5.5; HCT 28.2 % (36.0-46.0); HGB 9.7 g/dL (11.2-15.7); Immature Grans % 3.2; Lymphocytes % 14.5; MCHC 34.4 % (32.0-36.0); MCV 113 fL (80-95); MPV 10.5 fL (8.0-11.0); Monocytes % 15.6; Neutrophils % 60.6; RBC 2.49 10^6/uL (3.93-5.22); RDW 14.2 % (11.7-14.6); RDW-SD 59.3 fL; WBC 4.75 10^3/uL (4.4-10.8)
[2022-12-21 07:10] LABS: ALT 14 U/L (14-59); AST 22 U/L (15-37); Alkaline Phosphatase 187 U/L (46-116); Anion Gap 3.6 mmol/L (3-11); BUN 2 mg/dL (7-18); Bilirubin, Total 1.2 mg/dL (0.2-1.0); CO2 27.4 mmol/L (21.0-32.0); CREATININE 0.5 mg/dL (0.55-1.02); Calcium 7.7 mg/dL (8.5-10.1); Chloride 97 mmol/L (98-107); Estimated GFR 105.98 (mL/min/1.73m2); Glucose 95 mg/dL (74-106); Potassium 3.4 mmol/L (3.5-5.1); Sodium 128 mmol/L (136-145); Total Protein 4.7 g/dL (6.4-8.2)
[2022-12-21 07:23] LABS: Basophilic Stippling Present; Diff Comment Diff Reviewed; Macrocytosis 2+; Platelet Count 70 10^3/uL (130-400)
[2022-12-21] MEDS: Normal Saline Flush 10 ML SYR IVP (09:05)
[2022-12-21] MEDS: Folic Acid 1 MG TAB PO (09:06)
[2022-12-21] MEDS: Multivitamin TAB 1 TAB PO (09:06)
[2022-12-21] MEDS: Potassium Chloride 20 MEQ TABCR PO ×2 (09:06→14:10)
[2022-12-21] MEDS: Citalopram 10 MG TAB PO (09:06)
[2022-12-21] MEDS: Oxybutynin-CR 5 MG TABCR 10 MG PO (09:06)
[2022-12-21] MEDS: Acetaminophen 325 MG TAB 650 MG PO (09:33)
--- NOTE | 2022-12-21 11:16 | PT.INTREAT ---
PT Notes Visit Reasons: Alcohol Withdrawl Inpatient Physical Therapy Treatment Note [facility] Date: 12/21/22 SUBJECTIVE: Zabrina reports that she is wc bound at home. She is not sure how much she can do as her left knee is really hurting. She did received Tylenol approx 20 min prior to PT. OBJECTIVE: [] PAIN: left knee BED MOBILITY/TRANSFERS Sit-stand: max A of 1 (with several attempts of rocking) Stand-sit: min A of 1 to control her descent Bed-Chair: mod/max A 2 GAIT Assistive Device:FWW Weight bearing: WBAT Assist: CGA Distance: marching in place x2. 20 sec and again x 8 sec. Deviation: unable to wt bear thru left LE due to knee pain. THEREX: sitting chair ex: HR/TR, LAQ, hip flex, ab/add. Chair reclined and she attempted QS and SLR. ASSESSMENT: tolerated session fair. She put forth good effort. Increased c/o left knee pain with wt bearing. I did elevate her LE and placed cryo on knee. PLAN: will continue to work on her strengthening, improving her functional mobility. TREATMENT CODE/TIME: 24 min ([id number] 10 min, [id number] 14 min)
[2022-12-21 13:32] VITALS: BP 122/74; PULSE 90; RESP 18; TEMP 37.2; O2SAT 99
--- NOTE | 2022-12-21 13:37 | W.PM.PROGNOT ---
Date of Service Date of service: 12/21/22 Time of Service: 13:37 Assessment and Plan Assessment and plan (1) Alcohol withdrawal: Status: Acute Assessment and plan: Withdrawal completed. Cont Thiamine and folate. Ongoing alcohol avoidance recommended. (2) Macrocytic anemia: Status: Acute Assessment and plan: Evidence of B12 deficiency. Supplementing. (3) Weakness: Status: Acute Assessment and plan: PT consulted. Deconditioned state. (4) Alcohol intoxication: Status: Acute Assessment and plan: As above (5) Skin excoriation: Status: Acute Assessment and plan: C/s wound care (6) Thrombocytopenia: Status: Chronic Assessment and plan: In setting of EtOH abuse Abd US: hepatomegaly and fatty infiltration. 4mm gallbladder polyp. Monitoring. No signs or symptoms of bleeding. (7) Hyponatremia: Status: Chronic Assessment and plan: Na 128 today. No longer on IV fluids. Will give Na tabs and a dose of lasix for today and see if this improves. (8) Hyperbilirubinemia: Status: Acute Assessment and plan: Abd US as above. INR 1.1. Hepatitis panel pending. (9) Ambulatory dysfunction: Status: Acute Assessment and plan: PT consulted. Anticipate needing SNF (10) DVT prophylaxis: Status: Acute Assessment and plan: SCDs Will hold off of chemical DVT ppx given thrombocytopenia. (11) Discharge planning issues: Status: Acute Assessment and plan: Full code Anticipate needing SNF on d/c. Subjective Subjective Patient reports: no new complaints, feels better, tolerating a regular diet (Appetite improved. ) and afebrile; denies shortness of breath Exam Narrative Exam Narrative: General: Sitting in chair. Smiling/pleasant. HEENT: Sclera clear. MMM. Heart: RRR, no Murmur Lungs: CTAB Abdomen: soft, nontender, nondistended Extremities: no edema BLEs Neuro: Oriented to person,place, year. Objective Last Vital Signs Temp 37.2 C 12/21/22 13:32 Pulse 90 12/21/22 13:32 Resp 18 12/21/22 13:32 BP 122/74 12/21/22 13:32 Pulse Ox 99 12/21/22 13:32 Laboratory Results - last 24 hr 12/21/22 12/21/22 06:05 06:05 WBC 4.75 RBC 2.49 L Hgb 9.7 L Hct 28.2 L MCV 113 H MCH 39.0 H MCHC 34.4 RDW 14.2 Plt Count 70 L MPV 10.5 Immature Gran % 3.2 Neutrophils % 60.6 Lymphocytes % 14.5 Monocytes % 15.6 Eosinophils % 5.5 Basophils % 0.6 Nucleated RBC % 0.0 Absolute Neutrophils 2.88 Absolute Lymphocytes 0.69 L Absolute Monocytes 0.74 Absolute Eosinophils 0.26 Absolute Basophils 0.03 RBC Morphology See Below Basophilic Stippling Present Macrocytosis 2+ Sodium 128 L Potassium 3.4 L Chloride 97 L Carbon Dioxide 27.4 Anion Gap 3.6 BUN 2 L Creatinine 0.5 L Est GFR (CKD-EPI 2020) 105.98 Glucose 95 Calcium 7.7 L Total Bilirubin 1.2 H AST 22 ALT 14 Alkaline Phosphatase 187 H Total Protein 4.7 L Albumin 2.0 L PAWSS Have you Been Recently Intoxicated or Drunk Within the Last 30 days?: Yes Have you Ever Experienced Previous Episodes of Alcohol Withdrawal?: Unable to Obtain Have you ever Experienced Withdrawal Seizures?: Unable to Obtain Have you ever Experienced Delirium Tremens(DT)s?: Unable to Obtain Have you ever undergone Alcohol Rehabilitation Treatment (i.e, inpt ot outpatient treatment programs)?: Unable to Obtain Have you ever Experienced Blackouts?: Unable to Obtain Have you ever Combined Alcohol with other Downers within the last 90 days?: Unable to Obtain Have you ever Combined Alcohol with any other Substance of Abuse during the last 90 days?: Unable to Obtain Positive Blood Alcohol level on Presentation? [PCS.BAL]: Unable to Obtain Evidence of Increased Autonomic Activity (i.e. HR>120, tremor, sweating, agitation, nausea)?: Unable to Obtain Result: 1 Time Spent with Patient Time Spent with Patient: 25-34 minutes Time was spent: preparing to see the patient(eg.review tests), ordering medications,tests, procedures, referring, communicating with other health critical care clinical nurse specialist, indepentently interpreting results and counseling the patient
[2022-12-21 14:08] VITALS: BP 117/76; PULSE 88
[2022-12-21] MEDS: Salt Supplement (BUFFERED) TAB 1 TAB PO ×2 (14:10→19:18)
[2022-12-21] MEDS: Metoprolol CR 50 MG TABCR PO (14:10)
[2022-12-21] MEDS: Furosemide 40 MG TAB PO (14:10)
[2022-12-21 15:14] VITALS: BP 127/84; PULSE 85; RESP 16; TEMP 36.7; O2SAT 99
[2022-12-21] MEDS: Magnesium Oxide 400 MG TAB PO (19:18)
[2022-12-21 22:30] VITALS: BP 112/72; PULSE 84; RESP 20; TEMP 36.8; O2SAT 97
--- NOTE | 2022-12-22 01:46 | NUR.NOTE ---
0135am Bladder Scan report. Pre void bladder scan 495ml. assisted pt to commode. she voided 425ml measured with toilet insert. end note. Nursing Note:
[2022-12-22 06:05] VITALS: BP 123/83; PULSE 91; RESP 20; TEMP 36.9; O2SAT 96
[2022-12-22 07:29] LABS: Anion Gap 6.3 mmol/L (3-11); BUN 1 mg/dL (7-18); CO2 28.7 mmol/L (21.0-32.0); CREATININE 0.8 mg/dL (0.55-1.02); Calcium 8.4 mg/dL (8.5-10.1); Chloride 95 mmol/L (98-107); Estimated GFR 83.26 (mL/min/1.73m2); Glucose 86 mg/dL (74-106); Potassium 3.6 mmol/L (3.5-5.1); Sodium 130 mmol/L (136-145)
[2022-12-22] MEDS: Acetaminophen 325 MG TAB 650 MG PO ×2 (08:15→13:05)
[2022-12-22] MEDS: Oxybutynin-CR 5 MG TABCR 10 MG PO (08:16)
[2022-12-22] MEDS: Magnesium Oxide 400 MG TAB PO ×2 (08:16→11:33)
[2022-12-22] MEDS: Folic Acid 1 MG TAB PO (08:16)
[2022-12-22] MEDS: Metoprolol CR 50 MG TABCR PO (08:17)
[2022-12-22] MEDS: Potassium Chloride 20 MEQ TABCR PO (08:17)
[2022-12-22] MEDS: Multivitamin TAB 1 TAB PO (08:17)
[2022-12-22] MEDS: Citalopram 10 MG TAB PO (08:17)
[2022-12-22] MEDS: Salt Supplement (BUFFERED) TAB 1 TAB PO ×2 (08:17→22:43)
[2022-12-22 08:43] LABS: Lab Add On Test DONE
[2022-12-22 08:55] LABS: Magnesium 1.4 mg/dL (1.8-2.4)
[2022-12-22] MEDS: Normal Saline Flush 10 ML SYR IVP (10:42)
--- NOTE | 2022-12-22 11:01 | W.PM.PROGNOT ---
Date of Service Date of service: 12/22/22 Time of Service: 11:01 Assessment and Plan Assessment and plan (1) Alcohol withdrawal: Status: Acute Assessment and plan: Withdrawal completed. Cont Thiamine and folate. Ongoing alcohol avoidance recommended. She states her daughter recommends LTC; concerned she will continue to drink etoh if she goes home. Patient does state that she likely would start drinking again. (2) Macrocytic anemia: Status: Acute Assessment and plan: Evidence of B12 deficiency. Supplementing. (3) Weakness: Status: Acute Assessment and plan: PT consulted. Deconditioned state. (4) Alcohol intoxication: Status: Acute Assessment and plan: Resolved. (5) Skin excoriation: Status: Acute Assessment and plan: C/s wound care (6) Thrombocytopenia: Status: Chronic Assessment and plan: In setting of EtOH abuse Abd US: hepatomegaly and fatty infiltration. 4mm gallbladder polyp. Monitoring. No signs or symptoms of bleeding. (7) Hyponatremia: Status: Chronic Assessment and plan: Na improved to 130. No longer on IV fluids. Initiated Na tabs BID and administered a dose of lasix yesterday, 12/21. Na improved. Will repeat lasix today; 20mg po. Monitor. (8) Hyperbilirubinemia: Status: Acute Assessment and plan: Abd US as above. INR 1.1. Hepatitis panel pending. (9) Ambulatory dysfunction: Status: Acute Assessment and plan: PT consulted. Anticipate needing SNF (10) DVT prophylaxis: Status: Acute Assessment and plan: SCDs Will hold off of chemical DVT ppx given thrombocytopenia. (11) Discharge planning issues: Status: Acute Assessment and plan: Full code Anticipate needing SNF on d/c. Subjective Subjective Patient reports: no new complaints, feels better and afebrile; denies nausea, vomiting or shortness of breath Exam Narrative Exam Narrative: General: Lying in bed. Smiling/pleasant. HEENT: Sclera clear. MMM. Heart: RRR, no Murmur Lungs: CTAB Abdomen: soft, nontender, nondistended Extremities: no edema BLEs Neuro: Oriented to person,place, year. Objective Last Vital Signs Temp 36.9 C 12/22/22 06:05 Pulse 91 H 12/22/22 06:05 Resp 20 12/22/22 06:05 BP 123/83 12/22/22 06:05 Pulse Ox 96 12/22/22 06:05 Laboratory Results - last 24 hr 12/22/22 12/22/22 12/22/22 06:35 06:35 06:35 Sodium 130 L Potassium 3.6 Chloride 95 L Carbon Dioxide 28.7 Anion Gap 6.3 BUN 1 L Creatinine 0.8 Est GFR (CKD-EPI 2020) 83.26 Glucose 86 Calcium 8.4 L Magnesium 1.4 L Add-On Test Request DONE PAWSS Have you Been Recently Intoxicated or Drunk Within the Last 30 days?: Yes Have you Ever Experienced Previous Episodes of Alcohol Withdrawal?: Unable to Obtain Have you ever Experienced Withdrawal Seizures?: Unable to Obtain Have you ever Experienced Delirium Tremens(DT)s?: Unable to Obtain Have you ever undergone Alcohol Rehabilitation Treatment (i.e, inpt ot outpatient treatment programs)?: Unable to Obtain Have you ever Experienced Blackouts?: Unable to Obtain Have you ever Combined Alcohol with other Downers within the last 90 days?: Unable to Obtain Have you ever Combined Alcohol with any other Substance of Abuse during the last 90 days?: Unable to Obtain Positive Blood Alcohol level on Presentation? [PCS.BAL]: Unable to Obtain Evidence of Increased Autonomic Activity (i.e. HR>120, tremor, sweating, agitation, nausea)?: Unable to Obtain Result: 1 Time Spent with Patient Time Spent with Patient: 25-34 minutes Time was spent: preparing to see the patient(eg.review tests), ordering medications,tests, procedures, referring, communicating with other health senior care assistant, indepentently interpreting results and counseling the patient
[2022-12-22] MEDS: Furosemide 20 MG TAB PO (11:33)
--- NOTE | 2022-12-22 12:05 | PT.INTREAT ---
PT Notes Visit Reasons: Alcohol Withdrawl Inpatient Physical Therapy Treatment Note [facility] Date: 12/22/22 SUBJECTIVE: Zabrina reports that she is having a hard time with her left knee. The nurses just use the lift because they don't want to be bothered. It takes me too long to get from point a to point b. OBJECTIVE: [] PAIN: left knee BED MOBILITY/TRANSFERS Sit-stand: mod A of 1 we did 3 as an ex. Stand-sit: min A of 1 to control her descent GAIT Assistive Device:FWW Weight bearing: WBAT Assist: CGA Distance: modified marching in place 2x 20 sec Deviation: unable to wt bear thru left LE due to knee pain. THEREX: sitting chair ex: HR/TR, QS, LAQ, hip flex, ab/add. Assisted SLR. Balance ex while standing at walker, with arm raises x 5 each. ASSESSMENT: tolerated session fair. She put forth good effort. Very fearful of falling, stating she doesn't trust her left knee. No LOB noted PLAN: will continue to work on her strengthening, improving her functional mobility. TREATMENT CODE/TIME: 25 min ([id number] 10 min, [id number] 15 min)
[2022-12-22] MEDS: Fosfomycin Tromethamine 3 GM PACKET PO (13:33)
[2022-12-22 15:35] VITALS: BP 136/83; PULSE 77; RESP 18; TEMP 36.7; O2SAT 97
[2022-12-22] MEDS: Magnesium Oxide 400 MG TAB 800 MG PO (22:43)
[2022-12-22 22:54] VITALS: BP 119/79; PULSE 86; RESP 17; TEMP 36.5; O2SAT 96
[2022-12-23 07:05] VITALS: BP 120/79; PULSE 80; RESP 16; TEMP 37; O2SAT 97
[2022-12-23 07:05] LABS: HCT 27.9 % (36.0-46.0); HGB 9.5 g/dL (11.2-15.7); MCH 38.6 pg (27.0-33.0); MCHC 34.1 % (32.0-36.0); MCV 113 fL (80-95); RBC 2.46 10^6/uL (3.93-5.22); RDW 13.7 % (11.7-14.6); RDW-SD 57.2 fL; WBC 4.44 10^3/uL (4.4-10.8)
[2022-12-23 07:14] LABS: Anion Gap 4.9 mmol/L (3-11); BUN 3 mg/dL (7-18); CO2 28.1 mmol/L (21.0-32.0); CREATININE 0.5 mg/dL (0.55-1.02); Calcium 7.8 mg/dL (8.5-10.1); Chloride 94 mmol/L (98-107); Estimated GFR 105.98 (mL/min/1.73m2); Glucose 89 mg/dL (74-106); Potassium 3.5 mmol/L (3.5-5.1); Sodium 127 mmol/L (136-145)
[2022-12-23 07:21] LABS: Platelet Count 55 10^3/uL (130-400)
[2022-12-23] MEDS: Citalopram 10 MG TAB PO (08:24)
[2022-12-23] MEDS: Oxybutynin-CR 5 MG TABCR 10 MG PO (08:25)
[2022-12-23] MEDS: Potassium Chloride 20 MEQ TABCR PO (08:25)
[2022-12-23] MEDS: Multivitamin TAB 1 TAB PO (08:25)
[2022-12-23] MEDS: Metoprolol CR 50 MG TABCR PO (08:25)
[2022-12-23] MEDS: Folic Acid 1 MG TAB PO (08:26)
[2022-12-23] MEDS: Salt Supplement (BUFFERED) TAB 1 TAB PO (08:26)
[2022-12-23] MEDS: Magnesium Oxide 400 MG TAB 800 MG PO ×2 (08:26→19:40)
--- NOTE | 2022-12-23 10:27 | WOUNDCONS ---
- If Service Date Differs Date of service: 12/23/22 Time of Service: 10:15 Wound Initial Evaluation Narrative: Patient is a 62 yof. She has been admitted here for ETOH withdrawal. At this point she has been detoxed. but is weak and currently unable to ambulate. Family member , who is her caregiver, leaves for work early and returns home later in the day. During this time, patient is generally incontinent of B&B which has resulted in skin breakdown. She also has a hx of microcytic anemia, Heptomegally, Hyponatremia, and hyperbilirubia. Reviewing labs today, H&H were 9.5-27.5. NA had dropped to 127, and platelets were down to 55, this is reported to charge nurse prior to the start of the consult. Patient reports that she has had multiple falls, and uses a wheel chair to ambulate. H&P, labs , and other pertinent information were reviewed. Patient consents to consult, Peer nurse assisted with turning and positioning patient Body Four View: 1 - IAD 2 - lesions 3 - lesions - Wound Lumbar/Sacral Wound Type: Partial Thickness, Other (Incontinence associated dermatitis) Wound Surrounding Tissue Appearance: Dark Red Percent of Wound Bed Granulated/Red: 100 Wound Length: 16 cm Wound Width: 17.5 cm Wound Depth: 0.1 cm (less than) Wound Drainage Odor: None/Absent Wound Drainage Description: No drainage Wound Topical Solution/Irrigant: Other (Equos wound cleanser) Wound Debridement Method: Gauze Wound Debridement Result: Healthy Tissue Revealed Wound Debridement Amount of Tissue Removed: None Right Upper Thigh Wound Type: Other (Lesions) Wound General Appearance: Healing Well Wound Bed Greatest Portion: Red (Granulation) Wound Surrounding Tissue Appearance: Normal/Healthy Percent of Wound Bed Granulated/Red: 100 Wound Length: 1.1 cm Wound Width: 0.2 cm Wound Depth: 0.1 cm (less than) Wound Drainage Amount: None Wound Drainage Odor: None/Absent Wound Drainage Description: No drainage Wound Topical Solution/Irrigant: Other (Equos wound reed cleaner) Wound Debridement Method: Gauze Wound Debridement Result: Healthy Tissue Revealed Wound Debridement Amount of Tissue Removed: None Right Lower Thigh Wound Type: Other (Lesions) Wound General Appearance: Draining, Unapproximated Wound Bed Greatest Portion: Red (Granulation) Percent of Wound Bed Granulated/Red: 100 Wound Length: 1.8 cm Wound Width: 2.8 cm Wound Depth: 0.1 cm Wound Drainage Amount: Minimal Wound Drainage Odor: None/Absent Wound Drainage Description: Serous Wound Topical Solution/Irrigant: Other (Equos wound reed cleaner) Wound Debridement Method: Gauze Wound Debridement Result: Healthy Tissue Revealed Wound Debridement Amount of Tissue Removed: Minimal - Circulation, Sensation, Motion Edema Degree: 2+ Peripheral Pulse Strength: Normal Capillary Refill: Less than 3 seconds Sensation Description: Within Normal Limits Skin Temperature: Warm Skin Color: Normal - JAMAAL Comment:: Not applicable - Pain Pain Level: 7 Pain Scale Used: Visual Analog Scale 0-10 Pain Description: Burning Pain Duration/Frequency: Intermittent Patient is consideing transfer to SNF vs home, this would be better for her skin care, as she is unable to move and clean herself, she would require a situation wher she is cleaned , dried and turned regularly throughout the day - Photo Photo: - Treatment/Dressing Change Topicals/Ointments: Other (Fabián cream) Cleanse With: Cleanser with Surfactant Dressing Types: Mepilex Ag w/Border - Nutrition Education Reviewed Nutrition Education: Yes - Recomendation Recomendation:: Buttocks. Clean with soap and warm water, Pat skin dry. Apply Triple ointment, (Fabián Cream) to the affected area(s). Perform twice daily. Offload pressure as patient will tolerate. Right leg. [place] with Equos reed cleaner, clean and pat dry. Cover with Mepilex AG. Change every 3 days or PRN. Physcian/Nurse Practioner Notified: Yes (Dr. Frost) Referrals: Dietary Treatment Time - Time Total Time Spent with Patient: 40 - Patient Will be Seen Weekly Treatment: bid - For: For:: 1 week
[2022-12-23] MEDS: Thiamine 100 MG TAB PO (11:56)
--- NOTE | 2022-12-23 13:40 | PT.INTREAT ---
Date of service: 12/23/22 Time of Service: 10:48 PT Notes Visit Reasons: Alcohol Withdrawl Inpatient Physical Therapy Treatment Note [facility] Date: 12/23/22 PRECAUTIONS: Fall, standard, activity as tolerated SUBJECTIVE: Morning: Patient supine in bed, agreeable to therapy. Afternoon: Patient sitting in recliner, agreeable to therapy. OBJECTIVE: PAIN: none reported BED MOBILITY/TRANSFERS Rolling L/R: supervision Supine-sit: min assist Sit-supine: mod assist Sit-stand: mod assist Stand-sit: contact guard Bed-Chair: contact guard with verbal cues Chair-bed: contact guard with verbal cues GAIT Assistive Device: walker Weight bearing: full Assist: contact guard Distance: 4 feet Deviation: shortened step length THERACT: Transfer training including supine to sit, sit to supine, bed to chair, chair to bed. THEREX: Seated LAQ's, marching, heel raises, toe raises, tap outs, sit to stands (x3) ASSESSMENT: Patient tolerates therapy well PLAN: Continue strengthening per plan of care TREATMENT CODE/TIME: Morning 47196 Ther Act 18 minutes beginning at 10:48 Afternoon [id number] Gait 15 minutes, [id number] Ther Ex 13 minutes beginning at 14:17
--- NOTE | 2022-12-23 14:30 | W.PM.PROGNOT ---
Date of Service Date of service: 12/23/22 Time of Service: 14:43 Assessment and Plan Assessment and plan (1) Alcohol withdrawal: Status: Acute Assessment and plan: Withdrawal completed. Cont Thiamine and folate. Ongoing alcohol avoidance recommended. She states her daughter recommends LTC; concerned she will continue to drink etoh if she goes home. Patient does state that she likely would start drinking again (2) Macrocytic anemia: Status: Acute Assessment and plan: Evidence of B12 deficiency. Supplementing. (3) Weakness: Status: Acute Assessment and plan: PT consulted. Deconditioned state. (4) Alcohol intoxication: Status: Acute Assessment and plan: Resolved. (5) Skin excoriation: Status: Acute Assessment and plan: C/s wound care (6) Thrombocytopenia: Status: Chronic Assessment and plan: In setting of EtOH abuse Abd US: hepatomegaly and fatty infiltration. 4mm gallbladder polyp. Monitoring. No signs or symptoms of bleeding. (7) Hyponatremia: Status: Chronic Assessment and plan: sodium down to 127 again today. She has bilateral leg edema. She needs to come off the salt tabs and remain on diuretics. I have put her on lasix 40 mg bid along w/ spironolactone 25 mg daily. I will put her on 1500 mL/day fluid restriction. her edema is secondary to her alcoholic liver disease. monitor daily BMP and weights and I/O. (8) Hyperbilirubinemia: Status: Acute Assessment and plan: Abd US as above. INR 1.1. Hepatitis panel negative for HBV and HCV. (9) Ambulatory dysfunction: Status: Acute Assessment and plan: PT consulted. Anticipate needing SNF (10) DVT prophylaxis: Status: Acute Assessment and plan: SCDs Will hold off of chemical DVT ppx given thrombocytopenia. (11) Discharge planning issues: Status: Acute Assessment and plan: Full code Anticipate needing SNF on d/c. Subjective Subjective Interval history since last seen: Patient complaining of her legs hurting, swollen, generalized weakness. NO fevers, dyspnea or pain. No nausea or GI complaints. Exam Narrative Exam Narrative: Morbidly obese female lying in bed working w/ P.T. regarding her leg strength, bed mobility Lungs: clear Heart: RRR Abdomen: obese, soft, nontender, normal bowel sounds Legs: chronic stasis bronze discoloration of her legs, w/ tense 2+ pitting edema over both legs Objective Last Vital Signs Temp 37 C 06/12/23 07:05 Pulse 80 12/23/22 07:05 Resp 16 12/23/22 07:05 BP 120/79 12/23/22 07:05 Pulse Ox 97 12/23/22 07:05 Laboratory Results - last 24 hr 12/23/22 12/23/22 06:33 06:33 WBC 4.44 RBC 2.46 L Hgb 9.5 L Hct 27.9 L MCV 113 H MCH 38.6 H MCHC 34.1 RDW 13.7 Plt Count 55 L MPV 10.0 Sodium 127 L Potassium 3.5 Chloride 94 L Carbon Dioxide 28.1 Anion Gap 4.9 BUN 3 L Creatinine 0.5 L Est GFR (CKD-EPI 2020) 105.98 Glucose 89 Calcium 7.8 L PAWSS Have you Been Recently Intoxicated or Drunk Within the Last 30 days?: Yes Have you Ever Experienced Previous Episodes of Alcohol Withdrawal?: Unable to Obtain Have you ever Experienced Withdrawal Seizures?: Unable to Obtain Have you ever Experienced Delirium Tremens(DT)s?: Unable to Obtain Have you ever undergone Alcohol Rehabilitation Treatment (i.e, inpt ot outpatient treatment programs)?: Unable to Obtain Have you ever Experienced Blackouts?: Unable to Obtain Have you ever Combined Alcohol with other Downers within the last 90 days?: Unable to Obtain Have you ever Combined Alcohol with any other Substance of Abuse during the last 90 days?: Unable to Obtain Positive Blood Alcohol level on Presentation? [PCS.BAL]: Unable to Obtain Evidence of Increased Autonomic Activity (i.e. HR>120, tremor, sweating, agitation, nausea)?: Unable to Obtain Result: 1 Time Spent with Patient Time Spent with Patient: 25-34 minutes Time was spent: preparing to see the patient(eg.review tests), ordering medications,tests, procedures, referring, communicating with other health wound care technician, indepentently interpreting results, counseling the patient and care coordination
[2022-12-23 15:14] VITALS: BP 100/75; PULSE 93; RESP 16; TEMP 37.1; O2SAT 95
[2022-12-23] MEDS: Spironolactone 25 MG TAB PO (15:30)
[2022-12-23] MEDS: Furosemide 40 MG TAB PO (15:30)
--- NOTE | 2022-12-23 16:44 | CMPROGNOTE_ITS ---
Date of service: 12/23/22 Time of Service: 16:44 Care Management Progress Note Progress Note Text Progress Note Text: S/O: Zabrina is now on Med/Surg floor awaiting SNF placement. CM followed up with [facility] [place], [facility] [place], [facility] and [facility] without response. CM continues to follow. A: Zabrina is a 62 year old female admitted on 12/18/22 in alcohol withdrawal. P: Per PT, Katie would benefit from short term rehab prior to returning home. Zabrina has agreed and her daughters support this plan. Referrals have been sent by CM to: [facility] [place], [facility] [place], [facility] and [facility]. CM will follow and continue to assess for discharge needs.
[2022-12-23] MEDS: Acetaminophen 325 MG TAB 650 MG PO (17:19)
[2022-12-24 00:04] VITALS: BP 118/72; PULSE 89; RESP 18; TEMP 36.6; O2SAT 92
[2022-12-24 07:09] LABS: Anion Gap 4.2 mmol/L (3-11); BUN 3 mg/dL (7-18); CO2 29.8 mmol/L (21.0-32.0); CREATININE 0.6 mg/dL (0.55-1.02); Chloride 97 mmol/L (98-107); Estimated GFR 101.42 (mL/min/1.73m2); Glucose 92 mg/dL (74-106); Potassium 3.7 mmol/L (3.5-5.1); Sodium 131 mmol/L (136-145)
[2022-12-24] MEDS: Magnesium Oxide 400 MG TAB 800 MG PO ×2 (07:35→19:30)
[2022-12-24] MEDS: Metoprolol CR 50 MG TABCR PO (07:36)
[2022-12-24] MEDS: Furosemide 40 MG TAB PO ×2 (07:36→16:14)
[2022-12-24] MEDS: Folic Acid 1 MG TAB PO (07:36)
[2022-12-24] MEDS: Oxybutynin-CR 5 MG TABCR 10 MG PO (07:36)
[2022-12-24] MEDS: Multivitamin TAB 1 TAB PO (07:36)
[2022-12-24] MEDS: Citalopram 10 MG TAB PO (07:36)
[2022-12-24] MEDS: Potassium Chloride 20 MEQ TABCR PO (07:37)
[2022-12-24 08:02] VITALS: BP 138/79; PULSE 85; RESP 18; TEMP 36.8; O2SAT 97
[2022-12-24] MEDS: Thiamine 100 MG TAB PO (09:40)
[2022-12-24] MEDS: Spironolactone 25 MG TAB PO (09:40)
--- NOTE | 2022-12-24 11:28 | PDOC.CMPRO ---
Date of service: 12/24/22 Time of Service: 11:28 Care Management Progress Note Progress Note Text Progress Note Text: S/O: Zabrina is now on Med/Surg floor awaiting SNF placement, now on precautions due to ESBL in urine, per RNCC. CM followed up with [facility] (No beds), [facility] (No response), [facility] (No beds), [facility] (Pt declined), [facility] and [facility] (Declined). SNF discussion, undetermined if Katie may be able to return home; awaiting PT, updates. CM continues to follow. A: Zabrina is a 62 year old female admitted on 12/18/22 in alcohol withdrawal. P: No SNF bed offers recieved at this time; further discussions regarding discharge planning are ongoing. CM continues to follow and support discharge planning.
[2022-12-24] MEDS: Celecoxib 200 MG CAP PO ×2 (12:25→19:30)
[2022-12-24] MEDS: Pantoprazole 40 MG TABCR PO (12:25)
--- NOTE | 2022-12-24 14:17 | NUR.NOTE ---
Pt.'s daughter in the room asked questions about the patient's progress. This RN noted that the ETOH withdrawal was reportedly resolved Friday per nursing report to this nurse. Since then we have been resolving various imbalances in her electrolytes, having a wound care specilist review and dress her sacral wounds and her progress is positive at this point. The daughter then turned her attention to her mother and began berating her for her drinking. This nurse guided them to seek counseling and to work toward mutually beneficial goals. .Nursing Note:
--- NOTE | 2022-12-24 14:53 | PGE_ITS ---
Date of Service Date of service: 12/24/22 Time of Service: 14:53 Assessment and Plan Assessment and plan (1) Alcohol withdrawal: Status: Resolved Assessment and plan: Withdrawal completed. Cont Thiamine and folate. Ongoing alcohol avoidance recommended. She states her daughter recommends LTC; concerned she will continue to drink etoh if she goes home. Patient does state that she likely would start drinking again (2) Macrocytic anemia: Status: Acute Assessment and plan: likely d/t her chronic alcoholism. She does not have evidence for B12 deficiency despite prior notes stating this. Her B12 level is normal at 944 pg/mL (actually upper level of normal, prior level from last year 02/10/22 also was high at 1074). I would continue her on multivitamin supplementation along w/ thiamine and folic acid. She does have evidence for chronic folate deficiency. Her level this admission was 3.2 (normal range is 8.6 to 20) and historically she has been chronically low w/ levels of 4.2 (02/10/22). She currently is on folic acid 1 mg daily. considering she has been chronically deficient and has a megaloblastic anemia, I will increase her dose to 5 mg (5000 mcg) daily as per recommendations from [facility]. She is not B12 deficient, otherwise I would treat her B12 deficiency first before replacement of her folate. I am recommending checking her homocysteine and methylmalonic acid levels in 2 weeks and repeat her CBC in 4 weeks. (3) Weakness: Status: Acute Assessment and plan: PT consulted. Deconditioned state. (4) Alcohol intoxication: Status: Resolved Assessment and plan: Resolved. (5) Skin excoriation: Status: Acute Assessment and plan: C/s wound care (6) Thrombocytopenia: Status: Chronic Assessment and plan: In setting of EtOH abuse Abd US: hepatomegaly and fatty infiltration. 4mm gallbladder polyp. Monitoring. No signs or symptoms of bleeding. (7) Hyponatremia: Status: Chronic Assessment and plan: stable. sodium at 131 today. monitor daily BMP while on lasix. (8) Hyperbilirubinemia: Status: Acute Assessment and plan: viral hepatitis panel neg. for HCV and HBV, total bilirubin down to 1.2. no evidence for jaundice. patient has fatty liver changes but no cholelithiasis or evidence of acute cholecystitis. she has a GB polyp. this should be followed as outpatient (9) Gall bladder polyp: Status: Acute Assessment and plan: needs follow up w/ repeat imaging in 4 to 6 months and if enlarging the consider removal. (10) Ambulatory dysfunction: Status: Acute Assessment and plan: PT consulted. Anticipate needing SNF (11) DVT prophylaxis: Status: Acute Assessment and plan: SCDs Will hold off of chemical DVT ppx given thrombocytopenia. (12) Discharge planning issues: Status: Acute Assessment and plan: Full code Anticipate needing SNF on d/c. Subjective Subjective Interval history since last seen: Patient's only complaints is soreness of her legs and her knees. I have put her on Celebrex to see if this will help w/ her OA. Her legs are also swollen chronically. I have put her diuretics to help w/ the edema. Exam Narrative Exam Narrative: Patient is sitting up in her chair. She just got back to her chair from going to toilet. She is 2 person assist requiring a steady lift. She is alert and oriented, watching TV Lungs: clear Heart: RRR Abdomen: soft, nontender, normal bowel sounds (per director industrial nursing, she had a BM this morning) legs: 2+ pitting edema from ankles to knees Objective Last Vital Signs Temp 36.8 C 12/24/22 08:02 Pulse 85 12/24/22 08:02 Resp 18 12/24/22 08:02 BP 138/79 12/24/22 08:02 Pulse Ox 97 12/24/22 08:02 Laboratory Results - last 24 hr 12/24/22 06:39 Sodium 131 L Potassium 3.7 Chloride 97 L Carbon Dioxide 29.8 Anion Gap 4.2 BUN 3 L Creatinine 0.6 Est GFR (CKD-EPI 2020) 101.42 Glucose 92 Calcium 8.0 L PAWSS Have you Been Recently Intoxicated or Drunk Within the Last 30 days?: Yes Have you Ever Experienced Previous Episodes of Alcohol Withdrawal?: Unable to Obtain Have you ever Experienced Withdrawal Seizures?: Unable to Obtain Have you ever Experienced Delirium Tremens(DT)s?: Unable to Obtain Have you ever undergone Alcohol Rehabilitation Treatment (i.e, inpt ot outpatient treatment programs)?: Unable to Obtain Have you ever Experienced Blackouts?: Unable to Obtain Have you ever Combined Alcohol with other Downers within the last 90 days?: Unable to Obtain Have you ever Combined Alcohol with any other Substance of Abuse during the last 90 days?: Unable to Obtain Positive Blood Alcohol level on Presentation? [PCS.BAL]: Unable to Obtain Evidence of Increased Autonomic Activity (i.e. HR>120, tremor, sweating, agitation, nausea)?: Unable to Obtain Result: 1 Time Spent with Patient Time Spent with Patient: 25-34 minutes Time was spent: preparing to see the patient(eg.review tests), ordering medications,tests, procedures, referring, communicating with other health director of health care marketing, indepentently interpreting results, counseling the patient and care coordination
[2022-12-24 16:07] VITALS: BP 106/67; PULSE 83; RESP 18; TEMP 36.6; O2SAT 95
[2022-12-24] MEDS: Diclofenac 1% Gel 100 GM TUBE TP ×2 (16:14→19:30)
[2022-12-24] MEDS: Acetaminophen 325 MG TAB 650 MG PO (20:18)
[2022-12-24 22:40] VITALS: BP 100/62; PULSE 78; RESP 16; TEMP 36.8; O2SAT 94
--- NOTE | 2022-12-24 23:14 | PT.INTREAT ---
Date of service: 12/24/22 Time of Service: 10:25 PT Notes Visit Reasons: Alcohol Withdrawl Inpatient Physical Therapy Treatment Note [facility] Date: 12/24/22 PRECAUTIONS: Fall, Standard, activity as tolerated SUBJECTIVE: morning, patient is supine in bed, agreeable to therapy. Afternoon patient refused services, would rather watch news program. OBJECTIVE: PAIN: None reported BED MOBILITY/TRANSFERS Rolling L/R: Independent Supine-sit: Independent Sit-supine: Independent Sit-stand: standby Stand-sit: standby Bed-Chair: contact guard Chair-bed: contact guard GAIT Assistive Device: front wheeled walker Weight bearing: full Assist: contact guard Distance: 5 feet x2 Deviation: Patient walks stiff legged with very little bending at the knee, extremely wide base of support, reduced step height, reduced step length. THEREX: Seated long arc quads, marching, heel raises, toe raises ASSESSMENT: Patient tolerates therapy well, is sitting up in chair at end of treatment. PLAN: continue global strengthening per plan of care TREATMENT CODE/TIME: 54067 Ther Ex 15 minutes and [id number] Gait 10 minutes beginning at 10:25
[2022-12-25 06:49] LABS: Anion Gap 4.7 mmol/L (3-11); BUN 4 mg/dL (7-18); CO2 30.3 mmol/L (21.0-32.0); CREATININE 0.7 mg/dL (0.55-1.02); Chloride 95 mmol/L (98-107); Estimated GFR 97.72 (mL/min/1.73m2); Glucose 94 mg/dL (74-106); Potassium 3.6 mmol/L (3.5-5.1); Sodium 130 mmol/L (136-145)
[2022-12-25 07:47] VITALS: BP 135/84; PULSE 74; RESP 18; TEMP 36.6; O2SAT 97
[2022-12-25] MEDS: Potassium Chloride 20 MEQ TABCR PO (07:53)
[2022-12-25] MEDS: Oxybutynin-CR 5 MG TABCR 10 MG PO (07:53)
[2022-12-25] MEDS: Pantoprazole 40 MG TABCR PO (07:53)
[2022-12-25] MEDS: Celecoxib 200 MG CAP PO ×2 (07:53→21:25)
[2022-12-25] MEDS: Furosemide 40 MG TAB PO ×2 (07:53→16:31)
[2022-12-25] MEDS: Magnesium Oxide 400 MG TAB 800 MG PO ×2 (07:53→21:26)
[2022-12-25] MEDS: Diclofenac 1% Gel 100 GM TUBE TP ×4 (07:53→21:26)
[2022-12-25] MEDS: Spironolactone 25 MG TAB PO (07:54)
[2022-12-25] MEDS: Citalopram 10 MG TAB PO (07:54)
[2022-12-25] MEDS: Metoprolol CR 50 MG TABCR PO (07:54)
[2022-12-25] MEDS: Thiamine 100 MG TAB PO (07:54)
[2022-12-25] MEDS: Folic Acid 1 MG TAB 5 MG PO (07:54)
--- NOTE | 2022-12-25 08:28 | PDOC.CMPRO ---
Date of service: 12/25/22 Time of Service: 08:28 Care Management Progress Note Progress Note Text Progress Note Text: S/O: Zabrina was sleeping each time CM attempted to meet with her. She is medically stable and ready for discharge, however no SNF bed offers have been received. All facilities that have received referrals have either declined Zabrina or have no bed availability. Per PT, Zabrina is likely back to her baseline and would be safe to return home with continued home health for PT. She was able to ambulate 12 feet this morning with only standby assist; at home she was wheelchair bound. Zabrina has been found to have a resistant organism (ESBL) in her urine and is now on contact precautions. A: Zabrina is a 62 year old female admitted on 12/18/22 in alcohol withdrawal. P: No SNF bed offers have been received at this time and further discussions regarding discharge planning are ongoing. CM continues to follow and support discharge planning.
[2022-12-25] MEDS: Acetaminophen 325 MG TAB 650 MG PO (13:18)
[2022-12-25 15:48] VITALS: BP 126/79; PULSE 75; RESP 16; TEMP 36.4; O2SAT 97
--- NOTE | 2022-12-25 18:27 | PGE_ITS ---
Date of Service Date of service: 12/25/22 Time of Service: 18:27 Assessment and Plan Assessment and plan (1) Alcohol withdrawal: Status: Resolved Assessment and plan: Withdrawal completed. Cont Thiamine and folate. Ongoing alcohol avoidance recommended. She states her daughter recommends LTC; concerned she will continue to drink etoh if she goes home. Patient does state that she likely would start drinking again Professional time spent interviewing and examining patient, discussion of goals of care with hospital team (care management, nursing and consulting haritha smith) was 20 minutes. (2) Macrocytic anemia: Status: Acute Assessment and plan: secondary to alcohol and folate deficiency, currently on replacement. she does not have B12 deficiency (3) Weakness: Status: Acute Assessment and plan: PT consulted but it appears that they have not seen her since 12/24 and note is currently incomplete. I am hopeful that she will continue to work w/ P.T. while she is here and hopefully we can get her to a rehab facility to continue to work on her deconditioned state. (4) Alcohol intoxication: Status: Resolved Assessment and plan: Resolved. (5) Skin excoriation: Status: Acute Assessment and plan: C/s wound care (6) Thrombocytopenia: Status: Chronic Assessment and plan: In setting of EtOH abuse Abd US: hepatomegaly and fatty infiltration. 4mm gallbladder polyp. Monitoring. No signs or symptoms of bleeding. (7) Hyponatremia: Status: Chronic Assessment and plan: stable. sodium at 131 today. monitor daily BMP while on lasix. (8) Hyperbilirubinemia: Status: Acute Assessment and plan: viral hepatitis panel neg. for HCV and HBV, total bilirubin down to 1.2. no evidence for jaundice. patient has fatty liver changes but no cholelithiasis or evidence of acute cholecystitis. she has a GB polyp. this should be followed as outpatient (9) Gall bladder polyp: Status: Acute Assessment and plan: needs follow up w/ repeat imaging in 4 to 6 months and if enlarging the consider removal. (10) Ambulatory dysfunction: Status: Acute Assessment and plan: PT consulted. Anticipate needing SNF (11) DVT prophylaxis: Status: Acute Assessment and plan: SCDs Will hold off of chemical DVT ppx given thrombocytopenia. (12) Discharge planning issues: Status: Acute Assessment and plan: Full code Anticipate needing SNF on d/c. Subjective Subjective Interval history since last seen: Zabrina has no acute complaints. She has been having BM'S but no diarrhea. No d ysuria. She was treated for E. coli ESBL cystitis w/ fosfomycin 3 gm x one dose on 12/19. No follow up UA has been done. She currently awaits SNF placement but CM has indicated that the area SNF will not take her. Referrals have been made further afield but she may have to return home w/ home health services. My concern is two fold: one she will return to drinkinig alcohol especially if she has no postive social engagement and two she will become more deconditioned. She is finally making some gains w/ her ambulation. She says that she ambulated w/ walker around the room from her bed to the toilet and back. In the past she has required a steady lift to move her. Her knee pains are better since she was put on the Celebrex and the topical voltaren gel. Exam Narrative Exam Narrative: Zabrina is alert, oriented, and appropriate, she is sitting up in her chair watching TV after her dinner Lungs: clear Heart: RRR Abdomen: obese, soft, nontender Legs: 2+ pitting edema but not tender Objective Last Vital Signs Temp 36.4 C L 12/25/22 15:48 Pulse 75 12/25/22 15:48 Resp 16 12/25/22 15:48 BP 126/79 12/25/22 15:48 Pulse Ox 97 12/25/22 15:48 Laboratory Results - last 24 hr 12/25/22 06:00 Sodium 130 L Potassium 3.6 Chloride 95 L Carbon Dioxide 30.3 Anion Gap 4.7 BUN 4 L Creatinine 0.7 Est GFR (CKD-EPI 2020) 97.72 Glucose 94 Calcium 8.0 L PAWSS Have you Been Recently Intoxicated or Drunk Within the Last 30 days?: Yes Have you Ever Experienced Previous Episodes of Alcohol Withdrawal?: Unable to Obtain Have you ever Experienced Withdrawal Seizures?: Unable to Obtain Have you ever Experienced Delirium Tremens(DT)s?: Unable to Obtain Have you ever undergone Alcohol Rehabilitation Treatment (i.e, inpt ot outpatient treatment programs)?: Unable to Obtain Have you ever Experienced Blackouts?: Unable to Obtain Have you ever Combined Alcohol with other Downers within the last 90 days?: Unable to Obtain Have you ever Combined Alcohol with any other Substance of Abuse during the last 90 days?: Unable to Obtain Positive Blood Alcohol level on Presentation? [PCS.BAL]: Unable to Obtain Evidence of Increased Autonomic Activity (i.e. HR>120, tremor, sweating, agitation, nausea)?: Unable to Obtain Result: 1 Time Spent with Patient Time Spent with Patient: <25 minutes Time was spent: preparing to see the patient(eg.review tests), ordering medications,tests, procedures, referring, communicating with other health child care supervisor, indepentently interpreting results and care coordination
[2022-12-25 22:58] VITALS: BP 128/83; PULSE 75; RESP 19; TEMP 35.7; O2SAT 97
[2022-12-26 01:50] LABS: Bilirubin Negative (Negative); Blood Trace-lysed (Negative); Clarity Clear (Clear); Glucose Negative (Negative); Ketones Negative (Negative); Leukocyte Esterase Negative (Negative); Nitrite Negative (Negative); Urobilinogen 0.2 mg/dL (Up to 0.2); pH 6.5 (5-8)
[2022-12-26 01:58] LABS: Bacteria Rare HPF (Negative); C & S Indicated? No; Crystals Negative HPF (Negative); Epithelial Cells Moderate HPF (Negative); Mucus Negative (Negative); RBC 0-2 HPF (0-2); WBC 0-2 HPF (0-5)
--- NOTE | 2022-12-26 03:57 | NUR.NOTE ---
Skin assessment Note: around 0 on 12/26/22 Per BSR. pt had some red excoriation on buttocks. She does indeed have excoriation of buttock bilaterally. also mentioned during report pt has and opened spot on her skin on the inferior portion of her right hamstring, cleansed with NS and zinc medication cream applied. extensively to buttock. Newly noted as new pt has a red spot with scant blood that was present on the left labile tissue. cleaned with warm wipes and cream applied. end note. Nursing Note:
[2022-12-26 07:00] VITALS: BP 129/85; PULSE 66; RESP 18; TEMP 36.6; O2SAT 92
[2022-12-26 08:44] LABS: BUN 5 mg/dL (7-18); CREATININE 0.7 mg/dL (0.55-1.02); Calcium 8.2 mg/dL (8.5-10.1); Chloride 95 mmol/L (98-107); Estimated GFR 97.72 (mL/min/1.73m2); Glucose 90 mg/dL (74-106); Magnesium 1.7 mg/dL (1.8-2.4); Potassium 3.7 mmol/L (3.5-5.1); Sodium 131 mmol/L (136-145)
[2022-12-26] MEDS: Spironolactone 25 MG TAB PO (08:49)
[2022-12-26] MEDS: Pantoprazole 40 MG TABCR PO (08:49)
[2022-12-26] MEDS: Folic Acid 1 MG TAB 5 MG PO (08:49)
[2022-12-26] MEDS: Potassium Chloride 20 MEQ TABCR PO (08:49)
[2022-12-26] MEDS: Celecoxib 200 MG CAP PO (08:49)
[2022-12-26] MEDS: Thiamine 100 MG TAB PO (08:49)
[2022-12-26] MEDS: Furosemide 40 MG TAB PO (08:50)
[2022-12-26] MEDS: Citalopram 10 MG TAB PO (08:50)
[2022-12-26] MEDS: Magnesium Oxide 400 MG TAB 800 MG PO (08:50)
[2022-12-26] MEDS: Oxybutynin-CR 5 MG TABCR 10 MG PO (08:50)
[2022-12-26] MEDS: Metoprolol CR 50 MG TABCR PO (08:50)
[2022-12-26 08:59] LABS: Abs Immature Grans 0.14 10^3/uL (0.0-0.06); Absolute Basophil Count 0.04 10^3/uL (0.0-0.2); Absolute Eosinophil Count 0.31 10^3/uL (0.0-0.7); Absolute Lymphocyte Count 0.69 10^3/uL (1.2-3.4); Absolute Monocyte Count 1.03 10^3/uL (0.1-0.8); Absolute Neutrophil Count 1.52 10^3/uL (1.2-6.7); Basophils % 1.1; Eosinophils % 8.3; HCT 29.4 % (36.0-46.0); Immature Grans % 3.8; Lymphocytes % 18.5; MCH 38.3 pg (27.0-33.0); MCV 113 fL (80-95); MPV 10.7 fL (8.0-11.0); Monocytes % 27.6; Neutrophils % 40.7; RBC 2.61 10^6/uL (3.93-5.22); RDW 13.3 % (11.7-14.6); RDW-SD 55.2 fL; WBC 3.73 10^3/uL (4.4-10.8)
[2022-12-26 09:23] LABS: Diff Comment Diff Reviewed; Macrocytosis 2+; Platelet Count 69 10^3/uL (130-400)
--- NOTE | 2022-12-26 09:49 | PT.INTREAT ---
Date of service: 12/25/22 Time of Service: 10:10 PT Notes Visit Reasons: Alcohol Withdrawl Inpatient Physical Therapy Treatment Note [facility] Date: 12/25/22 PRECAUTIONS: Standard, Fall, Activity as tolerated, Contact precautions. SUBJECTIVE: Morning, patient supine in bed, agreeable to therapy. Afternoon, patient sitting up in chair, agreeable to therapy. OBJECTIVE: PAIN: None reported BED MOBILITY/TRANSFERS Rolling L/R: Independent Supine-sit: Independent Sit-supine: Independent Sit-stand: Standby Stand-sit: Standby Bed-Chair: Contact guard Chair-bed: Contact guard GAIT Assistive Device: front wheeled walker Weight bearing: full Assist: contact guard Distance: morning 12' x2, afternoon 20 x2 Deviation: extremely wide base of support, stiff knee gait, shortened stride length, reduced step height. Patient is fearful of falling, however, balance appears reasonably good. THEREX: Ambulation, seated LE exercises including long arc quads, quad sets, hamstring sets, hip adduction against pillow, hip abduction against therapist manual resistance, hamstring curl against therapist manual resistance, sit to stands. THERACT: Patient participates in simulated dressing activity, transfer training. ASSESSMENT: Patient tolerates therapy well. PLAN: continue global strengthening per plan of care TREATMENT CODE/TIME: morning 72794 Ther Ex 15 minutes, [id number] Ther Act 15 minutes, [id number] Gait 14 minutes beginning at 10:10. Afternoon 66414 Gait 24 minutes, 13942 Ther Ex 12 minutes beginning at 13:35
--- NOTE | 2022-12-26 11:59 | DSE_ITS ---
Date of service: 12/26/22 Time of Service: 11:59 DS: Diagnosis Discharge Diagnosis (1) Alcohol withdrawal: Status: Resolved (2) Macrocytic anemia: Status: Acute (3) Weakness: Status: Acute (4) Alcohol intoxication: Status: Resolved (5) Skin excoriation: Status: Acute (6) Thrombocytopenia: Status: Chronic (7) Hyponatremia: Status: Chronic (8) Hyperbilirubinemia: Status: Acute (9) Gall bladder polyp: Status: Acute (10) Ambulatory dysfunction: Status: Acute Discharge Plan Disposition Patient Disposition: Swing Bed(Skilled,SB1) Condition: Stable Discharge Details Reason For Visit: Alcohol Withdrawl Admit Date/Time: 12/18/22 06:21 Admit Provider: Nabeel Sampson Attending Provider: Nabeel Sampson Primary Care Provider: Medina Ramirez Hospital Course Hospital Course: This is a 62 female with history alcoholism, peripheral neuropathy, chronic weakness, wheelchair bound, lives with daughter. Presented to the ED with complaint of chronic weakness and states she wanted to be admitted for rehab. Medical work up initially did not support acute medical issue. However there was concerns about home care and adult protective services was notified (see ER admission note for details). While awaiting disposition in the ED patient started to exhibit signs of withdrawal and was given Ativan x 3 without effect; she was then started on Phenobarbital with initial dose of 130 mg. At this point hospitalist services was contacted to admit her for acute alcohol withdrawal. She was admitted to the ICU for further management and monitoring. She continued to receive phenobarbital per withdrawal protocol. He was found to be B12 deficient supplementation started. Thrombocytopenia in the setting of alcohol abuse with suspected cirrhosis she underwent an abdominal ultrasound which did show hepatomegaly and fatty infiltration and 4 mm gallbladder polyp. She should have repeat imaging of her gallbladder polyp in 4 to 6 months and c onsider removal if enlarging. She was seen by physical therapy and really ambulated but not felt safe for discharge to home after her alcohol withdrawal resolved. Plan is to keep her here for ongoing physical therapy and rehabilitation prior to returning home, Discharge discussed with Dr. Frost Home Meds and New Rx's Prescriptions: No Action trazodone 50 mg tablet 50 mg PO QHS PRN citalopram 10 mg tablet 10 mg PO DAILY meclizine 12.5 mg tablet 12.5 tab PO Q6H Patient Comments: TAKE ONE TABLET BY MOUTH EVERY 6 HOURS NEEDED multivitamin [Multiple Vitamins] Tablet 1 tab PO QAM Qty: 0 0RF Patient Comments: not taking magnesium oxide 400 mg (241.3 mg magnesium) Tablet 400 mg PO BID Qty: 0 0RF oxybutynin chloride 10 mg tablet extended release 24hr 10 mg PO DAILY Patient Comments: TAKE ONE TABLET BY MOUTH EVERY DAY melatonin 5 mg tablet 5 mg PO QHS PRN metoprolol succinate 50 mg tablet extended release 24 hr 50 mg PO DAILY Patient Comments: TAKE ONE TABLET BY MOUTH EVERY DAY potassium chloride 20 mEq tablet,ER particles/crystals 20 meq PO DAILY Patient Comments: TAKE ONE TABLET BY MOUTH EVERY DAY Discharge Instructions Activity:: Activity as Tolerated Equipment/Supplies:: No Equipment Needed Diet:: As Tolerated Discharge Orders Discharge Orders: Discharge Order (Routine); Ordered 12/26/22 Ordered By: Karissa Castellanos Discharge Data Discharge Date/Time-TO BE ENTERED AT DEPARTURE: 12/26/22 15:10 DS: Summary Time Spent with Patient providing and/or coordinating discharge services: Greater than 30 minutes Status at Discharge Functional status at discharge: uses cane/walker Overall status at discharge: patient is not back to baseline Mental Status: mental status grossly normal Speech and Movement: speech and movement normal Mood: congruent mood Affect: normal affect Exam Const General: cooperative Nutritional Appearance: average body habitus Orientation: alert, awake and oriented x3 HENMT Head: normal to inspection Ears: external ears normal Mouth: moist mucous membranes Eyes Pupils: PERRL EOM: EOM intact bilaterally Neck Neck: full ROM and no tracheal deviation Chest Chest: normal inspection of the chest Resp Auscultation: clear to auscultation bilaterally Cardio Rate: regular rate Rhythm: regular rhythm GI Inspection: normal to inspection Palpation: soft, no guarding, not rigid and nontender Back/Spine/Pelvis Back: No no CVA tenderness Thoracic/Lumbar Spine: thoracic and lumbar spine normal to inspection Skin General skin exam: no rashes or lesions noted Neuro General: patient alert, patient awake and patient oriented x3 Cognition: normal cognition Motor: muscle tone normal throughout and strength 5/5 throughout Extrem General: normal to inspection Psych Mental Status: mental status grossly normal Speech and Movement: speech and movement normal Mood: congruent mood Affect: normal affect DS: Data Vitals/I&O Vitals and I&O: Vital Signs Temperature 36.6 C 12/26/22 07:00 Temperature Source Tympanic 12/26/22 07:00 Pulse 66 12/26/22 07:00 Pulse Rhythm Regular 12/26/22 07:45 Pulse 99 H 12/19/22 06:20 Respiratory Rate 18 12/26/22 07:00 Respiratory Effort Normal, Non-Labored 12/26/22 07:45 Respiratory Depth Normal 12/26/22 07:45 Respiratory Pattern Normal 12/26/22 07:45 Blood Pressure 129/85 12/26/22 07:00 Blood Pressure Mean 70 12/20/22 14:39 Blood Pressure Position Supine 12/18/22 10:20 Pulse Oximetry 92 12/26/22 07:00 Oxygen Delivery Method Room Air 12/26/22 07:00 Oxygen Flow Rate 0 12/26/22 07:00 Pain Level 5 12/26/22 07:00 Comment Pt. asleep at this time. Pt. doesn't display any s/s of pain at this time. 12/21/22 07:09 Intake & Output 12/25/22 12/25/22 12/26/22 11:59 23:59 11:59 Intake Total 240 / 480 240 / 480 480 / 480 Output Total 1050 / 1400 350 / 1400 400 / 400 Balance -810 / -920 -110 / -920 80 / 80 Weight 111.19 kg 117.027 kg Intake: IV 0 / 0 Oral 240 / 480 240 / 480 480 / 480 Output: Urine 1050 / 1400 350 / 1400 400 / 400 Other: Urine Color Yellow Yellow Yellow Urine Appearance Clear Clear Clear Urine Odor None Comment mixed with stool pT lightly incontinent Stool Occult Blood Negative Stool Size Moderate Small Stool Characteristics Formed Soft Brown Formed Voiding Methods Bedside Commode Bedside Commode Bedside Commode Data Completed and Pending Labs on day of discharge: Labs from last 24 hours 12/26/22 12/26/22 12/26/22 06:06 06:06 06:06 WBC 3.73 L RBC 2.61 L Hgb 10.0 L Hct 29.4 L MCV 113 H MCH 38.3 H MCHC 34.0 RDW 13.3 Plt Count 69 L MPV 10.7 Immature Gran % 3.8 Neutrophils % 40.7 Lymphocytes % 18.5 Monocytes % 27.6 Eosinophils % 8.3 Basophils % 1.1 Nucleated RBC % 0.0 Absolute Neutrophils 1.52 Absolute Lymphocytes 0.69 L Absolute Monocytes 1.03 H Absolute Eosinophils 0.31 Absolute Basophils 0.04 RBC Morphology See Below Macrocytosis 2+ Sodium 131 L Potassium 3.7 Chloride 95 L Carbon Dioxide 32.0 Anion Gap 4.0 BUN 5 L Creatinine 0.7 Est GFR (CKD-EPI 2020) 97.72 Glucose 90 Calcium 8.2 L Magnesium 1.7 L Urine Color Urine Clarity Urine pH Ur Specific Serafina Urine Protein Urine Ketones Urine Blood Urine Nitrite Urine Bilirubin Urine Urobilinogen Ur Leukocyte Esterase Urine RBC Urine WBC Ur Epithelial Cells Urine Crystals Urine Bacteria Urine Mucus Ur Culture Indicated? Urine Glucose 12/26/22 01:40 WBC RBC Hgb Hct MCV MCH MCHC RDW Plt Count MPV Immature Gran % Neutrophils % Lymphocytes % Monocytes % Eosinophils % Basophils % Nucleated RBC % Absolute Neutrophils Absolute Lymphocytes Absolute Monocytes Absolute Eosinophils Absolute Basophils RBC Morphology Macrocytosis Sodium Potassium Chloride Carbon Dioxide Anion Gap BUN Creatinine Est GFR (CKD-EPI 2020) Glucose Calcium Magnesium Urine Color Yellow Urine Clarity Clear Urine pH 6.5 Ur Specific Serafina 1.010 Urine Protein Negative Urine Ketones Negative Urine Blood Trace-lysed H Urine Nitrite Negative Urine Bilirubin Negative Urine Urobilinogen 0.2 Ur Leukocyte Esterase Negative Urine RBC 0-2 Urine WBC 0-2 Ur Epithelial Cells Moderate Urine Crystals Negative Urine Bacteria Rare Urine Mucus Negative Ur Culture Indicated? No Urine Glucose Negative PFSH All Active Problems (Updated 12/24/22 @ 15:23 by Mckinley Frost MD) Gall bladder polyp (Acute) Hyponatremia (Chronic) Discharge planning issues (Acute) DVT prophylaxis (Acute) Ambulatory dysfunction (Acute) Hyperbilirubinemia (Acute) Thrombocytopenia (Chronic) Macrocytic anemia (Acute) Skin excoriation (Acute) Weakness (Acute) Skin ulcer (Acute) Hypoalbuminemia (Acute) Pneumonia (Acute) Peripheral neuropathy (Acute) Hypocalcemia (Acute) Folate deficiency (Acute) Weakness (Acute) UTI (urinary tract infection) (Acute) Alcohol abuse (Chronic) Anxiety (Chronic) Bipolar 1 disorder (Chronic) Multiple personality disorder (Acute) Unilateral primary osteoarthritis, left knee (Acute) Iliotibial band syndrome affecting left lower leg (Acute) Rectal bleeding (Acute) Anal and rectal polyp (Acute) Adenomatous polyps (Acute) Villous adenoma of colon (Acute) Tubulovillous adenoma (Acute) Sessile colonic polyp (Acute) Incontinence (Acute) High grade 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 Hx of fracture of arm R arm, both bones. Plates. Knee pain Poor dentition Vertigo Surgical History History of colonoscopy with polypectomy (~09/07/21) 09/07/21 Stoiber, no polyps repeat 2yrs. 02/16/2021 Stoiber, repeat 6 months Stoiber, villous/tubulovillous/sessile serrated 01/2020 Stoiber, multiple polyps 08/11/20 History of hysterectomy Social History Smoking/Tobacco Use Status: Never Smoking risk assessment performed?: Yes Alcohol Intake: current Alcohol Intake frequency: a few times a week Alcohol type: beer Details: 6+ beer/day; Has been cutting back the past few weeks from 18+ beers/day Drug use: Never Substance use type: does not use Do you feel safe at home: Yes Do you feel safe in your relationship?: Yes Time Spent with Patient Time Spent with Patient: 45-69 minutes Time was spent: preparing to see the patient(eg.review tests), ordering medications,tests, procedures, indepentently interpreting results and care coordination
--- NOTE | 2022-12-26 12:52 | PDOC.CMPRO ---
Date of service: 12/26/22 Time of Service: 12:52 Care Management Progress Note Progress Note Text Progress Note Text: Due to drastic gains over the last few days and lack of SNF bed availabilty and offers for admission, Katie will enter [facility] for ongoing rehabilitation prior to returning home.
[2022-12-26 15:04] VITALS: BP 121/78; PULSE 71; RESP 18; TEMP 36.5; O2SAT 100
--- NOTE | 2022-12-26 15:41 | INDS_ITS ---
Date of service: 12/26/22 Time of Service: 11:10 PT Notes Visit Reasons: Alcohol Withdrawl Inpatient Physical Therapy Discharge Summary Date: 12/19/22 Dates of Service: 12/19/2022 through 12/26/2022 Referring Doctor:? Dana Lockwood MD PT Orders: PT CONSULT: Non-urgent, limited ability Precautions: Fall risk, standard Patient Profile/Admitting Diagnosis:??H&P review: 62 female with h/o alchoholism, peripheral neuropathy, chronic weakness, wheelchair bound, lives with daughter. Brought in for evaluation last evening for complaint of chronic weakness. Medical work up did not support acute medical issue. However there was concerns about home care and adult protective services was notified (see ER admission note for details). While here in ER patient started to exhibit signs of withdrawal and appropriate treatment initiated, w/admission for management PMHX:? All Active Problems? Weakness (Acute) Alcohol intoxication (Acute) Skin ulcer (Acute) Hypoalbuminemia (Acute) Pneumonia (Acute) Peripheral neuropathy (Acute) Hypocalcemia (Acute) Folate deficiency (Acute) Weakness (Acute) UTI (urinary tract infection) (Acute) Alcohol abuse (Chronic) Anxiety (Chronic) Bipolar 1 disorder (Chronic) Multiple personality disorder (Acute) Unilateral primary osteoarthritis, left knee (Acute) Iliotibial band syndrome affecting left lower leg (Acute) Rectal bleeding (Acute) Anal and rectal polyp (Acute) Adenomatous polyps (Acute) Villous adenoma of colon (Acute) Tubulovillous adenoma (Acute) Sessile colonic polyp (Acute) Incontinence (Acute) High grade dysplasia in colonic adenoma (Acute) Abdominal pain (Acute) Nausea vomiting and diarrhea (Acute) Medical History? Cervical cancer Colonoscopy planned COVID-19 06/2021-pt stated she had no symptoms but an upset stomach Depression Fracture right arm, metal plate/screws right ankle- metal Hx of chest pain Was seen on 12/24/19 in ED for chest pain, had worked up and f/U with PCP no issues or concerns or recurrent chest pain since. Hx of fracture of arm R arm, both bones. Plates. Knee pain Poor dentition Vertigo Surgical History? History of colonoscopy with polypectomy (~09/07/21) 09/07/21 Stoiber, no polyps repeat 2yrs. 02/16/2021 Stoiber, repeat 6 months Stoiber, villous/tubulovillous/sessile serrated 01/2020 Stoiber, multiple polyps ? 08/11/20 History of hysterectomy Social History/Home Situation: Per patient report - she lives in a first floor, one level, apartment w/her daughter. Her daughter is out of the apartment from 6:00a.m-5:00p.m. Her daughter and a neighbor assist her with a 2 person max transfer from to WC and WC to bed daily, and the neighbor and daughter assist with WC to toilet transfers - this is the only way she can toilet. She reports she is ryan to get a shower once every two weeks, if her daughter has time for her. Her daughter does not give her much time.? She is independent with WC mobility around the apartment during the day, managing to make herself food, if there is food left for her to warm up. She is able to dress herself, only if her clothes are not hidden. She has not ambulated since June when she was working with HHPT, using a RW. HHPT suggested she did not transfer independently due to safety issues, and due to lack of assist she ultimately ended up weaker in the WC. She never leaves her home. She has a cell phone during the day to call the neighbor if she needs help. Current Functional Limitations: MAX x 2 for transfers, STS, and Mod A x 1 for bed mobility, unable to ambulate, independent with WC mobility. Max A x 1 for showering. Equipment Owned/DME: Shower chair, WC, RW, toilet riser Subjective:? Complains of pain in both knees R more affected than L with weight bearing. Also reports pain in low back. Both report is minimized with seated rest Objective:? General Observation: Seaetd on chair Mental Status: A & O x 3 Pain: B kness up to 8/10 after ambulation Vital Signs: Closely monitored by nursing staff ROM: Right Upper Extremity: Grossly limited to malathi elevation of 100 deg, otherwise WNL Left Upper Extremity: Grossly limited to malathi elevation fo 100 deg, otherwise WNL Right Lower Extremity: Hip flex of 90 deg, knee 0 -120, ankle hypomobile but WFL Left Lower Extremity: Hip flex of 90 deg, knee 0-120, ankle hypomobile but WFL Strength: Right Upper Extremity: Grossly 3/5 shoulders all planes, otherwise 3+/5 Left Upper Extremity: Grossly 3/5 shoulder all planes, otherwise 3+/5 Right Lower Extremity: Grossly 3/5 Left Lower Extremity: Grossly 3/5 Sensation:? Decreased sensation B LE's, presence of neuropathy Bed Mobility/Transfers: Sit to stand stand by assist Stand to sit stand by assist Gait:? 30 feet with FWW with decreased flexion in B knees during swing. States that she has been stiff walking for quite a while now. Needed wheelchair follow as she states that her knees just joseph without any warning. Anxiety level high when pain in B knees and back gohigh. Balance:? Static Sitting: Good Dynamic Sitting: Good Static Standing: Fair Dynamic Standing: Fair Special Tests: Mobility Limitations Standardized Measure [facility]-PAC 6 clicks Basic Mobility Inpatient Short Form: Raw Score: 21 CMS score: 29% deficit Assessment:?? Patient has had several falls, peripheral neuropathy, chronic B knee pain, and chronic low back pain that have limited her ability to move. Her ongoing issue with ETOH intoxication/abuse has not helped with her overall mobility at home and has led to further functional deterioration and generalized weakness. She transitions to swing bed level I as of today with a goal to progress her mobility level using front-wheeled walker in anticipation of discharge to home when able. Goals: Goals X1 week 1. Supine-Sit Min A x 1, RW MET, PROGRESS TO MODIFIED INDEPENDENT 2. Sit-Supine Min A x 2, RW MET, PROGRESS TO MODIFIED INDEPENDENT 3. Sit-Stand Min A x 1, RW MET, PROGRESS TO MODIFIED INDEPENDENT 4. Stand-Sit Min A x 1, RW MET, PROGRESS TO MODIFIED INDEPENDENT 5. Bed-Chair Min A x 1, RW MET, PROGRESS TO MODIFIED INDEPENDENT 6. Chair-Bed Min A x1, RW MET, PROGRESS TO MODIFIED INDEPENDENT 7. Gait 5 steps, RW, Min A x 1 MET, PROGRESS TO MODIFIED INDEPENDENT 8. Independent with home exercise program MET, PROGRESS TO MODIFIED INDEPENDENT 9. Balance Fair with RW standing activiites, and EOB MET, PROGRESS TO MODIFIED INDEPENDENT Plan of Care/Treatment Plan: Re-evaluate under swing bed level I as ordered. DISCHARGE RECOMMENDATIONS: Assited living facility vs. supervised home environment based on progress towards goals. TREATMENT CODE/TIME: 74950 x 24 minutes beginning at 11:10 AM. Thank you for the opportunity to participate in the care of this patient. Tamie Christine PT, DPT, CLT [facility] [place], [place]
--- NOTE | 2023-01-07 09:54 | PT.INDS ---
Date of service: 01/07/23 PT Notes Visit Reasons: Alcohol Withdrawl Physical Therapy Swing Bed Level Discharge Summary Date: 12/29/2022 Dates of Service:?12/26/2022 through 12/29/2022 This is a clinical summary of care provided for the duration of dates listed above. No charge was made in the completion of this documentation. Referring Doctor:? Karissa Castellanos,? EGG PASTEURIZER PT Orders: PT CONSULT: Eval/treat Precautions: Falls.? Contact precautions in place.? Activity as tolerated. Patient Profile/Admitting Diagnosis:?? Patient is a 62-year-old female ongoing GI bleed female admitted to [facility] for management of generalized weakness, microcytic anemia, skin excoriation, thrombocytopenia, hypernatremia, hyperbilirubinemia, gallbladder polyp, and ambulatory dysfunction now converting to swing bed level I for subacute rehabilitation. PMHX:? All Active Problems? Weakness (Acute) Alcohol intoxication (Acute) Skin ulcer (Acute) Hypoalbuminemia (Acute) Pneumonia (Acute) Peripheral neuropathy (Acute) Hypocalcemia (Acute) Folate deficiency (Acute) Weakness (Acute) UTI (urinary tract infection) (Acute) Alcohol abuse (Chronic) Anxiety (Chronic) Bipolar 1 disorder (Chronic) Multiple personality disorder (Acute) Unilateral primary osteoarthritis, left knee (Acute) Iliotibial band syndrome affecting left lower leg (Acute) Rectal bleeding (Acute) Anal and rectal polyp (Acute) Adenomatous polyps (Acute) Villous adenoma of colon (Acute) Tubulovillous adenoma (Acute) Sessile colonic polyp (Acute) Incontinence (Acute) High grade dysplasia in colonic adenoma (Acute) Abdominal pain (Acute) Nausea vomiting and diarrhea (Acute) Medical History? Cervical cancer Colonoscopy planned COVID-19 06/2021-pt stated she had no symptoms but an upset stomach Depression Fracture right arm, metal plate/screws right ankle- metal Hx of chest pain Was seen on 12/24/19 in ED for chest pain, had worked up and f/U with PCP no issues or concerns or recurrent chest pain since. Hx of fracture of arm R arm, both bones. Plates. Knee pain Poor dentition Vertigo Surgical History? History of colonoscopy with polypectomy (~09/07/21) 09/07/21 Stoiber, no polyps repeat 2yrs. 02/16/2021 Stoiber, repeat 6 months Stoiber, villous/tubulovillous/sessile serrated 01/2020 Stoiber, multiple polyps ? 08/11/20 History of hysterectomy Social History/Home Situation: Per patient report - she lives in a first floor, one level, apartment w/her daughter. Her daughter is out of the apartment from 6:00a.m-5:00p.m. Her daughter and a neighbor assist her with a 2 person max transfer from to WC and WC to bed daily, and the neighbor and daughter assist with WC to toilet transfers - this is the only way she can toilet. She reports she is ryan to get a shower once every two weeks, if her daughter has time for her. Her daughter does not give her much time.? She is independent with WC mobility around the apartment during the day, managing to make herself food, if there is food left for her to warm up. She is able to dress herself, only if her clothes are not hidden. She has not ambulated since June when she was working with HHPT, using a RW. HHPT suggested she did not transfer independently due to safety issues, and due to lack of assist she ultimately ended up weaker in the WC. She never leaves her home. She has a cell phone during the day to call the neighbor if she needs help. Equipment Owned/DME: Shower chair, WC, RW, toilet riser Subjective:? NT. See most recent [employer]ER [employer]EDER notes. Objective:? General Observation: Mental Status: NT. See most recent [employer]ER notes. Pain: NT. See most recent [employer]ER FEEDER notes. Vital Signs: NT. See most recent [employer]ER notes. ROM: Right Upper Extremity: Grossly limited to malathi elevation of 100 deg, otherwise WNL Left Upper Extremity: Grossly limited to malathi elevation fo 100 deg, otherwise WNL Right Lower Extremity: Hip flex of 90 deg, knee 0 -120, ankle hypomobile but WFL Left Lower Extremity: Hip flex of 90 deg, knee 0-120, ankle hypomobile but WFL Strength: Right Upper Extremity: Grossly 3/5 shoulders all planes, otherwise 3+/5 Left Upper Extremity: Grossly 3/5 shoulder all planes, otherwise 3+/5 Right Lower Extremity: Grossly 3/5 Left Lower Extremity: Grossly 3/5 Sensation:? Decreased senosry perception in B LE due to pre-existing neuropathy BED MOBILITY/TRANSFERS? Rolling L/R: independent Supine-sit: independent ? Sit-supine: independent? Sit-stand: independent ? Stand-sit: independent? Bed-Chair: standby ? Chair-bed: standby ? GAIT? Assistive Device: FWW? Weight bearing: full Assist: standby ? Distance:? 20 feet x2 ? Deviation: stiff legged, reduced step height, reduced step length, forward leaning posture ? Balance:? Static Sitting: Good Dynamic Sitting: Good Static Standing: Fair Dynamic Standing: Fair ASSESSMENT:?? Patient has had several falls,? peripheral neuropathy,? chronic B knee pain, and chronic low back pain that have limited her ability to move.? Her ongoing issue with ETOH intoxication/abuse has not helped with her overall mobility at home and has led to further functional deterioration and generalized weakness.? She transitions to swing bed level I as of today with a goal to progress her mobility level using front-wheeled walker/4-wheeled walker in anticipation of discharge to home when able.? Goals: Goals X1 week 1. Supine-Sit independent MET 2. Sit-Supine independent MET 3. Sit-Stand independent with FWW MET 4. Stand-Sit independent with FWW MET 5. Bed-Chair independent with FWW NOT MET 6. Chair-Bed independent with FWW NOT MET 7. Independent gait on level surface with use of least restrictive device for at least 100 feet without report of pain nor dyspnea NOT MET 8. Independent with home exercise program NOT MET 9. Good static and dynamic standing balance/tolerance NOT MET DISCHARGE RECOMMENDATIONS: SNF vs. Assisted living facility vs. supervised home environment based on progress towards goals. TREATMENT CODE/TIME: NC Thank you for the opportunity to participate in the care of this patient. Tamie Christine PT, DPT, CLT [facility] [place], [place]
== END 2022-12-26 15:10 | disposition swing bed (61) | DRG 897 ==
LOC: ER 12-18 07:02 → ICU 12-18 13:35 → MS 12-20 16:21
PROVIDERS: Family Medicine; Internal Medicine; Student in an Organized Health Care Education/Training Program; Admitting Provider General Practice; Emergency Provider Emergency Medicine; PCP Nurse Practitioner Family; Visit Provider General Practice
DX: F10.239 Alcohol dependence with withdrawal, unspecified (principal); F31.89 Other bipolar disorder; E87.1 Hypo-osmolality and hyponatremia; Z68.41 Body mass index [BMI] 40.0-44.9, adult; R53.1 Weakness; D53.9 Nutritional anemia, unspecified; F10.229 Alcohol dependence with intoxication, unspecified; K82.4 Cholesterolosis of gallbladder; G62.9 Polyneuropathy, unspecified; E88.09 Other disorders of plasma-protein metabolism, not elsewhere classified; E83.51 Hypocalcemia; F41.9 Anxiety disorder, unspecified; F44.81 Dissociative identity disorder; M17.12 Unilateral primary osteoarthritis, left knee; M76.32 Iliotibial band syndrome, left leg; R32 Unspecified urinary incontinence; Z85.41 Personal history of malignant neoplasm of cervix uteri; K74.60 Unspecified cirrhosis of liver; Z99.3 Dependence on wheelchair; R27.0 Ataxia, unspecified; E80.6 Other disorders of bilirubin metabolism; E66.9 Obesity, unspecified; R53.81 Other malaise; L22 Diaper dermatitis; S70.311A Abrasion, right thigh, initial encounter; X58.XXXA Exposure to other specified factors, initial encounter; D69.59 Other secondary thrombocytopenia; I87.303 Chronic venous hypertension (idiopathic) without complications of bilateral lower extremity; E53.8 Deficiency of other specified B group vitamins; B96.20 Unspecified Escherichia coli [E. coli] as the cause of diseases classified elsewhere; N30.90 Cystitis, unspecified without hematuria
CPT/HCPCS: 36415; 80048; 80053; 80076; 85027; 86704; 86706; 86803; 87077; 87340; 87493; 97110; 97116; 97162; 97163; 97530; 76700; 80320; 81003; 81015; 82607; 82746; 83540; 83550; 83735; 84100; 85025; 85610; 87086; 87186; 99222; 99231; 99232; 99239; 99291; J2060; J2560; J3490

== ENCOUNTER 2022-12-26 14:49 | Inpatient (IN) | payer MEDICARE, MEDICAID, SELFPAY ==
--- NOTE | 2022-12-26 12:54 | CMSCP_ITS ---
Date of service: 12/26/22 Time of Service: 12:54 Swingbed Plan of Care Activites/Discharge Plan of care: SWING BED PROGRAM ACTIVITIES/DISCHARGE PLAN OF CARE ACTIVITIES PLAN Date: 12/26/22 Identified Need: Life Enrichment during extended hospitalization Intervention/Plan: Activity Cart, visitors, music therapy, Reiki, etc. Initials: [facility] DISCHARGE PLAN Date: 12/26/22 Identified Need: Progress mobility, extend sobriety Intervention/Plan: Katie will enter [facility] for continued rehabiliation. Now that her pain is managed, she is improving drastically physically and interdisciplinary team feels she would benefit from S/T rehab prior to returning home. Shipping Checker contacted for consult/connection as well; to discuss resources for Katie. Initials: [facility]
--- NOTE | 2022-12-26 13:00 | CMSA_ITS ---
Date of service: 12/26/22 Time of Service: 13:00 SB Psychosocial/Act. [facility] Admission Admission Date: 12/18/22 Admission From:: Community-lives in own studio apartment. Youngest adult daughter resides with her. Diagnosis:: ETOH withdrawal Swing Bed Admission Swing Bed Admit Date:: 12/26/22 Swing Bed Level of Care: Level 1/SNF Social Supports PREVIOUS FUNCTIONAL STATUS/SOCIAL/FAMILY SUPPORTS:: Zabrina has struggled with life long alcoholism, per her daughter's reports. Zabrina has four daughters; all reside locally. Zabrina resides in a studio apartment, in [facility]. Her youngest daughter, Simran Enciso resides with her. Simran works at [employer] in housekeeping. Zabrina's daughters Vreona Guadarrama ([phone]), Aleta Trent ([phone]) requested CM consult; initial assessment information is gathered from their input. Zabrina has a supportive upstairs neighbor, Guy who comes down at 0600 each day and helps her transfer from her bed to her W/C. She drinks alcohol throughout the day; beer and black velvet with soda. Simran and Guy supply her alcohol per her request-her daughter's note that Simran just wants mom happy and will not say no to her. Simran also has access to Zabrina's resources financially and sleeps on an air mattress in the studio portion of the apartment. Zabrina is incontinent of urine and feces and reportedly does not transfer out of the W/C during the day to use the bathroom. She was incarcerated a few years ago, in [place]. About a year ago, she was [facility] at [facility] and has been W/C bound since returning home. Her daughter's wonder if she could walk if sober and strengthened. They report family members and friends continued to bring alcohol in to Zabrina when at the rehab. Prior to Admission Living Arrangements/Environment Prior to Admission:: Community-lives in own studio apartment. Youngest (adult) daughter resides with her. Disabled, previously incarcerated (a few years ago) out of state. SNF stay at [facility] approx a year ago, remained in W/C since returning home; often incontinent per family report. [place]: No 's Spouse: No Benefits Financial: SSI (SSDI), Medicare and Medicaid [employer] Active [employer] Member:: No Advance Directives for Healthcare If no AD, do you want more information:: No Present Functional Status Physical Abilities:: Previously W/C bound with 1 assist with transfers, now walking a few feet with PT Cognitive:: Diminished at times Medical History PAST MEDICAL HISTORY/PAST SURGICAL HISTORY:: All Active Problems Chest pain (Acute) Pneumonia (Acute) Atrial fibrillation with rapid ventricular response (Acute) Peripheral neuropathy (Acute) Hypomagnesemia (Acute) Hypocalcemia (Acute) Folate deficiency (Acute) Weakness (Acute) UTI (urinary tract infection) (Acute) Hypokalemia (Acute) Hyponatremia (Acute) Alcohol abuse (Chronic) Anxiety (Chronic) Bipolar 1 disorder (Chronic) Multiple personality disorder (Acute) Unilateral primary osteoarthritis, left knee (Acute) Iliotibial band syndrome affecting left lower leg (Acute) Rectal bleeding (Acute) Anal and rectal polyp (Acute) Adenomatous polyps (Acute) Villous adenoma of colon (Acute) Tubulovillous adenoma (Acute) Sessile colonic polyp (Acute) Incontinence (Acute) High grade 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 Hx of fracture of arm R arm, both bones. Plates. Knee pain Poor dentition Vertigo Surgical History History of colonoscopy with polypectomy (~09/07/21) 09/07/21 Stoiber, no polyps repeat 2yrs. 02/16/2021 Stoiber, repeat 6 months Stoiber, villous/tubulovillous/sessile serrated 01/2020 Stoiber, multiple polyps 08/11/20 History of hysterectomy General Health:: Poor at baseline due to lifelong alcoholism Past Psychiatric Treatment:: Unknown Admission Data Reason for Swing Bed Admission:: Continued PT, Recovery coordination Discharge Plan:: Katie will be offered recovery support services for service connection if she wishes. She will continue to benefit from PT and pain management. 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
--- NOTE | 2022-12-26 14:51 | HPE_ITS ---
Date of service: 12/26/22 Time of Service: 14:51 Assessment and Plan Assessment and plan (1) Weakness: Status: Acute Assessment and plan: continue PT, safety precautions case management following for discharge planning (2) Macrocytic anemia: Status: Acute Assessment and plan: secondary to alcohol and folate deficiency, currently on replacement. she does not have B12 deficiency (3) Skin excoriation: Status: Acute Assessment and plan: C/s wound care (4) Thrombocytopenia: Status: Chronic Assessment and plan: In setting of EtOH abuse Abd US: hepatomegaly and fatty infiltration. 4mm gallbladder polyp. Monitoring. No signs or symptoms of bleeding. (5) Hyponatremia: Status: Chronic Assessment and plan: stable.. (6) Hyperbilirubinemia: Status: Acute Assessment and plan: viral hepatitis panel neg. for HCV and HBV, total bilirubin down to 1.2. no evidence for jaundice. patient has fatty liver changes but no cholelithiasis or evidence of acute cholecystitis. she has a GB polyp. this should be followed as outpatient (7) Gall bladder polyp: Status: Acute Assessment and plan: needs follow up w/ repeat imaging in 4 to 6 months and if enlarging the consider removal. (8) Ambulatory dysfunction: Status: Acute Assessment and plan: PT and fall precautions (9) Discharge planning issues: Status: Acute Assessment and plan: Full code anticipate discharge to home once she's met full inpatient rehab goals discussed with Dr Frost History of Present Illness History of Present Illness Chief Complaint: weakness Narrative: This is a 62 female with history alcoholism, peripheral neuropathy, chronic weakness, wheelchair bound, lives with daughter. Presented to the ED with complaint of chronic weakness and states she wanted to be admitted for rehab. Medical work up initially did not support acute medical issue. However there was concerns about home care and adult protective services was notified (see ER admission note for details). While awaiting disposition in the ED patient star linh to exhibit signs of withdrawal and was given Ativan x 3 without effect; she was then started on Phenobarbital with initial dose of 130 mg. At this point hospitalist services was contacted to admit her for acute alcohol withdrawal. She was admitted to the ICU for further management and monitoring. She continued to receive phenobarbital per withdrawal protocol. He was found to be B12 deficient supplementation started. Thrombocytopenia in the setting of alcohol abuse with suspected cirrhosis she underwent an abdominal ultrasound which did show hepatomegaly and fatty infiltration and 4 mm gallbladder polyp. She should have repeat imaging of her gallbladder polyp in 4 to 6 months and consider removal if enlarging. She was seen by physical therapy and really ambulated but not felt safe for discharge to home after her alcohol withdrawal resolved. Plan is to keep her here for ongoing physical therapy and rehabilitation prior to returning home, admission with Dr. Frost Review of Systems All systems reviewed & are unremarkable except as noted in HPI and below PFSH All Active Problems (Updated 12/24/22 @ 15:23 by Mckinley Frost MD) Gall bladder polyp (Acute) Hyponatremia (Chronic) Discharge planning issues (Acute) DVT prophylaxis (Acute) Ambulatory dysfunction (Acute) Hyperbilirubinemia (Acute) Thrombocytopenia (Chronic) Macrocytic anemia (Acute) Skin excoriation (Acute) Weakness (Acute) Skin ulcer (Acute) Hypoalbuminemia (Acute) Pneumonia (Acute) Peripheral neuropathy (Acute) Hypocalcemia (Acute) Folate deficiency (Acute) Weakness (Acute) UTI (urinary tract infection) (Acute) Alcohol abuse (Chronic) Anxiety (Chronic) Bipolar 1 disorder (Chronic) Multiple personality disorder (Acute) Unilateral primary osteoarthritis, left knee (Acute) Iliotibial band syndrome affecting left lower leg (Acute) Rectal bleeding (Acute) Anal and rectal polyp (Acute) Adenomatous polyps (Acute) Villous adenoma of colon (Acute) Tubulovillous adenoma (Acute) Sessile colonic polyp (Acute) Incontinence (Acute) High grade 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 Hx of fracture of arm R arm, both bones. Plates. Knee pain Poor dentition Vertigo Surgical History History of colonoscopy with polypectomy (~09/07/21) 09/07/21 Stoiber, no polyps repeat 2yrs. 02/16/2021 Stoiber, repeat 6 months Stoiber, villous/tubulovillous/sessile serrated 01/2020 Stoiber, multiple polyps 08/11/20 History of hysterectomy Social History Smoking/Tobacco Use Status: Never Smoking risk assessment performed?: Yes Alcohol Intake: current Alcohol Intake frequency: a few times a week Alcohol type: beer Details: 6+ beer/day; Has been cutting back the past few weeks from 18+ beers/day Drug use: Never Substance use type: does not use Do you feel safe at home: Yes Do you feel safe in your relationship?: Yes Meds Allergies and Home Medications Allergies Allergy/AdvReac Type Severity Reaction Status Date / Time sulfamethoxazole Allergy Severe Unverified 12/18/22 09:35 [From Bactrim] trimethoprim [From Bactrim] Allergy Severe Unverified 12/18/22 09:35 Penicillins Allergy Intermediate Hives Verified 12/18/22 09:35 Home Medications Medication Instructions Recorded Confirmed Type meclizine 12.5 mg tablet 12.5 tab PO Q6H 02/08/22 12/18/22 History magnesium oxide 400 mg (241.3 mg 400 mg PO BID #0 tabs 02/11/22 12/18/22 Rx magnesium) tablet multivitamin (Multiple Vitamins 1 tab PO QAM #0 tabs 02/11/22 12/18/22 Rx tablet) citalopram 10 mg tablet 10 mg PO DAILY 08/06/22 12/18/22 History trazodone 50 mg tablet 50 mg PO QHS PRN 08/06/22 12/18/22 History melatonin 5 mg tablet 5 mg PO QHS PRN 12/18/22 12/18/22 History oxybutynin chloride 10 mg 10 mg PO DAILY 12/18/22 12/18/22 History tablet,extended release 24 hr metoprolol succinate 50 mg 50 mg PO DAILY 12/19/22 12/19/22 History tablet,extended release 24 hr potassium chloride 20 mEq 20 meq PO DAILY 12/19/22 12/19/22 History tablet,extended release(part/cryst) Exam Const General: cooperative Nutritional Appearance: average body habitus Orientation: alert, awake and oriented x3 HENMT Head: normal to inspection Ears: external ears normal Mouth: moist mucous membranes Eyes Pupils: PERRL EOM: EOM intact bilaterally Neck Neck: full ROM and no tracheal deviation Chest Chest: normal inspection of the chest Resp Auscultation: clear to auscultation bilaterally Cardio Rate: regular rate Rhythm: regular rhythm GI Inspection: normal to inspection Palpation: soft, no guarding, not rigid and nontender Back/Spine/Pelvis Back: No no CVA tenderness Thoracic/Lumbar Spine: thoracic and lumbar spine normal to inspection Skin General skin exam: no rashes or lesions noted Neuro General: patient alert, patient awake and patient oriented x3 Cognition: normal cognition Motor: muscle tone normal throughout and strength 5/5 throughout Extrem General: normal to inspection Psych Mental Status: mental status grossly normal Speech and Movement: speech and movement normal Mood: congruent mood Affect: normal affect Time Spent Time spent with Patient: 40-54 minutes Time was spent: preparing to see the patient(eg.review tests), obtaining and/or reviewing separately otained hiistory, ordering medications,tests, procedures, indepentently interpreting results, counseling the patient and care coordination
--- NOTE | 2022-12-26 15:58 | DI.RAD_ITS ---
Exam(s) XR LUMBAR SPINE AP, LAT EXAM: XR LUMBAR SPINE AP, LAT CLINICAL HISTORY: low back pain,. TECHNIQUE: 2D digital imaging was performed. COMPARISON: CR,XR XR LUMBAR SPINE COMPLETE from 02/09/2022 FINDINGS: 3 views There is transitional lumbosacral anatomy again noted. There is a transitional lumbosacral vertebra. No evidence fracture. There is anterolisthesis L5 upon the transitional vertebra. There is facet arthrosis at this level. No pars defects there is moderate disc space narrowing at this level noted. IMPRESSION: Transitional lumbosacral vertebra again noted. There is anterolisthesis of L5 upon the transitional vertebra. Facet arthrosis. No pars defects. N o prominent disc space narrowing. Sacroiliac joints appear unremarkable DATA REPOSITORY: RADIATION DOSE DELIVERED:
--- NOTE | 2022-12-26 15:58 | DI.RAD_ITS ---
Exam(s) XR KNEE LT 3V AP,LAT,ROD EXAM: XR KNEE LT 3V AP,LAT,ROD CLINICAL HISTORY: pain, possible fall injury. TECHNIQUE: 2D digital imaging was performed. COMPARISON: CR XR KNEE RT 3V AP,LAT,ROD from 12/26/2022 FINDINGS: 3 views No evidence of acute fracture. There appears to be a small joint effusion. Moderate degenerative ch anges noted. No osseous lesions. IMPRESSION: Degenerative changes. No fracture but there is a small joint effusion. May signify an internal dera ngement. DATA REPOSITORY: RADIATION DOSE DELIVERED:
--- NOTE | 2022-12-26 15:58 | DI.RAD_ITS ---
Exam(s) XR KNEE RT 3V AP,LAT,ROD EXAM: XR KNEE RT 3V AP,LAT,ROD CLINICAL HISTORY: pain, possible fall injury. TECHNIQUE: 2D digital imaging was performed. COMPARISON: No exams were available for comparison FINDINGS: 3 views No evidence of acute fracture nor obvious joint effusion. Mild narrowing of the medial compartment n oted. On the lateral view there is calcific density seen anterior to the knee joint, anterior to pat ellar ligament. No osseous lesions evident. IMPRESSION: DATA REPOSITORY: RADIATION DOSE DELIVERED:
--- NOTE | 2022-12-26 16:01 | IN_ITS ---
Date of service: 12/26/22 Time of Service: 14:03 PT Notes Visit Reasons: Ataxia Physical Therapy Swing Bed Level I Initial Evaluation Dates of Service:?12/26/2022 Referring Doctor:? Karissa Castellanos NP PT Orders: PT CONSULT: Eval/treat Precautions: Falls. Contact precautions in place. Activity as tolerated. Patient Profile/Admitting Diagnosis:?? Patient is a 62-year-old female ongoing GI bleed female admitted to [facility] for management of generalized weakness, microcytic anemia, skin excoriation, thrombocytopenia, hypernatremia, hyperbilirubinemia, gallbladder polyp, and ambulatory dysfunction now converting to swing bed level I for subacute rehabilitation. PMHX:? All Active Problems? Weakness (Acute) Alcohol intoxication (Acute) Skin ulcer (Acute) Hypoalbuminemia (Acute) Pneumonia (Acute) Peripheral neuropathy (Acute) Hypocalcemia (Acute) Folate deficiency (Acute) Weakness (Acute) UTI (urinary tract infection) (Acute) Alcohol abuse (Chronic) Anxiety (Chronic) Bipolar 1 disorder (Chronic) Multiple personality disorder (Acute) Unilateral primary osteoarthritis, left knee (Acute) Iliotibial band syndrome affecting left lower leg (Acute) Rectal bleeding (Acute) Anal and rectal polyp (Acute) Adenomatous polyps (Acute) Villous adenoma of colon (Acute) Tubulovillous adenoma (Acute) Sessile colonic polyp (Acute) Incontinence (Acute) High grade dysplasia in colonic adenoma (Acute) Abdominal pain (Acute) Nausea vomiting and diarrhea (Acute) Medical History? Cervical cancer Colonoscopy planned COVID-19 06/2021-pt stated she had no symptoms but an upset stomach Depression Fracture right arm, metal plate/screws right ankle- metal Hx of chest pain Was seen on 12/24/19 in ED for chest pain, had worked up and f/U with PCP no issues or concerns or recurrent chest pain since. Hx of fracture of arm R arm, both bones. Plates. Knee pain Poor dentition Vertigo Surgical History? History of colonoscopy with polypectomy (~09/07/21) 09/07/21 Stoiber, no polyps repeat 2yrs. 02/16/2021 Stoiber, repeat 6 months Stoiber, villous/tubulovillous/sessile serrated 01/2020 Stoiber, multiple polyps ? 08/11/20 History of hysterectomy Social History/Home Situation: Per patient report - she lives in a first floor, one level, apartment w/her daughter. Her daughter is out of the apartment from 6:00a.m-5:00p.m. Her daughter and a neighbor assist her with a 2 person max transfer from to WC and WC to bed daily, and the neighbor and daughter assist with WC to toilet transfers - this is the only way she can toilet. She reports she is ryan to get a shower once every two weeks, if her daughter has time for her. Her daughter does not give her much time.? She is independent with mobility around the apartment during the day, managing to make herself food, if there is food left for her to warm up. She is able to dress herself, only if her clothes are not hidden. She has not ambulated since June when she was working with HHPT, using a RW. HHPT suggested she did not transfer independently due to safety issues, and due to lack of assist she ultimately ended up weaker in the WC. She never leaves her home. She has a cell phone during the day to call the neighbor if she needs help. Equipment Owned/DME: Shower chair, WC, RW, toilet riser Subjective:? Complains of pain in both knees R more affected than L with weight bearing.? Also reports pain in low back.? Verbalized that she will not have the support from her 4 daughters when she goes home. The daughter she lives with, Simran, works during the day and is hardly available for her at night. Simran does cook her meals for her. Objective:? General Observation: Resting in bed Mental Status: A & O x 3 Pain: B knees up to 8/10 after ambulation Vital Signs: Closely monitored by nursing staff ROM: Right Upper Extremity: Grossly limited to malathi elevation of 100 deg, otherwise WNL Left Upper Extremity: Grossly limited to malathi elevation fo 100 deg, otherwise WNL Right Lower Extremity: Hip flex of 90 deg, knee 0 -120, ankle hypomobile but WFL Left Lower Extremity: Hip flex of 90 deg, knee 0-120, ankle hypomobile but WFL Strength: Right Upper Extremity: Grossly 3/5 shoulders all planes, otherwise 3+/5 Left Upper Extremity: Grossly 3/5 shoulder all planes, otherwise 3+/5 Right Lower Extremity: Grossly 3/5 Left Lower Extremity: Grossly 3/5 Sensation:? Decreased senosry perception in B LE due to pre-existing neuropathy Bed Mobility/Transfers: Sit to stand stand by assist Stand to sit stand by assist Gait:? 20-30 feet with FWW with decreased flexion in B knees during swing.? States that she has been stiff walking for quite a while now.? Needed wheelchair follow as she states that her knees just joseph without any warning.? Anxiety level high when pain in B knees and back go high.? Balance:? Static Sitting: Good Dynamic Sitting: Good Static Standing: Fair Dynamic Standing: Fair Special Tests: Mobility Limitations Standardized Measure [facility] [place] AM-PAC 6 clicks Basic Mobility Inpatient Short Form: Raw Score:? 21 CMS score: 29% deficit Informed Consent/Education: Patient was instructed in purpose of PT consult and plan of care. Agreeable to proceed with established PT POC to achieve personal goals. ASSESSMENT:?? Patient has had several falls,? peripheral neuropathy,? chronic B knee pain, and chronic low back pain that have limited her ability to move.? Her ongoing issue with ETOH intoxication/abuse has not helped with her overall mobility at home and has led to further functional deterioration and generalized weakness.? She transitions to swing bed level I as of today with a goal to progress her mobility level using front-wheeled walker/4-wheeled walker in anticipation of discharge to home when able.? Goals: Goals X1 week 1. Supine-Sit independent 2. Sit-Supine independent 3. Sit-Stand independent with FWW 4. Stand-Sit independent with FWW 5. Bed-Chair independent with FWW 6. Chair-Bed independent with FWW 7. Independent gait on level surface with use of least restrictive device for at least 100 feet without report of pain nor dyspnea 8. Independent with home exercise program 9. Good static and dynamic standing balance/tolerance PLAN OF CARE/TREATMENT PLAN: 1. Pre-medicate patient for pain. 2. Perform B LE/UE strengthening exercises with resistance devices seated to minimize overload on B knees and back. 3. Encourage increase distance in ambulation with several seated rests to of fset fatigue and minimize pain. 4. Break down session into two if needed. 5. Progress to using FWW as tolerated. Wean off wheelchair if able. Determine if able to progress to use of 4-wheeled walker to allow for seated rest at discharge destination. DISCHARGE RECOMMENDATIONS: SNF vs. Assisted living facility vs. supervised home environment based on progress towards goals. TREATMENT CODE/TIME: 54383 x 20 minutes, 70016 x 12 minutes beginning at 14:03 PM. Thank you for the opportunity to participate in the care of this patient. Tamie Christine PT, DPT, CLT [facility] [place], [place]
[2022-12-26] MEDS: Furosemide 40 MG TAB PO (16:21)
[2022-12-26] MEDS: Acetaminophen 325 MG TAB 650 MG PO (18:15)
[2022-12-26] MEDS: Celecoxib 200 MG CAP PO (19:15)
[2022-12-26] MEDS: Magnesium Oxide 400 MG TAB 800 MG PO (19:15)
[2022-12-26] MEDS: Diclofenac 1% Gel 100 GM TUBE TP (19:18)
[2022-12-26] MEDS: Melatonin 3 MG TAB PO (21:11)
[2022-12-26] MEDS: traZODone 50 MG TAB PO (21:11)
[2022-12-27] MEDS: Acetaminophen 325 MG TAB 650 MG PO ×3 (02:00→19:56)
[2022-12-27 08:15] VITALS: BP 153/92; PULSE 74; RESP 14; TEMP 36.6; O2SAT 95
[2022-12-27] MEDS: Folic Acid 1 MG TAB 5 MG PO (08:18)
[2022-12-27] MEDS: Oxybutynin-CR 5 MG TABCR 10 MG PO (08:18)
[2022-12-27] MEDS: Magnesium Oxide 400 MG TAB 800 MG PO ×2 (08:19→19:56)
[2022-12-27] MEDS: Pantoprazole 40 MG TABCR PO (08:19)
[2022-12-27] MEDS: Potassium Chloride 20 MEQ TABCR PO (08:19)
[2022-12-27] MEDS: Metoprolol CR 50 MG TABCR PO (08:19)
[2022-12-27] MEDS: Celecoxib 200 MG CAP PO ×2 (08:19→19:56)
[2022-12-27] MEDS: Thiamine 100 MG TAB PO (08:20)
[2022-12-27] MEDS: Spironolactone 25 MG TAB PO (08:20)
[2022-12-27] MEDS: Furosemide 40 MG TAB PO ×2 (08:20→17:31)
[2022-12-27] MEDS: Diclofenac 1% Gel 100 GM TUBE TP ×4 (08:20→19:56)
[2022-12-27] MEDS: Citalopram 10 MG TAB PO (08:20)
--- NOTE | 2022-12-27 16:13 | PT.INTREAT ---
Date of service: 12/27/22 Time of Service: 09:45 PT Notes Visit Reasons: Ataxia Inpatient Physical Therapy Treatment Note [facility] Date: 12/27/22 PRECAUTIONS: Contact, fall, standard, activity as tolerated SUBJECTIVE: Morning: patient supine in bed, agreeable to therapy. Afternoon: patient sitting up in recliner, agreeable to therapy OBJECTIVE: PAIN: None reported BED MOBILITY/TRANSFERS Rolling L/R: independent Supine-sit: independent Sit-supine: independent Sit-stand: independent Stand-sit: independent Bed-Chair: standby Chair-bed: standby GAIT Assistive Device: front wheeled walker Weight bearing: full Assist: standby, wheelchair follow Distance: 20 feet x2, 10 feet x2 Deviation: stiff legged, very wide base of support, short stride length, reduced step height THEREX: sit to stand x5, long arc quads, heel raises, toe raises, seated marching, tap outs (hip abduction), diaphragmatic breathing. ASSESSMENT: patient tolerates therapy well PLAN: continue strengthening per plan of care TREATMENT CODE/TIME: morning [id number] gait 25 minutes beginning at 9:45, afternoon [id number] ther ex 27 minutes beginning at 14:38
[2022-12-27] MEDS: traZODone 50 MG TAB PO (21:25)
[2022-12-27] MEDS: Melatonin 3 MG TAB PO (21:25)
[2022-12-28 07:15] VITALS: BP 104/67; PULSE 68; RESP 17; TEMP 36; O2SAT 99
[2022-12-28] MEDS: Thiamine 100 MG TAB PO (09:36)
[2022-12-28] MEDS: Oxybutynin-CR 5 MG TABCR 10 MG PO (09:36)
[2022-12-28] MEDS: Potassium Chloride 20 MEQ TABCR PO (09:36)
[2022-12-28] MEDS: Citalopram 10 MG TAB PO (09:36)
[2022-12-28] MEDS: Folic Acid 1 MG TAB 5 MG PO (09:36)
[2022-12-28] MEDS: Furosemide 40 MG TAB PO ×2 (09:37→16:12)
[2022-12-28] MEDS: Spironolactone 25 MG TAB PO (09:37)
[2022-12-28] MEDS: Magnesium Oxide 400 MG TAB 800 MG PO ×2 (09:37→21:01)
[2022-12-28] MEDS: Metoprolol CR 50 MG TABCR PO (09:37)
[2022-12-28] MEDS: Celecoxib 200 MG CAP PO ×2 (09:37→21:01)
[2022-12-28] MEDS: Pantoprazole 40 MG TABCR PO (09:37)
[2022-12-28] MEDS: Diclofenac 1% Gel 100 GM TUBE TP ×4 (09:39→21:01)
[2022-12-28] MEDS: Acetaminophen 325 MG TAB 650 MG PO ×2 (10:39→16:15)
--- NOTE | 2022-12-28 13:46 | PT.INTREAT ---
Date of service: 12/28/22 Time of Service: 11:06 PT Notes Visit Reasons: Ataxia Inpatient Physical Therapy Treatment Note [facility] Date: 12/28/22 PRECAUTIONS: Fall, standard, activity as tolerated SUBJECTIVE: Patient supine in bed, agreeable to therapy OBJECTIVE: PAIN: none reported BED MOBILITY/TRANSFERS Rolling L/R: independent Supine-sit: independent Sit-supine: independent Sit-stand: independent Stand-sit: independent Bed-Chair: Standby Chair-bed: standby GAIT Assistive Device: FWW Weight bearing: full Assist: standby Distance: 25'x2 Deviation: stiff legged, wide base of support, shortened step length, shortened step height, forward leaning posture THEREX: Seated LAQ's, heel raises, toe raises, marching for 2x10, sit to stands for 2x3, mini squats for 1x5. ASSESSMENT: patient tolerates therapy well PLAN: continue strengthening per plan of care TREATMENT CODE/TIME: [id number] Gait 17 minutes, [id number] Ther Ex 17 minutes beginning at 9:40
[2022-12-29] MEDS: Diclofenac 1% Gel 100 GM TUBE TP ×4 (02:04→16:05)
[2022-12-29] MEDS: Acetaminophen 325 MG TAB 650 MG PO ×2 (04:12→11:09)
[2022-12-29] MEDS: Magnesium Oxide 400 MG TAB 800 MG PO ×2 (07:37→21:03)
[2022-12-29] MEDS: Furosemide 40 MG TAB PO ×2 (07:37→16:05)
[2022-12-29] MEDS: Celecoxib 200 MG CAP PO ×2 (07:37→21:04)
[2022-12-29] MEDS: Pantoprazole 40 MG TABCR PO (07:38)
[2022-12-29] MEDS: Oxybutynin-CR 5 MG TABCR 10 MG PO (07:38)
[2022-12-29] MEDS: Potassium Chloride 20 MEQ TABCR PO (07:38)
[2022-12-29] MEDS: Citalopram 10 MG TAB PO (07:38)
[2022-12-29] MEDS: Thiamine 100 MG TAB PO (07:38)
[2022-12-29] MEDS: Spironolactone 25 MG TAB PO (07:38)
[2022-12-29] MEDS: Folic Acid 1 MG TAB 5 MG PO (07:39)
[2022-12-29] MEDS: Metoprolol CR 50 MG TABCR PO (07:41)
[2022-12-29 11:12] VITALS: BP 133/79; PULSE 77; RESP 16; TEMP 36; O2SAT 97
--- NOTE | 2022-12-29 22:12 | PT.INTREAT ---
Date of service: 12/29/22 Time of Service: 11:10 PT Notes Visit Reasons: Ataxia Inpatient Physical Therapy Treatment Note [facility] Date: 12/29/22 PRECAUTIONS: Fall, standard, activity as tolerated, contact precautions SUBJECTIVE: Patient supine in bed, agreeable to therapy OBJECTIVE: PAIN: none reported BED MOBILITY/TRANSFERS Rolling L/R: independent Supine-sit: independent Sit-supine: independent Sit-stand: independent Stand-sit: independent Bed-Chair: standby Chair-bed: standby GAIT Assistive Device: FWW Weight bearing: full Assist: standby Distance: 20 feet x2 Deviation: stiff legged, reduced step height, reduced step length, forward leaning posture THEREX: sit to stand 2x5, LAQ x10, heel raises x10, toe raises x10, tap outs (hip abduction) x10, hip adduction vs pillow for 3 second holds x10. ASSESSMENT: Patient tolerates therapy well PLAN: continue strengthening per plan of care TREATMENT CODE/TIME: [id number] ther ex 10 minutes, [id number] gait 15 minutes beginning at 11:10
--- NOTE | 2022-12-30 | DI.US_ITS ---
APPROVED REPORT EXAM: Comprehensive 2D, Doppler, and color-flow Echocardiogram Patient Location: In-Patient Room/Bed: [facility] Supervisor [employer]: Amie Jhaveri RDCS (AE) Indications: Edema, Heart failure Other Information Study Quality: Adequate Conclusion Normal left ventricular wall thickness and chamber size. Ejection fraction is 60 to 65%. Wall motio n is normal Normal right ventricular size and systolic function Both atria are normal in size There is no structural or hemodynamically significant valvular disease Dilated ascending aorta, 3.73 cm Normal estimated right ventricular systolic pressure 26 mmHg Wall motion Left Ventricle The left ventricle is normal size. The left ventricular systolic function is normal. The left ventric ular ejection fraction is within the normal range. There is normal left ventricular wall thickness.. There is normal LV segmental wall motion. There is no ventricular septal defect visualized. LVEF is 6 0-65%. Right Ventricle The right ventricle is normal size. The right ventricular systolic function is normal. The RVSP is 26 .0mmHg. Atria The left atrium size is normal. The right atrium size is normal. The interatrial septum is intact wit h no evidence for an atrial septal defect. Aortic Valve The aortic valve is normal in structure. Aortic valve is trileaflet. There is no aortic valvular sten osis. Trace aortic regurgitation. Mitral Valve The mitral valve is normal in structure. No evidence of mitral valve stenosis. Mild mitral regurgitat ion. Tricuspid Valve The tricuspid valve is normal in structure. There is no tricuspid valve stenosis. Trace tricuspid reg urgitation. Pulmonic Valve The pulmonary valve is normal in structure. There is no pulmonic valvular stenosis. There is no pulmo lauren valvular regurgitation. Great Vessels Aortic root is mildly dilated. The ascending aorta is mild to moderately Aortic arch is normal in ca liber. dilated. IVC is normal in size and collapses >50% with inspiration. Pericardium There is no pericardial effusion. 2D Dimensions IVSD d PLAX 1.09 cm F: 0.6-1.0 LV Vol A2C d MOD 104.9 mL LVPW d PLAX 1.09 cm F: 0.6 - 1.0 LV Vol A4C d MOD 88.4 mL LVID d PLAX 4.89 cm F: 3.8 - 5.2 LA vol/ BSA A2C s A-L 28.5 mL/m2 LVDs 3.05 cm F: 2.2 - 3.5 LA vol/ BSA A4C s A-L 26.8 mL/m2 Ao Root d 3.49 cm F: 2.7 - 3.3 LA Vol/ BSA Biplane s A-L 28.6 mL/m2 RA Area A4C 17.16 cm2 LA Area A4C s MOD 19.97 cm2 RA Vol/ BSA A4C s A-L 21.3 mL/m2 LA Area A2C s MOD 19.93 cm2 Ao Asc Diam d 3.73 cm F: 2.3 - 3.1 LV EF A4C MOD 65.8 % LV EF Teichholz 67.0 % LV EF A2C MOD 60.4 % LVEF (Rome's) 63.11 % F: 54 - 74 LV EF Biplane MOD 63.1 % LV Volume 72.12 mL F: 46 - 106 SV 62.62 mL LV Volume Index 32.63 mL/m2 F: 29 - 61 SV Index 28.41 mL/m2 LV Vol Biplane MOD 99.2 mL FS 37.20 % M-Mode TAPSE 1.73 cm (M/F) >1.7 LV Diastology MV E' medial 0.089 (>0.07 m/s) E/A Ratio 1.0 LV E/e MED 9.10 (<14) MV E Vmax 0.81 (0.4-1.3 m/s) MV E' lateral 0.100 (>0.1 m/s) MV A Vmax 0.85 (0.4-1.3 m/s) LV E/e LAT 8.10 (<14) MV E/A Ratio 0.91 MV E/E' medial 9.11 MV E/E' lateral 8.13 Aortic Valve LVOT Area 3.05 cm2 AoV Area Vmax 2.45 cm2 LVOT Vmax 1.11 m/s AoV Area/ BSA (Vmax) 1.11 cm2/m2 LVOT Mean Teodoro. 0.65 m/s MCKINLEY Mean Teodoro. 2.07 cm2 LVOT Peak Grad 4.9 mmHg MCKINLEY Mean Teodoro. Index 0.94 cm2/m2 LVOT Mean Grad 2.1 mmHg LVOT VTI 0.248 m LVOT Diam s 1.95 cm AoV Vmax 1.38 m/s Velocity Ratio 0.80 AoV Mean Teodoro. 0.97 m/s AoV Peak Grad 7.6 mmHg LVOT SV 75.73 mL AoV Mean Grad 4.1 mmHg AoV VTI 0.310 m AoV Area VTI 2.45 cm2 AoV Area/ BSA (VTI) 1.11 cm/m2 Mitral Valve MV DT 195 (160-240 msec) MV PHT 56 msec MV Area PHT 3.90 cm2 Pulmonary Valve PV Vmax 1.43 (0.5-1.5 m/s) RVOT Peak Gr. 2.52 mmHg PV Peak Grad 8.2 mmHg RVOT Mean Gr. 1.45 mmHg PV Mean Grad 4.1 mmHg RVOT VTI 0.154 m PV VTI 0.259 m RVOT Vmax 0.79 m/s Tricuspid Valve TR Peak Grad 22.9 mmHg TR Vmax 2.40 m/s RA Pressure 3.00 mmHg RVSP (TR) 26.0 mmHg
[2022-12-30 06:18] VITALS: RESP 16; TEMP 36.1; O2SAT 99
[2022-12-30] MEDS: Pantoprazole 40 MG TABCR PO (07:24)
[2022-12-30 07:40] VITALS: BP 144/83; PULSE 75; RESP 16; TEMP 35.7; O2SAT 100
[2022-12-30] MEDS: Folic Acid 1 MG TAB 5 MG PO (09:19)
[2022-12-30] MEDS: Oxybutynin-CR 5 MG TABCR 10 MG PO (09:19)
[2022-12-30] MEDS: Spironolactone 25 MG TAB PO (09:19)
[2022-12-30] MEDS: Thiamine 100 MG TAB PO (09:20)
[2022-12-30] MEDS: Magnesium Oxide 400 MG TAB 800 MG PO (09:20)
[2022-12-30] MEDS: Furosemide 40 MG TAB PO (09:20)
[2022-12-30] MEDS: Citalopram 10 MG TAB PO (09:20)
[2022-12-30] MEDS: Potassium Chloride 20 MEQ TABCR PO (09:20)
[2022-12-30] MEDS: Metoprolol CR 50 MG TABCR PO (09:20)
[2022-12-30] MEDS: Celecoxib 200 MG CAP PO (09:20)
[2022-12-30] MEDS: Diclofenac 1% Gel 100 GM TUBE TP ×2 (09:21→16:07)
--- NOTE | 2022-12-30 10:00 | DI.US_ITS ---
Exam(s) US EXTREMITY VENOUS BI EXAM: US EXTREMITY VENOUS BI CLINICAL HISTORY: edema. TECHNIQUE: Bilateral lower extremity venous ultrasound performed using grayscale, color-flow, and sp ectral Doppler analysis. COMPARISON: No exams were available for comparison FINDINGS: The bilateral common femoral, femoral and popliteal veins demonstrate normal compressibility, augment ation, and color Doppler. The posterior tibial veins are patent. Subcutaneous edema bilaterally. IMPRESSION: Right: Negative for DVT Left: Negative for DVT DATA REPOSITORY:
--- NOTE | 2022-12-30 14:20 | CMDISCH_ITS ---
Date of service: 12/30/22 Time of Service: 14:20 LACE Index Scoring Tool Questions: Length of Stay (in days): 4 - 6 Was the patient admitted via the E.D.?: Yes E.D. Visits: 2 Answers: Total Score: 9 Risk of Readmission: Low Risk Care Management Discharge Plan Reason for Hospitalization: Ataxia Discharge Plan: Katie was offered a bed today at [facility] for ongoing rehab prior to returning home. Katie is now refusing SNF placement and [facility] supports and advocating for returning home. She will return home with home health services today. Her friends, Guy and Junior will transport her. Patient/Family Education Needs: Review discharge instructions, discuss Ask Me Three. Services Needed at Discharge: Home Health Care Services (PT/OT/FREIGHT MANAGER)
--- NOTE | 2022-12-30 14:23 | DSE_ITS ---
Date of service: 12/30/22 Time of Service: 14:23 DS: Diagnosis Discharge Diagnosis (1) Weakness: Status: Acute (2) Macrocytic anemia: Status: Acute (3) Skin excoriation: Status: Acute (4) Thrombocytopenia: Status: Chronic (5) Hyponatremia: Status: Chronic (6) Hyperbilirubinemia: Status: Acute (7) Gall bladder polyp: Status: Acute (8) Ambulatory dysfunction: Status: Acute Discharge Plan Disposition Patient Disposition: Home W/Home Health Services Condition: Improving Discharge Details Reason For Visit: Ataxia Admit Date/Time: 12/26/22 14:49 Admit Provider: Mckinley Frost Attending Provider: Mckinley Frost Primary Care Provider: Medina Ramirez Hospital Course Hospital Course: This is a 62 female with history alcoholism, peripheral neuropathy, chronic weakness, wheelchair bound, lives with daughter. Presented to the ED with complaint of chronic weakness and states she wanted to be admitted for rehab. Medical work up initially did not support acute medical issue. However there was concerns about home care and adult protective services was notified (see ER admission note for details). While awaiting disposition in the ED patient started to exhibit signs of withdrawal and was given Ativan x 3 without effect; she was then started on Phenobarbital with initial dose of 130 mg.? At this point hospitalist services was contacted to admit her for acute alcohol withdrawal.? She was admitted to the ICU for further management and monitoring.? She continued to receive phenobarbital per withdrawal protocol.? He was found to be B12 deficient supplementation started.? Thrombocytopenia in the setting of alcohol abuse with suspected cirrhosis she underwent an abdominal ultrasound which did show hepatomegaly and fatty infiltration and 4 mm gallbladder polyp.? She should have repeat imaging of her gallbladder polyp in 4 to 6 months and consider removal if enlarging.? She was seen by physical therapy and really ambulated but not felt safe for discharge to home after her alcohol withdrawal resolved.? She was kept here for ongoing physical therapy and rehabilitation prior to returning home, case management continue to follow and referrals were placed and she was excepted for inpatient rehabilitation but today declined and stated she felt well enough to be go home and requested discharge to home. She is being discharged to home with new home health services including nursing PT OT and medical i d sales. Discharge is discussed with Dr. Lockwood Home Meds and New Rx's Prescriptions: New furosemide 40 mg Tablet 40 mg PO BID@0830,1600 Qty: 60 0RF spironolactone 25 mg Tablet 25 mg PO DAILY Qty: 30 0RF pantoprazole 40 mg Tablet,Delayed Release (Dr/Ec) 40 mg PO DAILY@0730 Qty: 30 0RF thiamine mononitrate (vit B1) [Vitamin B-1 (mononitrate)] 100 mg Tablet 100 mg PO DAILY Qty: 30 0RF magnesium chloride 64 mg magnesium tablet 64 mg PO BID Qty: 60 0RF Continued trazodone 50 mg tablet 50 mg PO QHS PRN citalopram 10 mg tablet 10 mg PO DAILY oxybutynin chloride 10 mg tablet extended release 24hr 10 mg PO DAILY Patient Comments: TAKE ONE TABLET BY MOUTH EVERY DAY melatonin 5 mg tablet 5 mg PO QHS PRN metoprolol succinate 50 mg tablet extended release 24 hr 50 mg PO DAILY Patient Comments: TAKE ONE TABLET BY MOUTH EVERY DAY potassium chloride 20 mEq tablet,ER particles/crystals 20 meq PO DAILY Patient Comments: TAKE ONE TABLET BY MOUTH EVERY DAY Changed meclizine 12.5 mg tablet 12.5 tab PO Q6H PRN PRN (Reason: dizziness) Qty: 0 0RF Patient Comments: TAKE ONE TABLET BY MOUTH EVERY 6 HOURS NEEDED Discontinued magnesium oxide 400 mg (241.3 mg magnesium) Tablet 400 mg PO BID Qty: 0 0RF No Action multivitamin [Multiple Vitamins] Tablet 1 tab PO QAM Qty: 0 0RF Patient Comments: not taking Discharge Instructions Instructions: Abuse of Alcohol (DC) Stand Alone Forms: Nursing Discharge Form Referrals: Medina Ramirez [Primary Care Provider] - 12/31/22 11:45 am Activity:: Activity as Tolerated Equipment/Supplies:: No Equipment Needed Diet:: As Tolerated Discharge Orders Discharge Orders: Discharge Order (Routine); Ordered 12/30/22 Ordered By: Karissa Castellanos Discharge Data Discharge Date/Time-TO BE ENTERED AT DEPARTURE: 12/30/22 18:01 DS: Summary Time Spent with Patient providing and/or coordinating discharge services: Greater than 30 minutes Status at Discharge Functional status at discharge: uses cane/walker Overall status at discharge: patient is progressing back to baseline Mental Status: mental status grossly normal Speech and Movement: speech and movement normal Mood: congruent mood Affect: normal affect Exam Psych Mental Status: mental status grossly normal Speech and Movement: speech and movement normal Mood: congruent mood Affect: normal affect DS: Data Vitals/I&O Vitals and I&O: Vital Signs Temperature 35.7 C L 12/30/22 07:40 Temperature Source Tympanic 12/30/22 07:40 Pulse 75 12/30/22 07:40 Pulse Rhythm Regular 12/30/22 07:45 Respiratory Rate 16 12/30/22 07:40 Respiratory Effort Normal, Non-Labored 12/30/22 07:45 Respiratory Depth Normal 12/30/22 07:45 Respiratory Pattern Normal 12/30/22 07:45 Blood Pressure 144/83 H 12/30/22 07:40 Pulse Oximetry 100 12/30/22 07:40 Oxygen Delivery Method Room Air 12/30/22 07:40 Oxygen Flow Rate 0 12/30/22 07:40 Pain Level 0 12/30/22 06:18 Comment BP called over radio 12/30/22 07:40 Intake & Output 12/29/22 12/30/22 12/30/22 23:59 11:59 23:59 Intake Total 250 / 810 240 / 480 240 / 480 Output Total 200 / 800 600 / 600 0 / 600 Balance 50 / 10 -360 / -120 240 / -120 Intake: Oral 250 / 810 240 / 480 240 / 480 Output: Urine 200 / 800 600 / 600 0 / 600 Other: Urine Color Yellow Yellow Urine Appearance Clear Clear Urine Odor None Normal Comment pT heavily incontinent in brief Stool Size Small Small Stool Characteristics Soft Soft Formed Brown Voiding Methods Bedside Commode Bedside Commode Diaper Incontinent PFSH All Active Problems (Updated 12/24/22 @ 15:23 by Mckinley Frost MD) Gall bladder polyp (Acute) Hyponatremia (Chronic) Discharge planning issues (Acute) DVT prophylaxis (Acute) Ambulatory dysfunction (Acute) Hyperbilirubinemia (Acute) Thrombocytopenia (Chronic) Macrocytic anemia (Acute) Skin excoriation (Acute) Weakness (Acute) Skin ulcer (Acute) Hypoalbuminemia (Acute) Pneumonia (Acute) Peripheral neuropathy (Acute) Hypocalcemia (Acute) Folate deficiency (Acute) Weakness (Acute) UTI (urinary tract infection) (Acute) Alcohol abuse (Chronic) Anxiety (Chronic) Bipolar 1 disorder (Chronic) Multiple personality disorder (Acute) Unilateral primary osteoarthritis, left knee (Acute) Iliotibial band syndrome affecting left lower leg (Acute) Rectal bleeding (Acute) Anal and rectal polyp (Acute) Adenomatous polyps (Acute) Villous adenoma of colon (Acute) Tubulovillous adenoma (Acute) Sessile colonic polyp (Acute) Incontinence (Acute) High grade 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 Hx of fracture of arm R arm, both bones. Plates. Knee pain Poor dentition Vertigo Surgical History History of colonoscopy with polypectomy (~09/07/21) 09/07/21 [facility], no polyps repeat 2yrs. 02/16/2021 [facility], repeat 6 months Sto[facility], villous/tubulovillous/sessile serrated 01/2020 [facility], multiple polyps 08/11/20 History of hysterectomy Social History Smoking/Tobacco Use Status: Never Smoking risk assessment performed?: Yes Alcohol Intake: current Alcohol Intake frequency: a few times a week Alcohol type: beer Details: 6+ beer/day; Has been cutting back the past few weeks from 18+ beers/day Drug use: Never Substance use type: does not use Do you feel safe at home: Yes Do you feel safe in your relationship?: Yes Time Spent with Patient Time Spent with Patient: 45-69 minutes Time was spent: preparing to see the patient(eg.review tests), obtaining and/or reviewing separately otained hiistory, referring, communicating with other health resident care associate, indepentently interpreting results, counseling the patient and care coordination
--- NOTE | 2022-12-30 14:50 | PT.INNT ---
Date of service: 12/30/22 Time of Service: 14:28 PT Notes Visit Reasons: Ataxia Patient was out of her room this morning for diagnostic imaging, This afternoon she is discharging home and does not wish to participate in therapy and wear [herself] out before going home.
--- NOTE | 2022-12-30 16:46 | PDOC.HHF2F_ITS ---
Home Health Referral Home Health Orders Clinical synopsis of why skilled professionals are needed: ataxia from alcohol use disorder Medical diagnosis necessitation home health referral: ataxia Physical Therapist: Check all that apply Increase strength & endurance for safe mobility at home: Ordered To design/establish home maintenance program: Ordered Fall reduction therapy program for patient with history of frequent falls: Ordered Home safety evaluation and teaching/gait training including stair management (if applicable): Ordered Occupational Therapist: Evaluate and treat for patient unable to perform ADL/IADL/self-care: Ordered Upper extremity strengthening, range and motion: Ordered Decorator Inspector: Assist with community resources: Ordered Assist with termite control technician care planning: Ordered Home Bound Status Requires the aid of supportive device (check all that apply): Walker Describe why leaving home would require a considerable and taxing effort: Side effects from pain medication (sedation/drowsiness) and Safety Concerns: describe (gait disturbance) Encounter Date and Reason: I certify that a FTF encounter for this patient was performed on December 30, 2022 and that such encounter was related to the primary reason the patient requires home health services. The encounter was conducted in the following manner: * By me as the certifying physician, ELECTRICAL ENGINEERING DIRECTOR, PA or * By an inpatient physician, ELECTRICAL ENGINEERING DIRECTOR or PA during an inpatient stay who communicated findings to me, Certification And Authentication I certify that I composed the above information based on my clinical judgment relating to this patient's medical condition and, if applicable, clinical findings communicated to me by the NPP or inpatient physician who performed the FTF encounter. Name of Provider that will be monitoring home health services: Medina Ramirez
== END 2022-12-30 18:01 | disposition home health service (06) | DRG 948 ==
PROVIDERS: Admitting Provider Internal Medicine; PCP Nurse Practitioner Family; Visit Provider Internal Medicine
DX: R53.1 Weakness (principal); E87.1 Hypo-osmolality and hyponatremia; D53.9 Nutritional anemia, unspecified; D69.6 Thrombocytopenia, unspecified; K82.4 Cholesterolosis of gallbladder; E80.6 Other disorders of bilirubin metabolism; K76.0 Fatty (change of) liver, not elsewhere classified; T14.8XXA Other injury of unspecified body region, initial encounter; F10.20 Alcohol dependence, uncomplicated; Z99.3 Dependence on wheelchair; G62.9 Polyneuropathy, unspecified; E53.8 Deficiency of other specified B group vitamins; E83.51 Hypocalcemia; F41.9 Anxiety disorder, unspecified; F31.9 Bipolar disorder, unspecified; M17.12 Unilateral primary osteoarthritis, left knee; R32 Unspecified urinary incontinence; Z85.41 Personal history of malignant neoplasm of cervix uteri; M54.50 Low back pain, unspecified; M25.562 Pain in left knee; R27.0 Ataxia, unspecified
CPT/HCPCS: 73562; 93306; 97110; 97116; 99306; 99316; 72100; 93970

== ENCOUNTER 2023-01-21 18:11 | Outpatient (REF) | payer SELFPAY ==
[2023-01-21 19:44] LABS: Abs Immature Grans 0.17 10^3/uL (0.0-0.06); Absolute Basophil Count 0.04 10^3/uL (0.0-0.2); Absolute Eosinophil Count 0.03 10^3/uL (0.0-0.7); Absolute Lymphocyte Count 0.81 10^3/uL (1.2-3.4); Absolute Monocyte Count 1.33 10^3/uL (0.1-0.8); Absolute Neutrophil Count 5.73 10^3/uL (1.2-6.7); Basophils % 0.5; Eosinophils % 0.4; HCT 34.4 % (36.0-46.0); HGB 11.2 g/dL (11.2-15.7); Immature Grans % 2.1; MCH 36.4 pg (27.0-33.0); MCHC 32.6 % (32.0-36.0); MCV 112 fL (80-95); MPV 10.6 fL (8.0-11.0); Monocytes % 16.4; Neutrophils % 70.6; Platelet Count 103 10^3/uL (130-400); RBC 3.08 10^6/uL (3.93-5.22); RDW 12.7 % (11.7-14.6); RDW-SD 52.2 fL; WBC 8.11 10^3/uL (4.4-10.8)
[2023-01-21 22:11] LABS: Hemoglobin A1C 4.5 % (<5.7)
[2023-01-21 22:26] LABS: Iron 19 ug/dL (50-170); Total Iron Binding Capacity 146 ug/dL (250-450); Transferrin Sat 13 % (15-50)
[2023-01-21 22:49] LABS: Diff Comment RBC Morph Reviewed
[2023-01-21 22:50] LABS: Macrocytosis 2+
[2023-01-21 23:00] LABS: ALT 16 U/L (14-59); AST 23 U/L (15-37); Albumin 2.8 g/dL (3.4-5.0); Alkaline Phosphatase 218 U/L (46-116); Anion Gap 9.2 mmol/L (3-11); BUN 4 mg/dL (7-18); Bilirubin, Total 0.6 mg/dL (0.2-1.0); CO2 28.8 mmol/L (21.0-32.0); CREATININE 0.9 mg/dL (0.55-1.02); Calcium 8.3 mg/dL (8.5-10.1); Chloride 96 mmol/L (98-107); Estimated GFR 72.28 (mL/min/1.73m2); Ferritin 556 ng/mL (8-252); Folate 7.8 ng/mL (8.6-20.0); Glucose 105 mg/dL (74-106); Magnesium 1.6 mg/dL (1.8-2.4); Potassium 3.5 mmol/L (3.5-5.1); Sodium 134 mmol/L (136-145); TSH (W/Ref FT4) 3.07 uIU/mL (0.36-3.74); Total Protein 6.3 g/dL (6.4-8.2); Vitamin B12 505 pg/mL (193-986)
[2023-01-21 23:38] LABS: Vitamin D 25 Total 33.3 ng/mL (30-100)
[2023-01-22 10:17] LABS: NT-proBNP 914 pg/mL (<300)
== END 2023-01-21 18:12 | disposition home or self-care (01) ==
LOC: LBN 18:11
PROVIDERS: PCP Nurse Practitioner Family; Visit Provider Nurse Practitioner Gerontology
DX: K21.9 Gastro-esophageal reflux disease without esophagitis (principal); R27.0 Ataxia, unspecified; R60.9 Edema, unspecified; R68.89 Other general symptoms and signs; F10.99 Alcohol use, unspecified with unspecified alcohol-induced disorder; E61.2 Magnesium deficiency; K82.4 Cholesterolosis of gallbladder
CPT/HCPCS: 80053; 82306; 82607; 82728; 82746; 83036; 83540; 83550; 83735; 83880; 84443; 85025

== ENCOUNTER 2023-02-04 17:11 | Outpatient (REF) | payer MEDICARE, MEDICAID, SELFPAY ==
[2023-02-04 18:34] LABS: ALT 30 U/L (14-59); AST 24 U/L (15-37); Albumin 3.3 g/dL (3.4-5.0); Alkaline Phosphatase 139 U/L (46-116); Anion Gap 7.3 mmol/L (3-11); BUN 5 mg/dL (7-18); Bilirubin, Total 0.7 mg/dL (0.2-1.0); CO2 29.7 mmol/L (21.0-32.0); CREATININE 0.9 mg/dL (0.55-1.02); Calcium 9.3 mg/dL (8.5-10.1); Chloride 98 mmol/L (98-107); Estimated GFR 72.28 (mL/min/1.73m2); Glucose 102 mg/dL (74-106); Potassium 4.2 mmol/L (3.5-5.1); Sodium 135 mmol/L (136-145); Total Protein 6.9 g/dL (6.4-8.2)
== END 2023-02-04 17:12 | disposition home or self-care (01) ==
LOC: LBN 17:11
PROVIDERS: PCP Nurse Practitioner Family; Visit Provider Nurse Practitioner Gerontology
DX: G89.4 Chronic pain syndrome (principal); I50.9 Heart failure, unspecified
CPT/HCPCS: 80053

== ENCOUNTER 2023-02-19 12:46 | Outpatient (REF) | payer MEDICARE, MEDICAID, SELFPAY ==
[2023-02-19 13:42] LABS: ALT 22 U/L (14-59); AST 13 U/L (15-37); Albumin 3.4 g/dL (3.4-5.0); Alkaline Phosphatase 126 U/L (46-116); Anion Gap 9.9 mmol/L (3-11); BUN 7 mg/dL (7-18); Bilirubin, Total 0.8 mg/dL (0.2-1.0); CO2 28.1 mmol/L (21.0-32.0); CREATININE 0.8 mg/dL (0.55-1.02); Calcium 9.1 mg/dL (8.5-10.1); Chloride 99 mmol/L (98-107); Estimated GFR 83.26 (mL/min/1.73m2); Glucose 113 mg/dL (74-106); Magnesium 1.7 mg/dL (1.8-2.4); Potassium 4.3 mmol/L (3.5-5.1); Sodium 137 mmol/L (136-145)
== END 2023-02-19 12:47 | disposition home or self-care (01) ==
LOC: LBN 12:46
PROVIDERS: PCP Nurse Practitioner Family; Visit Provider Nurse Practitioner Gerontology
DX: G89.4 Chronic pain syndrome (principal); R68.89 Other general symptoms and signs
CPT/HCPCS: 80053; 83735

== ENCOUNTER 2023-03-11 21:53 | Outpatient (REF) | payer SELFPAY ==
[2023-03-11 22:21] LABS: Abs Immature Grans 0.13 10^3/uL (0.0-0.06); Absolute Basophil Count 0.03 10^3/uL (0.0-0.2); Absolute Eosinophil Count 0.01 10^3/uL (0.0-0.7); Absolute Neutrophil Count 8.51 10^3/uL (1.2-6.7); Basophils % 0.3; Eosinophils % 0.1; HCT 38.7 % (36.0-46.0); HGB 12.5 g/dL (11.2-15.7); Immature Grans % 1.2; Lymphocytes % 11.3; MCH 33.6 pg (27.0-33.0); MCHC 32.3 % (32.0-36.0); MCV 104 fL (80-95); MPV 10.6 fL (8.0-11.0); Monocytes % 6.6; Neutrophils % 80.5; Platelet Count 176 10^3/uL (130-400); RBC 3.72 10^6/uL (3.93-5.22); RDW 12.2 % (11.7-14.6); RDW-SD 46.7 fL; WBC 10.58 10^3/uL (4.4-10.8)
[2023-03-11 22:41] LABS: ALT 18 U/L (14-59); AST 12 U/L (15-37); Albumin 3.7 g/dL (3.4-5.0); Alkaline Phosphatase 110 U/L (46-116); Anion Gap 6.8 mmol/L (3-11); BUN 8 mg/dL (7-18); Bilirubin, Total 0.9 mg/dL (0.2-1.0); CO2 29.2 mmol/L (21.0-32.0); CREATININE 0.9 mg/dL (0.55-1.02); Calcium 9.3 mg/dL (8.5-10.1); Chloride 95 mmol/L (98-107); Estimated GFR 72.28 (mL/min/1.73m2); Glucose 106 mg/dL (74-106); Sodium 131 mmol/L (136-145); Total Protein 6.9 g/dL (6.4-8.2)
== END 2023-03-11 21:54 | disposition home or self-care (01) ==
LOC: LBN 21:53
PROVIDERS: PCP Nurse Practitioner Family; Visit Provider Nurse Practitioner Gerontology
DX: I50.9 Heart failure, unspecified (principal); G89.4 Chronic pain syndrome; R68.89 Other general symptoms and signs
CPT/HCPCS: 80053; 85025

== ENCOUNTER → 2023-04-15 00:24 | Outpatient (CLI) | payer MEDICARE, MEDICAID, SELFPAY ==
--- NOTE | 2023-04-15 15:20 | DI.CT_ITS ---
Exam(s) CT CHEST W EXAM: CT CHEST W CLINICAL HISTORY: PULMONARY NODULE R91.1 ABNL CXR R91.8 TECHNIQUE: Imaging Protocol: Axial computed tomography images with coronal and sagittal reformatted images were created and reviewed CONTRAST MATERIAL: Intravenous: Omnipaque 350 Contrast volume:structured data ml. COMPARISON: CT CT CHEST WO from 12/18/[address] CHEST PE CTA from 10/04/2022 FINDINGS: Pulmonary parenchyma: Interval clearing of previously noted left upper lobe consolidation. Mild resi dual left upper lobe scarring. No dominant measurable mass. Stable 4 millimeter nodule adjacent to t he major fissure in the right lower lobe. No further follow-up recommended. Tracheobronchial tree: No bronchiectasis or mucous plugging. Mediastinum and Allison: No dominant adenopathy or fluid collection. Pleura: No effusion. No pneumothorax. Heart: The heart is not dilated. No coronary artery calcifications are seen. Aorta: Thoracic aorta non-dilated. No visible atherosclerotic changes. Pulmonary arteries: Pulmonary pulmonary artery again noted to be prominent with diameter of 4 cm. Upper abdomen: Unremarkable. Bones: Degenerative changes in the spine. Soft tissues: Unremarkable. IMPRESSION: Interval clearing of previously noted left upper lobe consolidation. RADIATION DOSE DELIVERED: Total DLP DATA REPOSITORY: All CT scans at this facility are submitted to the National Radiology Data Registry (NRDR) Dose Index Registry (DIR) with the [employer] (A[employer]). RADIATION OPTIMIZATION: All CT scans at this facility use at least one of these dose optimization te chniques: automated exposure control; mA and/or kV adjustment per patient size (includes targeted exa ms where dose is matched to clinical indication); or iterative reconstruction.
[2023-04-15] MEDS: Normal Saline - Diluent 50 ML VIAL IJ (15:21)
[2023-04-15] MEDS: Omnipaque 350 MG/ML 500 ML BTL-Imaging package 100 ML IJ (15:21)
== END ==
PROVIDERS: PCP Nurse Practitioner Family; Visit Provider Nurse Practitioner Family
DX: R91.8 Other nonspecific abnormal finding of lung field (principal)
CPT/HCPCS: 71260

== ENCOUNTER 2023-05-08 14:43 | Outpatient (REF) | payer MEDICARE, MEDICAID, SELFPAY ==
[2023-05-08 15:17] LABS: HCT 36.8 % (36.0-46.0); HGB 12.8 g/dL (11.2-15.7); MCH 33.7 pg (27.0-33.0); MCHC 34.8 % (32.0-36.0); MCV 97 fL (80-95); MPV 11.7 fL (8.0-11.0); RDW 12.6 % (11.7-14.6); RDW-SD 44.1 fL
[2023-05-08 15:49] LABS: Iron 79 ug/dL (50-170); Total Iron Binding Capacity 269 ug/dL (250-450); Transferrin Sat 29 % (15-50)
[2023-05-08 16:01] LABS: ALT 23 U/L (14-59); AST 19 U/L (15-37); Albumin 4.2 g/dL (3.4-5.0); Alkaline Phosphatase 129 U/L (46-116); Anion Gap 11.6 mmol/L (3-11); BUN 6 mg/dL (7-18); Bilirubin, Total 1.6 mg/dL (0.2-1.0); CO2 26.4 mmol/L (21.0-32.0); CREATININE 0.6 mg/dL (0.55-1.02); Calcium 9.7 mg/dL (8.5-10.1); Chloride 89 mmol/L (98-107); Estimated GFR 101.42 (mL/min/1.73m2); Ferritin 475 ng/mL (8-252); Glucose 97 mg/dL (74-106); Potassium 3.2 mmol/L (3.5-5.1); Sodium 127 mmol/L (136-145); Total Protein 7.6 g/dL (6.4-8.2)
[2023-05-08 16:04] LABS: Folate > 20.0 ng/mL (8.6-20.0)
== END 2023-05-08 14:44 | disposition home or self-care (01) ==
LOC: NCHCN 14:43
PROVIDERS: PCP Nurse Practitioner Family; Visit Provider Nurse Practitioner Family
DX: E61.1 Iron deficiency (principal); F10.10 Alcohol abuse, uncomplicated; D52.9 Folate deficiency anemia, unspecified
CPT/HCPCS: 80053; 85027; 82728; 82746; 83540; 83550

== ENCOUNTER 2023-07-27 17:33 | Emergency (ER) | payer MEDICARE, MEDICAID, SELFPAY ==
[2023-07-27 17:22] VITALS: BP 109/61; PULSE 83; RESP 20; TEMP 36.6; O2SAT 91
--- NOTE | 2023-07-27 17:30 | DI.RAD_ITS ---
Exam(s) XR FOOT LT COMPLETE EXAM: XR FOOT LT COMPLETE CLINICAL HISTORY: toe fracture/dislocation. TECHNIQUE: 2D digital imaging was performed. COMPARISON: No exams were available for comparison FINDINGS: 3 views Mild soft tissue swelling of the dorsal aspect of the foot. No fractures evident. No diastasis of t he Lisfranc joint. There are degenerative changes in the tarsometatarsal joints. No erosions. No o sseous lesions. No radiopaque foreign bodies. No evidence of osteomyelitis. IMPRESSION: As above. No acute osseous findings in the foot. DATA REPOSITORY: RADIATION DOSE DELIVERED:
--- NOTE | 2023-07-27 17:39 | W.ED.GENAD ---
HPI General Stated Complaint: Orthopedic Mode of arrival: EMS. MARLINE: 3 Date/Time Provider Initiated Documentation: 07/27/23 17:38. Limitations to Documentation: no limitations. Information obtained by: patient. History of Present Illness left 2nd toe injury mild aching hour(s) (12) constant No relieving factors improve symptom(s), No exacerbating factors reported no other symptoms. none Related Data Home Medications Medication Instructions Recorded Confirmed multivitamin (Multiple Vitamins 1 tab PO QAM #0 tabs 02/11/22 12/28/22 tablet) citalopram 10 mg tablet 10 mg PO DAILY 08/06/22 12/28/22 trazodone 50 mg tablet 50 mg PO QHS PRN 08/06/22 12/28/22 melatonin 5 mg tablet 5 mg PO QHS PRN 12/18/22 12/28/22 oxybutynin chloride 10 mg 10 mg PO DAILY 12/18/22 12/28/22 tablet,extended release 24 hr metoprolol succinate 50 mg 50 mg PO DAILY 12/19/22 12/28/22 tablet,extended release 24 hr potassium chloride 20 mEq 20 meq PO DAILY 12/19/22 12/28/22 tablet,extended release(part/cryst) furosemide 40 mg tablet 40 mg PO BID@0830,1600 #60 tabs 12/30/22 magnesium chloride 64 mg 64 mg PO BID #60 tabs 12/30/22 (magnesium chloride) tablet meclizine 12.5 mg tablet 12.5 tab PO Q6H PRN PRN dizziness 12/30/22 12/28/22 #0 tabs pantoprazole 40 mg tablet,delayed 40 mg PO DAILY@0730 #30 tabs 12/30/22 release spironolactone 25 mg tablet 25 mg PO DAILY #30 tabs 12/30/22 thiamine mononitrate (vit B1) 100 100 mg PO DAILY #30 tabs 12/30/22 mg tablet (Vitamin B-1 (mononitrate)) Previous Rx's Medication Instructions Recorded multivitamin (Multiple Vitamins 1 tab PO QAM #0 tabs 02/11/22 tablet) furosemide 40 mg tablet 40 mg PO BID@0830,1600 #60 tabs 12/30/22 magnesium chloride 64 mg 64 mg PO BID #60 tabs 12/30/22 (magnesium chloride) tablet meclizine 12.5 mg tablet 12.5 tab PO Q6H PRN PRN dizziness 12/30/22 #0 tabs pantoprazole 40 mg tablet,delayed 40 mg PO DAILY@0730 #30 tabs 12/30/22 release spironolactone 25 mg tablet 25 mg PO DAILY #30 tabs 12/30/22 thiamine mononitrate (vit B1) 100 100 mg PO DAILY #30 tabs 12/30/22 mg tablet (Vitamin B-1 (mononitrate)) Allergies Allergy/AdvReac Type Severity Reaction Status Date / Time sulfamethoxazole Allergy Severe Unverified 07/27/23 17:29 [From Bactrim] trimethoprim [From Bactrim] Allergy Severe Unverified 07/27/23 17:29 Penicillins Allergy Intermediate Hives Verified 07/27/23 17:29 Review of Systems All systems reviewed & are unremarkable except as noted in HPI and below Constitutional Constitutional: Denies chills, Denies fever(s) and Denies weakness Cardiovascular Cardiovascular: Denies chest pain and Denies dyspnea Respiratory Respiratory: Denies cough and Denies dyspnea Gastrointestinal Gastrointestinal: Denies abdominal pain, Denies nausea and Denies vomiting Integumentary/Breasts Skin/Breast: Denies rash Neurologic Neurologic: Denies weakness PFS All Active Problems (Updated 07/27/23 @ 18:34 by Km Bass MD) Injury of foot, left (Acute) Gall bladder polyp (Acute) Hyponatremia (Chronic) DVT prophylaxis (Acute) Ambulatory dysfunction (Acute) Hyperbilirubinemia (Acute) Thrombocytopenia (Chronic) Macrocytic anemia (Acute) Skin excoriation (Acute) Weakness (Acute) Skin ulcer (Acute) Hypoalbuminemia (Acute) Pneumonia (Acute) Peripheral neuropathy (Acute) Hypocalcemia (Acute) Folate deficiency (Acute) Weakness (Acute) UTI (urinary tract infection) (Acute) Alcohol abuse (Chronic) Anxiety (Chronic) Bipolar 1 disorder (Chronic) Multiple personality disorder (Acute) Unilateral primary osteoarthritis, left knee (Acute) Iliotibial band syndrome affecting left lower leg (Acute) Rectal bleeding (Acute) Anal and rectal polyp (Acute) Adenomatous polyps (Acute) Villous adenoma of colon (Acute) Tubulovillous adenoma (Acute) Sessile colonic polyp (Acute) Incontinence (Acute) High grade 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 Hx of fracture of arm R arm, both bones. Plates. Knee pain Poor dentition Vertigo Surgical History History of colonoscopy with polypectomy (~09/07/21) 09/07/21 Stoiber, no polyps repeat 2yrs. 02/16/2021 Stoiber, repeat 6 months Stoiber, villous/tubulovillous/sessile serrated 01/2020 Stoiber, multiple polyps 08/11/20 History of hysterectomy Social History Smoking/Tobacco Use Status: Never Smoking risk assessment performed?: Yes Alcohol Intake: current Alcohol Intake frequency: a few times a week Alcohol type: beer Details: 6+ beer/day; Has been cutting back the past few weeks from 18+ beers/day Drug use: Never Substance use type: does not use Housing: apartment Do you feel safe at home: Yes Do you feel safe in your relationship?: Yes Additional Social history: does not feel safe at home. lives alone BARBARA TOUSSAINT 07/27/23 Exam Const General: no acute distress Orientation: alert HENMT Head: normal to inspection Ears: external ears normal General nose exam: external nose normal Mouth: moist mucous membranes Eyes General: appearance normal, both eyes and all related structures Neck Neck: normal visual inspection Resp Effort & Inspection: normal respiratory effort and able to speak in complete sentences Cardio Rate: regular rate Skin General skin exam: no rashes or lesions noted Neuro General: patient alert and patient oriented x3 Extrem General: capillary refill normal Psych Mental Status: mental status grossly normal Course Vital Signs Vital signs: Vital Signs Temperature 36.6 C 07/27/23 17:22 Pulse 83 07/27/23 17:22 Respiratory Rate 20 07/27/23 17:22 Blood Pressure 109/61 07/27/23 17:22 Pulse Oximetry 91 L 07/27/23 17:22 Temperature 36.6 C 07/27/23 17:22 Temperature Source Temporal Artery Scan 07/27/23 17:22 Pulse 83 07/27/23 17:22 Respiratory Rate 20 07/27/23 17:22 Respiratory Effort Normal, Non-Labored 07/27/23 17:29 Blood Pressure 109/61 07/27/23 17:22 Pulse Oximetry 91 L 07/27/23 17:22 Oxygen Delivery Method Room Air 07/27/23 17:22 Oxygen Flow Rate 0 07/27/23 17:22 Pain Level 0 07/27/23 17:22 Medical Decision Making 62 yo female with hx of alcohol abuse comes in after she got her left foot stuck in her wheelchair wheel and hurt her left second toe. Denies hitting her head or falls. She is caox4 on arrival, does admit to drinking alcohol today. She has no headache, no signs of trauma to the head. She has no neck tenderness, no chest or abdominal tenderness. Her left foot 2nd toe is angulated to the right which i reduce during the exam. She has intact sensation and cap refill, no pain in the ankle or foot. Will obtain xrays of the left foot to evaluate for fracture no fracture seen on xray, she has a linear laceration that was superficial on the proximal plantar portion of her toe that was copiously cleaned and closed with skin adhesive. patient stable, bp while im in the room is 117/64, discussed results with pt, she is stable for d/c, advised to f/u with pcp and return precautions given, also advised to decrease the amount of alcohol she drinks which she doesn't seem motivated to do. She is caox4 and has decision making capacity. Her daughter Kia did reach out and states she has been falling alot and would like to have care management reach out tomorrow to see if home health PT/ot can be arranged. Differential Diagnosis Differential Diagnosis: fracture dislocation Imaging Data Radiologic Study: Attestation: I personally reviewed and interpreted this imaging study as follows: Imaging: X-Ray Radiologist's impression: no acute findings Quality:SDOH Health Related Social Needs: Health related social needs transpo insecurity Discharge Plan Disposition Patient Disposition: Home Condition: Stable Discharge Details Clinical Impression: Injury of foot, left Primary Care Provider: Medina Ramirez ED Provider: Km Bass Home Meds and New Rx's Prescriptions: Continued trazodone 50 mg tablet 50 mg PO QHS PRN citalopram 10 mg tablet 10 mg PO DAILY multivitamin [Multiple Vitamins] Tablet 1 tab PO QAM Qty: 0 0RF Patient Comments: not taking oxybutynin chloride 10 mg tablet extended release 24hr 10 mg PO DAILY Patient Comments: TAKE ONE TABLET BY MOUTH EVERY DAY melatonin 5 mg tablet 5 mg PO QHS PRN metoprolol succinate 50 mg tablet extended release 24 hr 50 mg PO DAILY Patient Comments: TAKE ONE TABLET BY MOUTH EVERY DAY potassium chloride 20 mEq tablet,ER particles/crystals 20 meq PO DAILY Patient Comments: TAKE ONE TABLET BY MOUTH EVERY DAY furosemide 40 mg Tablet 40 mg PO BID@0830,1600 Qty: 60 0RF spironolactone 25 mg Tablet 25 mg PO DAILY Qty: 30 0RF pantoprazole 40 mg Tablet,Delayed Release (Dr/Ec) 40 mg PO DAILY@0730 Qty: 30 0RF thiamine mononitrate (vit B1) [Vitamin B-1 (mononitrate)] 100 mg Tablet 100 mg PO DAILY Qty: 30 0RF meclizine 12.5 mg tablet 12.5 tab PO Q6H PRN PRN (Reason: dizziness) Qty: 0 0RF Patient Comments: TAKE ONE TABLET BY MOUTH EVERY 6 HOURS NEEDED magnesium chloride 64 mg magnesium tablet 64 mg PO BID Qty: 60 0RF Discharge Instructions Additional Instructions: You had a toe dislocation that was set in place, there were no broken bones seen on the xray try to limit alcohol intake to 1 drink daily if you feel more ill or have new symptoms such as severe abdominal pain or chest pain return to the emergency department follow up with your primary care provider within 1-2 weeks
[2023-07-27 18:05] VITALS: O2SAT 91
[2023-07-27 18:09] VITALS: BP 75/57; PULSE 85; O2SAT 90
[2023-07-27 18:10] VITALS: O2SAT 95
--- NOTE | 2023-07-27 18:28 | DI.VRAD_ITS ---
PROCEDURE INFORMATION: Exam: XR Left Foot Exam date and time: 07/27/2023 5:58 PM Age: 62 years old Clinical indication: Injury or trauma; Fall; Other: Question toe fx/dislocation; Patient HX: Toe fracture/dislocation TECHNIQUE: Imaging protocol: Radiologic exam of the left foot. Views: 3 or more views. COMPARISON: US EXTREMITY VENOUS BI 12/30/2022 10:09 AM FINDINGS: Bones/joints: Mild calcaneal spurring. Degenerative changes. Hammertoes. No additional new appearing displaced fracture nor dislocation seen. Soft tissues: No metallic foreign body seen. Soft tissue swelling. Vasculature: Faint vascular calcifications. IMPRESSION: No displaced fracture nor dislocation seen. Soft tissue swelling. Please see body of report. Dictated and Authenticated by: Nabeel Gilbert MD. Ordering:DELORES Barbour MD
[2023-07-27 19:45] VITALS: BP 101/50; PULSE 77; RESP 14; O2SAT 99
--- NOTE | 2023-07-27 20:50 | NUR.NOTE ---
Referral to Care Management to see if patient qualifies for Home Health PT/OT services.Nursing Note:
== END 2023-07-27 21:13 | disposition home or self-care (01) ==
LOC: ER 19:47
PROVIDERS: Emergency Provider Emergency Medicine; PCP Nurse Practitioner Family
DX: M79.672 Pain in left foot (principal); S93.105A Unspecified dislocation of left toe(s), initial encounter; F10.10 Alcohol abuse, uncomplicated; W23.1XXA Caught, crushed, jammed, or pinched between stationary objects, initial encounter
CPT/HCPCS: 28630; 99283; 73630

== ENCOUNTER 2023-08-04 08:55 | Inpatient (IN) | payer MEDICARE, MEDICAID, SELFPAY ==
[2023-08-04] VITALS (7 sets, daily range): BP systolic 87–115; BP diastolic 47–71; PULSE 70–91; RESP 16–22; TEMP 36.3–36.7; O2SAT 94–98
--- NOTE | 2023-08-04 | DI.RAD_ITS ---
Exam(s) XR FOOT LT COMPLETE EXAM: XR FOOT LT COMPLETE CLINICAL HISTORY: lesions of 2nd and 3rd toes. TECHNIQUE: 2D digital imaging was performed of the left foot. Three images were obtained. AP, obli que and lateral views were obtained. COMPARISON: CR,XR XR FOOT LT COMPLETE from 07/27/2023 FINDINGS: BONES: No acute fracture is present. No bony destructive lesion is seen. There is a small plantar kishore caneal spur. Hammertoe deformities are present. JOINTS: No dislocation present. Degenerative changes are seen in the foot particularly at the tarsome tatarsal joints in the articulation of the navicular and the cuneiform is. SOFT TISSUE: Normal. IMPRESSION: No acute fracture or dislocation. No destructive changes are seen to suggest osteomyelitis. DATA REPOSITORY: RADIATION DOSE DELIVERED:
--- NOTE | 2023-08-04 09:15 | RT.EKG_ITS ---
APPROVED REPORT Exam: Resting ECG Reason for Exam: syncope Patient Location: E HR:79 bpm ECG Measurements Heart Rate 79 AXIS NC 199 P 47 QRSd 89 QRS 16 QT 419 T 185 QTc 481 Conclusion Sinus rhythm...normal P axis, V-rate 60- 99 Low voltage, precordial leads...precordial leads <1.0mV Repol abnrm suggests ischemia, anterolateral...ST dep, T neg, I aVL V2-V6 sinus rhythm, normal axis, normal intervals, non ischemic
--- NOTE | 2023-08-04 09:42 | ED.GENADUL_ITS ---
HPI General Mode of arrival: ambulatory . Date/Time Provider Initiated Documentation: 08/04/23 09:23 . Limitations to Documentation: no limitations . Information obtained by: patient, family and RN notes reviewed . History of Present Illness 62 year old F presents to the emergency department with the chief complaint of Multiple syncopal episodes, Patient started experiencing this month(s) and it has been intermittent. No relieving factors improve symptom(s), Other factors that worsen symptoms (Coughing) . Patient did receive the following treatments prior to arrival, none Related Data Home Medications Medication Instructions Recorded Confirmed multivitamin (Multiple Vitamins 1 tab PO QAM #0 tabs 02/11/22 08/04/23 tablet) citalopram 10 mg tablet 20 mg PO DAILY 08/06/22 08/04/23 trazodone 50 mg tablet 50 mg PO QHS PRN 08/06/22 08/04/23 melatonin 5 mg tablet 5 mg PO QHS PRN 12/18/22 08/04/23 metoprolol succinate 50 mg 25 mg PO DAILY 12/19/22 08/04/23 tablet,extended release 24 hr furosemide 40 mg tablet 40 mg PO BID@0830,1600 #60 tabs 12/30/22 08/04/23 pantoprazole 40 mg tablet,delayed 40 mg PO DAILY@0730 #30 tabs 12/30/22 08/04/23 release spironolactone 25 mg tablet 25 mg PO DAILY #30 tabs 12/30/22 08/04/23 thiamine mononitrate (vit B1) 100 100 mg PO DAILY #30 tabs 12/30/22 08/04/23 mg tablet (Vitamin B-1 (mononitrate)) Previous Rx's Medication Instructions Recorded multivitamin (Multiple Vitamins 1 tab PO QAM #0 tabs 02/11/22 tablet) furosemide 40 mg tablet 40 mg PO BID@0830,1600 #60 tabs 12/30/22 pantoprazole 40 mg tablet,delayed 40 mg PO DAILY@0730 #30 tabs 12/30/22 release spironolactone 25 mg tablet 25 mg PO DAILY #30 tabs 12/30/22 thiamine mononitrate (vit B1) 100 100 mg PO DAILY #30 tabs 12/30/22 mg tablet (Vitamin B-1 (mononitrate)) Allergies Allergy/AdvReac Type Severity Reaction Status Date / Time sulfamethoxazole Allergy Severe Unverified 08/04/23 09:24 [From Bactrim] trimethoprim [From Bactrim] Allergy Severe Unverified 08/04/23 09:24 Penicillins Allergy Intermediate Hives Verified 07/27/23 17:29 General Stated Complaint: [id number] MARLINE: 3 Review of Systems Constitutional Constitutional: Denies chills, Denies fever(s), Denies headache(s) and Reports malaise ENT Ears, Nose, Mouth, and Throat: Reports dizziness and Denies headache(s) Cardiovascular Cardiovascular: Denies chest pain, Reports syncope, Denies rapid heart rate, Denies lightheadedness and Reports dyspnea Respiratory Respiratory: Reports cough and Reports dyspnea Gastrointestinal Gastrointestinal: Denies abdominal pain, Denies nausea and Denies vomiting Neurologic Neurologic: Reports dizziness, Reports syncope and Denies headache(s) Exam Const General: cooperative, comfortable, no acute distress and not diaphoretic Orientation: alert and awake Neck Neck: normal visual inspection, full ROM, trachea midline, supple and no anterior neck swelling Carotids: normal carotid upstroke and no bruits Chest Chest: normal inspection of the chest Resp Effort & Inspection: normal respiratory effort and able to speak in complete sentences Auscultation: clear to auscultation bilaterally Cardio Jugular venous pressure: no JVD Palpation: normal PMI Rate: regular rate Rhythm: regular rhythm Heart Sounds: S1 normal, S2 normal, no click, no gallops, no murmurs and no rubs Pulses: radial pulses present bilaterally 2+ Neuro General: patient alert, patient awake, moves all extremities, no meningeal signs and CN's II-XI intact bilaterally Sensory Exam: no sensory deficits noted Course Vital Signs Vital signs: Vital Signs Temperature 36.4 C 08/04/23 09:15 Pulse 91 H 08/04/23 09:15 Respiratory Rate 20 08/04/23 09:15 Blood Pressure 99/58 L 08/04/23 09:15 Pulse Oximetry 94 08/04/23 09:15 Temperature 36.4 C 08/04/23 09:15 Temperature Source Oral 08/04/23 09:15 Pulse 91 H 08/04/23 09:15 Respiratory Rate 16 08/04/23 09:32 Respiratory Effort Normal 08/04/23 09:32 Respiratory Depth Normal 08/04/23 09:32 Respiratory Pattern Normal 08/04/23 09:32 Blood Pressure 99/58 L 08/04/23 09:15 Blood Pressure Position Sitting 08/04/23 09:15 Pulse Oximetry 94 08/04/23 09:15 Oxygen Delivery Method Room Air 08/04/23 09:15 Oxygen Flow Rate 0 08/04/23 09:15 Pain Level 0 08/04/23 09:15 Medical Decision Making Patient presenting to the emergency department for chief complaint of syncopal episodes. Patient's daughter reports that multiple times every day patient has episodes where she syncopized is and tenses up and looks left. Patient does not remember these episodes. Patient has significant history of alcoholism, ambulatory dysfunction, chronic hyponatremia, bipolar disorder. Patient's significant other did arrive to the department and stated that patient seems to have these episodes after coughing. This cough has been going on for 1 month. Patient does report that she had already been drinking this morning starting at 7 AM and has not been trying to reduce alcohol intake. Physical exam shows left lower lobe decreased lung sounds, no tachycardia, no noted hypoxia, slightly hypotensive but this has been noted in the past, patient is alert and awake but is not very forthcoming on further questioning and discussion of review of systems. Patient otherwise denies any other symptoms but does report the cough and some shortness of breath. Patient was seen by primary care provider today and blood pressure was noted 80s over 40s and was sent here for further e valuation. Will plan on performing EKG labs and imaging. At this time I do not see any signs of alcohol withdrawal but will continue to monitor. Also given that significant other stating coughing episodes question of possible acute hypoxia secondary to coughing episodes. Please see physician interpretation for full interpretation of EKG upon my review patient is in sinus rhythm with no acute findings to suggest STEMI. Reviewed patient's labs and no significant leukocytosis is noted, patient does have hyponatremia, critical hypokalemia, hypomagnesemia, significant and persistent liver function abnormalities and elevated TSH. CT imaging was performed of head and chest and no acute intracranial findings, no PE but there was a left lower lobe pneumonia found. Patient started on IV potassium, will hold on magnesium given soft blood pressure but will need repletion at some point, continued fluids, patient has no signs of alcohol withdrawal in spite of having negative alcohol level but will continue to monitor, will start patient on Levaquin given history of alcoholism with concern of potential for aspiration pneumonia. Blood cultures were drawn and I did contact hospitalist for admission which she agreed to admit patient for multiple electrolyte abnormalities along with pneumonia and risk for alcohol withdrawal. Imaging Data Radiologic Study: Imaging: CT Scan Radiologist's impression: Exam(s) CT BRAIN NECK CTA EXAM: CT BRAIN NECK CTA CLINICAL HISTORY: Syncope. TECHNIQUE: Imaging Protocol: Axial CT angiography was performed with multi- slice acquisition and multi-planar and MIP reconstructions. CONTRAST MATERIAL: Intravenous: Omnipaque 350 Contrast volume:100 ml COMPARISON: CT CT CHEST PE CTA from 10/04/2022 FINDINGS: CT Head W/O and W contrast: Ventricles and Extra axial spaces: Normal in size and morphology for the patient's age. Hemorrhage: None. Cerebral parenchyma: No evidence of acute infarct or mass. Midline shift: None. Brainstem/Cerebellum: No acute findings.. Calvarium: Normal. Visualized Paranasal sinuses/Mastoids: Clear. Soft Tissues: Unremarkable. Enhancement: Normal. CTA Brain W: Internal Carotid Arteries: Petrous: Normal. Cavernous: Normal. Cerebral: Normal. Middle Cerebral Arteries: Right: No aneurysm, occlusion or significant stenosis. Left: No aneurysm, occlusion or significant stenosis. Anterior Cerebral Arteries: Right: No aneurysm, occlusion or significant stenosis. Left: No aneurysm, occlusion or significant stenosis. Posterior cerebral Arteries: Right: No aneurysm, occlusion or significant stenosis. Left: No aneurysm, occlusion or significant stenosis. Vertebral Arteries: Right: No aneurysm, occlusion or significant stenosis. Left: No aneurysm, occlusion or significant stenosis. Basilar Artery: No aneurysm, occlusion or significant stenosis. CTA Neck W: Common Carotid: Right: No dissection, occlusion or significant stenosis. Left: No dissection, occlusion or significant stenosis. External Carotid: Right: No dissection, occlusion or significant stenosis. Left: No dissection, occlusion or significant stenosis. Internal Carotid: Right: No dissection, occlusion or significant stenosis. Left: No dissection, occlusion or significant stenosis. Vertebral Artery: Right: No dissection, occlusion or significant stenosis. Left: No dissection, occlusion or significant stenosis. Lung Apices: Limited evaluation due to motion. Bones: No acute abnormality. Soft Tissues: Normal. IMPRESSION: 1. CTA brain: Normal CTA examination of the [place]. 2. Head CT: Unremarkable CT Head. 3. CTA neck: Normal CTA examination of the neck. No significant atherosclerotic changes. Radiologic Study #2: Imaging: CT Scan Radiologist's impression: Exam(s) CT CHEST PE CTA EXAM: CT CHEST PE CTA CLINICAL HISTORY: Syncope, shortness of breath. TECHNIQUE: Imaging Protocol: Axial CT angiography was performed with multi- slice acquisition and multi-planar reconstructions as well as axial, coronal and sagittal MIP reconstructions. CONTRAST MATERIAL: Intravenous: Omnipaque 350 Contrast volume:100 ml COMPARISON: CT CT CHEST W from 04/15/[address] BRAIN NECK CTA from 08/04/2023 FINDINGS: The exam is limited by motion. Pulmonary Arteries: No evidence of filling defect to suggest pulmonary emboli. Tracheobronchial tree: No mucous plugging. Mediastinum and Allison: No dominant adenopathy or fluid collection. Pulmonary parenchyma: Limited evaluation due to motion and expiratory changes.. The left lower lobe infiltrate. Pleura: No effusion or pneumothorax. Heart: Significant motion at aortic root. The heart is mildly dilated. No coronary artery calcifications are seen. Aorta: Thoracic aorta non-dilated. No dissection. Upper abdomen: No acute findings. Severe hepatic steatosis. Bones: Unremarkable for age. Tubes, Catheters, and Lines: None Soft tissues: Unremarkable. IMPRESSION: No evidence of pulmonary embolism. Left lower lobe pneumonia. Lab Data Lab results reviewed: Yes I reviewed the patient's lab results. Quality:SDOH Health Related Social Needs: Health related social needs transpo insecurity PFSH All Active Problems Syncope (Chronic) Hypomagnesemia (Acute) Acute hypokalemia (Acute) Pneumonia (Acute) Injury of foot, left (Acute) Gall bladder polyp (Acute) Hyponatremia (Chronic) DVT prophylaxis (Acute) Ambulatory dysfunction (Acute) Hyperbilirubinemia (Acute) Thrombocytopenia (Chronic) Macrocytic anemia (Acute) Skin excoriation (Acute) Weakness (Acute) Skin ulcer (Acute) Hypoalbuminemia (Acute) Pneumonia (Acute) Peripheral neuropathy (Acute) Hypocalcemia (Acute) Folate deficiency (Acute) Weakness (Acute) UTI (urinary tract infection) (Acute) Alcohol abuse (Chronic) Anxiety (Chronic) Bipolar 1 disorder (Chronic) Multiple personality disorder (Acute) Unilateral primary osteoarthritis, left knee (Acute) Iliotibial band syndrome affecting left lower leg (Acute) Rectal bleeding (Acute) Anal and rectal polyp (Acute) Adenomatous polyps (Acute) Villous adenoma of colon (Acute) Tubulovillous adenoma (Acute) Sessile colonic polyp (Acute) Incontinence (Acute) High grade dysplasia in colonic adenoma (Acute) Abdominal pain (Acute) Nausea vomiting and diarrhea (Acute) Medical History Vertigo Fracture right arm, metal plate/screws right ankle- metal COVID-19 06/2021-pt stated she had no symptoms but an upset stomach Colonoscopy planned Hx of fracture of arm R arm, both bones. Plates. Hx of chest pain Was seen on 12/24/19 in ED for chest pain, had worked up and f/U with PCP no issues or concerns or recurrent chest pain since. Poor dentition Knee pain Cervical cancer Depression Surgical History History of hysterectomy History of colonoscopy with polypectomy (~09/07/21) 09/07/21 [place], no polyps repeat 2yrs. 02/16/2021 Sto[place], repeat 6 months Sto[place], villous/tubulovillous/sessile serrated 01/2020 [place], multiple polyps 08/11/20 Social History Smoking/Tobacco Use Status: Never Smoking risk assessment performed?: Yes Alcohol Intake: current Alcohol Intake frequency: a few times a week Alcohol type: beer Details: 6+ beer/day; Has been cutting back the past few weeks from 18+ beers/day Drug use: Never Substance use type: does not use Housing: apartment Do you feel safe at home: Yes Do you feel safe in your relationship?: Yes Additional Social history: does not feel safe at home. lives alone BREANA,RN 07/27/23 Discharge Plan Disposition Patient Disposition: Admit to [facility] Discharge Details Clinical Impression: Pneumonia, Hyponatremia, Alcohol abuse, Acute hypokalemia, Hypomagnesemia, Syncope Admit Date/Time: 08/04/23 13:54 Admit Provider: Dana Lockwood Attending Provider: Dana Lockwood Primary Care Provider: Medina Ramirez ED Provider: Leandro Contreras
[2023-08-04 10:13] LABS: Abs Immature Grans 0.09 10^3/uL (0.0-0.06); Absolute Basophil Count 0.03 10^3/uL (0.0-0.2); Absolute Eosinophil Count 0.12 10^3/uL (0.0-0.7); Absolute Lymphocyte Count 0.54 10^3/uL (1.2-3.4); Absolute Monocyte Count 0.84 10^3/uL (0.1-0.8); Absolute Neutrophil Count 6.12 10^3/uL (1.2-6.7); Basophils % 0.4; Eosinophils % 1.6; HCT 32.4 % (36.0-46.0); HGB 11.6 g/dL (11.2-15.7); Immature Grans % 1.2; MCH 33.9 pg (27.0-33.0); MCHC 35.8 % (32.0-36.0); MCV 95 fL (80-95); MPV 9.8 fL (8.0-11.0); Monocytes % 10.9; Neutrophils % 78.9; Platelet Count 110 10^3/uL (130-400); RBC 3.42 10^6/uL (3.93-5.22); RDW 11.8 % (11.7-14.6); RDW-SD 40.7 fL; WBC 7.74 10^3/uL (4.4-10.8)
--- NOTE | 2023-08-04 10:30 | DI.CT_ITS ---
Exam(s) CT BRAIN NECK CTA EXAM: CT BRAIN NECK CTA CLINICAL HISTORY: Syncope. TECHNIQUE: Imaging Protocol: Axial CT angiography was performed with multi-slice acquisition and mu lti-planar and MIP reconstructions. CONTRAST MATERIAL: Intravenous: Omnipaque 350 Contrast volume:100 ml COMPARISON: CT CT CHEST PE CTA from 10/04/2022 FINDINGS: CT Head W/O and W contrast: Ventricles and Extra axial spaces: Normal in size and morphology for the patient's age. Hemorrhage: None. Cerebral parenchyma: No evidence of acute infarct or mass. Midline shift: None. Brainstem/Cerebellum: No acute findings.. Calvarium: Normal. Visualized Paranasal sinuses/Mastoids: Clear. Soft Tissues: Unremarkable. Enhancement: Normal. CTA Brain W: Internal Carotid Arteries: Petrous: Normal. Cavernous: Normal. Cerebral: Normal. Middle Cerebral Arteries: Right: No aneurysm, occlusion or significant stenosis. Left: No aneurysm, occlusion or significant stenosis. Anterior Cerebral Arteries: Right: No aneurysm, occlusion or significant stenosis. Left: No aneurysm, occlusion or significant stenosis. Posterior cerebral Arteries: Right: No aneurysm, occlusion or significant stenosis. Left: No aneurysm, occlusion or significant stenosis. Vertebral Arteries: Right: No aneurysm, occlusion or significant stenosis. Left: No aneurysm, occlusion or significant stenosis. Basilar Artery: No aneurysm, occlusion or significant stenosis. CTA Neck W: Common Carotid: Right: No dissection, occlusion or significant stenosis. Left: No dissection, occlusion or significant stenosis. External Carotid: Right: No dissection, occlusion or significant stenosis. Left: No dissection, occlusion or significant stenosis. Internal Carotid: Right: No dissection, occlusion or significant stenosis. Left: No dissection, occlusion or significant stenosis. Vertebral Artery: Right: No dissection, occlusion or significant stenosis. Left: No dissection, occlusion or significant stenosis. Lung Apices: Limited evaluation due to motion. Bones: No acute abnormality. Soft Tissues: Normal. IMPRESSION: 1. CTA brain: Normal CTA examination of the [place]. 2. Head CT: Unremarkable CT Head. 3. CTA neck: Normal CTA examination of the neck. No significant atherosclerotic changes. RADIATION DOSE DELIVERED: 1,915.34mGy.cm Total DLP DATA REPOSITORY: All CT scans at this facility are submitted to the National Radiology Data Registry (NRDR) Dose Index Registry (DIR) with the [employer] (A[employer]). RADIATION OPTIMIZATION: All CT scans at this facility use at least one of these dose optimization te chniques: automated exposure control; mA and/or kV adjustment per patient size (includes targeted exa ms where dose is matched to clinical indication); or iterative reconstruction.
--- NOTE | 2023-08-04 10:30 | DI.CT_ITS ---
Exam(s) CT CHEST PE CTA EXAM: CT CHEST PE CTA CLINICAL HISTORY: Syncope, shortness of breath. TECHNIQUE: Imaging Protocol: Axial CT angiography was performed with multi-slice acquisition and mu lti-planar reconstructions as well as axial, coronal and sagittal MIP reconstructions. CONTRAST MATERIAL: Intravenous: Omnipaque 350 Contrast volume:100 ml COMPARISON: CT CT CHEST W from 04/15/[address] BRAIN NECK CTA from 08/04/2023 FINDINGS: The exam is limited by motion. Pulmonary Arteries: No evidence of filling defect to suggest pulmonary emboli. Tracheobronchial tree: No mucous plugging. Mediastinum and Allison: No dominant adenopathy or fluid collection. Pulmonary parenchyma: Limited evaluation due to motion and expiratory changes.. The left lower lobe infiltrate. Pleura: No effusion or pneumothorax. Heart: Significant motion at aortic root. The heart is mildly dilated. No coronary artery calcifica tions are seen. Aorta: Thoracic aorta non-dilated. No dissection. Upper abdomen: No acute findings. Severe hepatic steatosis. Bones: Unremarkable for age. Tubes, Catheters, and Lines: None Soft tissues: Unremarkable. IMPRESSION: No evidence of pulmonary embolism. Left lower lobe pneumonia. RADIATION DOSE DELIVERED: 516.57mGy.cm Total DLP DATA REPOSITORY: All CT scans at this facility are submitted to the National Radiology Data Registry (NRDR) Dose Index Registry (DIR) with the [employer] (ACR). RADIATION OPTIMIZATION: All CT scans at this facility use at least one of these dose optimization te chniques: automated exposure control; mA and/or kV adjustment per patient size (includes targeted exa ms where dose is matched to clinical indication); or iterative reconstruction.
[2023-08-04 10:37] LABS: ALT 23 U/L (14-59); AST 47 U/L (15-37); Albumin 2.4 g/dL (3.4-5.0); Alkaline Phosphatase 333 U/L (46-116); Anion Gap 7.8 mmol/L (3-11); BUN 5 mg/dL (7-18); Bilirubin, Total 2.7 mg/dL (0.2-1.0); CO2 42.2 mmol/L (21.0-32.0); CREATININE 0.9 mg/dL (0.55-1.02); Calcium 8.2 mg/dL (8.5-10.1); Chloride 76 mmol/L (98-107); Estimated GFR 72.28 (mL/min/1.73m2); Glucose 105 mg/dL (74-106); Magnesium 1.3 mg/dL (1.8-2.4); Sodium 126 mmol/L (136-145); TSH 4.39 uIU/mL (0.36-3.74); Total Protein 6.2 g/dL (6.4-8.2); Troponin I < 50 ng/L (< or =60)
[2023-08-04 10:39] LABS: Potassium 2.1 mmol/L (3.5-5.1)
[2023-08-04 10:42] LABS: Ammonia 13 umol/L (11-32)
[2023-08-04 10:45] LABS: ETHANOL BLOOD < 3.0 mg/dL (<10)
[2023-08-04] MEDS: POTASSIUM CHLORIDE 20 MEQ/100 ML BAG 50 MEQ IVPB ×4 (11:01→21:55)
[2023-08-04] MEDS: Omnipaque 350 MG/ML 100 ML BTL 185 ML IJ (12:35)
[2023-08-04] MEDS: levoFLOXacin 750 MG/150 ML BAG 100 MG IVPB (13:42)
[2023-08-04 14:21] LABS: ALT 18 U/L (14-59); AST 42 U/L (15-37); Alkaline Phosphatase 286 U/L (46-116); Anion Gap 2.7 mmol/L (3-11); BUN 6 mg/dL (7-18); Bilirubin, Total 2.9 mg/dL (0.2-1.0); CO2 43.3 mmol/L (21.0-32.0); CREATININE 0.9 mg/dL (0.55-1.02); Calcium 7.8 mg/dL (8.5-10.1); Chloride 80 mmol/L (98-107); Estimated GFR 72.28 (mL/min/1.73m2); Glucose 100 mg/dL (74-106); Sodium 126 mmol/L (136-145); Total Protein 5.2 g/dL (6.4-8.2)
[2023-08-04 14:22] LABS: ETHANOL BLOOD < 3.0 mg/dL (<10); Potassium 2.3 mmol/L (3.5-5.1)
[2023-08-04 14:35] LABS: Procalcitonin 0.1 ng/mL
[2023-08-04 14:41] LABS: COVID-19 PCR Negative (Negative); Influenza A PCR Negative (Negative); Influenza B PCR Negative (Negative); RSV PCR Negative (Negative)
[2023-08-04 14:42] LABS: Source Nasopharynx
[2023-08-04] MEDS: THIAMINE 500 MG in Normal Saline 100 ML 200 MG IVPB ×2 (15:27→23:34)
[2023-08-04] MEDS: Lactated Ringers 500 ML IV (16:48)
--- NOTE | 2023-08-04 16:50 | HPE_ITS ---
Date of service: 08/04/23 Time of Service: 16:50 Assessment and Plan Assessment and plan (1) Left lower lobe pneumonia: Status: Acute Assessment and plan: Present on admission. Continue levofloxacin initiated in the ED. Obtain pneumonia studies, including sputum culture, Urine for legionella and strep antigens, sputum for mycoplasma. Await blood cultures. Given hypotension, obtain lactate. Encourage pulmonary toilet. (2) Recurrent episodes of unresponsiveness: Status: Acute Assessment and plan: In setting of coughing, suspect hypoxia vs arrhythmia. Monitor on tele. Treat pneumonia and provide antitussives. Obtain an echocardiogram. (3) Hypotension: Status: Acute Assessment and plan: This has already resolved. HOld diuretics. S/p small fluid bolus. Repeat BP is 115/71. Trend lactates. (4) Wound of left foot: Status: Acute Assessment and plan: Obtain XR L foot, CRP. COnsider podiatry vs wound care consult. No antibiotics specifically for the foot at this time. (5) Acute hypokalemia: Status: Acute Assessment and plan: Replete and replete magnesium. (6) Hypomagnesemia: Status: Acute Assessment and plan: Replete (7) Hyponatremia: Status: Chronic Assessment and plan: Received 500 cc of LR this evening. We will recheck sodium in am. At this time, I am holding her diuretics as she is dehydrated. (8) Alcohol abuse: Status: Chronic Assessment and plan: Phenobarbital load. High dose thiamine. Monitor for w/d. (9) DVT prophylaxis: Status: Acute Assessment and plan: SC heparin (10) Discharge planning issues: Status: Acute Assessment and plan: DNR/DNI per my conversation with the patient. c/s PT. History of Present Illness History of Present Illness Chief Complaint: episodes of unresponsiveness with coughing Narrative: Ms Bucio is a 62 year old female with PMHx of EtOH abuse, prior episode of EtOH w/d treated with phenobarbital in our facility, alcoholic cirrhosis, chronic hyponatremia, thrombocytopenia, peripheral neuropathy, who is wheelchair dependent (and cannot tell me why) who presented to [facility] ED today with 1 month of witnessed daily episodes of unresponsiveness after coughing, where the patient tenses up, looks to the left, turns blue, is unresponsive for about 30 seconds, and then comes back to her normal. She is sitting during these episodes and does not fall. The patient states that she has been coughing for 2 months and has had diarrhea for about a week. She cannot describe the phlegm that comes up. Denies fevers. Her ED workup reveals a LLA pneumonia, for which she was started on levofloxacin. It also reveals a sodium of 126, potassium of 2.1, magnesium of 1.3. Her last alcoholic beverage was this morning and, despite this, her alcohol level at 09:55 was undetectable. She drinks a half-gallon bottle of whiskey in 2 days. She denies a h/o seizures. The last time she was in the hospital, she did withdraw from alcohol and was treated with phenobarbital protocol. Her electrolytes are being repleted. A hospitalist admission was requested. She also describes a fall a few days ago where her toes got caught on the tire. She was supposed to see her PCP about this on the . Review of Systems All systems reviewed & are unremarkable except as noted in HPI and below PFSH All Active Problems (Updated 08/04/23 @ 18:38 by Dana Lockwood MD) Wound of left foot (Acute) Hypotension (Acute) Discharge planning issues (Acute) Recurrent episodes of unresponsiveness (Acute) Left lower lobe pneumonia (Acute) Syncope (Chronic) Hypomagnesemia (Acute) Acute hypokalemia (Acute) Pneumonia (Acute) Injury of foot, left (Acute) Gall bladder polyp (Acute) Hyponatremia (Chronic) DVT prophylaxis (Acute) Ambulatory dysfunction (Acute) Hyperbilirubinemia (Acute) Thrombocytopenia (Chronic) Macrocytic anemia (Acute) Skin excoriation (Acute) Weakness (Acute) Skin ulcer (Acute) Hypoalbuminemia (Acute) Pneumonia (Acute) Peripheral neuropathy (Acute) Hypocalcemia (Acute) Folate deficiency (Acute) Weakness (Acute) UTI (urinary tract infection) (Acute) Alcohol abuse (Chronic) Anxiety (Chronic) Bipolar 1 disorder (Chronic) Multiple personality disorder (Acute) Unilateral primary osteoarthritis, left knee (Acute) Iliotibial band syndrome affecting left lower leg (Acute) Rectal bleeding (Acute) Anal and rectal polyp (Acute) Adenomatous polyps (Acute) Villous adenoma of colon (Acute) Tubulovillous adenoma (Acute) Sessile colonic polyp (Acute) Incontinence (Acute) High grade dysplasia in colonic adenoma (Acute) Abdominal pain (Acute) Nausea vomiting and diarrhea (Acute) Medical History Vertigo Fracture right arm, metal plate/screws right ankle- metal COVID-19 06/2021-pt stated she had no symptoms but an upset stomach Colonoscopy planned Hx of fracture of arm R arm, both bones. Plates. Hx of chest pain Was seen on 12/24/19 in ED for chest pain, had worked up and f/U with PCP no issues or concerns or recurrent chest pain since. Poor dentition Knee pain Cervical cancer Depression Surgical History History of hysterectomy History of colonoscopy with polypectomy (~09/07/21) 09/07/21 Stoiber, no polyps repeat 2yrs. 02/16/2021 Stoiber, repeat 6 months Stoiber, villous/tubulovillous/sessile serrated 01/2020 Stoiber, multiple polyps 08/11/20 Social History Smoking/Tobacco Use Status: Never Smoking risk assessment performed?: Yes Alcohol Intake: current Alcohol Intake frequency: a few times a week Alcohol type: beer Details: 6+ beer/day; Has been cutting back the past few weeks from 18+ beers/day Drug use: Never Substance use type: does not use Housing: apartment Do you feel safe at home: Yes Do you feel safe in your relationship?: Yes Additional Social history: does not feel safe at home. lives alone BARBARA TOUSSAINT 07/27/23 Meds Allergies and Home Medications Allergies Allergy/AdvReac Type Severity Reaction Status Date / Time sulfamethoxazole Allergy Severe Unverified 08/04/23 09:24 [From Bactrim] trimethoprim [From Bactrim] Allergy Severe Unverified 08/04/23 09:24 Penicillins Allergy Intermediate Hives Verified 07/27/23 17:29 Home Medications Medication Instructions Recorded Confirmed Type multivitamin (Multiple Vitamins 1 tab PO QAM #0 tabs 02/11/22 08/04/23 Rx tablet) citalopram 10 mg tablet 20 mg PO DAILY 08/06/22 08/04/23 History trazodone 50 mg tablet 50 mg PO QHS PRN 08/06/22 08/04/23 History melatonin 5 mg tablet 5 mg PO QHS PRN 12/18/22 08/04/23 History metoprolol succinate 50 mg 25 mg PO DAILY 12/19/22 08/04/23 History tablet,extended release 24 hr furosemide 40 mg tablet 40 mg PO BID@0830,1600 #60 tabs 12/30/22 08/04/23 Rx pantoprazole 40 mg tablet,delayed 40 mg PO DAILY@0730 #30 tabs 12/30/22 08/04/23 Rx release spironolactone 25 mg tablet 25 mg PO DAILY #30 tabs 12/30/22 08/04/23 Rx thiamine mononitrate (vit B1) 100 100 mg PO DAILY #30 tabs 12/30/22 08/04/23 Rx mg tablet (Vitamin B-1 (mononitrate)) Exam Narrative Exam Narrative: General: A pleasant cooperative middle-aged female, who is A&Ox3, appears to be comfortable in bed, hair magenta color Neurological: A&Ox3, no focal deficits Psychiatric: Appropriate speech pattern/content Skin: Digits 2 and 3 on L foot have dried blood on them with open wounds underneath HEENT: Atraumatic, normocephalic, EOMI, dry MM, clear oropharynx, no submandibular or cervical lymphadenopathy, no goiter or JVD, facial plethora Cardiovascular: RRR, no m/r/g Lungs: CTAB Gastrointestinal: soft, nontender, nondistended, no ascites Genitourinary: deferred Extremities: 2 + pedal pulses B, sensation preserved, see skin exam L foot Results Imaging Imaging Studies: CTA chest: No evidence of pulmonary embolism. Left lower lobe pneumonia. CTA head/neck; 1. CTA brain: Normal CTA examination of the [employer] [facility] [place]. 2. Head CT: Unremarkable CT Head. 3. CTA neck: Normal CTA examination of the neck. No significant atherosclerotic changes. EKG: HR 78, NSR, no acute ischemia, but a poor quality EKG Labs 08/04/23 09:55 08/04/23 17:08 Labs: Laboratory Results - last 24 hr 08/04/23 08/04/23 08/04/23 09:55 10:13 13:55 WBC 7.74 RBC 3.42 L Hgb 11.6 Hct 32.4 L MCV 95 MCH 33.9 H MCHC 35.8 RDW 11.8 Plt Count 110 L MPV 9.8 Immature Gran % 1.2 Neutrophils % 78.9 Lymphocytes % 7.0 Monocytes % 10.9 Eosinophils % 1.6 Basophils % 0.4 Nucleated RBC % 0.0 Absolute Neutrophils 6.12 Absolute Lymphocytes 0.54 L Absolute Monocytes 0.84 H Absolute Eosinophils 0.12 Absolute Basophils 0.03 Sodium 126 L 126 L Potassium 2.1 L* 2.3 L* Chloride 76 L 80 L Carbon Dioxide 42.2 H 43.3 H Anion Gap 7.8 2.7 L BUN 5 L 6 L Creatinine 0.9 0.9 Est GFR (CKD-EPI 2020) 72.28 72.28 Glucose 105 100 Calcium 8.2 L 7.8 L Magnesium 1.3 L Total Bilirubin 2.7 H 2.9 H AST 47 H 42 H ALT 23 18 Alkaline Phosphatase 333 H 286 H Ammonia 13 Troponin I < 50 Total Protein 6.2 L 5.2 L Albumin 2.4 L 2.0 L Procalcitonin 0.1 TSH 4.39 H Ethyl Alcohol < 3.0 < 3.0 COVID-19 Source SARS-CoV-2 (PCR) Influenza Type A (PCR) Influenza Type B (PCR) RSV (PCR) 08/04/23 13:58 WBC RBC Hgb Hct MCV MCH MCHC RDW Plt Count MPV Immature Gran % Neutrophils % Lymphocytes % Monocytes % Eosinophils % Basophils % Nucleated RBC % Absolute Neutrophils Absolute Lymphocytes Absolute Monocytes Absolute Eosinophils Absolute Basophils Sodium Potassium Chloride Carbon Dioxide Anion Gap BUN Creatinine Est GFR (CKD-EPI 2020) Glucose Calcium Magnesium Total Bilirubin AST ALT Alkaline Phosphatase Ammonia Troponin I Total Protein Albumin Procalcitonin TSH Ethyl Alcohol COVID-19 Source Nasopharynx SARS-CoV-2 (PCR) Negative Influenza Type A (PCR) Negative Influenza Type B (PCR) Negative RSV (PCR) Negative Last Vital Signs Temp 36.7 C 08/04/23 16:19 Pulse 75 08/04/23 16:19 Resp 22 08/04/23 16:19 BP 89/60 L 08/04/23 16:19 Pulse Ox 96 08/04/23 16:19 Time Spent Time spent with Patient: 55-74 minutes Time was spent: preparing to see the patient(eg.review tests), obtaining and/or reviewing separately otained hiistory, ordering medications,tests, procedures, referring, communicating with other health pet care attendant, indepentently interpreting results, counseling the patient and care coordination
[2023-08-04 17:20] LABS: Lactate 5.3 mmol/L (0.6-1.4)
[2023-08-04 17:28] LABS: Anion Gap 4.5 mmol/L (3-11); BUN 6 mg/dL (7-18); CO2 41.5 mmol/L (21.0-32.0); CREATININE 0.9 mg/dL (0.55-1.02); Calcium 7.8 mg/dL (8.5-10.1); Chloride 82 mmol/L (98-107); Estimated GFR 72.28 (mL/min/1.73m2); Glucose 96 mg/dL (74-106); Sodium 128 mmol/L (136-145)
[2023-08-04 17:29] LABS: Potassium 2.3 mmol/L (3.5-5.1)
[2023-08-04] MEDS: PHENobarbital 140 MG in Normal Saline 50 ML 100 MG IVPB (18:14)
[2023-08-04] MEDS: MAGNESIUM SULFATE 4 GM/100 ML BAG IVPB (18:15)
[2023-08-04] MEDS: Heparin 5,000 UNITS/ML VIAL 5000 UNITS SC (18:23)
--- NOTE | 2023-08-04 19:57 | DI.VRAD_ITS ---
PROCEDURE INFORMATION: Exam: XR Left Foot Exam date and time: 08/04/2023 7:28 PM Age: 62 years old Clinical indication: Other: Lesions of 2nd and 3rd toes TECHNIQUE: Imaging protocol: Radiologic exam of the left foot. Views: 3 or more views. COMPARISON: CR XR FOOT LT COMPLETE 07/27/2023 5:58 PM FINDINGS: Bones/joints: Degenerative changes in the tarsal bones and tarsometatarsal joints. Osteopenia. There is no evidence of acute fracture.There is no evidence of malalignment or dislocation. Soft tissues: Normal. Other findings: Hammertoes IMPRESSION: There is no evidence of acute fracture.There is no evidence of malalignment or dislocation. Dictated and Authenticated by: Philip Drew MD. Ordering:ROBIN Cortez MD
[2023-08-04] MEDS: Benzonatate 200 MG CAP PO (20:17)
[2023-08-04] MEDS: guaiFENesin 600 MG TABCR PO (20:17)
[2023-08-04] MEDS: PHENobarbital 100 MG in Normal Saline 50 ML IVPB ×2 (20:17→23:34)
[2023-08-04] MEDS: Potassium Chloride 10 MEQ CAPCR 40 MEQ PO (20:18)
[2023-08-04 20:24] LABS: Lactate 5.3 mmol/L (0.6-1.4)
[2023-08-04] MEDS: Normal Saline Flush 10 ML SYR IVP (21:58)
[2023-08-04 23:28] LABS: Lactate 3.4 mmol/L (0.6-1.4)
[2023-08-04] MEDS: Normal Saline 100 ML (23:38)
[2023-08-05] MEDS: Heparin 5,000 UNITS/ML VIAL 5000 UNITS SC (02:19)
[2023-08-05] MEDS: Normal Saline 100 ML (05:22)
[2023-08-05] MEDS: THIAMINE 500 MG in Normal Saline 100 ML 200 MG IVPB ×3 (05:22→21:54)
[2023-08-05] MEDS: Normal Saline Flush 10 ML SYR IVP ×7 (05:23→21:54)
[2023-08-05] MEDS: Normal Saline 1,000 ML 150 ML IV (06:40)
[2023-08-05 07:41] LABS: Lactate 1.5 mmol/L (0.6-1.4)
[2023-08-05 07:54] LABS: Abs Immature Grans 0.08 10^3/uL (0.0-0.06); Absolute Basophil Count 0.04 10^3/uL (0.0-0.2); Absolute Eosinophil Count 0.06 10^3/uL (0.0-0.7); Absolute Lymphocyte Count 0.66 10^3/uL (1.2-3.4); Absolute Monocyte Count 0.54 10^3/uL (0.1-0.8); Absolute Neutrophil Count 4.41 10^3/uL (1.2-6.7); Basophils % 0.7; HCT 26.4 % (36.0-46.0); HGB 9.6 g/dL (11.2-15.7); Immature Grans % 1.4; Lymphocytes % 11.4; MCH 34.7 pg (27.0-33.0); MCHC 36.4 % (32.0-36.0); MCV 95 fL (80-95); MPV 10.8 fL (8.0-11.0); Monocytes % 9.3; Neutrophils % 76.2; RBC 2.77 10^6/uL (3.93-5.22); RDW 11.6 % (11.7-14.6); RDW-SD 40.7 fL; WBC 5.79 10^3/uL (4.4-10.8)
[2023-08-05 08:08] LABS: BUN 4 mg/dL (7-18); CREATININE 0.7 mg/dL (0.55-1.02); Calcium 7.8 mg/dL (8.5-10.1); Chloride 85 mmol/L (98-107); Estimated GFR 97.72 (mL/min/1.73m2); Glucose 100 mg/dL (74-106); Magnesium 2.3 mg/dL (1.8-2.4); Sodium 126 mmol/L (136-145)
[2023-08-05 08:11] LABS: C-Reactive Protein 1.89 mg/dL (0.0-0.3)
[2023-08-05 08:13] LABS: Potassium 2.7 mmol/L (3.5-5.1)
[2023-08-05 08:14] LABS: Diff Comment Diff Reviewed; Platelet Count 68 10^3/uL (130-400); RBC Morphology Normal
[2023-08-05 08:24] VITALS: BP 73/49; PULSE 76; RESP 19; TEMP 36; O2SAT 94
[2023-08-05 08:28] LABS: Vitamin B12 835 pg/mL (193-986)
[2023-08-05] MEDS: Benzonatate 200 MG CAP PO ×3 (08:44→20:38)
[2023-08-05] MEDS: Thiamine 100 MG TAB PO (08:44)
[2023-08-05] MEDS: Multivitamin TAB 1 TAB PO (08:45)
[2023-08-05] MEDS: Pantoprazole 40 MG TABCR PO (08:45)
[2023-08-05] MEDS: Citalopram 10 MG TAB 20 MG PO (08:45)
[2023-08-05] MEDS: Potassium Chloride 10 MEQ CAPCR 40 MEQ PO ×2 (08:45→20:40)
[2023-08-05] MEDS: guaiFENesin 600 MG TABCR PO ×2 (08:45→20:38)
[2023-08-05 08:48] LABS: Hemoglobin A1C 4.7 % (<5.7)
[2023-08-05] MEDS: Lactated Ringers 500 ML IV (08:49)
--- NOTE | 2023-08-05 09:30 | DI.US_ITS ---
APPROVED REPORT EXAM: Comprehensive 2D, Doppler, and color-flow Echocardiogram Patient Location: In-Patient Room/Bed: [address] [employer] Worker: Bandar Lanza RDCS (AE) Indications: syncopal episodes Conclusion 1. LV normal size, other chambers mildly to moderately dilated. 2. Normal LV function,EF 60-65%. Normal RV function. 3. Anatomically normal valves. Mild to moderate MR, trace TR. 4. No intracardiac shunt. 5.Trace pericardial effusion. Wall motion Left Ventricle The left ventricle is normal size. The left ventricular systolic function is normal. The left ventric ular ejection fraction is within the normal range. There is normal left ventricular wall thickness. T here is normal LV segmental wall motion. Poor subcostal imaging due to body habitus. There appears to be no ventricular septal defect visualized. LVEF is 60-65%. Right Ventricle Right ventricle is mildly dilated. Right ventricular systolic function is grossly normal. Atria Left atrium is moderately dilated. Right atrium is moderately dilated. Poor subcostal imaging due to body habitus. The interatrial septum appears intact with no evidence for an atrial septal defect. Aortic Valve The aortic valve is normal in structure. There is no aortic valvular stenosis. No aortic regurgitatio n is present. Mitral Valve The mitral valve is normal in structure. No evidence of mitral valve stenosis. Moderate mitral regurg itation. Tricuspid Valve The tricuspid valve is normal in structure. There is no tricuspid valve stenosis. Trace tricuspid reg urgitation. Unable to assess PA pressure. Pulmonic Valve The pulmonary valve is normal in structure. There is no pulmonic valvular stenosis. Trivial pulmonic regurgitation. Great Vessels Aortic root is mildly dilated. The ascending aorta is mildly to borderline moderately dilated. Due t o poor image quality, the IVC could not be assessed. Pericardium Posterior pericardial effusion. No echo indications of pericardial tamponade. 2D Dimensions IVSD d PLAX 0.79 cm F: 0.6-1.0 Ao Root d 3.46 cm F: 2.7 - 3.3 LVPW d PLAX 0.81 cm F: 0.6 - 1.0 Ao Asc Diam d 3.98 cm F: 2.3 - 3.1 LVID d PLAX 4.56 cm F: 3.8 - 5.2 RVOT Diameter 2.99 cm LVDs 2.93 cm F: 2.2 - 3.5 LV EF Teichholz 65.3 % FS 35.68 % LV EDV (Teich) 95.3 mL LV ESV (Teich) 33.1 mL Stroke Vol Index (Teich) 29.62 M-Mode TAPSE 1.90 cm (M/F) >1.7 Auto EF LV EDV A4C 94.4 mL LV EDV A2C 66.4 mL LV EDV BP 77.8 mL LV ESV A4C 35.2 mL LV ESV A2C 26.7 mL LV ESV BP 30.6 mL LVEF(%) A4C 62.7 % LVEF(%) A2C 59.8 % LVEF(%) BP 60.7 % LV SV A4C 59.2 ml LV SV A2C 39.7 ml LV SV BP 47.3 ml LV CO A4C 4.3 L/min LV CO A2C 2.9 L/min LV CO BP 3.6 L/min HR A4C 72.88 BPM HR A2C 73.92 BPM LV EDV Index (BP) LA Volume LA Length A4C 5.3 cm LA Length A2C 4.6 cm LA Area A4C s 17.10 cm2 LA Area A2C s 18.92 cm2 LA Vol A4C A-L 46.53 mL LA Vol A2C A-L 65.65 mL LA Vol Biplane A-L 59.3 mL LA Vol/BSA A4C A-L LA Vol/BSA A2C A-L LA Vol/BSA BP A-L 28.3 mL/m2 LA Vol A4C MOD 44.1 mL LA Vol A2C MOD 61.2 mL LA Vol BP MOD 55.0 mL RA Volume RA Area A4C 14.9 cm2 RA ESV A4C (A-L) 38.8mL RA Vol/BSA A4C A-L RA Length A4C 4.8 cm RA ESV A4C (MOD) 34.4mL LV Diastology MV E' medial 0.086 (>0.07 m/s) MV E Vmax 0.87 (0.4-1.3 m/s) MV E/E' MED 10.01 (<14) MV A Vmax 0.90 (0.4-1.3 m/s) MV E' lateral 0.093 (>0.1 m/s) E/A Ratio 1.0 MV E/E' LAT 9.26 (<14) MV E' Average 0.090 m/s MV E/E'(average) 9.62 Aortic Valve AoV Vmax 1.33 m/s LVOT Vmax 1.18 m/s AoV Peak Grad 7.1 mmHg LVOT Peak Grad 5.6 mmHg AoV Area (Vmax) 2.74 cm2 LVOT VTI 0.257 m AoV VTI 0.279 m LVOT Mean Grad 2.6 mmHg AoV Mean Teodoro. 0.94 m/s LVOT SV 79.05 mL AoV Mean Grad 3.9 mmHg LVOT Diam s 1.95 cm AoV Area (VTI) 2.83 cm2 Velocity Ratio 0.89 Mitral Valve MV DT 201 (160-240 msec) Pulmonary Valve RVOT Diam s 2.99 cm (M/F) 2.1-3.5
[2023-08-05 09:42] LABS: Bilirubin Small (Negative); Blood Large (Negative); Clarity Sl Cloudy (Clear); Glucose Negative (Negative); Ketones Negative (Negative); Leukocyte Esterase Trace (Negative); Nitrite Negative (Negative); Specific Gravity 1.015 (1.005-1.025); Urobilinogen >=8.0 mg/dL (Up to 0.2); pH 8.5 (5-8)
[2023-08-05 09:48] LABS: RBC >50 HPF (0-2)
[2023-08-05 09:49] LABS: Bacteria Few HPF (Negative); C & S Indicated? Yes; Casts Negative LPF (Negative); Crystals Negative HPF (Negative); Epithelial Cells Rare HPF (Negative); Mucus Negative (Negative)
[2023-08-05 10:26] VITALS: BP 84/53; PULSE 76; RESP 17; TEMP 35.8; O2SAT 94
[2023-08-05] MEDS: POTASSIUM CHLORIDE 20 MEQ/100 ML BAG 50 MEQ IVPB ×3 (10:26→16:48)
[2023-08-05 11:15] LABS: Lactate 2.3 mmol/L (0.6-1.4)
[2023-08-05] MEDS: ALBUMIN HUMAN 25 GM/100 ML BTL IVPB ×2 (11:41→12:31)
[2023-08-05] MEDS: Midodrine 2.5 MG TAB 5 MG PO ×3 (11:41→20:38)
--- NOTE | 2023-08-05 12:37 | INITIAL_ITS ---
Date of service: 08/05/23 Time of Service: 12:37 Care Management Initial Assmt Initial Assessment REASON FOR HOSPITALIZATION:: hypokalemia PREVIOUS FUNCTIONAL STATUS/SOCIAL/FAMILY SUPPORTS:: Zabrina lives in a studio apartment in [facility] with her youngest daughter Simran Enciso. She has 3 other daughters but is only close to Simran and one other. Zabrina has a boyfriend Rosales who is supportive as well as neighbors who help her out. She is essentially wheelchair/bed bound. She does have a cane and a walker but states she walks very little. She is independent with dressing, bathing and eating but requires help getting in and out of bed and with meal preparation. CURRENT FUNCTIONAL STATUS:: Zabrina was sitting up in bed when CM met with her. Her boyfriend Rosales was present but left soon after CM arrived. Zabrina was pleasa nt and agreeable to conversation. She informed CM that one of her daughters visited her today and called her an alcoholic and told her she needed to stop drinking. Zabrina informed CM that she agreed with her daughter that she is an alcoholic but does not intend to stop drinking alcohol. She reported that she has tried to get [facility] several times but has been declined the service; she is not sure what the reason is. The only community service she receives is case management through [facility]. ADVANCE DIRECTIVES:: none on file Has patient been provided with info about the portal/API?: Yes Did the patient sign up for the portal?: No CODE STATUS:: DNR/DNI INSURANCE COVERAGE / FINANCIAL ISSUES:: [facility] Medicare Replacement CURRENT HOME/COMMUNITY SERVICES/EQUIPMENT:: wheelchair, community case management through [facility] PRIMARY CARE PHYSICIAN:: Medina Ramirez POTENTIAL DISCHARGE NEEDS:: follow up with PCP PATIENT/FAMILY EDUCATION NEEDS:: Review of discharge instructions, activity, limitations, follow up plan, discuss Ask Me Three TRANSPORTATION:: to be determined by disposition PLAN:: Anticipate Zabrina will be discharged home with new home health services unless she agrees to go to rehab. She informed CM that she would be open to either, if recommended. She will follow up with her PCP and plan of care. Transportation will be determined by disposition. CM will follow and continue to assess for discharge needs. [facility] All Active Problems (Updated 08/04/23 @ 18:38 by Dana Lockwood MD) Wound of left foot (Acute) Hypotension (Acute) Discharge planning issues (Acute) Recurrent episodes of unresponsiveness (Acute) Left lower lobe pneumonia (Acute) Syncope (Chronic) Hypomagnesemia (Acute) Acute hypokalemia (Acute) Pneumonia (Acute) Injury of foot, left (Acute) Gall bladder polyp (Acute) Hyponatremia (Chronic) DVT prophylaxis (Acute) Ambulatory dysfunction (Acute) Hyperbilirubinemia (Acute) Thrombocytopenia (Chronic) Macrocytic anemia (Acute) Skin excoriation (Acute) Weakness (Acute) Skin ulcer (Acute) Hypoalbuminemia (Acute) Pneumonia (Acute) Peripheral neuropathy (Acute) Hypocalcemia (Acute) Folate deficiency (Acute) Weakness (Acute) UTI (urinary tract infection) (Acute) Alcohol abuse (Chronic) Anxiety (Chronic) Bipolar 1 disorder (Chronic) Multiple personality disorder (Acute) Unilateral primary osteoarthritis, left knee (Acute) Iliotibial band syndrome affecting left lower leg (Acute) Rectal bleeding (Acute) Anal and rectal polyp (Acute) Adenomatous polyps (Acute) Villous adenoma of colon (Acute) Tubulovillous adenoma (Acute) Sessile colonic polyp (Acute) Incontinence (Acute) High grade dysplasia in colonic adenoma (Acute) Abdominal pain (Acute) Nausea vomiting and diarrhea (Acute) Medical History Vertigo Fracture right arm, metal plate/screws right ankle- metal COVID-19 06/2021-pt stated she had no symptoms but an upset stomach Colonoscopy planned Hx of fracture of arm R arm, both bones. Plates. Hx of chest pain Was seen on 12/24/19 in ED for chest pain, had worked up and f/U with PCP no issues or concerns or recurrent chest pain since. Poor dentition Knee pain Cervical cancer Depression Surgical History History of hysterectomy History of colonoscopy with polypectomy (~09/07/21) 09/07/21 Stoiber, no polyps repeat 2yrs. 02/16/2021 Stoiber, repeat 6 months Stoiber, villous/tubulovillous/sessile serrated 01/2020 Stoiber, multiple polyps 08/11/20 Social History Smoking/Tobacco Use Status: Never Smoking risk assessment performed?: Yes Alcohol Intake: current Alcohol Intake frequency: a few times a week Alcohol type: beer Details: 6+ beer/day; Has been cutting back the past few weeks from 18+ beers/day Drug use: Never Substance use type: does not use Housing: apartment Do you feel safe at home: Yes Do you feel safe in your relationship?: Yes Additional Social history: does not feel safe at home. lives alone BARBARA TOUSSAINT 07/27/23 SDDC(Care Management) Screening Will the Patient Participate in the Screening?: Yes Do you worry about having a steady place to live?: no In the past 12 months, have you had to go without electric, gas, oil or water in your home?: no Have you or anyone in your house had to go without enough food to eat?: no Has lack of transportation kept you from medical appointments or from doing things needed for daily living?: no Has anyone in your support network made you feel unsafe for any reason?: no
[2023-08-05 12:42] LABS: Abs Immature Grans 0.08 10^3/uL (0.0-0.06); Absolute Basophil Count 0.05 10^3/uL (0.0-0.2); Absolute Eosinophil Count 0.05 10^3/uL (0.0-0.7); Absolute Lymphocyte Count 0.78 10^3/uL (1.2-3.4); Absolute Monocyte Count 0.65 10^3/uL (0.1-0.8); Absolute Neutrophil Count 4.82 10^3/uL (1.2-6.7); Basophils % 0.8; Eosinophils % 0.8; HGB 9.4 g/dL (11.2-15.7); Immature Grans % 1.2; Lymphocytes % 12.1; MCH 34.1 pg (27.0-33.0); MCHC 34.8 % (32.0-36.0); MCV 98 fL (80-95); Monocytes % 10.1; RBC 2.76 10^6/uL (3.93-5.22); RDW-SD 43.1 fL; WBC 6.43 10^3/uL (4.4-10.8)
[2023-08-05 12:54] LABS: Diff Comment Diff Reviewed; Platelet Count 73 10^3/uL (130-400)
[2023-08-05 12:55] LABS: Basophilic Stippling Present; Hypochromasia 2+; Polychromasia Present
[2023-08-05 14:44] VITALS: BP 82/52; PULSE 81; RESP 18; TEMP 36.4; O2SAT 97
[2023-08-05 15:37] VITALS: BP 94/61; PULSE 80; RESP 16; TEMP 36.8; O2SAT 94
--- NOTE | 2023-08-05 16:42 | IN_ITS ---
PT Notes Visit Reasons: episodesof unresponsiveness,hypokalemia,hypomagne Physical Therapy Initial Evaluation Dates of Service:?08/05/2023 Referring Doctor:? Dana Lockwood MD PT Orders: PT CONSULT: Limited Ability Precautions: Falls. Contact precautions in place. Activity as tolerated. Patient Profile/Admitting Diagnosis:?? Patient is a 62-year-old female admitted to [facility] for management of L LL PNA, recurrent episodes of unresponsuveness, hypotension, wound on L foot, acute hypokalemia, hypomagnesemia, hyponatremia, and ETOH abuse. PMHX:? All Active Problems (Updated 08/04/23 @ 18:38 by Dana Lockwood MD) Wound of left foot (Acute) Hypotension (Acute) Discharge planning issues (Acute) Recurrent episodes of unresponsiveness (Acute) Left lower lobe pneumonia (Acute) Syncope (Chronic) Hypomagnesemia (Acute) Acute hypokalemia (Acute) Pneumonia (Acute) Injury of foot, left (Acute) Gall bladder polyp (Acute) Hyponatremia (Chronic) DVT prophylaxis (Acute) Ambulatory dysfunction (Acute) Hyperbilirubinemia (Acute) Thrombocytopenia (Chronic) Macrocytic anemia (Acute) Skin excoriation (Acute) Weakness (Acute) Skin ulcer (Acute) Hypoalbuminemia (Acute) Pneumonia (Acute) Peripheral neuropathy (Acute) Hypocalcemia (Acute) Folate deficiency (Acute) Weakness (Acute) UTI (urinary tract infection) (Acute) Alcohol abuse (Chronic) Anxiety (Chronic) Bipolar 1 disorder (Chronic) Multiple personality disorder (Acute) Unilateral primary osteoarthritis, left knee (Acute) Iliotibial band syndrome affecting left lower leg (Acute) Rectal bleeding (Acute) Anal and rectal polyp (Acute) Adenomatous polyps (Acute) Villous adenoma of colon (Acute) Tubulovillous adenoma (Acute) Sessile colonic polyp (Acute) Incontinence (Acute) High grade dysplasia in colonic adenoma (Acute) Abdominal pain (Acute) Nausea vomiting and diarrhea (Acute) Medical History Vertigo Fracture right arm, metal plate/screws right ankle- metal COVID-19 06/2021-pt stated she had no symptoms but an upset stomach Colonoscopy planned Hx of fracture of arm R arm, both bones. Plates. Hx of chest pain Was seen on 12/24/19 in ED for chest pain, had worked up and f/U with PCP no issues or concerns or recurrent chest pain since. Poor dentition Knee pain Cervical cancer Depression Surgical History History of hysterectomy History of colonoscopy with polypectomy (~09/07/21) 09/07/21 Stoiber, no polyps repeat 2yrs. 02/16/2021 Stoiber, repeat 6 months Stoiber, villous/tubulovillous/sessile serrated 01/2020 Stoiber, multiple polyps 08/11/20 Social History/Home Situation: Per patient report - she lives in a first floor, one level, apartment w/her daughter. Her daughter is out of the apartment from 6:00a.m-5:00p.m. Her daugh ter and a neighbor assist her with a 2 person max transfer from to WC and WC to bed daily, and the neighbor and daughter assist with WC to toilet transfers - this is the only way she can toilet. She is independent with mobility around the apartment during the day, managing to make herself food, if there is food left for her to warm up. She is able to dress herself, only if her clothes are not hidden. She has not ambulated for over one year now when she was working with HHPT, using a RW. HHPT suggested she did not transfer independently due to safety issues, and due to lack of assist she ultimately ended up weaker in the WC. She never leaves her home. She has a cell phone during the day to call the neighbor if she needs help. Equipment Owned/DME: Shower chair, WC, RW, toilet riser Subjective:? Patient reports that she just loses consciousness and then collapses with no recollection of how it happened. Objective:? General Observation: Resting in bed Mental Status: A & O x 3 Pain: B knees up to 5/10 after ambulation Vital Signs: Closely monitored by nursing staff ROM: Right Upper Extremity: Grossly limited to malathi elevation of 100 deg, otherwise WNL Left Upper Extremity: Grossly limited to malathi elevation fo 100 deg, otherwise WNL Right Lower Extremity: Hip flex of 90 deg, knee 0 -120, ankle hypomobile but WFL Left Lower Extremity: Hip flex of 90 deg, knee 0-120, ankle hypomobile but WFL Strength: Right Upper Extremity: Shoulder flexors 3-/5. Shoulder abductors 3-/5. Elbow flexors 4-/5. Elbow extensors 4-/5. Is Project Manager strong. Left Upper Extremity: Shoulder flexors 3-/5. Shoulder abductors 3-/5. Elbow flexors 4-/5. Elbow extensors 4-/5. Is Project Manager strong. Right Lower Extremity: Hip flexors 3-/5. Hip abductors 3-/5. Knee flexors 3-/5. Knee extensors 3-/5. Ankle dorsiflexors 4-/5. Ankle plantarflexors 4-/5. Left Lower Extremity: Hip flexors 3-/5. Hip abductors 3-/5. Knee flexors 3-/5. Knee extensors 3-/5. Ankle dorsiflexors 4-/5. Ankle plantarflexors 4-/5. Sensation:? Decreased sensory perception in B LE due to pre-existing neuropathy Bed Mobility/Transfers: Deferred as patient did not feel safe and is very anxious about getting out of bed, will try again tomorrow morning Gait:? Deferred as patient did not feel safe and is very anxious about getting out of bed, will try again tomorrow morning Balance:? Static Sitting: Good Dynamic Sitting: Good Static Standing: Fair Dynamic Standing: Fair Special Tests: Mobility Limitations Standardized Measure [facility] AM-PAC 6 clicks Basic Mobility Inpatient Short Form: Raw Score:? 6 CMS score: 100% deficit Informed Consent/Education: Patient was instructed in purpose of PT consult and plan of care. Agreeable to proceed with established PT POC to achieve personal goals. ASSESSMENT:?? patient demonstrating functional mobility decline compared to discharge level from previous admission last year. Patient has had several falls,? peripheral neuropathy,? chronic B knee pain, and chronic low back pain that have limited her ability to move.? Her ongoing issue with ETOH intoxication/abuse has not helped with her overall mobility at home and has led to further functional deterioration and generalized weakness.? She transitions to swing bed level I as of today with a goal to progress her mobility level using front-wheeled walker/4-wheeled walker in anticipation of discharge to home when able.? Patient presents with clinical signs and symptoms consistent with current/admitting diagnoses that have resulted to mobility limitations, gait instability, generalized weakness, and overall ADL decline as demonstrated by the following impairment level findings: 1. Decreased strength to B UE/LE major muscle groups 2. Impaired sitting/standing balance 3. Impaired activity tolerance 4. Limitation of joint range of motion in joints as above 5. Anxiety over weight bearing due to repeated suncopal epsiodes Impairments are contributing to the following functional limitations: 1. Decline in bed mobility skills 2. Decline in transfer skills 3. Inability to ambulate due to anxiety level- has not walked for oever a year now 4. Increased completion time for mobility ADL performance 5. Increased risk for falls 6. Difficulty with managing steps alone safely Patient is assessed as a 53172 high complexity based on the following: History: 62-year-old female with past medical history as indicated above Examination: Demonstrable impairment in strength, balance, and mobility level with underlying impairments and functional limitations as exhibited above as well as deficit score of 100% utilizing the [facility] Mobility Inpatient Short Form Presentation: Evolving Decision Makin moderate complexity Goals: Goals X1 week 1. Supine-Sit independent 2. Sit-Supine independent 3. Sit-Stand minimal assist with FWW 4. Stand-Sit iminimal assist with FWW 5. Bed-Chair minimal assist with FWW 6. Chair-Bed minimal assist with FWW 7. Minimal assist with FWWgait on level surface with use of least restrictive device for at least 100 feet without report of pain nor dyspnea 8. Minimal assist with home exercise program 9. Fair static and dynamic standing balance/tolerance PLAN OF CARE/TREATMENT PLAN: 1. Pre-medicate patient for pain. 2. Perform B LE/UE strengthening exercises with resistance devices seated to minimize overload on B knees and back. 3. Encourage increase distance in ambulation with several seated rests to offset fatigue and minimize pain. 4. Break down session into two if needed. 5. Progress to using FWW as tolerated. Wean off wheelchair if able. Determine if able to progress to use of 4-wheeled walker to allow for seated rest at discharge destination. DISCHARGE RECOMMENDATIONS: SNF vs. Assisted living facility vs. supervised home environment based on progress towards goals. TREATMENT CODE/TIME: 77280 x 25 minutes for 1 unit beginning at 16:42 PM. Thank you for the opportunity to participate in the care of this patient. Tamie Christine PT, DPT, CLT [facility], [place]
[2023-08-05] MEDS: levoFLOXacin 750 MG/150 ML BAG 100 MG IVPB (16:45)
--- NOTE | 2023-08-05 19:32 | PGE_ITS ---
Date of Service Date of service: 08/05/23 Time of Service: 19:32 Assessment and Plan Assessment and plan (1) Left lower lobe pneumonia: Status: Acute Assessment and plan: Present on admission. Continue levofloxacin (day 2). Await pneumonia studies, including sputum culture, Urine for legionella and strep antigens, sputum for mycoplasma. Blood cultures negative. I do not think that the patient is in septic shock - clinically, she is perfusing well despite borderline low BPs. Encourage pulmonary toilet. (2) Recurrent episodes of unresponsiveness: Status: Acute Assessment and plan: In setting of coughing, suspect hypoxia vs arrhythmia. Monitor on tele. Treat pneumonia and provide antitussives. Echo w/ dilated LA/RA/RV. Continue to monitor for arrhythmias - she is at risk. (3) Hypotension: Status: Acute Assessment and plan: This has already resolved. Hold diuretics. COntinue IVF overnight - she is clinically dry. S/p albumin x 2 bottles and initiated on midodrine. Trend lactates. (4) Wound of left foot: Status: Acute Assessment and plan: XR foot negative. Await swound care consult. Podiatry not available until 08/11. No antibiotics specifically for the foot at this time. (5) Acute hypokalemia: Status: Acute Assessment and plan: Replete (6) Hypomagnesemia: Status: Resolved Assessment and plan: Recheck in am (7) Hyponatremia: Status: Chronic Assessment and plan: Sodium is 126. Monitor with IV hydration. (8) Alcohol abuse: Status: Chronic Assessment and plan: Phenobarbital load. High dose thiamine. Monitor for w/d. (9) DVT prophylaxis: Status: Acute Assessment and plan: SC heparin (10) Discharge planning issues: Status: Acute Assessment and plan: DNR/DNI per my conversation with the patient. PT consulted. Possible discharge home in the next 48 hrs with a cardiac event recorder. Subjective Subjective Interval history since last seen: Ms Bucio states that she has been bringing up white sputum. No syncopal episodes recorded. No arrhythmias. She has 1st degree AV block on tele. Denies dizziness, CP, SOB, n/v now. Was dizzy earlier during her episode of hyp otension. Had BP of 73/49 recorded this morning. BPs improved with IVF, midodrine, and albumin. Exam Narrative Exam Narrative: General: A pleasant cooperative middle-aged female, who is A&Ox3, appears to be comfortable in bed, not tremulous HEENT: EOMI, dry MM Cardiovascular: RRR, no m/r/g Lungs: CTAB Gastrointestinal: soft, nontender, nondistended, no ascites Extremities: 2 + pedal pulses B, sensation preserved, The old bloody crust/debri remains on digits 2 and 3 L foot. Objective Last Vital Signs Temp 36.8 C 08/05/23 15:37 Pulse 80 08/05/23 15:37 Resp 16 08/05/23 15:37 BP 94/61 L 08/05/23 15:37 Pulse Ox 94 08/05/23 15:37 Laboratory Results - last 24 hr 08/04/23 08/04/23 08/05/23 20:10 23:10 07:25 WBC 5.79 RBC 2.77 L Hgb 9.6 L D Hct 26.4 L MCV 95 MCH 34.7 H MCHC 36.4 H RDW 11.6 L Plt Count 68 L MPV 10.8 Immature Gran % 1.4 Neutrophils % 76.2 Lymphocytes % 11.4 Monocytes % 9.3 Eosinophils % 1.0 Basophils % 0.7 Nucleated RBC % 0.0 Absolute Neutrophils 4.41 Absolute Lymphocytes 0.66 L Absolute Monocytes 0.54 Absolute Eosinophils 0.06 Absolute Basophils 0.04 RBC Morphology Normal Polychromasia Hypochromasia Basophilic Stippling VBG Lactate 5.3 H* 3.4 H* 1.5 H Sodium 126 L Potassium 2.7 L* Chloride 85 L Carbon Dioxide 38.0 H Anion Gap 3.0 BUN 4 L Creatinine 0.7 Est GFR (CKD-EPI 2020) 97.72 Glucose 100 Hemoglobin A1c 4.7 Calcium 7.8 L Magnesium 2.3 C-Reactive Protein 1.89 H Vitamin B12 835 Urine Color Urine Clarity Urine pH Ur Specific [place] Urine Protein Urine Ketones Urine Blood Urine Nitrite Urine Bilirubin Urine Urobilinogen Ur Leukocyte Esterase Urine RBC Urine WBC Ur Epithelial Cells Urine Crystals Urine Bacteria Urine Casts Urine Mucus Ur Culture Indicated? Urine Glucose 08/05/23 08/05/23 08/05/23 09:10 11:02 12:32 WBC 6.43 RBC 2.76 L Hgb 9.4 L Hct 27.0 L MCV 98 H MCH 34.1 H MCHC 34.8 RDW 12.0 Plt Count 73 L MPV 10.0 Immature Gran % 1.2 Neutrophils % 75.0 Lymphocytes % 12.1 Monocytes % 10.1 Eosinophils % 0.8 Basophils % 0.8 Nucleated RBC % 0.0 Absolute Neutrophils 4.82 Absolute Lymphocytes 0.78 L Absolute Monocytes 0.65 Absolute Eosinophils 0.05 Absolute Basophils 0.05 RBC Morphology See Below Polychromasia Present Hypochromasia 2+ Basophilic Stippling Present VBG Lactate 2.3 H* Sodium Potassium Chloride Carbon Dioxide Anion Gap BUN Creatinine Est GFR (CKD-EPI 2020) Glucose Hemoglobin A1c Calcium Magnesium C-Reactive Protein Vitamin B12 Urine Color Yellow Urine Clarity Sl Cloudy Urine pH 8.5 H Ur Specific [place] 1.015 Urine Protein 100 H Urine Ketones Negative Urine Blood Large H Urine Nitrite Negative Urine Bilirubin Small H Urine Urobilinogen >=8.0 H Ur Leukocyte Esterase Trace H Urine RBC >50 H Urine WBC 3-5 Ur Epithelial Cells Rare Urine Crystals Negative Urine Bacteria Few Urine Casts Negative Urine Mucus Negative Ur Culture Indicated? Yes Urine Glucose Negative Objective Narrative Objective Narrative: Echo: 1. LV normal size, other chambers mildly to moderately dilated. 2. Normal LV function,EF 60-65%. Normal RV function. 3. Anatomically normal valves. Mild to moderate MR, trace TR. 4. No intracardiac shunt. 5.Trace pericardial effusion. XR foot: No acute fracture or dislocation. No destructive changes are seen to suggest osteomyelitis. Time Spent with Patient Time Spent with Patient: 35-49 minutes Time was spent: preparing to see the patient(eg.review tests), obtaining and/or reviewing separately otained hiistory, ordering medications,tests, procedures, referring, communicating with other health customer care associate, indepentently interpreting results, counseling the patient and care coordination
[2023-08-05 19:50] VITALS: BP 92/61; PULSE 83; RESP 20; TEMP 36.9; O2SAT 95
[2023-08-05 19:53] LABS: Lactate 4.1 mmol/L (0.6-1.4)
[2023-08-05 20:13] LABS: Legionella Ag Detection Urine Negative (Negative)
[2023-08-05 23:32] VITALS: BP 95/60; PULSE 66; RESP 20; TEMP 36.7; O2SAT 92
[2023-08-06 03:23] VITALS: BP 110/70; PULSE 88; RESP 19; TEMP 36.4; O2SAT 91
[2023-08-06] MEDS: THIAMINE 500 MG in Normal Saline 100 ML 200 MG IVPB ×3 (05:54→22:21)
[2023-08-06 07:08] LABS: Absolute Basophil Count 0.03 10^3/uL (0.0-0.2); Absolute Eosinophil Count 0.13 10^3/uL (0.0-0.7); Absolute Lymphocyte Count 0.74 10^3/uL (1.2-3.4); Absolute Monocyte Count 0.56 10^3/uL (0.1-0.8); Basophils % 0.5; Eosinophils % 2.2; HCT 25.1 % (36.0-46.0); HGB 8.8 g/dL (11.2-15.7); Immature Grans % 1.7; Lymphocytes % 12.6; MCH 34.6 pg (27.0-33.0); MCHC 35.1 % (32.0-36.0); MCV 99 fL (80-95); Monocytes % 9.6; Neutrophils % 73.4; RBC 2.54 10^6/uL (3.93-5.22); RDW-SD 43.8 fL; WBC 5.86 10^3/uL (4.4-10.8)
[2023-08-06 07:21] LABS: Anion Gap 4.4 mmol/L (3-11); BUN 2 mg/dL (7-18); CO2 33.6 mmol/L (21.0-32.0); CREATININE 0.8 mg/dL (0.55-1.02); Calcium 8.3 mg/dL (8.5-10.1); Chloride 93 mmol/L (98-107); Estimated GFR 83.26 (mL/min/1.73m2); Glucose 101 mg/dL (74-106); Magnesium 1.9 mg/dL (1.8-2.4); Potassium 3.6 mmol/L (3.5-5.1); Sodium 131 mmol/L (136-145)
[2023-08-06 07:29] LABS: Diff Comment Diff Reviewed; Platelet Count 74 10^3/uL (130-400); RBC Morphology Normal
[2023-08-06] MEDS: Pantoprazole 40 MG TABCR PO (07:39)
[2023-08-06] MEDS: Citalopram 10 MG TAB 20 MG PO (07:40)
[2023-08-06] MEDS: Benzonatate 200 MG CAP PO ×3 (07:40→19:44)
[2023-08-06] MEDS: Thiamine 100 MG TAB PO (07:40)
[2023-08-06] MEDS: Midodrine 2.5 MG TAB 5 MG PO ×3 (07:41→19:45)
[2023-08-06] MEDS: Multivitamin TAB 1 TAB PO (07:42)
[2023-08-06] MEDS: guaiFENesin 600 MG TABCR PO ×2 (07:42→19:44)
[2023-08-06] MEDS: Potassium Chloride 10 MEQ CAPCR 40 MEQ PO ×2 (07:43→19:44)
[2023-08-06] MEDS: Normal Saline Flush 10 ML SYR IVP ×2 (07:44→19:46)
[2023-08-06 08:54] VITALS: BP 95/60; PULSE 70; RESP 18; TEMP 36.7; O2SAT 92
[2023-08-06] MEDS: levoFLOXacin 500 MG, levoFLOXacin 250 MG 750 MG PO (09:36)
--- NOTE | 2023-08-06 09:46 | CMPROGNOTE_ITS ---
Date of service: 08/06/23 Time of Service: 09:46 Care Management Progress Note Progress Note Text Progress Note Text: S/O:Zabrina was sitting up in bed when CM met with her. She was a bit sleepy but was willing to converse with CM. Zabrina informed CM that she had a PT evaluation today. She shared that she was able to stand, but only for a short time. CM again asked about discharge plans. Zabrina stated that she would be willing to go to short term rehab but she wants a facility that is close and she does not want to go to [facility]. She recently spent over 2 months there and does not want to return. She stated she would be amenable to home health PT. CM received a call from [facility] and learned that Zabrina has CFC. As it is recent, she does not have a designated caregiver yet but her daughter hopes to be able to be compensated for providing her care. A: Zabrina is a 62 year old woman admitted on 08/04/23 with hypokalemia and unresponsiveness P: Anticipate Zabrina will be discharged home with new home health services unless she agrees to go to rehab. She informed CM that she would be open to either, if recommended. She will follow up with her PCP and plan of care. Transportation will be determined by disposition. CM will follow and continue to assess for discharge needs. :
[2023-08-06 10:01] LABS: Iron 73 ug/dL (50-170); Total Iron Binding Capacity 64 ug/dL (250-450); Transferrin Sat 114 % (15-50)
[2023-08-06 10:17] LABS: Folate > 20.0 ng/mL (8.6-20.0)
[2023-08-06 10:40] LABS: Ferritin 1554 ng/mL (8-252)
--- NOTE | 2023-08-06 11:59 | PTTR_ITS ---
Date of service: 08/06/23 Time of Service: 10:26 PT Notes Visit Reasons: episodesof unresponsiveness,hypokalemia,hypomagne Inpatient Physical Therapy Treatment Note [facility] Date: 08/06/23 PRECAUTIONS: Fall, standard, activity as tolerated. Prefers to wear shoes when OOB. SUBJECTIVE: Patient reports feeling generally weak and unwell. OBJECTIVE: Supine in bed. Mandujano catheter in place. Agreeable to therapy. ? PAIN: none reported. VITALS: monitored by nursing staff. ? Therapeutic Activities (12145g3): Direct one-on-one instruction in dynamic activities to improve functional performance. ? BED MOBILITY/TRANSFERS? Rolling L/R: not assessed Supine-sit: min assist of 1 to pull up, plus set up / assist with blanket management. Patient is dependent for donning socks and donning and doffing shoes. ?Sit-supine: SBA, however requires mod assist of one plus verbal cues and a downward-angled head of bed to scoot up in bed (or max assist of 2 with verbal cues to assist with legs.) ? Sit-stand: Min assist of one with raised bed, or min assist of 2 from low bed. ? Stand-sit: CGA ? Bed-Chair: not attempted ? Chair-bed: not attempted Provided skilled cues and instruction on performance and technique throughout. ? Therapeutic Exercises (71702s2): Direct one-on-one instruction in therapeutic exercises to develop strength, endurance, range of motion and flexibility. ? Exercises: * Standing tolerance training, 2x3 minutes * standing weight shift 2x3 AFTERNOON: * Standing tolerance training 1x5 * standing weight shift x4 * standing march (Heels up, ball of foot stays on ground) x10 ? Provided skilled instruction in proper exercise performance Provided skilled manual cues to facilitate proper muscle recruitment and/or form. Manual Therapy (46823c9) ANESTHESIOLOGIST Aj Christine performs tapotement to patient's back over all lobes of bilateral lungs to facilitate expulsion of sputum. ANESTHESIOLOGIST Madeline Vásquez provides verbal cues to patient on using acapella device to achieve productive cough. ASSESSMENT:? Patient tolerates therapy well x2, does report fatigue at the end of each session (both muscular and general). PLAN: Continue global strengthening per plan of care until patient is medically cleared for discharge and obtains a safe discharge plan. TREATMENT CODE/TIME: 25 minutes beginning at 10:26 and 26 minutes beginning at 15:34 for a total of 51 minutes.
[2023-08-06 12:11] VITALS: BP 95/60; PULSE 70; RESP 18; TEMP 36.7; O2SAT 92
--- NOTE | 2023-08-06 14:22 | PHA.REVIEW2 ---
Pharmacy Admission Review Admission Clinical Review Admission Pharmacy Review: (Updated 08/05/23 @ 19:42 by Dana Lockwood MD) Wound of left foot (Acute) Hypotension (Acute) Discharge planning issues (Acute) Recurrent episodes of unresponsiveness (Acute) Left lower lobe pneumonia (Acute) Acute hypokalemia (Acute) Pneumonia (Acute) DVT prophylaxis (Acute) sulfamethoxazole [From Bactrim] Allergy (Severe, Unverified 08/04/23 09:24) trimethoprim [From Bactrim] Allergy (Severe, Unverified 08/04/23 09:24) Penicillins Allergy (Intermediate, Verified 07/27/23 17:29) Hives Resuscitation Status DNR/DNI Height 5 ft 5 in Weight 104.8 kg Pharmacy Admission Review Renal Dosing Renal Dosing: BUN 2 mg/dL (7-18) L 08/06/23 06:30 Creatinine 0.8 mg/dL (0.55-1.02) 08/06/23 06:30 Medications needing adjustments: Reviewed (CrCl 70.09 mL/min) Anticoagulation Anticoagulation: Hgb 8.8 g/dL (11.2-15.7) L 08/06/23 06:30 Hct 25.1 % (36.0-46.0) L 08/06/23 06:30 Plt Count 74 10^3/uL (130-400) L 08/06/23 06:30 Creatinine 0.8 mg/dL (0.55-1.02) 08/06/23 06:30 DVT Prophylaxis: Reviewed Medications: Heparin (Hgb at 0630 was 8.8, repeat lab pending) Relevant Labs Relevant Labs: Sodium 131 mmol/L (136-145) L 08/06/23 06:30 Potassium 3.6 mmol/L (3.5-5.1) 08/06/23 06:30 Chloride 93 mmol/L (98-107) L 08/06/23 06:30 Magnesium 1.9 mg/dL (1.8-2.4) 08/06/23 06:30 C-Reactive Protein 2.40 mg/dL (0.0-0.3) H 08/06/23 06:30 Electrolytes, C-Reactive P, ESR: Reviewed (Na 131 (still low but has increased from 126 yesterday), K normalized. Transferrin % Sat 114 and Ferritin 1554. C-RP increased from 1.89 to 2.4 today.) Cardiac Review Cardiac Review: Blood Pressure 95/60 1211 Blood Pressure 95/60 0854 Blood Pressure 110/70 0323 Troponin I < 50 ng/L (< or =60) 08/04/23 09:55 BP, HR, EF%: Reviewed (HR WNL, BP 95/60) QTc Review QTc: Reviewed (481 from 08/04/23) IV to PO Switch IV Medications: Reviewed (thiamine and phenobarb) Home Meds Home Med List reviewed: Intervened Relevent Home Meds Not ordered & why?: On active home med list but not ordered: furosemide (on hold per progress note), metoprolol, spironolactone (on hold per progress note) Not on active home med list but recently filled: ferrous sulfate 325mg, folic acid 1mg, tolterodine ER 4mg Reached out to provider Current Meds Current Medication Order Review: Reviewed Comments: Has order for phenobarbital for withdrawal Soft stop: 855mg Hard stop: 1140mg So far has received a total of 340mg (all from loading doses). Has not received any doses of the PRN order. Pharmacy Antibiotic Review Relevant Labs: Relevant Labs 08/06/23 06:30 C-Reactive Protein 2.40 H Pharmacy Antibiotic Activity: C/S review and IV to PO Comments: Was switched from levofloxacin IV to PO, current dose 750mg qAM. Blood and urine cultures show no growth.
[2023-08-06 14:27] LABS: HCT 27.1 % (36.0-46.0); HGB 9.1 g/dL (11.2-15.7)
[2023-08-06 15:38] VITALS: BP 113/77; PULSE 84; RESP 16; TEMP 36.7; O2SAT 93
--- NOTE | 2023-08-06 17:59 | W.PM.PROGNOT ---
Date of Service Date of service: 08/06/23 Time of Service: 18:00 Assessment and Plan Assessment and plan (1) Left lower lobe pneumonia: Status: Acute Assessment and plan: LLL infiltrate per CT. clinically improving. Not requiring supplemental oxygen, no producing any sputum. Never became febrile and no leukocytosis. I have switched her iv levaquin for oral levaquin. Will continue on total of 5 day course. I expect to dc her home in the a.m. Qualifiers: Pneumonia type: due to unspecified organism Qualified Code(s): J18.9 - Pneumonia, unspecified organism (2) Recurrent episodes of unresponsiveness: Status: Acute Assessment and plan: no cardiac arrhythmias to explain her reported recurrent syncopal episodes (?alcohol related, possible blackouts). She was mildly dehydrated and hypotensive on admission w/ multiple electrolyte abnormalities i.e. hyponatremia, hypokalemia and hypomagnesemia. These have bene corrected (Na 131, K 3.6, Mg 1.9 today). She was mildly hypotensive these past couple days but has responded to iv fluids, which I have stopped today. If no syncope or hypotension overnight then will plan to dc home tomorrow. (3) Hypotension: Status: Acute Assessment and plan: patient placed on midodrine, I am recommending thigh high TEDS, avoid diuretics for now. Unclear as to why she is on such large doses of furosemide, I am not sure whether this was for CHF, ascites or peripheral leg edema from venous insufficiency, echo today showed normal LV size but reportedly all other chambers wer mildly or moderately dilated yet she has normal LV and RV function, LVEF 60-65%. Only mild to moderate MR and trace TR. Prior echo 12/30/22 showed normal LV and RV size and function and normal atria size and no hemodynamic valvular function. continue midodrine and add TEDS Qualifiers: Hypotension type: orthostatic hypotension Qualified Code(s): I95.1 - Orthostatic hypotension (4) Wound of left foot: Status: Acute Assessment and plan: I examined her left 2nd toe, she has a cut/split in the skin under the left 2nd toe on plantar surface. (5) Acute hypokalemia: Status: Acute Assessment and plan: K improved 3.6 from 2.7, currently on KCl 40 meq bid, will repeat labs in the morning and if remains stable then will reduce dose. If she has to go back on lasix then she should remain on potassium supplementation and spironolactone. (6) Hypomagnesemia: Status: Resolved Assessment and plan: magnesium up to 1.9 continue oral supplementation (7) Hyponatremia: Status: Chronic Assessment and plan: improving to 131. (8) Alcohol abuse: Status: Chronic Assessment and plan: no evidence of acute withdrawal, received partial loading dose of phenobarbital. (9) DVT prophylaxis: Status: Acute Assessment and plan: continue heparin SC (10) Discharge planning issues: Status: Acute Assessment and plan: DNR/DNI per Dr Lockwood's conversations w/ the patient. Subjective Subjective Interval history since last seen: No acute complaints. Breathing is improved. No signs of alcohol withdrawal. She has completed phenobarbital protocol. However she never actually got the full 6 mg/kg loading dose. She completed 340 mg total or 3.88 mg/kg IBW. However she does have prn dosing of phenobarbital but has not required this. She has no tremors, diaphoresis or tachycardia. Telemetry was stopped this morning after review shows her to be in sinus rhythm 80 to 90 bpm Exam Narrative Exam Narrative: Alert and oriented x 3 no acute distress lying in bed. Lungs are clear Heart is regular rate and rhythm no murmur rub Abdomen soft nontender nondistended normal bowel sounds Extremities without pitting edema Hands without tremors Skin without diaphoresis Objective Last Vital Signs Temp 36.7 C 08/06/23 15:38 Pulse 84 08/06/23 15:38 Resp 16 08/06/23 15:38 BP 113/77 08/06/23 15:38 Pulse Ox 93 08/06/23 15:38 Laboratory Results - last 24 hr 08/05/23 08/05/23 08/06/23 09:10 19:40 06:30 WBC 5.86 RBC 2.54 L Hgb 8.8 L Hct 25.1 L MCV 99 H MCH 34.6 H MCHC 35.1 RDW 12.0 Plt Count 74 L MPV 11.0 Immature Gran % 1.7 Neutrophils % 73.4 Lymphocytes % 12.6 Monocytes % 9.6 Eosinophils % 2.2 Basophils % 0.5 Nucleated RBC % 0.0 Absolute Neutrophils 4.30 Absolute Lymphocytes 0.74 L Absolute Monocytes 0.56 Absolute Eosinophils 0.13 Absolute Basophils 0.03 RBC Morphology Normal VBG Lactate 4.1 H* Sodium 131 L Potassium 3.6 Chloride 93 L Carbon Dioxide 33.6 H Anion Gap 4.4 BUN 2 L Creatinine 0.8 Est GFR (CKD-EPI 2020) 83.26 Glucose 101 Calcium 8.3 L Magnesium 1.9 Iron 73 TIBC 64 L Transferrin % Sat 114 H Ferritin 1554 H C-Reactive Protein 2.40 H Folate > 20.0 H Urine Legionella Ag Negative 08/06/23 14:10 WBC RBC Hgb 9.1 L Hct 27.1 L MCV MCH MCHC RDW Plt Count MPV Immature Gran % Neutrophils % Lymphocytes % Monocytes % Eosinophils % Basophils % Nucleated RBC % Absolute Neutrophils Absolute Lymphocytes Absolute Monocytes Absolute Eosinophils Absolute Basophils RBC Morphology VBG Lactate Sodium Potassium Chloride Carbon Dioxide Anion Gap BUN Creatinine Est GFR (CKD-EPI 2020) Glucose Calcium Magnesium Iron TIBC Transferrin % Sat Ferritin C-Reactive Protein Folate Urine Legionella Ag Time Spent with Patient Time Spent with Patient: 35-49 minutes Time was spent: preparing to see the patient(eg.review tests), ordering medications,tests, procedures, referring, communicating with other health customer care representative, indepentently interpreting results, counseling the patient and care coordination
[2023-08-06 19:38] VITALS: BP 131/75; PULSE 90; RESP 18; TEMP 36.7; O2SAT 95
[2023-08-06 23:22] VITALS: BP 128/84; PULSE 85; RESP 19; TEMP 36.5; O2SAT 92
[2023-08-06 23:27] LABS: Streptococcus Pneumoniae Ag, U Negative (Negative)
[2023-08-07 03:27] VITALS: BP 134/83; PULSE 89; RESP 19; TEMP 36.6; O2SAT 93
[2023-08-07] MEDS: THIAMINE 500 MG in Normal Saline 100 ML 200 MG IVPB (05:20)
[2023-08-07 07:12] LABS: Abs Immature Grans 0.16 10^3/uL (0.0-0.06); Absolute Basophil Count 0.05 10^3/uL (0.0-0.2); Absolute Eosinophil Count 0.08 10^3/uL (0.0-0.7); Absolute Lymphocyte Count 0.77 10^3/uL (1.2-3.4); Absolute Monocyte Count 0.59 10^3/uL (0.1-0.8); Absolute Neutrophil Count 6.18 10^3/uL (1.2-6.7); Basophils % 0.6; HCT 26.5 % (36.0-46.0); Lymphocytes % 9.8; MCV 100 fL (80-95); MPV 9.8 fL (8.0-11.0); Monocytes % 7.5; Neutrophils % 79.1; RBC 2.65 10^6/uL (3.93-5.22); RDW 12.2 % (11.7-14.6); RDW-SD 44.9 fL; WBC 7.83 10^3/uL (4.4-10.8)
[2023-08-07 07:19] LABS: Anion Gap 3.7 mmol/L (3-11); BUN 1 mg/dL (7-18); CO2 30.3 mmol/L (21.0-32.0); CREATININE 0.8 mg/dL (0.55-1.02); Calcium 8.5 mg/dL (8.5-10.1); Chloride 95 mmol/L (98-107); Estimated GFR 83.26 (mL/min/1.73m2); Glucose 102 mg/dL (74-106); Potassium 4.2 mmol/L (3.5-5.1); Sodium 129 mmol/L (136-145)
[2023-08-07 07:30] LABS: Diff Comment Diff Reviewed; Platelet Count 97 10^3/uL (130-400); RBC Morphology Normal
[2023-08-07] MEDS: Pantoprazole 40 MG TABCR PO (07:55)
[2023-08-07 08:05] LABS: Lab Add On Test DONE
[2023-08-07 08:19] LABS: ALT 18 U/L (14-59); AST 33 U/L (15-37); Albumin 2.4 g/dL (3.4-5.0); Alkaline Phosphatase 235 U/L (46-116); Bilirubin, Direct 1.1 mg/dL (0.0-0.2); Total Protein 5.3 g/dL (6.4-8.2)
[2023-08-07 08:46] VITALS: BP 128/84; PULSE 91; RESP 24; TEMP 37; O2SAT 94
[2023-08-07] MEDS: levoFLOXacin 500 MG, levoFLOXacin 250 MG 750 MG PO (09:04)
[2023-08-07] MEDS: Citalopram 10 MG TAB 20 MG PO (09:04)
[2023-08-07] MEDS: Benzonatate 200 MG CAP PO ×2 (09:05→14:10)
[2023-08-07] MEDS: Potassium Chloride 10 MEQ CAPCR 40 MEQ PO (09:05)
[2023-08-07] MEDS: Multivitamin TAB 1 TAB PO (09:05)
[2023-08-07] MEDS: Thiamine 100 MG TAB PO (09:05)
[2023-08-07] MEDS: guaiFENesin 600 MG TABCR PO (09:05)
[2023-08-07] MEDS: Midodrine 2.5 MG TAB 5 MG PO ×2 (09:05→14:10)
[2023-08-07] MEDS: Normal Saline Flush 10 ML SYR IVP (09:06)
[2023-08-07 10:13] LABS: Transferrin 54 mg/dL (201-352)
[2023-08-07 12:49] LABS: INR 1.6 (0.9-1.1); Prothrombin Time 15.7 sec (9.1-11.1)
--- NOTE | 2023-08-07 12:56 | PTTR_ITS ---
Date of service: 08/07/23 Time of Service: 09:07 PT Notes Visit Reasons: episodesof unresponsiveness,hypokalemia,hypomagne Inpatient Physical Therapy Treatment Note [facility] Date: 08/07/23 PRECAUTIONS: Fall, standard, activity as tolerated. SUBJECTIVE: Patient reports feeling ok. AFTERNOON: patient reports needing to have a bowel movement, but no one is coming. OBJECTIVE: Supine in bed, agreeable to therapy. ? PAIN: none reported. VITALS: monitored by nursing staff. Therapeutic Activities ([id number]): Direct one-on-one instruction in dynamic activities to improve functional performance. ? BED MOBILITY/TRANSFERS? Rolling L/R: not assessed Supine-sit: very minimial assistance via handhold. Typically patient reaches with her right hand, today she uses her left. Left shoulder creaks alarmingly, patient reports that it is normal because of the arthritis, both shoulders are full of arthritis and it hurts no more than normal / no more than the other shoulder. ?Sit-supine: Min assist to move the trailing (right) leg back into bed ? Sit-stand: min to mod assist of one at gait belt from raised bed to FWW. Mod to max assist of one at gait belt from low toilet onto STEDY lift. ?Stand-sit: CGA? Bed-Chair: dependent (uses STEDY lift.) ? Chair-bed: dependent (uses STEDY lift.) Provided skilled cues and instruction on performance and technique throughout. ? Therapeutic Exercises ([id number]): Direct one-on-one instruction in therapeutic exercises to develop strength, endurance, range of motion and flexibility. ? Exercises: * standing tolerance training 2x2 minutes * weight shift 2x10 * side stepping next to bed x6 steps. Provided skilled instruction in proper exercise performance Provided skilled manual cues to facilitate proper muscle recruitment and/or form. ASSESSMENT:? Patient tolerates therapy well, despite being hard on herself about her progress. PLAN: Continue global strengthening per plan of care until patient is medically cleared for discharge. TREATMENT CODE/TIME: 24 minutes beginning at 9:06 and 32 minutes beginning at 13:15 for a total of 56 minutes today.
--- NOTE | 2023-08-07 14:41 | DSE_ITS ---
Date of service: 08/07/23 Time of Service: 14:41 DS: Diagnosis Discharge Diagnosis (1) Left lower lobe pneumonia: Status: Acute (2) Recurrent episodes of unresponsiveness: Status: Acute (3) Hypotension: Status: Acute (4) Wound of left foot: Status: Acute (5) Acute hypokalemia: Status: Acute (6) Hypomagnesemia: Status: Resolved (7) Hyponatremia: Status: Chronic (8) Alcohol abuse: Status: Chronic (9) DVT prophylaxis: Status: Acute (10) Discharge planning issues: Status: Acute Discharge Plan Disposition Patient Disposition: Home W/Home Health Services Condition: Improving Discharge Details Reason For Visit: episodesof unresponsiveness,hypokalemia,hypomagne Admit Date/Time: 08/04/23 13:54 Admit Provider: Dana Lockwood Attending Provider: Dana Lockwood Primary Care Provider: Medina Ramirez Hospital Course Hospital Course: 62-year-old female with history of alcohol abuse, alcoholic cirrhosis, chronic hyponatremia, thrombocytopenia, peripheral neuropathy who reports had a month of daily episodes of episodes of unresponsiveness after coughing. She reportedly have severe cough turn blue become unresponsive for about 30 seconds and then returned to her normal state. Patient reports been coughing for about 2 months has had diarrhea for about a week evaluation emergency department clued a chest x-ray showed a left lower lobe pneumonia. Laboratory was remarkable for low potassium of 2.1 and low magnesium 1.3 sodium 126. She reportedly had a last alcoholic beverage on the morning that she presented to emergency department but despite this her blood alcohol level was undetectable. She reportedly drinks half a gallon bottle of whiskey in 2 days but denies any history of seizures. During last hospitalization she did go into acute alcohol withdrawal required phenobarbital protocol. On arrival to emergency department she was mildly hypotensive 99/58 heart rate of 91 she was afebrile 36.4. In spite of the pneumonia her room air saturation was 94%. She was admitted to the hospital started on phenobarbital protocol for prevention of alcohol withdrawal. She was started on Levaquin 750 mg IV daily for her pneumonia placed on bronchodilators. She never did require supplemental oxygen throughout her hospital stay. She was given IV fluids and after rehydration blood pressure stabilized. Serial labs were monitored. Serum sodium which was initially low at 126 julienne to as high as 131 before settling down at 129 at the time of her discharge. Potassium which had been extremely low at 2.1 on admission was supplemented and at the time of discharge was up to 4.2. Her home diuretics were discontinued as well as her metoprolol. She will be discharged on low-dose potassium supplementation 20 mill equivalents daily. Follow-up BMP should be done in the next week. Halina was switched from IV Levaquin oral Levaquin and will be discharged on 3 more days of Levaquin after having received 4 days while hospitalized. She never did go into acute alcohol withdrawal. Her high risk CIWA score was a 1 throughout her hospital stay. She never required additional phenobarbital supplementation. She was initially treated with phenobarbital 6 mg/kg loading dose although in reality she only received the equivalent of about 4 mg/kg. Patient will be discharged home with home health services including nursing and physical therapy. PT did see her here in the hospital and worked with her please see their note for details. They did recommend either SNF placement or home physical therapy services. Patient will return to her daughter's home with additional home health services as noted. Recommend follow-up includes a chest x-ray in 2 to 3 weeks and a BMP in the next week. Patient was started on midodrine 5 mg 3 times daily to help with her orthostasis. During her hospital stay she was monitored for the first couple days of cardiac telemetry and had no arrhythmias. On the day prior to discharge telemetry was discontinued however cardiac event recorder has been ordered to assess stability of her heart rhythm on outpatient basis. Home Meds and New Rx's Prescriptions: New levofloxacin 750 mg Tablet 750 mg PO QAM 3 Days Qty: 3 0RF thiamine mononitrate (vit B1) [Vitamin B-1 (mononitrate)] 100 mg Tablet 100 mg PO DAILY Qty: 30 0RF potassium chloride 10 mEq Capsule, Extended Release 20 meq PO DAILY Qty: 30 0RF benzonatate 200 mg capsule 200 mg PO TID PRNQty: 30 0RF midodrine 5 mg tablet 5 mg PO TID Qty: 90 0RF Rx Instructions: do not give last dose of day after 6PM or within 4 hrs of bedtime Continued trazodone 50 mg tablet 50 mg PO QHS PRN multivitamin [Multiple Vitamins] Tablet 1 tab PO QAM Qty: 0 0RF Patient Comments: not taking citalopram 20 mg tablet 20 mg PO DAILY Patient Comments: TAKE ONE TABLET BY MOUTH EVERY DAY thiamine HCl (vitamin B1) 100 mg tablet 100 mg PO DAILY Patient Comments: TAKE ONE TABLET BY MOUTH EVERY DAY melatonin 5 mg tablet 5 mg PO QHS PRN pantoprazole 40 mg Tablet,Delayed Release (Dr/Ec) 40 mg PO DAILY@0730 Qty: 30 0RF Discontinued metoprolol succinate 50 mg tablet extended release 24 hr 25 mg PO DAILY Patient Comments: TAKE ONE TABLET BY MOUTH EVERY DAY furosemide 40 mg Tablet 40 mg PO BID@0830,1600 Qty: 60 0RF spironolactone 25 mg Tablet 25 mg PO DAILY Qty: 30 0RF Discharge Instructions Instructions: Levofloxacin (By mouth), Bacterial Pneumonia (DC), Alcohol Use Disorder (DC) Additional Instructions: keep the cut on your left 2nd toe clean, wash daily w/ antibacterial soap and apply Neosporin ointment. follow up w/ your primary care provider to follow up on your pneumonia and alcoholism and left foot wound. Stop the furosemide and metoprolol as this contributed to your low bp readings. Get cardiac event recorder to assess stability of your heart rhythm. You were monitored on a heart monitor for first couple days of your hospital stay w/ no evidence of heart dysrhythmias. Your recurrent syncope is probably a combination of your excess alcohol intake, poor nutrition and your diuretics and metoprolol. Complete 3 more days of levaquin (antibiotic for pneumonia) YOu have already had 4 days of this while hospitalized. 7 days of antibiotics should be more than enough to treat your pneumonia. Be sure that your PCP orders a follow up chest xray in 2 to 3 weeks to ensure complete resolution of the infiltrate in your lungs. Stand Alone Forms: Nursing Discharge Form Referrals: Medina Ramirez [Primary Care Provider] - 08/20/23 11:45 am Activity:: Activity as Tolerated Equipment/Supplies:: No Equipment Needed Diet:: Normal Diet Discharge Orders Discharge Orders: Discharge Order (Routine); Ordered 08/07/23 Ordered By: Mckinley Frost Other Ambulatory Orders: Basic Metabolic Panel (Routine) Timeframe: 1 Week Facility: [facility] - Location: Laboratory Outpatient - [facility] Ordered By: Mckinley Frost Cardiac Event Recorder (Routine) Timeframe: 1 Day Facility: [facility] - Location: Respiratory Therapy Ordered By: Mckinley Frost DS: Summary Time Spent with Patient providing and/or coordinating discharge services: Greater than 30 minutes Status at Discharge Functional status at discharge: uses cane/walker Overall status at discharge: patient is progressing back to baseline Mental Status: mental status grossly normal Speech and Movement: speech and movement normal Mood: congruent mood Affect: normal affect Quality:SDOH Health Related Social Needs: Health related social needs transpo insecurity Exam Narrative Exam Narrative: Obese female sitting in bed no acute distress not short of breath able to talk in complete paragraphs not requiring any supplemental oxygen Neck is supple nontender no JVD Lungs are clear to auscultation anteriorly posteriorly she had some diminished breath sounds at the left lung base no rhonchi or rales Heart is regular rate and rhythm Abdomen obese soft nontender Spine is nontender to palpation Although she did have some mild bilateral paralumbar muscle tenderness from lying in bed. Lower extremities without peripheral cyanosis or edema Psych Mental Status: mental status grossly normal Speech and Movement: speech and movement normal Mood: congruent mood Affect: normal affect DS: Data Vitals/I&O Vitals and I&O: Vital Signs Temperature 37.0 C 08/07/23 08:46 Temperature Source Tympanic 08/07/23 08:46 Pulse 91 H 08/07/23 08:46 Pulse Rhythm Regular 08/06/23 09:30 Respiratory Rate 24 08/07/23 08:46 Respiratory Effort Normal, Non-Labored 08/07/23 10:10 Respiratory Depth Normal 08/07/23 10:10 Respiratory Pattern Normal 08/07/23 10:10 Blood Pressure 128/84 08/07/23 08:46 Blood Pressure Position Sitting 08/04/23 09:15 Pulse Oximetry 94 08/07/23 08:46 Oxygen Delivery Method Room Air 08/07/23 08:46 Oxygen Flow Rate 0 08/07/23 08:46 Pain Level 8 08/07/23 08:46 Comment low BP taken on auto cuff 76/33. Retook manualy 08/05/23 14:44 Intake & Output 08/06/23 08/07/23 08/07/23 23:59 11:59 23:59 Intake Total 210 / 1415 105 / 210 105 / 210 Output Total 350 / 2875 1800 / 1800 Balance -140 / -1460 -1695 / -1590 105 / -1590 Intake: IV 210 / 1415 105 / 210 105 / 210 Output: Urine 350 / 2875 1800 / 1800 Other: Urine Color Nevarez Dark Kary Yellow Urine Appearance Clear Clear Clear Stool Size Large Moderate Stool Characteristics Liquid Soft Formed Black Brown Green Voiding Methods Toilet Data Completed and Pending Labs on day of discharge: Labs from last 24 hours 08/07/23 08/07/23 08/06/23 11:55 06:43 06:30 WBC 7.83 RBC 2.65 L Hgb 9.0 L Hct 26.5 L MCV 100 H MCH 34.0 H MCHC 34.0 RDW 12.2 Plt Count 97 L MPV 9.8 Immature Gran % 2.0 Neutrophils % 79.1 Lymphocytes % 9.8 Monocytes % 7.5 Eosinophils % 1.0 Basophils % 0.6 Nucleated RBC % 0.0 Absolute Neutrophils 6.18 Absolute Lymphocytes 0.77 L Absolute Monocytes 0.59 Absolute Eosinophils 0.08 Absolute Basophils 0.05 RBC Morphology Normal PT 15.7 H INR 1.6 H Sodium 129 L Potassium 4.2 Chloride 95 L Carbon Dioxide 30.3 Anion Gap 3.7 BUN 1 L Creatinine 0.8 Est GFR (CKD-EPI 2020) 83.26 Glucose 102 Calcium 8.5 Transferrin 54 L Total Bilirubin 3.0 H Conjugated Bilirubin 1.1 H AST 33 ALT 18 Alkaline Phosphatase 235 H Total Protein 5.3 L Albumin 2.4 L Ur Strep pneumoniae Ag Add-On Test Request DONE 08/05/23 09:10 WBC RBC Hgb Hct MCV MCH MCHC RDW Plt Count MPV Immature Gran % Neutrophils % Lymphocytes % Monocytes % Eosinophils % Basophils % Nucleated RBC % Absolute Neutrophils Absolute Lymphocytes Absolute Monocytes Absolute Eosinophils Absolute Basophils RBC Morphology PT INR Sodium Potassium Chloride Carbon Dioxide Anion Gap BUN Creatinine Est GFR (CKD-EPI 2020) Glucose Calcium Transferrin Total Bilirubin Conjugated Bilirubin AST ALT Alkaline Phosphatase Total Protein Albumin Ur Strep pneumoniae Ag Negative Add-On Test Request Preliminary micro results at discharge 08/04/23 13:30 Blood Culture - Preliminary Blood NO GROWTH 48 HOURS 08/04/23 13:23 Blood Culture - Preliminary Blood NO GROWTH 48 HOURS PFSH All Active Problems Wound of left foot (Acute) Hypotension (Acute) Discharge planning issues (Acute) Recurrent episodes of unresponsiveness (Acute) Left lower lobe pneumonia (Acute) Syncope (Chronic) Acute hypokalemia (Acute) Pneumonia (Acute) Injury of foot, left (Acute) Gall bladder polyp (Acute) Hyponatremia (Chronic) DVT prophylaxis (Acute) Ambulatory dysfunction (Acute) Hyperbilirubinemia (Acute) Thrombocytopenia (Chronic) Macrocytic anemia (Acute) Skin excoriation (Acute) Weakness (Acute) Skin ulcer (Acute) Hypoalbuminemia (Acute) Pneumonia (Acute) Peripheral neuropathy (Acute) Hypocalcemia (Acute) Folate deficiency (Acute) Weakness (Acute) UTI (urinary tract infection) (Acute) Alcohol abuse (Chronic) Anxiety (Chronic) Bipolar 1 disorder (Chronic) Multiple personality disorder (Acute) Unilateral primary osteoarthritis, left knee (Acute) Iliotibial band syndrome affecting left lower leg (Acute) Rectal bleeding (Acute) Anal and rectal polyp (Acute) Adenomatous polyps (Acute) Villous adenoma of colon (Acute) Tubulovillous adenoma (Acute) Sessile colonic polyp (Acute) Incontinence (Acute) High grade dysplasia in colonic adenoma (Acute) Abdominal pain (Acute) Nausea vomiting and diarrhea (Acute) Medical History Vertigo Fracture right arm, metal plate/screws right ankle- metal COVID-19 06/2021-pt stated she had no symptoms but an upset stomach Colonoscopy planned Hx of fracture of arm R arm, both bones. Plates. Hx of chest pain Was seen on 12/24/19 in ED for chest pain, had worked up and f/U with PCP no issues or concerns or recurrent chest pain since. Poor dentition Knee pain Cervical cancer Depression Surgical History History of hysterectomy History of colonoscopy with polypectomy (~09/07/21) 09/07/21 Stoiber, no polyps repeat 2yrs. 02/16/2021 Stoiber, repeat 6 months Stoiber, villous/tubulovillous/sessile serrated 01/2020 Stoiber, multiple polyps 08/11/20 Social History Smoking/Tobacco Use Status: Never Smoking risk assessment performed?: Yes Alcohol Intake: current Alcohol Intake frequency: a few times a week Alcohol type: beer Details: 6+ beer/day; Has been cutting back the past few weeks from 18+ beers/day Drug use: Never Substance use type: does not use Housing: apartment Do you feel safe at home: Yes Do you feel safe in your relationship?: Yes Additional Social history: does not feel safe at home. lives alone BREANARN 07/27/23 Time Spent with Patient Time Spent with Patient: <45 minutes Time was spent: preparing to see the patient(eg.review tests), ordering medications,tests, procedures, referring, communicating with other health plant health care technician, indepentently interpreting results, counseling the patient and care coordination
--- NOTE | 2023-08-07 15:07 | PDOC.HHF2F_ITS ---
Home Health Referral Home Health Orders Clinical synopsis of why skilled professionals are needed: Patient needs home health nursing to assess treatment response to pneumonia as well as to follow-up repeat labs including a BMP in 1 week and to coordinate with any medication changes. Nursing also to assess her respiratory status monitor vital signs and report the same to her PCP. Physical therapy has been ordered for home health to evaluate and treat patient for generalized weakness and deconditioning to her acute and chronic medical problems which include alcoholism and electrolyte imbalances including hyponatremia and hypokalemia and hypomagnesemia. Occupational Therapy to evaluate patient's ability to complete ADLs and participate in her self-care at home. OT to identify any barriers at home. Medical diagnosis necessitation home health referral: Community-acquired pneumonia left lower lobe, alcoholism, hyponatremia, hypokalemia, hypomagnesemia, orthostatic hypotension, dehydration, Registered Nurse: Check all that apply Instruct on new or changed medication(s)/assess compliance: Ordered Assess for exacerbation of medical condition, instruct patient/caregivers on signs and symptoms to report for early detection: Ordered Physical Therapist: Check all that apply Increase strength & endurance for safe mobility at home: Ordered To design/establish home maintenance program: Ordered Fall reduction therapy program for patient with history of frequent falls: Or dered Home safety evaluation and teaching/gait training including stair management (if applicable): Ordered Occupational Therapist: Evaluate and treat for patient unable to perform ADL/IADL/self-care: Ordered Hedis Abstractor: Assist with community resources: Ordered Assist with fpc care planning: Ordered Home Bound Status Requires the aid of supportive device (check all that apply): Walker Use of Special Transportation (Describe transportation and medical necessity): wheel chair Assistance of another person (Describe assistance and medical necessity): daughter to assist patient w/ home ADL performance including hygiene Patient has a condition such that leaving home is medically contraindicated (Describe): unsteady gait, balance issues Describe why leaving home would require a considerable and taxing effort: Requires frequent rest periods Encounter Date and Reason: I certify that a FTF encounter for this patient was performed on August 07, 2023 and that such encounter was related to the primary reason the patient requires home health services. The encounter was conducted in the following manner: * By me as the certifying physician, WASTE TRANSPORTATION TECHNICIAN, PA or * By an inpatient physician, WASTE TRANSPORTATION TECHNICIAN or PA during an inpatient stay who communicated findings to me, Certification And Authentication I certify that I composed the above information based on my clinical judgment relating to this patient's medical condition and, if applicable, clinical findings communicated to me by the NPP or inpatient physician who performed the FTF encounter. Name of Provider that will be monitoring home health services: Medina Ramirez
[2023-08-07 15:15] VITALS: BP 136/84; PULSE 87; RESP 18; TEMP 36.9; O2SAT 96
--- NOTE | 2023-08-07 17:37 | CMDISCH_ITS ---
Date of service: 08/07/23 Time of Service: 17:37 LACE Index Scoring Tool Questions: Length of Stay (in days): 3 Was the patient admitted via the E.D.?: Yes E.D. Visits: 1 Answers: Total Score: 7 Risk of Readmission: Low Risk Care Management Discharge Plan Reason for Hospitalization: hypokalemia Discharge Plan: Katie will discharge with new orders for home health RN, PT, OT. She will transport via private vehicle with family and follow up with her PCP and plan of care as prescribed. Patient/Family Education Needs: Review discharge instructions, discuss Ask Me Three. Services Needed at Discharge: Home Health Care Services SDOH Health Related Social Needs: Health related social needs transpo insecurity Health related social needs: transportation insecurity(Z59.82) Health related social needs details: [facility] CM: Reports she's been declined for CFC multiple times. Shares she is an alcoholic with no interest in stopping. Referrals and interventions: Home Health Orders, resume community case management.
== END 2023-08-07 16:20 | disposition home health service (06) | DRG 194 ==
LOC: ER 13:15 → MS 15:58
PROVIDERS: Internal Medicine; Admitting Provider Internal Medicine; Emergency Provider Nurse Practitioner Family; PCP Nurse Practitioner Family; Visit Provider Internal Medicine
DX: J18.9 Pneumonia, unspecified organism (principal); E87.1 Hypo-osmolality and hyponatremia; E87.6 Hypokalemia; F10.10 Alcohol abuse, uncomplicated; E86.0 Dehydration; Z66 Do not resuscitate; K70.30 Alcoholic cirrhosis of liver without ascites; D69.6 Thrombocytopenia, unspecified; G62.9 Polyneuropathy, unspecified; D53.9 Nutritional anemia, unspecified; R53.1 Weakness; F41.9 Anxiety disorder, unspecified; F31.9 Bipolar disorder, unspecified; F44.81 Dissociative identity disorder; M17.12 Unilateral primary osteoarthritis, left knee; R32 Unspecified urinary incontinence; I44.0 Atrioventricular block, first degree; E83.42 Hypomagnesemia; I34.0 Nonrheumatic mitral (valve) insufficiency; I95.1 Orthostatic hypotension; R40.4 Transient alteration of awareness; S91.312A Laceration without foreign body, left foot, initial encounter; R05.9 Cough, unspecified; W19.XXXA Unspecified fall, initial encounter
CPT/HCPCS: 00123; 36410; 36415; 70496; 70498; 71275; 80048; 80053; 80076; 84145; 87040; 87449; 87637; 93005; 96365; 96366; 96368; 97110; 97163; 97530; 99285; 73630; 80320; 81003; 81015; 82140; 82270; 82607; 82728; 82746; 83036; 83540; 83550; 83605; 83735; 84443; 84466; 84484; 85014; 85018; 85025; 85610; 86140; 87086; 87899; 93010; 93306; 94667; 99223; 99233; 99239; J1644; J1956; J2560; J3411; J3475; J3480; J3490; P9047

== ENCOUNTER 2023-08-12 11:53 | Outpatient (REF) | payer MEDICARE, MEDICAID, SELFPAY ==
[2023-08-12 15:09] LABS: Anion Gap 11.5 mmol/L (3-11); BUN 0 mg/dL (7-18); CO2 24.5 mmol/L (21.0-32.0); CREATININE 0.9 mg/dL (0.55-1.02); Chloride 94 mmol/L (98-107); Estimated GFR 72.28 (mL/min/1.73m2); Glucose 105 mg/dL (74-106); Potassium 3.8 mmol/L (3.5-5.1); Sodium 130 mmol/L (136-145)
== END 2023-08-12 11:54 | disposition home or self-care (01) ==
LOC: NCHCN 11:53
PROVIDERS: PCP Nurse Practitioner Family; Visit Provider Nurse Practitioner Family
DX: E87.6 Hypokalemia (principal); E87.1 Hypo-osmolality and hyponatremia; J18.9 Pneumonia, unspecified organism
CPT/HCPCS: 80048

== ENCOUNTER 2023-08-18 10:40 | Outpatient (CLI) | payer MEDICARE, MEDICAID, SELFPAY | END 2023-08-18 10:41 | disposition home or self-care (01) | PROVIDERS: PCP Nurse Practitioner Family; Visit Provider Internal Medicine | DX: R55 Syncope and collapse (principal) | CPT/HCPCS: 93270 ==

== ENCOUNTER → 2023-08-28 02:51 | Outpatient (CLI) | payer MEDICARE, MEDICAID, SELFPAY ==
--- NOTE | 2023-08-28 14:24 | DI.RAD_ITS ---
Exam(s) XR CHEST 2V PA LATERAL EXAM: XR CHEST 2V PA LATERAL CLINICAL HISTORY: follow up pneumonia J18.9 TECHNIQUE: 2D digital imaging was performed. COMPARISON: CR,XR XR PORTABLE CHEST AP from 10/04/[address] CHEST PE CTA from 08/04/2023 FINDINGS: HEART: Enlarged, unchanged. Aorta: Not dilated. PULMONARY VASCULATURE: Normal. LUNGS: Clear. PLEURAL SPACE: No pleural effusion or pneumothorax. BONE:Severe degenerative changes of the shoulders. The spine is unremarkable. Soft tissues: Unremarkable. IMPRESSION: No acute abnormality. No infiltrates visible on today's exam. DATA REPOSITORY: RADIATION DOSE DELIVERED:
== END ==
PROVIDERS: PCP Nurse Practitioner Family; Visit Provider Internal Medicine
DX: J18.9 Pneumonia, unspecified organism (principal)
CPT/HCPCS: 71046

== ENCOUNTER 2023-09-02 14:36 | Outpatient (REF) | payer MEDICARE, MEDICAID, SELFPAY ==
[2023-09-02 15:52] LABS: HCT 28.8 % (36.0-46.0); HGB 9.6 g/dL (11.2-15.7); MCH 35.3 pg (27.0-33.0); MCHC 33.3 % (32.0-36.0); MCV 106 fL (80-95); MPV 10.4 fL (8.0-11.0); RBC 2.72 10^6/uL (3.93-5.22); RDW 13.1 % (11.7-14.6); RDW-SD 50.4 fL; WBC 5.91 10^3/uL (4.4-10.8)
[2023-09-02 16:01] LABS: INR 1.3 (0.9-1.1); Prothrombin Time 12.7 sec (9.1-11.1)
[2023-09-02 16:17] LABS: Platelet Count 53 10^3/uL (130-400)
[2023-09-02 16:18] LABS: Absolute Lymphocyte Count 0.71 10^3/uL (1.2-3.4); Absolute Monocyte Count 0.47 10^3/uL (0.1-0.8); Absolute Neutrophil Count 4.43 10^3/uL (1.2-6.7); Bands % 2; Diff Comment Manual Differential; Macrocytosis 1+
[2023-09-02 16:38] LABS: ALT 48 U/L (14-59); AST 129 U/L (15-37); Albumin 2.5 g/dL (3.4-5.0); Alkaline Phosphatase 455 U/L (46-116); BUN 3 mg/dL (7-18); Bilirubin, Total 1.8 mg/dL (0.2-1.0); CREATININE 0.8 mg/dL (0.55-1.02); Calcium 8.4 mg/dL (8.5-10.1); Chloride 94 mmol/L (98-107); Estimated GFR 83.26 (mL/min/1.73m2); Ferritin > 2000 ng/mL (8-252); Glucose 91 mg/dL (74-106); Sodium 132 mmol/L (136-145); Total Protein 5.9 g/dL (6.4-8.2)
[2023-09-02 16:58] LABS: NT-proBNP 424 pg/mL (<300)
[2023-09-02 17:08] LABS: Iron 74 ug/dL (50-170); Total Iron Binding Capacity 70 ug/dL (250-450); Transferrin Sat 106 % (15-50)
== END 2023-09-02 14:37 | disposition home or self-care (01) ==
LOC: NCHCN 14:36
PROVIDERS: PCP Nurse Practitioner Family; Visit Provider Nurse Practitioner Family
DX: E83.51 Hypocalcemia (principal); R60.0 Localized edema
CPT/HCPCS: 80053; 82728; 83540; 83550; 83880; 85025; 85610; 85730

== ENCOUNTER 2023-09-08 09:43 | Outpatient (CLI) | payer MEDICARE, MEDICAID, SELFPAY ==
--- NOTE | 2023-09-08 12:39 | W.CARDEVENT ---
Date of service: 09/08/23 Time of Service: 12:39 Cardiac Event Recorder Referring Provider:: Medina Ramirez Indications:: Syncope Cardiac Event Note: This is a cardiac event monitor ordered for syncope. Patient was monitored for 4 days Rhythm throughout was sinus with an average heart rate of 92 Minimum heart rate was 77, maximum 120 There was no atrial fibrillation, no high-grade AV block, no pauses greater than 3 seconds There were no apparent patient's symptoms
== END 2023-09-08 09:44 | disposition home or self-care (01) ==
LOC: CARDOPNVT 09:43
PROVIDERS: PCP Nurse Practitioner Family; Visit Provider Internal Medicine Cardiovascular Disease
DX: R55 Syncope and collapse (principal)
CPT/HCPCS: 93272

== ENCOUNTER → 2023-09-19 00:40 | Outpatient (CLI) | payer MEDICARE, MEDICAID, SELFPAY ==
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
== END ==
PROVIDERS: PCP Nurse Practitioner Family; Visit Provider Nurse Practitioner Family
DX: K76.0 Fatty (change of) liver, not elsewhere classified (principal)
CPT/HCPCS: 76705

== ENCOUNTER 2023-09-25 11:20 | Emergency (ER) | payer MEDICARE, MEDICAID, SELFPAY ==
[2023-09-25 11:23] VITALS: BP 91/52; PULSE 94; RESP 16; TEMP 36.6; O2SAT 99
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
== END 2023-09-25 12:29 | disposition home or self-care (01) ==
PROVIDERS: Emergency Provider Nurse Practitioner Family; PCP Nurse Practitioner Family
DX: T24.212A Burn of second degree of left thigh, initial encounter (principal); T24.211A Burn of second degree of right thigh, initial encounter; T31.0 Burns involving less than 10% of body surface; X15.3XXA Contact with hot saucepan or skillet, initial encounter; Y93.G3 Activity, cooking and baking; Y92.010 Kitchen of single-family (private) house as the place of occurrence of the external cause
CPT/HCPCS: 99283

== ENCOUNTER 2023-10-08 16:59 | Outpatient (REF) | payer MEDICARE, MEDICAID, SELFPAY ==
[2023-10-08 21:13] LABS: Abs Immature Grans 0.08 10^3/uL (0.0-0.06); Absolute Basophil Count 0.07 10^3/uL (0.0-0.2); Absolute Lymphocyte Count 0.99 10^3/uL (1.2-3.4); Absolute Monocyte Count 0.81 10^3/uL (0.1-0.8); Absolute Neutrophil Count 5.79 10^3/uL (1.2-6.7); Basophils % 0.9; Eosinophils % 2.5; HCT 33.1 % (36.0-46.0); HGB 10.7 g/dL (11.2-15.7); Lymphocytes % 12.5; MCH 35.4 pg (27.0-33.0); MCHC 32.3 % (32.0-36.0); MCV 110 fL (80-95); MPV 10.9 fL (8.0-11.0); Monocytes % 10.2; Neutrophils % 72.9; Platelet Count 134 10^3/uL (130-400); RBC 3.02 10^6/uL (3.93-5.22); RDW 12.1 % (11.7-14.6); RDW-SD 48.2 fL; WBC 7.94 10^3/uL (4.4-10.8)
[2023-10-08 21:23] LABS: ALT 35 U/L (14-59); AST 64 U/L (15-37); Albumin 2.1 g/dL (3.4-5.0); Alkaline Phosphatase 571 U/L (46-116); Anion Gap 10.4 mmol/L (3-11); BUN 6 mg/dL (7-18); Bilirubin, Total 2.3 mg/dL (0.2-1.0); CO2 29.6 mmol/L (21.0-32.0); CREATININE 1.2 mg/dL (0.55-1.02); Calcium 8.2 mg/dL (8.5-10.1); Chloride 92 mmol/L (98-107); Estimated GFR 51.18 (mL/min/1.73m2); Glucose 101 mg/dL (74-106); Potassium 4.2 mmol/L (3.5-5.1); Sodium 132 mmol/L (136-145); Total Protein 5.9 g/dL (6.4-8.2)
[2023-10-08 21:28] LABS: INR 1.6 (0.9-1.1); PTT Activated 32.3 sec (23.6-32.8); Prothrombin Time 15.4 sec (9.1-11.1)
[2023-10-08 21:30] LABS: Amylase < 13 U/L (25-115); Lipase < 10 U/L (16-77)
[2023-10-08 21:40] LABS: Diff Comment RBC Morph Reviewed; Macrocytosis 1+
[2023-10-08 22:57] LABS: GGT 1123 U/L (5-55)
== END 2023-10-08 17:00 | disposition home or self-care (01) ==
LOC: NCHCN 16:59
PROVIDERS: PCP Nurse Practitioner Family; Visit Provider Nurse Practitioner Family
DX: R10.11 Right upper quadrant pain (principal)
CPT/HCPCS: 80053; 83690; 82150; 82977; 85025; 85610; 85730

== ENCOUNTER → 2023-10-09 02:33 | Outpatient (CLI) | payer MEDICARE, MEDICAID, SELFPAY ==
--- NOTE | 2023-10-09 | DI.CT_ITS ---
Exam(s) CT ABDOMEN PELVIS W EXAM: CT ABDOMEN PELVIS W CLINICAL HISTORY: RUQ PAIN, R10.11. TECHNIQUE: Imaging Protocol: Axial computed tomography images with coronal and sagittal reformatted images were created and reviewed CONTRAST MATERIAL: Intravenous: Omnipaque 350 Contrast volume:100 ml Oral: yes COMPARISON: CT CT ABDOMEN PELVIS WO from 01/09/[address] CHEST PE CTA from 10/04/[address] CHEST PE CTA from 08/04/2023 US US ABDOMEN LIMITED from 09/19/2023 FINDINGS: ABDOMEN and PELVIS: Lung Bases: Trace right pleural effusion. Mild atelectasis or scarring. Clearing of previously no linh left lower lobe infiltrate. Heart mildly enlarged. Liver: Liver markedly enlarged. Severe hepatic steatosis. No measurable mass. Gallbladder and biliary tract: No radiodense calculus or biliary dilation. Pancreas: Mildly atrophic. No abnormal calcifications or inflammatory process. No evidence of mass. Spleen: Normal. Kidneys: Normal size, contour and axis. No radiodense stones. No obstructive uropathy. No suspicious masses seen. Adrenal glands: No masses seen. Vasculature: Abdominal aorta non-dilated. Soft tissues: Mild diffuse body wall edema. Bladder: No gross wall thickening. No calculi.No focal mass. Bowel: No obstruction. No bowel wall thickening. Appendix normal. Peritoneal cavity: Trace ascites in pelvis. No focal collection or mesenteric inflammatory response. Bones: Unremarkable for age. Reproductive organs: Status post hysterectomy. Lymph nodes: Unremarkable. IMPRESSION:: Marked hepatic steatosis. No biliary dilatation. Trace right pleural effusion. Small amount of fluid in low pelvis. RADIATION DOSE DELIVERED: Total DLP DATA REPOSITORY: All CT scans at this facility are submitted to the National Radiology Data Registry (NRDR) Dose Index Registry (DIR) with the [employer] (ACR). RADIATION OPTIMIZATION: All CT scans at this facility use at least one of these dose optimization te chniques: automated exposure control; mA and/or kV adjustment per patient size (includes targeted exa ms where dose is matched to clinical indication); or iterative reconstruction.
[2023-10-09] MEDS: Barium Sulfate 2% W/V-Creamy Vanilla Smoothie 450 ML BTL PO ×2 (13:14→13:15)
[2023-10-09] MEDS: Omnipaque 350 MG/ML 100 ML BTL IJ (14:50)
[2023-10-09] MEDS: Normal Saline - Diluent 50 ML VIAL IJ (14:51)
== END ==
PROVIDERS: PCP Nurse Practitioner Family; Visit Provider Nurse Practitioner Family
DX: R10.11 Right upper quadrant pain (principal); R16.0 Hepatomegaly, not elsewhere classified; K76.0 Fatty (change of) liver, not elsewhere classified; J90 Pleural effusion, not elsewhere classified; Z90.710 Acquired absence of both cervix and uterus
CPT/HCPCS: 74177; J3490

== ENCOUNTER 2023-10-20 09:03 | Inpatient (IN) | payer MEDICARE, MEDICAID, SELFPAY ==
[2023-10-20] VITALS (45 sets, daily range): BP systolic 44–168; BP diastolic 19–137; PULSE 75–175; RESP 14–26; TEMP 36.5; O2SAT 100
[2023-10-20 09:35] LABS: Abs Immature Grans 0.66 10^3/uL (0.0-0.06); HCT 33.8 % (36.0-46.0); HGB 11.4 g/dL (11.2-15.7); MCH 34.5 pg (27.0-33.0); MCHC 33.7 % (32.0-36.0); MCV 102 fL (80-95); MPV 9.8 fL (8.0-11.0); RDW 12.1 % (11.7-14.6); RDW-SD 45.7 fL
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
--- NOTE | 2023-10-20 09:45 | RT.EKG_ITS ---
APPROVED REPORT Exam: Resting ECG Reason for Exam: hypotensive Patient Location: E HR:87 bpm ECG Measurements Heart Rate 87 AXIS MI 172 P 63 QRSd 93 QRS 39 QT 363 T 144 QTc 437 Conclusion Sinus rhythm...normal P axis, V-rate 60- 99 Low voltage, extremity and precordial leads...extremity<0.5mV, precordial<1.0mV Nonspecific T abnormalities, lateral leads...T <-0.10mV, I aVL V5 V6
[2023-10-20 09:50] LABS: Ammonia 71 umol/L (11-32)
[2023-10-20 10:00] LABS: Absolute Neutrophil Count 23.65 10^3/uL (1.2-6.7); Bands % 3; Platelet Count 145 10^3/uL (130-400)
[2023-10-20 10:01] LABS: ALT 34 U/L (14-59); AST 45 U/L (15-37); Absolute Lymphocyte Count 1.65 10^3/uL (1.2-3.4); Albumin 1.5 g/dL (3.4-5.0); Alkaline Phosphatase 591 U/L (46-116); Anion Gap 6.4 mmol/L (3-11); BUN 10 mg/dL (7-18); Bilirubin, Total 5.3 mg/dL (0.2-1.0); CO2 29.6 mmol/L (21.0-32.0); CREATININE 1.6 mg/dL (0.55-1.02); Chloride 90 mmol/L (98-107); ETHANOL BLOOD < 3.0 mg/dL (<10); Estimated GFR 36.24 (mL/min/1.73m2); Glucose 80 mg/dL (74-106); Magnesium 2.3 mg/dL (1.8-2.4); Potassium 4.6 mmol/L (3.5-5.1); Sodium 126 mmol/L (136-145); TSH (W/Ref FT4) 11.83 uIU/mL (0.36-3.74); Total Protein 5.5 g/dL (6.4-8.2); Troponin I < 50 ng/L (< or =60)
[2023-10-20 10:02] LABS: Basophilic Stippling Present; Diff Comment Manual Differential
[2023-10-20] MEDS: Normal Saline 1,000 ML 1000 ML IV (10:05)
[2023-10-20 10:20] LABS: FREE T4 0.41 ng/dL (0.76-1.46)
[2023-10-20 10:32] LABS: Creatine Kinase 61 U/L (26-192)
--- NOTE | 2023-10-20 10:58 | DI.CT_ITS ---
Exam(s) CT HEAD WO EXAM: CT HEAD WO CLINICAL HISTORY: altered mentation. TECHNIQUE: Imaging Protocol: Axial computed tomography images with coronal and sagittal reformatted images were created and reviewed COMPARISON: CT CT BRAIN NECK CTA from 08/04/2023 FINDINGS: There are no skull fractures. There is no fluid in the visualized paranasal sinuses. There is no evidence of intracranial hemorrhage, mass effect, or shift of midline structures. There are no extra-axial fluid collections. The ventricles are not enlarged or shifted and there is no blo od within the ventricular system nor within the basal cisterns. IMPRESSION: No acute intracranial findings on this noninfused CT scan of the brain. No significant change compared to prior CT scan of 08/04/2023. RADIATION DOSE DELIVERED: Total DLP DATA REPOSITORY: All CT scans at this facility are submitted to the National Radiology Data Registry (NRDR) Dose Index Registry (DIR) with the [employer] (ACR). RADIATION OPTIMIZATION: All CT scans at this facility use at least one of these dose optimization te chniques: automated exposure control; mA and/or kV adjustment per patient size (includes targeted exa ms where dose is matched to clinical indication); or iterative reconstruction.
[2023-10-20] MEDS: Lactated Ringers 1,000 ML 1000 ML IV (11:00)
[2023-10-20 11:22] LABS: Bilirubin Large (Negative); Blood Moderate (Negative); Clarity Sl Cloudy (Clear); Glucose 100 mg/dL (Negative); Ketones 15 mg/dL (Negative); Leukocyte Esterase Negative (Negative); Nitrite Negative (Negative); pH 5.5 (5-8)
[2023-10-20 11:38] LABS: *AMPHETAMINES SCREEN URINE Negative (Negative); *BARBITURATES SCREEN URINE Negative (Negative); *BENZODIAZEPINES SCREEN URINE Negative (Negative); Cannabinoids THC Negative (Negative); Cocaine Screen,Urine Negative (Negative); METHADONE URINE SCREEN Negative (Negative); OPIATES URINE SCREEN Negative (Negative)
[2023-10-20 11:39] LABS: Bacteria Moderate HPF (Negative); C & S Indicated? No; Casts 0-2 Hyaline LPF (Negative); Crystals Few Amorphous HPF (Negative); Epithelial Cells Rare HPF (Negative); Mucus Negative (Negative); WBC 0-2 HPF (0-5)
[2023-10-20 11:44] LABS: Tricyclic Antidepressants Negative (Negative)
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
[2023-10-20] MEDS: MORPHine 2 MG/ML SYR IVP (18:18)
[2023-10-20] MEDS: Scopolamine 1 MG/3 DAYS PATCH TD (18:20)
[2023-10-20] MEDS: hydrOXYzine PAMOATE 25 MG CAP PO (18:21)
[2023-10-20] MEDS: Normal Saline Flush 10 ML SYR IVP (21:16)
[2023-10-21] MEDS: MORPHine 4 MG/ML SYR IV/SC ×2 (01:59→15:02)
[2023-10-21] MEDS: Normal Saline Flush 10 ML SYR IVP ×2 (02:01→11:04)
--- NOTE | 2023-10-21 09:16 | W.PM.PROGNOT ---
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 Was initially agitated this AM as per nursing and requesting her IV to be removed and going home. Exam Narrative Exam Narrative: Eyes: Icteric sclera Neuro:Non-verbal, lethargic Chest:Chest is symmetrical and normal appearance Resp: clear anterior lungs bilaterally Cardio: regular rhythm and rate , S1, S2, no murmur, Integumentary: Multiple cutaneous bruises, and scratches from nails, jaundiced Extremities:Generalized weakness Psych: RASS 0 to -1 Objective Last Vital Signs Temp 36.5 C 10/20/23 16:13 Pulse 100 H 10/20/23 16:40 Resp 18 10/20/23 16:40 BP 60/31 L 10/20/23 16:13 Pulse Ox 100 10/20/23 16:13 Laboratory Results - last 24 hr 10/20/23 10/20/23 10/20/23 09:20 09:20 09:30 WBC 27.50 H* RBC 3.30 L Hgb 11.4 Hct 33.8 L MCV 102 H MCH 34.5 H MCHC 33.7 RDW 12.1 Plt Count 145 MPV 9.8 Immature Gran % See Differential Neutrophils % 83.0 Band Neutrophils % 3 Lymphocytes % 6.0 Monocytes % 8.0 Eosinophils % 0.0 Basophils % 0.0 Nucleated RBC % 0.0 Absolute Neutrophils 23.65 H Absolute Lymphocytes 1.65 Absolute Monocytes 2.20 H Absolute Eosinophils 0.00 Absolute Basophils 0.00 RBC Morphology See Below Basophilic Stippling Present VBG Lactate 4.0 H* Sodium 126 L Potassium 4.6 Chloride 90 L Carbon Dioxide 29.6 Anion Gap 6.4 BUN 10 Creatinine 1.6 H Est GFR (CKD-EPI 2020) 36.24 Glucose 80 Calcium 8.0 L Magnesium 2.3 Total Bilirubin 5.3 H AST 45 H ALT 34 Alkaline Phosphatase 591 H Ammonia 71 H Creatine Kinase 61 Troponin I < 50 Cancelled Total Protein 5.5 L Albumin 1.5 L TSH 11.83 H Free T4 0.41 L Urine Color Urine Clarity Urine pH Ur Specific [place] Urine Protein Urine Ketones Urine Blood Urine Nitrite Urine Bilirubin Urine Urobilinogen Ur Leukocyte Esterase Urine RBC Urine WBC Ur Epithelial Cells Urine Crystals Urine Bacteria Urine Casts Urine Mucus Ur Culture Indicated? Urine Glucose Urine Opiates Screen Urine Methadone Screen Ur Barbiturates Screen Ur Tricyclics Screen Ur Amphetamines Screen U Benzodiazepines Scrn Urine Cocaine Screen Ur THC Screen Ethyl Alcohol < 3.0 Patient ABO/Rh A Positive Antibody Screen NEGATIVE 10/20/23 10/20/23 11:00 12:22 WBC RBC Hgb Hct MCV MCH MCHC RDW Plt Count MPV Immature Gran % Neutrophils % Band Neutrophils % Lymphocytes % Monocytes % Eosinophils % Basophils % Nucleated RBC % Absolute Neutrophils Absolute Lymphocytes Absolute Monocytes Absolute Eosinophils Absolute Basophils RBC Morphology Basophilic Stippling VBG Lactate Sodium Potassium Chloride Carbon Dioxide Anion Gap BUN Creatinine Est GFR (CKD-EPI 2020) Glucose Calcium Magnesium Total Bilirubin AST ALT Alkaline Phosphatase Ammonia Creatine Kinase Troponin I Cancelled Total Protein Albumin TSH Free T4 Urine Color Brown Urine Clarity Sl Cloudy Urine pH 5.5 Ur Specific [place] 1.020 Urine Protein >=300 H Urine Ketones 15 H Urine Blood Moderate H Urine Nitrite Negative Urine Bilirubin Large H Urine Urobilinogen 4.0 H Ur Leukocyte Esterase Negative Urine RBC 10-20 H Urine WBC 0-2 Ur Epithelial Cells Rare Urine Crystals Few Amorphous Urine Bacteria Moderate Urine Casts 0-2 Hyaline Urine Mucus Negative Ur Culture Indicated? No Urine Glucose 100 H Urine Opiates Screen Negative Urine Methadone Screen Negative Ur Barbiturates Screen Negative Ur Tricyclics Screen Negative Ur Amphetamines Screen Negative U Benzodiazepines Scrn Negative Urine Cocaine Screen Negative Ur THC Screen Negative Ethyl Alcohol Patient ABO/Rh Antibody Screen PAWSS Have you Been Recently Intoxicated or Drunk Within the Last 30 days?: Yes Have you Ever Experienced Previous Episodes of Alcohol Withdrawal?: Unable to Obtain Have you ever Experienced Withdrawal Seizures?: Unable to Obtain Have you ever Experienced Delirium Tremens(DT)s?: Unable to Obtain Have you ever undergone Alcohol Rehabilitation Treatment (i.e, inpt ot outpatient treatment programs)?: Unable to Obtain Have you ever Experienced Blackouts?: Unable to Obtain Have you ever Combined Alcohol with other Downers within the last 90 days?: Unable to Obtain Have you ever Combined Alcohol with any other Substance of Abuse during the last 90 days?: Unable to Obtain Positive Blood Alcohol level on Presentation? [PCS.BAL]: Unable to Obtain Evidence of Increased Autonomic Activity (i.e. HR>120, tremor, sweating, agitation, nausea)?: Unable to Obtain Result: 1 Time Spent with Patient Time Spent with Patient: 25-34 minutes Time was spent: ordering medications,tests, procedures, referring, communicating with other health health care / medical job titles (discussion w/ Dr. Mckinney), counseling the patient and care coordination
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
--- NOTE | 2023-10-21 14:56 | CHAPLAIN ---
Zabrina is on comfort measures. I spoke with her this morning, but didn't get a response. She seems to be comfortable. I will continue to visit. Zabrina had visitors this afternoon.
--- NOTE | 2023-10-21 22:07 | EXPE_ITS ---
Date of service: 10/21/23 Time of Service: 22:08 Discharge Plan Disposition Patient Disposition: Discharge Details Reason For Visit: Septic Shock Admit Date/Time: 10/20/23 14:38 Admit Provider: Mckinley Frost Attending Provider: Mckinley Frost Primary Care Provider: Medina Ramirez Hospital Course Hospital Course: 62 yo F with history of end stage liver disease who presented with hypotension, encephalopathy, and elevated WBC count with suspected septic shock, likely from a GI source. In the emergency room, her daughters informed the team that the patient's wishes were to avoid aggressive treatment. Palliative care was consulted and she was made comfort measures only status on the day of admission. She comfortably the next evening. Discharge Data Cause of : Septic shock due to undetermined organism Discharge Date/Time-TO BE ENTERED AT DEPARTURE: 10/21/23 20:21 Discharge Sum: Prov Provider Primary care physician: Medina Ramirez Admitting clinician: Rena Brown Attending physician on admission: Mckinley Frost Consults: 10/20/23 16:19 Compounding Assistant Consult [CONS] Routine Consultation Status:: Follow-up needed Clarification:: Manage/follow per spec. Reason for consult:: SUPERINTENDENT RENTING MANAGING 10/20/23 17:07 Hospice Consult [CONS] Routine Consultation Status:: Follow-up needed Clarification:: Manage/follow per spec. Reason for consult:: 62 yo with complex PMHx admitted with septic shock and requesting SUPERINTENDENT RENTING MANAGING 10/21/23 11:23 Palliative Care Consult [CONS] Routine Consultation Status:: Follow-up needed Clarification:: Manage/follow per spec. Reason for consult:: Patient requesting SUPERINTENDENT RENTING MANAGING, discussed hospice at home in the ED Discharge Sum: Diag PCOD Cause of : Septic shock due to undetermined organism Contributing Factors (1) End stage liver disease: (2) Alcohol abuse: Discharge Sum: Summary Date and Time Admission Date: 12/18/22 Date of : 10/21/23 Time of : 20:21 Summary Details: 62 yo F with history of end stage liver disease who presented with hypotension, encephalopathy, and elevated WBC count with suspected septic shock, likely from a GI source. In the emergency room, her daughters informed the team that the patient's wishes were to avoid aggressive treatment. Palliative care was consul linh and she was made comfort measures only status on the day of admission. She comfortably the next evening. Additional Data Confirmation of as documented by pronouncing clinician: no pulse, no respirations, no heart sounds and pupils fixed and dilated Attending/PCP notified?: No Attending Physician: Satish Mcallsiter Was code activated?: No Autopsy requested?: No train examiner notified?: No Organ bank notified?: No Advance directives: Yes Hospice patient?: No
== END 2023-10-21 20:21 | disposition expired | DRG 871 ==
LOC: ER 15:59 → MS 16:12
PROVIDERS: Admitting Provider Internal Medicine; Emergency Provider Student in an Organized Health Care Education/Training Program; PCP Nurse Practitioner Family; Visit Provider Internal Medicine
DX: R65.21 Severe sepsis with septic shock (principal); E87.1 Hypo-osmolality and hyponatremia; A41.9 Sepsis, unspecified organism; G93.40 Encephalopathy, unspecified; K72.10 Chronic hepatic failure without coma; Z51.5 Encounter for palliative care; K70.30 Alcoholic cirrhosis of liver without ascites; F10.10 Alcohol abuse, uncomplicated; D69.6 Thrombocytopenia, unspecified; G62.9 Polyneuropathy, unspecified; E83.42 Hypomagnesemia; E87.6 Hypokalemia; D53.8 Other specified nutritional anemias; R53.1 Weakness; E53.8 Deficiency of other specified B group vitamins; F41.9 Anxiety disorder, unspecified; F31.9 Bipolar disorder, unspecified; F44.81 Dissociative identity disorder; M76.32 Iliotibial band syndrome, left leg; R32 Unspecified urinary incontinence; Z79.899 Other long term (current) drug therapy; L29.9 Pruritus, unspecified; E03.9 Hypothyroidism, unspecified; R29.810 Facial weakness
CPT/HCPCS: 00123; 36415; 51702; 80053; 80307; 82550; 86850; 86900; 86901; 93005; 96361; 99285; 70450; 80320; 81003; 81015; 82140; 83605; 83735; 84439; 84443; 84484; 85025; 93010; 99223; 99231; J2270